=== PATIENT | male | born 1960 | race African-American/Black ===

== ENCOUNTER 2017-05-05 16:34 | Emergency (ER) | payer OTHER ==
[~2017-05-05] VITALS: Ht 177.8 cm; Wt 95.3 kg
--- NOTE | 2017-05-05 17:14 | Diagnostic Imaging Report ---
Indications: Altered mental status Technique: Spiral acquisitions obtained through the brain. Angled axial and coronal 5 x 5 mm slices were reconstructed. Total dose length product 1369 mGycm. CTDI vol(s) 70 mGy. Dose reduction achieved using automated exposure control Comparison: None Findings: There is evidence of prior left frontotemporoparietal craniotomy. There is encephalomalacia of the inferior left frontal lobe and anterior left temporal lobe. No evidence of acute intracranial hemorrhage or edema. No mass effect nor midline shift. Normal for age ventricles and extra-axial CSF spaces. Only minimal ex vacuo dilatation related to the encephalomalacia. There is equivocal slight enhancement of the arteries and veins, may indicate recent contrast injection elsewhere. The included orbits and sinuses are unremarkable. There is evidence of old nasal fracture deformity. Impression: Negative for acute intracranial bleed or mass effect Evidence of left convexity craniotomy Left temporal and frontal encephalomalacia, presumed related above. Correlate with surgical history. Other findings as noted The CT scanner at [facility] is accredited by the [employer] and the scans are performed using protocols designed to limit radiation exposure to as low as reasonably achievable to attain images of sufficient resolution adequate for diagnostic evaluation.
[2017-05-05 17:30] VITALS: BP 138/80
[2017-05-05 17:47] LABS: BASOPHILS % (AUTO) 0.5 % (0.0-2.0); EOSINOPHILS % (AUTO) 0.4 % (0.0-3.0); LYMPHOCYTES % (AUTO) 15.8 % (20.0-45.0); MEAN CORPUSCULAR HEMOGLOBIN 32.7 PG (27.0-31.0); MEAN CORPUSCULAR HGB CONC 33.3 G/DL (32.0-36.0); MEAN CORPUSCULAR VOLUME 98 FL (80-99); MEAN PLATELET VOLUME 5.5 FL (6.5-10.1); MONOCYTES % (AUTO) 8.2 % (1.0-10.0); NEUTROPHILS % (AUTO) 75.1 % (45.0-75.0); PLATELET COUNT 466 K/UL (150-450); RED BLOOD COUNT 5.91 M/UL (4.70-6.10); RED CELL DISTRIBUTION WIDTH 12.6 % (11.6-14.8); WHITE BLOOD COUNT 10.4 K/UL (4.8-10.8)
[2017-05-05 17:51] LABS: ANION GAP 13 mmol/L (5-15); CALCIUM 9.4 MG/DL (8.5-10.1); CARBON DIOXIDE 25 MMOL/L (21-32); CHLORIDE 102 MMOL/L (98-107); CREATININE 1.1 MG/DL (0.55-1.30); GLOMERULAR FILTRATION RATE > 60 mL/min (>60); POTASSIUM 5.6 MMOL/L (3.5-5.1); SODIUM 140 MMOL/L (136-145)
[2017-05-05 18:01] LABS: ALANINE AMINOTRANSFERASE 24 U/L (12-78); ALCOHOL 283 mg/dL; ASPARTATE AMINO TRANSFERASE 40 U/L (15-37)
[2017-05-05 18:03] LABS: BILIRUBIN,DIRECT 0.1 MG/DL (0.0-0.3)
[2017-05-05 18:04] LABS: ACETAMINOPHEN < 2 MCG/ML (10-30)
[2017-05-05] MEDS ORDERED: Norco 5mg/325mg tab ORAL ONE (19:00)
[2017-05-05 19:29] VITALS: BP 138/80
--- NOTE | 2017-05-05 21:50 | Emergency Room Report ---
History of Present Illness General Chief Complaint: Alcohol Intoxication Source: EMS Present Illness HPI 56-year-old male presents ED for evaluation. Per EMS patient was found to on the street altered today. Questionable EtOH abuse. Patient has a wheelchair. Upon arrival patient unable to provide any additional history. No signs of distress. No other aggravating or leading factors. No other associated symptoms Allergies: Coded Allergies: VANCOMYCIN (Verified Allergy, Unknown, 08/01/15) UNABLE TO ASSESS (Unverified , 05/05/17) Patient History Past Medical History: seizures, psych hx, other - parkinson Past Surgical History: none Pertinent Family History: none Social History: Denies: smoking, alcohol use, drug use Immunizations: UTD Reviewed Nursing Documentation: PMH: Agreed, PSxH: Agreed Nursing Documentation-PMH Past Medical History: No History, Except For History Of Psychiatric Problem: Yes Hx Neurological Problems: Yes - PARKINSON Hx Seizures: Yes Review of Systems All Other Systems: limited Physical Exam Vital Signs Date Time Temp Pulse Resp B/P (MAP) Pulse Ox O2 Delivery O2 Flow Rate FiO2 05/05/17 16:23 97.9 104 18 138/80 99 Room Air Sp02 EP Interpretation: reviewed, normal General Appearance: lethargic Head: normocephalic Eyes: bilateral eye normal inspection, bilateral eye PERRL ENT: normal ENT inspection Neck: normal inspection Respiratory: chest non-tender, lungs clear, normal breath sounds, speaking full sentences Cardiovascular #1: regular rate, rhythm, no edema Gastrointestinal: normal bowel sounds, non tender, soft, non-distended, no guarding, no rebound Rectal: deferred Genitourinary: no CVA tenderness Musculoskeletal: normal inspection Neurologic: other - lethargic Psychiatric: other - lethargic Skin: normal inspection Lymphatic: normal inspection Medical Decision Making Diagnostic Impression: Primary Impression: Acute alcoholic intoxication Qualified Codes: F10.929 - Alcohol use, unspecified with intoxication, unspecified Additional Impression: Drug-seeking behavior ER Course Hospital Course 56-year-old M presents to ED with altered mental status. found on street Differential diagnoses include: Psychosis, EtOH, drug abuse Clinical course patient placed on stretcher. On shelter monitor. After initial history and physical ordered labs, IV fluids, CT brain. Labs reviewed-electrolytes okay, no leukocytosis, hemoglobin/hematocrit stable, ETOH elevated CT brain shows no acute pathology, encephalomalacia noted Patient is now awake alert oriented x3. Patient is requesting OxyContin. States that he takes it every 4 hours. I explained to patient that we do not provide chronic pain medication. I offered him norco, but he refused. Patient at this point became belligerent started screaming and yelling. Security is at bedside to escort patient from emergency room as he is stable for discharge i. I feel this is a highly complex case requiring extensive working including EKG/Rhythm strip, Xray/CT/US, Blood/urine lab work, repeat exams while in ED, and administration of strong opiates/narcotics for pain control, admission to hospital or close patient follow up. Diagnosis - alcohol intxoication, drug-seeking behavior Stable and discharged to home. Followup with PMD. Return to ED if symptoms recur or worsen Labs Test 05/05/17 17:10 White Blood Count 10.4 K/UL (4.8-10.8) Red Blood Count 5.91 M/UL (4.70-6.10) Hemoglobin 19.3 G/DL (14.2-18.0) Hematocrit 58.0 % (42.0-52.0) Mean Corpuscular Volume 98 FL (80-99) Mean Corpuscular Hemoglobin 32.7 PG (27.0-31.0) Mean Corpuscular Hemoglobin Concent 33.3 G/DL (32.0-36.0) Red Cell Distribution Width 12.6 % (11.6-14.8) Platelet Count 466 K/UL (150-450) Mean Platelet Volume 5.5 FL (6.5-10.1) Neutrophils (%) (Auto) 75.1 % (45.0-75.0) Lymphocytes (%) (Auto) 15.8 % (20.0-45.0) Monocytes (%) (Auto) 8.2 % (1.0-10.0) Eosinophils (%) (Auto) 0.4 % (0.0-3.0) Basophils (%) (Auto) 0.5 % (0.0-2.0) Sodium Level 140 MMOL/L (136-145) Potassium Level 5.6 MMOL/L (3.5-5.1) Chloride Level 102 MMOL/L (98-107) Carbon Dioxide Level 25 MMOL/L (21-32) Anion Gap 13 mmol/L (5-15) Blood Urea Nitrogen 27 mg/dL (7-18) Creatinine 1.1 MG/DL (0.55-1.30) Estimat Glomerular Filtration Rate > 60 mL/min (>60) Glucose Level 97 MG/DL (74-106) Calcium Level 9.4 MG/DL (8.5-10.1) Total Bilirubin 1.2 MG/DL (0.2-1.0) Direct Bilirubin 0.1 MG/DL (0.0-0.3) Aspartate Amino Transf (AST/SGOT) 40 U/L (15-37) Alanine Aminotransferase (ALT/SGPT) 24 U/L (12-78) Alkaline Phosphatase 122 U/L (46-116) Total Protein 8.0 G/DL (6.4-8.2) Albumin 3.9 G/DL (3.4-5.0) Globulin 4.1 g/dL Albumin/Globulin Ratio 1.0 (1.0-2.7) Salicylates Level 0.5 ug/mL (2.8-20) Acetaminophen Level < 2 MCG/ML (10-30) Serum Alcohol 283 mg/dL CT/MRI/US Diagnostic Results CT/MRI/US Diagnostic Results : Imaging Test Ordered: CT Head Impression encephalomalacia. no acute process Last Vital Signs Date Time Temp Pulse Resp B/P (MAP) Pulse Ox O2 Delivery O2 Flow Rate FiO2 05/05/17 19:29 97.9 81 18 138/80 99 Room Air Status: improved Disposition: HOME, SELF-CARE Condition: Stable Referrals: [facility],REFERRING (PCP) Patient Instructions: Alcohol Intoxication JOHN SCHROEDER M.D. May 05, 2017 21:50
[2017-05-14] MEDS ORDERED: SINEMET 25-1001 EAC1 ORAL (09:39)
[2017-05-14] MEDS ORDERED: TYLENOL325 MG ORAL (09:39)
[2017-05-14] MEDS ORDERED: IBUPROFEN600 MG ORAL (09:39)
== END 2017-05-05 19:29 | disposition home or self-care (01) ==
LOC: EDBD 16:34 → EMR 18:15
DX: F10.129 Alcohol abuse with intoxication, unspecified (principal); Y90.8 Blood alcohol level of 240 mg/100 ml or more; G93.89 Other specified disorders of brain; Z76.5 Malingerer [conscious simulation]; G20 Parkinson's disease; Z88.1 Allergy status to other antibiotic agents
CPT/HCPCS: 36415; 70450; 80053; 80329; 82248; 85025; 96360; 99284

== ENCOUNTER 2017-05-11 18:11 | Emergency (ER) | payer OTHER ==
[~2017-05-11] VITALS: Ht 177.8 cm; Wt 86.2 kg
[2017-05-11] MEDS: Sinemet 25/100 tab ORAL STA ×2 (18:16→18:34)
[2017-05-11] MEDS: Ketorolac 30mg Inj IV ONE ×2 (18:30→18:35)
--- NOTE | 2017-05-11 18:32 | Emergency Room Report ---
History of Present Illness General Chief Complaint: General Complaint Source: Patient (Isidro Kendall M.D.) Present Illness HPI Patient presents with total body pain. He states his pain in his neck and also in his lower back it radiates down into his legs. This is chronic pain. He takes gabapentin and oxycodone. He's been out of his medications because he went back to [place] to go to a of aunt. Pain 10/10, aching and burning - neck and legs (but also total body). Denies recent trauma. No blood thinners, numbness, incontinence. When he returned he was supposed to go to rehabilitation. He did not like it and so he signed out. Went to a secondary rehabilitation and didn't have his medications. He's been off his medications for many days. This led to his drinking alcohol and also taking drugs "top control the pain". He also alleges he has Parkinsons. States he take a "yellow" pill TID. Patient seen here 05/05 for similar presentation. (Also August 2015 for refill of chronic pain meds.) He had to be escorted out by security due to belligerent attitude. Denies SI or HI. Embarrassed about "doing drugs" and states he never had abused drugs in the past. He gets around in a wheelchair. Wheelchair not with patient here. (Isidro Kendall M.D.) Allergies: Coded Allergies: VANCOMYCIN (Verified Allergy, Unknown, 08/01/15) Patient History Past Medical History: see triage record Social History: Reports: smoking, alcohol use, drug use Social History Narrative assisted-living Reviewed Nursing Documentation: PMH: Agreed, PSxH: Agreed (Isidro Kendall M.D.) Nursing Documentation-PMH Hx Seizures: Yes (Isidro Kendall M.D.) Review of Systems All Other Systems: negative except mentioned in HPI (Isidro Kendall M.D.) Physical Exam Vital Signs Date Time Temp Pulse Resp B/P (MAP) Pulse Ox O2 Delivery O2 Flow Rate FiO2 05/11/17 18:13 99.0 100 16 102/72 98 Room Air Sp02 EP Interpretation: reviewed, normal General Appearance: well appearing, no apparent distress, GCS 15, other - alcohol on breath Head: normocephalic Eyes: bilateral eye PERRL, bilateral eye Scleral Injection ENT: moist mucus membranes Neck: full range of motion - but states he has pain in his neck, supple Respiratory: lungs clear, normal breath sounds Cardiovascular #1: regular rate, rhythm Cardiovascular #2: 2+ radial (R) Gastrointestinal: normal inspection, non tender, no mass, non-distended, decreased bowel sounds Musculoskeletal: back normal, normal range of motion, no calf tenderness, tender - thighs Neurologic: alert, oriented x3, motor strength/tone normal - UE, no cogwheeling or rigidity, sensory intact, nystagmus Psychiatric: other - tearfull, beligerant to staff, demanding morphine, deshevelled Reflexes: 1+ knee (R), 1+ knee (L) Skin: normal inspection, warm/dry (Isidro Kendall M.D.) Medical Decision Making Diagnostic Impression: Primary Impression: Acute alcoholic intoxication Qualified Codes: F10.929 - Alcohol use, unspecified with intoxication, unspecified Additional Impressions: Drug-seeking behavior Alleged Parkinson's Disease ER Course The patient presents with noncompliance, alcohol and drug abuse history of Parkinson's. Differential includes drug and alcohol abuse, depression, noncompliance, exacerbation of chronic pain, drug-seeking behavior, left right abnormality and occult infection amongst others. Evaluation will be with EKG, chest x-ray and labs. The patient be treated with Sinemet, Pepcid and Toradol. Patient refusing several of meds. Some labs not done and patient refuses repeat stick. Sleeping without distress or pain. Signed out to Dr. Haider for re-assessment when sober. Laboratory Tests Test 05/11/17 18:25 05/11/17 19:00 Urine Color Pale yellow Urine Appearance Clear Urine pH 6 (4.5-8.0) Urine Specific [address] 1.010 (1.005-1.035) Urine Protein Negative (NEGATIVE) Urine Glucose (UA) Negative (NEGATIVE) Urine Ketones Negative (NEGATIVE) Urine Occult Blood Negative (NEGATIVE) Urine Nitrite Negative (NEGATIVE) Urine Bilirubin Negative (NEGATIVE) Urine Urobilinogen Normal MG/DL (0.0-1.0) Urine Leukocyte Esterase 1+ (NEGATIVE) H Urine RBC 0 /HPF (0 - 0) Urine WBC 5-10 /HPF (0 - 0) H Urine Squamous Epithelial Cells Occasional /LPF Urine Bacteria Few /HPF (NONE) Urine Opiates Screen Negative (NEGATIVE) Urine Barbiturates Screen Negative (NEGATIVE) Phencyclidine (PCP) Screen Negative (NEGATIVE) Urine Amphetamines Screen Negative (NEGATIVE) Urine Benzodiazepines Screen Negative (NEGATIVE) Urine Cocaine Screen Negative (NEGATIVE) Urine Marijuana (THC) Screen Positive (NEGATIVE) H Sodium Level 142 MMOL/L (136-145) Potassium Level 3.9 MMOL/L (3.5-5.1) Chloride Level 106 MMOL/L (98-107) Carbon Dioxide Level 28 MMOL/L (21-32) Anion Gap 8 mmol/L (5-15) Blood Urea Nitrogen 11 mg/dL (7-18) Creatinine 1.0 MG/DL (0.55-1.30) Estimate Glomerular Filtration Rate > 60 mL/min (>60) Glucose Level 100 MG/DL (74-106) Calcium Level 8.9 MG/DL (8.5-10.1) Total Bilirubin 0.3 MG/DL (0.2-1.0) Aspartate Amino Transferase (AST) 18 U/L (15-37) Alanine Aminotransferase (ALT) 21 U/L (12-78) Alkaline Phosphatase 93 U/L (46-116) Total Creatine Kinase 71 U/L (26-308) Troponin I 0.000 ng/mL (0.000-0.056) Total Protein 6.9 G/DL (6.4-8.2) Albumin 3.2 G/DL (3.4-5.0) L Globulin 3.7 g/dL Albumin/Globulin Ratio 0.9 (1.0-2.7) L Salicylates Level 0.9 ug/mL (2.8-20) L Acetaminophen Level < 10 MCG/ML (10-30) L Serum Alcohol 180 mg/dL Patient refused redraw of labs. (Isidro Kendall M.D.) ER Course The patient was noted to have improvement in his mental status. The patient was discharged back to his living facility with prescription for his Parkinson' s medications. Patient reports having his wheelchair at home ([place]dom[place] Acuña) EKG Diagnostic Results Rate: normal Rhythm: NSR ST Segments: no acute changes (Isidro Kendall M.D.) Rhythm Strip Diag. Results EP Interpretation: yes Rhythm: NSR, no PVC's, no ectopy (Isidro Kendall M.D.) Last Vital Signs Date Time Temp Pulse Resp B/P (MAP) Pulse Ox O2 Delivery O2 Flow Rate FiO2 05/11/17 23:45 98.8 86 20 115/65 96 Nasal Cannula 2.0 VS shortly after sign out. Status: improved (Isidro Kendall M.D.) Status: improved (Baldomero Acuña) Disposition: ASSISTED LIVING Condition: Improved Scripts Acetaminophen (Tylenol) 325 Mg Tablet 650 MG ORAL Q6H Y for Prn Pain/Headache/Temp > 101, #20 TAB 0 Refills Prov: Isidro Kendall M.D. 05/12/17 Ibuprofen* (MOTRIN*) 600 Mg Tablet 600 MG ORAL Q6H Y for For Pain, #20 TAB Prov: Isidro Kendall M.D. 05/12/17 Carbidopa/Levodopa 25-100 Mg* (SINEMET 25-100 MG TABLET*) 1 Each Tablet 2 TAB ORAL THREE TIMES A DAY, #60 TAB Prov: Isidro Kendall M.D. 05/12/17 Isidro Kendall M.D. May 11, 2017 18:32 [place] May 12, 2017 09:59
[2017-05-11 18:43] LABS: APPEARANCE,URINE CLEAR; KETONES,URINE NEGATIVE (NEGATIVE); LEUKOCYTE ESTERASE ,URINE 1+ (NEGATIVE); NITRITE,URINE NEGATIVE (NEGATIVE); PH,URINE 6 (4.5-8.0); PROTEIN,URINE NEGATIVE (NEGATIVE); UROBILINOGEN,URINE NORMAL MG/DL (0.0-1.0)
[2017-05-11 18:56] LABS: BACTERIA,URINE FEW /HPF; RBC,URINE 0 /HPF (0 - 0); SQUAMOUS EPITHELIAL CELL,UR OCCASIONAL /LPF (NONE/OCC)
[2017-05-11 19:15] VITALS: BP 108/68
[2017-05-11 19:32] LABS: ANION GAP 8 mmol/L (5-15); CALCIUM 8.9 MG/DL (8.5-10.1); CARBON DIOXIDE 28 MMOL/L (21-32); CHLORIDE 106 MMOL/L (98-107); GLOMERULAR FILTRATION RATE > 60 mL/min (>60); POTASSIUM 3.9 MMOL/L (3.5-5.1); SODIUM 142 MMOL/L (136-145)
[2017-05-11 19:36] LABS: ALANINE AMINOTRANSFERASE 21 U/L (12-78); ALBUMIN/GLOBULIN RATIO 0.9 (1.0-2.7); ALCOHOL 180 mg/dL; ASPARTATE AMINO TRANSFERASE 18 U/L (15-37); TOTAL PROTEIN 6.9 G/DL (6.4-8.2)
[2017-05-11 19:38] LABS: ACETAMINOPHEN < 10 MCG/ML (10-30)
[2017-05-11 20:30] VITALS: BP 112/64
[2017-05-11 21:30] VITALS: BP 116/61
[2017-05-11 22:30] VITALS: BP 113/62
[2017-05-11 23:45] VITALS: BP 115/65
[2017-05-12] MEDS ORDERED: TYLENOL325 MG ORAL (00:09)
[2017-05-12] MEDS ORDERED: SINEMET 25-1001 EAC1 ORAL (00:09)
[2017-05-12] MEDS ORDERED: IBUPROFEN600 MG ORAL (00:09)
[2017-05-12] MEDS ORDERED: Sinemet 25/100 tab ORAL ONE (01:45)
[2017-05-12 03:30] VITALS: BP 108/60
[2017-05-12 05:15] VITALS: BP 120/69
[2017-05-12 08:09] VITALS: BP 124/85
[2017-05-12] MEDS ORDERED: Thiamine 100mg tab ORAL ONE (09:00)
[2017-05-12 09:17] VITALS: BP 121/91
[2017-05-12 13:23] VITALS: BP 121/81
--- NOTE | 2017-05-12 19:22 | Cardiology Report ---
APPROVED REPORT EKG Measurement Heart [id number] Normal sinus rhythm Left anterior fascicular block Abnormal ECG
[2017-05-14] MEDS ORDERED: TYLENOL325 MG ORAL (09:39)
[2017-05-14] MEDS ORDERED: SINEMET 25-1001 EAC1 ORAL (09:39)
[2017-05-14] MEDS ORDERED: IBUPROFEN600 MG ORAL (09:39)
== END 2017-05-12 13:23 | disposition home or self-care (01) ==
LOC: EDBD 18:11 → EMR 19:33
DX: F10.929 Alcohol use, unspecified with intoxication, unspecified (principal); Z76.5 Malingerer [conscious simulation]; F17.200 Nicotine dependence, unspecified, uncomplicated
CPT/HCPCS: 36415; 80053; 80307; 80329; 81003; 82550; 84484; 93005; 96361; 96374; 99284

== ENCOUNTER 2017-05-25 17:48 | Emergency (ER) | payer OTHER ==
[~2017-05-25] VITALS: Ht 165.1 cm; Wt 86.2 kg
[~2017-05-25 17:48] MED LIST: IBUPROFEN600 MG ORAL; SINEMET 25-1001 EAC1 ORAL; TYLENOL325 MG ORAL
--- NOTE | 2017-05-25 19:02 | Emergency Room Report ---
History of Present Illness General Chief Complaint: Seizure Source: Patient Present Illness HPI 57-year-old male, history of Parkinson's disease on medication, also history of seizures, alcohol abuse, presenting with seizure. Patient states that he lives alone, felt like he had a seizure. Called 911. States that he drinks every day his last drink was this afternoon. States that he is not on anything for the seizures. Allergies: Coded Allergies: VANCOMYCIN (Verified Allergy, Unknown, 08/01/15) Patient History Past Medical History: see triage record Past Surgical History: none Pertinent Family History: none Reviewed Nursing Documentation: PMH: Agreed, PSxH: Agreed Nursing Documentation-PMH Hx Neurological Problems: Yes - parkinson Hx Seizures: Yes Review of Systems All Other Systems: negative except mentioned in HPI Physical Exam Vital Signs Date Time Temp Pulse Resp B/P (MAP) Pulse Ox O2 Delivery O2 Flow Rate FiO2 05/25/17 17:39 97.3 85 15 120/73 95 Room Air Sp02 EP Interpretation: reviewed, normal General Appearance: other - angry male, awake and alert, ff commands Head: normocephalic, atraumatic Eyes: bilateral eye normal inspection, bilateral eye PERRL, bilateral eye EOMI ENT: normal ENT inspection, normal pharynx, normal voice, moist mucus membranes , other - no tongue fasciculations Neck: normal inspection, full range of motion, supple Respiratory: normal inspection, lungs clear, normal breath sounds, no respiratory distress, no retraction, no wheezing, speaking full sentences, chest symmetrical Cardiovascular #1: normal inspection, regular rate, rhythm, normal capillary refill Cardiovascular #2: 2+ radial (R), 2+ radial (L) Gastrointestinal: normal inspection, non tender, soft, non-distended, no guarding Genitourinary: no CVA tenderness Musculoskeletal: normal inspection, back normal, normal range of motion, non- tender Neurologic: normal inspection, alert, oriented x3, responsive, motor strength/ tone normal, sensory intact, speech normal, other - +resting hand tremor Psychiatric: normal inspection, judgement/insight normal, memory normal Skin: normal inspection, normal color, no rash, warm/dry, well hydrated, normal turgor Medical Decision Making Diagnostic Impression: Primary Impression: Seizure disorder ER Course 57-year-old male, Parkinson's, alcohol abuse, with p/w seizure DDX: Alcohol withdrawal versus Primary seizure, triggered by infection UTI/PNA vs. dehydration Electrolyte disturbance: hypoglycemia vs. hyponatremia vs. hypocalcemia vs. hypomagnesemia Cardiac: Arrythmia/acs Intracranial pathology: intracranial bleed, stroke Tox Plan: BGM EKG Labs Signed out patient to Dr Kendall 57 yo M with parkinsons possible seizure, aox4 in ED. +etoh pending sobriety EKG Diagnostic Results EP Interpretation: Yes Rate: normal Rhythm: NSR ST Segments: Difficulty to motion artifact however no acute ST-T changes seen ASA given to patient: No Rhythm Strip EP Interpretation: Yes Rate: 89 Rhythm: NSR, no PVCs, no ectopy Chest X-ray CXR: Ordered: Yes 1 view Indication: Seizure EP interpretation: Yes Interpretation: No consolidation, no effusion, no PTX, no acute cardiopulmonary disease Impression: No acute disease Electronically signed by Bryce Recinos MD Laboratory Tests Test 05/25/17 19:07 05/25/17 20:30 Urine Opiates Screen Negative (NEGATIVE) Urine Barbiturates Screen Negative (NEGATIVE) Phencyclidine (PCP) Screen Negative (NEGATIVE) Urine Amphetamines Screen Negative (NEGATIVE) Urine Benzodiazepines Screen Negative (NEGATIVE) Urine Cocaine Screen Negative (NEGATIVE) Urine Marijuana (THC) Screen Positive (NEGATIVE) H White Blood Count 6.4 K/UL (4.8-10.8) Red Blood Count 5.08 M/UL (4.70-6.10) Hemoglobin 16.6 G/DL (14.2-18.0) Hematocrit 52.3 % (42.0-52.0) H Mean Corpuscular Volume 103 FL (80-99) H Mean Corpuscular Hemoglobin 32.6 PG (27.0-31.0) H Mean Corpuscular Hemoglobin Concent 31.7 G/DL (32.0-36.0) L Red Cell Distribution Width 13.2 % (11.6-14.8) Platelet Count 380 K/UL (150-450) Mean Platelet Volume 5.2 FL (6.5-10.1) L Neutrophils (%) (Auto) 55.1 % (45.0-75.0) Lymphocytes (%) (Auto) 34.2 % (20.0-45.0) Monocytes (%) (Auto) 8.2 % (1.0-10.0) Eosinophils (%) (Auto) 1.2 % (0.0-3.0) Basophils (%) (Auto) 1.2 % (0.0-2.0) Sodium Level 145 MMOL/L (136-145) Potassium Level 4.0 MMOL/L (3.5-5.1) Chloride Level 106 MMOL/L (98-107) Carbon Dioxide Level 29 MMOL/L (21-32) Anion Gap 10 mmol/L (5-15) Blood Urea Nitrogen 12 mg/dL (7-18) Creatinine 0.8 MG/DL (0.55-1.30) Estimate Glomerular Filtration Rate > 60 mL/min (>60) Glucose Level 83 MG/DL (74-106) Calcium Level 8.6 MG/DL (8.5-10.1) Total Bilirubin 0.3 MG/DL (0.2-1.0) Aspartate Amino Transferase (AST) 21 U/L (15-37) Alanine Aminotransferase (ALT) 18 U/L (12-78) Alkaline Phosphatase 101 U/L (46-116) Troponin I 0.000 ng/mL (0.000-0.056) Total Protein 8.0 G/DL (6.4-8.2) Albumin 3.9 G/DL (3.4-5.0) Globulin 4.1 g/dL Albumin/Globulin Ratio 1.0 (1.0-2.7) Acetaminophen Level < 2 MCG/ML (10-30) L Serum Alcohol 215 mg/dL Last Vital Signs Date Time Temp Pulse Resp B/P (MAP) Pulse Ox O2 Delivery O2 Flow Rate FiO2 05/25/17 17:39 97.3 85 15 120/73 95 Room Air Bryce Recinos M.D. May 25, 2017 19:02
[2017-05-25 19:15] VITALS: BP 120/73
[2017-05-25] MEDS ORDERED: LORazepam Inj 2mg/ml 1ml IV ONE (19:15)
[2017-05-25 21:04] LABS: BASOPHILS % (AUTO) 1.2 % (0.0-2.0); EOSINOPHILS % (AUTO) 1.2 % (0.0-3.0); LYMPHOCYTES % (AUTO) 34.2 % (20.0-45.0); MEAN CORPUSCULAR HEMOGLOBIN 32.6 PG (27.0-31.0); MEAN CORPUSCULAR HGB CONC 31.7 G/DL (32.0-36.0); MEAN CORPUSCULAR VOLUME 103 FL (80-99); MEAN PLATELET VOLUME 5.2 FL (6.5-10.1); MONOCYTES % (AUTO) 8.2 % (1.0-10.0); NEUTROPHILS % (AUTO) 55.1 % (45.0-75.0); PLATELET COUNT 380 K/UL (150-450); RED BLOOD COUNT 5.08 M/UL (4.70-6.10); RED CELL DISTRIBUTION WIDTH 13.2 % (11.6-14.8); WHITE BLOOD COUNT 6.4 K/UL (4.8-10.8)
[2017-05-25 21:13] LABS: ANION GAP 10 mmol/L (5-15); CALCIUM 8.6 MG/DL (8.5-10.1); CARBON DIOXIDE 29 MMOL/L (21-32); CHLORIDE 106 MMOL/L (98-107); CREATININE 0.8 MG/DL (0.55-1.30); GLOMERULAR FILTRATION RATE > 60 mL/min (>60); SODIUM 145 MMOL/L (136-145)
[2017-05-25 21:15] VITALS: BP 129/78
[2017-05-25 21:18] LABS: ACETAMINOPHEN < 2 MCG/ML (10-30); ALANINE AMINOTRANSFERASE 18 U/L (12-78); ALCOHOL 215 mg/dL; ASPARTATE AMINO TRANSFERASE 21 U/L (15-37)
[2017-05-25 23:15] VITALS: BP 122/78
[2017-05-26 00:30] VITALS: BP 128/70
--- NOTE | 2017-05-26 09:53 | Diagnostic Imaging Report ---
Indication: Chest pain Technique: XRAY Chest 1v Comparison: None. Findings: The cardiomediastinal silhouette is normal. The lungs are clear. There is no evidence of pleural fluid. The bones are unremarkable. Impression: Normal chest.
--- NOTE | 2017-05-26 19:13 | Cardiology Report ---
APPROVED REPORT EKG Measurement Heart [id number] [place] [id number] Normal sinus rhythm Left axis deviation Septal infarct, age undetermined Abnormal ECG
== END 2017-05-26 00:30 | disposition home or self-care (01) ==
LOC: EDBD 17:48 → EMR 19:00
DX: G40.909 Epilepsy, unspecified, not intractable, without status epilepticus (principal); G20 Parkinson's disease; Z88.1 Allergy status to other antibiotic agents; F10.10 Alcohol abuse, uncomplicated
CPT/HCPCS: 36415; 71010; 80053; 80307; 80329; 84484; 85025; 93005; 96374; 99284

== ENCOUNTER 2017-10-09 12:09 | Inpatient (IN) | payer OTHER ==
[~2017-10-09] VITALS: Ht 172.7 cm; Wt 78.0 kg
[2017-10-09] MEDS ORDERED: OXYCODONE20 MG/1 M1 ORAL (12:57)
[2017-10-09] MEDS ORDERED: DILANTIN100 MG ORAL (12:57)
--- NOTE | 2017-10-09 13:01 | Diagnostic Imaging Report ---
Indication: Seizure Technique: Contiguous 5 mm thick transaxial imaging of the head obtained in a Siemens Sensation [address] scanner. Soft tissue and bone windows generated. Automatic Exposure Control was utilized. Total Dose length Product (DLP): 1386.[address] Dose Index Volume (CTDIvol): 70.38 mGy Comparison: 05/05/2017 Findings: There is a left temporal frontal encephalomalacia. Patient sat previous surgery with the large area of craniotomy noted on the left. Findings are unchanged from the last examination. There is no mass effect or edema or evidence of acute hemorrhage. Generalized atrophy of the brain noted. Paranasal sinuses are clear as visualized. IMPRESSION: No acute intracranial hemorrhage, mass effect or edema. No change from 05/05/2017. Left frontal temporal encephalomalacia associated with prior surgery The CT scanner at [facility] is accredited by the [employer] and the scans are performed using dose optimization techniques as appropriate to a performed exam including Automatic Exposure control.
[2017-10-09] MEDS ORDERED: levETIRAcetam 500mg/NS100ml 100 ML IVPB ONE (13:45)
[2017-10-09 13:55] LABS: BASOPHILS % (AUTO) 0.7 % (0.0-2.0); EOSINOPHILS % (AUTO) 0.7 % (0.0-3.0); HEMATOCRIT 47.3 % (42.0-52.0); HEMOGLOBIN 14.8 G/DL (14.2-18.0); LYMPHOCYTES % (AUTO) 19.1 % (20.0-45.0); MEAN CORPUSCULAR VOLUME 100 FL (80-99); MONOCYTES % (AUTO) 6.2 % (1.0-10.0); NEUTROPHILS % (AUTO) 73.3 % (45.0-75.0); PLATELET COUNT 466 K/UL (150-450); RED BLOOD COUNT 4.73 M/UL (4.70-6.10); RED CELL DISTRIBUTION WIDTH 12.4 % (11.6-14.8); WHITE BLOOD COUNT 8.6 K/UL (4.8-10.8)
[2017-10-09 14:15] LABS: ANION GAP 11 mmol/L (5-15); BLOOD UREA NITROGEN 10 mg/dL (7-18); CARBON DIOXIDE 28 MMOL/L (21-32); CHLORIDE 103 MMOL/L (98-107); CREATININE 0.8 MG/DL (0.55-1.30); POTASSIUM 4.7 MMOL/L (3.5-5.1); SODIUM 142 MMOL/L (136-145)
[2017-10-09 14:19] LABS: ALANINE AMINOTRANSFERASE 23 U/L (12-78); ALBUMIN 3.6 G/DL (3.4-5.0); ALBUMIN/GLOBULIN RATIO 0.9 (1.0-2.7); ALKALINE PHOSPHATASE 95 U/L (46-116); ASPARTATE AMINO TRANSFERASE 19 U/L (15-37); BILIRUBIN,TOTAL 0.4 MG/DL (0.2-1.0); CREATINE KINASE 52 U/L (26-308)
[2017-10-09 14:42] VITALS: BP 145/77
--- NOTE | 2017-10-09 15:32 | Emergency Room Report ---
History of Present Illness General Chief Complaint: Seizure Source: Patient Present Illness HPI This patient has a history of seizures status post craniectomy and tumor removal of meningioma. He presents with breakthrough seizures from a [facility]. He states that he normally uses Klonopin and is out of this. He also has a history of Parkinson's and substance abuse to include alcohol and cocaine. He denies recent illness. He has no other complaints. Allergies: Coded Allergies: VANCOMYCIN (Verified Allergy, Unknown, 08/01/15) Patient History Past Medical History: see triage record, seizures, other - Parkinsons. Past Surgical History: other - craniectomy, substance abuse Social History: Reports: drug use Reviewed Nursing Documentation: PMH: Agreed; PSxH: Agreed Nursing Documentation-PM Past Medical History: No History, Except For History Of Psychiatric Problem: Yes - depression Hx Neurological Problems: Yes - parkinson Hx Seizures: Yes Review of Systems All Other Systems: negative except mentioned in HPI Physical Exam Vital Signs Date Time Temp Pulse Resp B/P (MAP) Pulse Ox O2 Delivery O2 Flow Rate FiO2 10/09/17 12:01 84 16 149/84 97 Room Air 10/09/17 14:42 98.0 98.0 Sp02 EP Interpretation: reviewed, normal General Appearance: no apparent distress, alert, GCS 15, non-toxic Head: normocephalic, atraumatic Eyes: bilateral eye other - strabysmus ENT: hearing grossly normal, normal pharynx, no angioedema, normal voice Neck: full range of motion, supple/symm/no masses Respiratory: chest non-tender, lungs clear, normal breath sounds, no respiratory distress, no retraction, no accessory muscle use, speaking full sentences Cardiovascular #1: regular rate, rhythm, no edema Gastrointestinal: normal bowel sounds, non tender, soft, non-distended, no guarding, no rebound Rectal: deferred Musculoskeletal: back normal, normal range of motion, non-tender Neurologic: alert, oriented x3, responsive, motor strength/tone normal, sensory intact, speech normal, other - tremor intermittently Psychiatric: judgement/insight normal, mood/affect normal, no suicidal/ homicidal ideation Skin: normal color, no rash, warm/dry, well hydrated Medical Decision Making Diagnostic Impression: Primary Impression: Seizure disorder ER Course This patient presents with a history of seizure disorder and breakthrough seizures. It appears he is noncompliant with his seizure medications. The patient's Dilantin level is un-detectable. Patient is admitted for further monitoring and seizure control. Possibly this patient needs a transition to a seizure medication that does not require monitoring or therapeutic levels, given , this patient's lifestyle that includes alcohol abuse and poor compliance with medical regimen. Laboratory Tests Test 10/09/17 13:21 10/09/17 14:00 White Blood Count 8.6 K/UL (4.8-10.8) Red Blood Count 4.73 M/UL (4.70-6.10) Hemoglobin 14.8 G/DL (14.2-18.0) Hematocrit 47.3 % (42.0-52.0) Mean Corpuscular Volume 100 FL (80-99) H Mean Corpuscular Hemoglobin 31.3 PG (27.0-31.0) H Mean Corpuscular Hemoglobin Concent 31.3 G/DL (32.0-36.0) L Red Cell Distribution Width 12.4 % (11.6-14.8) Platelet Count 466 K/UL (150-450) H Mean Platelet Volume 4.9 FL (6.5-10.1) L Neutrophils (%) (Auto) 73.3 % (45.0-75.0) Lymphocytes (%) (Auto) 19.1 % (20.0-45.0) L Monocytes (%) (Auto) 6.2 % (1.0-10.0) Eosinophils (%) (Auto) 0.7 % (0.0-3.0) Basophils (%) (Auto) 0.7 % (0.0-2.0) Sodium Level 142 MMOL/L (136-145) Potassium Level 4.7 MMOL/L (3.5-5.1) Chloride Level 103 MMOL/L (98-107) Carbon Dioxide Level 28 MMOL/L (21-32) Anion Gap 11 mmol/L (5-15) Blood Urea Nitrogen 10 mg/dL (7-18) Creatinine 0.8 MG/DL (0.55-1.30) Estimate Glomerular Filtration Rate > 60 mL/min (>60) Glucose Level 79 MG/DL (74-106) Calcium Level 9.0 MG/DL (8.5-10.1) Total Bilirubin 0.4 MG/DL (0.2-1.0) Aspartate Amino Transferase (AST) 19 U/L (15-37) Alanine Aminotransferase (ALT) 23 U/L (12-78) Alkaline Phosphatase 95 U/L (46-116) Total Creatine Kinase 52 U/L (26-308) Total Protein 7.6 G/DL (6.4-8.2) Albumin 3.6 G/DL (3.4-5.0) Globulin 4.0 g/dL Albumin/Globulin Ratio 0.9 (1.0-2.7) L Phenytoin (Dilantin) Level 1.1 ug/mL (10-20) L Urine Opiates Screen Negative (NEGATIVE) Urine Barbiturates Screen Negative (NEGATIVE) Phencyclidine (PCP) Screen Negative (NEGATIVE) Urine Amphetamines Screen Negative (NEGATIVE) Urine Benzodiazepines Screen Negative (NEGATIVE) Urine Cocaine Screen Negative (NEGATIVE) Urine Marijuana (THC) Screen Positive (NEGATIVE) H EKG Diagnostic Results Rate: normal Rhythm: NSR ST Segments: no acute changes Rhythm Strip Diag. Results EP Interpretation: yes Rate: 90's Rhythm: NSR, no PVC's, no ectopy CT/MRI/US Diagnostic Results CT/MRI/US Diagnostic Results : Imaging Test Ordered: CT head Impression No acute findings see official report. Last Vital Signs Date Time Temp Pulse Resp B/P (MAP) Pulse Ox O2 Delivery O2 Flow Rate FiO2 10/09/17 14:42 98 19 Room Air 10/09/17 14:42 98.0 145/77 97 98.0 Disposition: ADMITTED INPATIENT Condition: Serious Referrals: NON PHYSICIAN (PCP) CRYSTAL MITTAL D.O. October 09, 2017 15:32
[2017-10-09 15:39] VITALS: BP 138/94
[2017-10-09] MEDS ORDERED: LORazepam Inj 2mg/ml 1ml IV ONE (16:15)
[2017-10-09 17:57] VITALS: BP 127/90
[2017-10-09] MEDS ORDERED: Mylanta II UD 30ml ORAL PRN (19:28)
[2017-10-09 20:00] VITALS: BP 127/80
[2017-10-09] MEDS: Zolpidem 5mg tab ORAL PRN (20:21)
[2017-10-09] MEDS ORDERED: Phenytoin 100mg cap ORAL SCH (21:00)
[2017-10-09] MEDS ORDERED: Levodopa/Carbidopa 25/100 tab ORAL SCH (21:00)
[2017-10-09] MEDS: Heparin 5000 units/ml inj SUBQ SCH (21:47)
[2017-10-10] VITALS: BP 115/75
[2017-10-10] MEDS: Zolpidem 5mg tab ORAL PRN ×3 (01:29→23:52)
[2017-10-10] MEDS: LORazepam Inj 2mg/ml 1ml IV PRN ×4 (03:17→20:37)
[2017-10-10 04:00] VITALS: BP 119/62
[2017-10-10 08:00] VITALS: BP 129/80
[2017-10-10] MEDS: Levodopa/Carbidopa 25/100 tab ORAL SCH ×2 (09:00→14:06)
[2017-10-10] MEDS ORDERED: Phenytoin 100mg cap ORAL SCH (09:00)
[2017-10-10] MEDS: Heparin 5000 units/ml inj SUBQ SCH ×2 (09:01→20:39)
--- NOTE | 2017-10-10 11:14 | Consultation ---
History of Present Illness General Date patient seen: October 10, 2017 Chief Complaint: Seizure Present Illness HPI 57 year old male with history of seizures status post craniectomy and meningioma, presents to ER by paramedics with breakthrough seizures from a [id number]. He states that he normally uses Klonopin and is out of this. He also has a history of Parkinson's and substance abuse to include alcohol and cocaine. He denies recent illness. He has no other complaints. Pt is admitted for further treatment. Allergies: Coded Allergies: VANCOMYCIN (Verified Allergy, Unknown, 08/01/15) Medication History Scheduled Carbidopa/Levodopa 25-100 Mg* (Sinemet 25-100 Mg Tablet*), 2 TAB ORAL THREE TIMES A DAY Phenytoin Sodium Extended* (Dilantin*), Unknown Dose ORAL TWICE A DAY, (Reported ) Scheduled PRN Acetaminophen (Tylenol), 650 MG ORAL Q6H PRN for Prn Pain/Headache/Temp > 101 Ibuprofen* (Motrin*), 600 MG ORAL Q6H PRN for For Pain Miscellaneous Medications Oxycodone Hcl (Oxycodone Hcl), Unknown Dose ORAL, (Reported) Patient History Healthcare decision maker Resuscitation status Full Code Advanced Directive on File Past Medical/Surgical History Past Medical/Surgical History: (1) History of craniotomy (2) Seizure disorder (3) Alcohol abuse Review of Systems All Other Systems: negative except mentioned in HPI Physical Exam General Appearance: WD/WN, no apparent distress Lines, tubes and drains: peripheral HEENT: normocephalic, atraumatic Neck: non-tender, normal alignment Respiratory/Chest: chest wall non-tender, lungs clear Cardiovascular/Chest: normal peripheral pulses, normal rate Abdomen: normal bowel sounds, non tender Genitourinary/Rectal: normal genital exam Extremities: normal range of motion Skin Exam: normal pigmentation 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 Last 24 Hour Vital Signs Date Time Temp Pulse Resp B/P (MAP) Pulse Ox O2 Delivery O2 Flow Rate FiO2 10/10/17 08:00 96.3 76 20 129/80 96 Room Air 96.3 10/10/17 08:00 72 10/10/17 04:00 96.3 84 20 119/62 96 Room Air 96.3 10/10/17 04:00 80 10/10/17 00:00 87 10/10/17 00:00 97.9 90 22 115/75 98 Room Air 97.9 10/09/17 20:00 98.2 95 16 127/80 97 Room Air 98.2 10/09/17 20:00 95 10/09/17 18:55 98.0 104 23 127/90 98 Room Air 98.0 10/09/17 17:57 104 23 127/90 98 Room Air 10/09/17 15:39 98.0 98 16 138/94 97 Room Air 98.0 10/09/17 14:42 98 19 Room Air 10/09/17 14:42 98.0 98 19 145/77 97 Room Air 98.0 10/09/17 12:01 84 16 149/84 97 Room Air Intake and Output 10/09/17 10/10/17 19:00 07:00 Output Total 400 ml Balance -400 ml Output Urine Total 400 ml # Voids 1 Laboratory Tests Test 10/09/17 13:21 10/09/17 14:00 White Blood Count 8.6 K/UL (4.8-10.8) Red Blood Count 4.73 M/UL (4.70-6.10) Hemoglobin 14.8 G/DL (14.2-18.0) Hematocrit 47.3 % (42.0-52.0) Mean Corpuscular Volume 100 FL (80-99) H Mean Corpuscular Hemoglobin 31.3 PG (27.0-31.0) H Mean Corpuscular Hemoglobin Concent 31.3 G/DL (32.0-36.0) L Red Cell Distribution Width 12.4 % (11.6-14.8) Platelet Count 466 K/UL (150-450) H Mean Platelet Volume 4.9 FL (6.5-10.1) L Neutrophils (%) (Auto) 73.3 % (45.0-75.0) Lymphocytes (%) (Auto) 19.1 % (20.0-45.0) L Monocytes (%) (Auto) 6.2 % (1.0-10.0) Eosinophils (%) (Auto) 0.7 % (0.0-3.0) Basophils (%) (Auto) 0.7 % (0.0-2.0) Sodium Level 142 MMOL/L (136-145) Potassium Level 4.7 MMOL/L (3.5-5.1) Chloride Level 103 MMOL/L (98-107) Carbon Dioxide Level 28 MMOL/L (21-32) Anion Gap 11 mmol/L (5-15) Blood Urea Nitrogen 10 mg/dL (7-18) Creatinine 0.8 MG/DL (0.55-1.30) Estimat Glomerular Filtration Rate > 60 mL/min (>60) Glucose Level 79 MG/DL (74-106) Calcium Level 9.0 MG/DL (8.5-10.1) Total Bilirubin 0.4 MG/DL (0.2-1.0) Aspartate Amino Transf (AST/SGOT) 19 U/L (15-37) Alanine Aminotransferase (ALT/SGPT) 23 U/L (12-78) Alkaline Phosphatase 95 U/L (46-116) Total Creatine Kinase 52 U/L (26-308) Total Protein 7.6 G/DL (6.4-8.2) Albumin 3.6 G/DL (3.4-5.0) Globulin 4.0 g/dL Albumin/Globulin Ratio 0.9 (1.0-2.7) L Phenytoin (Dilantin) Level 1.1 ug/mL (10-20) L Urine Opiates Screen Negative (NEGATIVE) Urine Barbiturates Screen Negative (NEGATIVE) Phencyclidine (PCP) Screen Negative (NEGATIVE) Urine Amphetamines Screen Negative (NEGATIVE) Urine Benzodiazepines Screen Negative (NEGATIVE) Urine Cocaine Screen Negative (NEGATIVE) Urine Marijuana (THC) Screen Positive (NEGATIVE) H Height (Feet): 5 Height (Inches): 8.00 Weight (Pounds): 172 Medications Current Medications Medications (Trade) Dose Ordered Sig/Job Route PRN Reason Start Time Stop Time Status Last Admin Dose Admin Acetaminophen (Tylenol) 650 mg Q4H PRN ORAL fever (TEMP>100.3) 10/09/17 19:29 11/08/17 19:28 10/10/17 01:37 Al Hydroxide/Mg Hydroxide (Mylanta II) 30 ml Q6H PRN ORAL dyspepsia 10/09/17 19:28 11/08/17 19:27 Carbidopa/Levodopa (Sinemet 25/100) 2 tab THREE TIMES A DAY ORAL 10/10/17 09:00 11/09/17 08:59 10/10/17 09:00 Dextrose (Dextrose 50%) 25 ml STAT PRN IV Hypoglycemia BS 60-69mg/dl 10/09/17 19:31 11/08/17 19:30 Dextrose (Dextrose 50%) 50 ml STAT PRN IV Hypoglycemia BS less than 60mg 10/09/17 19:30 11/08/17 19:29 Heparin Sodium (Porcine) (Heparin 5000 units/ml) 5,000 units EVERY 12 HOURS SUBQ 10/09/17 21:00 11/08/17 20:59 10/10/17 09:01 Lorazepam (Ativan 2mg/ml 1ml) 2 mg EVERY HOUR PRN IV seizures 10/09/17 19:29 10/16/17 19:28 10/10/17 03:17 Ondansetron HCl (Zofran) 4 mg Q6H PRN IVP Nausea & Vomiting 10/09/17 19:29 11/08/17 19:28 Phenytoin (Dilantin) 100 mg TWICE A DAY ORAL 10/10/17 09:00 11/09/17 08:59 10/10/17 09:00 Polyethylene Glycol (Miralax) 17 gm HSPRN PRN ORAL Constipation 10/09/17 21:00 11/08/17 20:59 Zolpidem Tartrate (Ambien) 5 mg HSPRN PRN ORAL Insomnia 10/09/17 21:00 10/16/17 20:59 10/10/17 01:29 Assessment/Plan Problem List: (1) Uncontrolled seizures ICD Codes: R56.9 - Unspecified convulsions SNOMED: 96605522 (2) Non-compliance ICD Codes: Z91.19 - Patient's noncompliance with other medical treatment and regimen SNOMED: 8872373 (3) History of craniotomy ICD Codes: Z98.890 - Other specified postprocedural states SNOMED: 43226301, 762160999 (4) Seizure disorder ICD Codes: G40.909 - Epilepsy, unspecified, not intractable, without status epilepticus SNOMED: 164496133 Assessment/Plan resume Klonipin Neuro evaluation seizure precaution dvt prophylaxis. Cash Lorenzo MD October 10, 2017 11:14
[2017-10-10 12:00] VITALS: BP 134/87
--- NOTE | 2017-10-10 15:30 | Consultation ---
Consult Note Consult Note NEUROLOGY CONSULTATION: Full note dictated #[id number] 57 y/o, RH, CM with PH of PD, a meningioma on the left side s/p surgery followed by a seizure disorder during which he passes out, anxiety, a chronic pain syndrome, alcohol abuse, cocaine abuse, and frequent falls due to which he uses a motorized wheelchair. He was hospitalized on 10/09/17 for frequent seizures. He himself was unable to give me any details. ON EXAM: Problems with memory, HCF, mild anomia. Mild right VII central. Mild right FE and IP weakness. Slightly brisker reflexes on right Parkinsonian syndrome with G 2/4 tremor, G 1/4 rigidity, bradykinesia, hypomimia. Refused to try to walk. IMPRESSION: 1. 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 2. PD. REC: 1. Sinemet as per his home regimen - 25/100 - 2 tablets at 6AM, 12Noon, 6 PM. 2. Keppra 750 mg q 12 Hours (6AM & 6PM) Melissa Root M.D., M.S.P.H. MELISSA ROOT October 10, 2017 15:30
[2017-10-10 16:00] VITALS: BP 126/84
[2017-10-10 17:49] LABS: BASOPHILS % (AUTO) 0.6 % (0.0-2.0); EOSINOPHILS % (AUTO) 2.4 % (0.0-3.0); HEMATOCRIT 42.1 % (42.0-52.0); HEMOGLOBIN 13.9 G/DL (14.2-18.0); LYMPHOCYTES % (AUTO) 27.8 % (20.0-45.0); MEAN CORPUSCULAR VOLUME 97 FL (80-99); MONOCYTES % (AUTO) 2.2 % (1.0-10.0); NEUTROPHILS % (AUTO) 66.8 % (45.0-75.0); PLATELET COUNT 442 K/UL (150-450); RED BLOOD COUNT 4.33 M/UL (4.70-6.10); RED CELL DISTRIBUTION WIDTH 12.5 % (11.6-14.8); WHITE BLOOD COUNT 8.1 K/UL (4.8-10.8)
[2017-10-10] MEDS ORDERED: Levodopa/Carbidopa 25/100 tab ORAL SCH (18:00)
[2017-10-10 18:58] LABS: ALANINE AMINOTRANSFERASE 10 U/L (12-78); ALBUMIN 3.2 G/DL (3.4-5.0); ALBUMIN/GLOBULIN RATIO 0.9 (1.0-2.7); ALKALINE PHOSPHATASE 86 U/L (46-116); ANION GAP 7 mmol/L (5-15); ASPARTATE AMINO TRANSFERASE 13 U/L (15-37); BILIRUBIN,TOTAL 0.3 MG/DL (0.2-1.0); BLOOD UREA NITROGEN 17 mg/dL (7-18); CALCIUM 8.9 MG/DL (8.5-10.1); CARBON DIOXIDE 29 MMOL/L (21-32); CHLORIDE 105 MMOL/L (98-107); CREATININE 1.1 MG/DL (0.55-1.30); POTASSIUM 4.3 MMOL/L (3.5-5.1); SODIUM 141 MMOL/L (136-145)
[2017-10-10 20:00] VITALS: BP 102/77
--- NOTE | 2017-10-10 23:16 | History and Physical Report ---
DATE OF ADMISSION: 10/09/2017 CONSULTANTS: 1. Julio Root M.D. 2. Josselyn Mckinley M.D. 3. Cash Lorenzo M.D. CHIEF COMPLAINT: Seizure, tremor, Parkinson. BRIEF HISTORY: A 57-year-old male, who lives at home with history of Parkinson disease, sustained two seizures, was altered. The patient was brought to [facility], diagnosed with recurrent seizure, and admitted to telemetry for further care. Currently, slightly anxious in bed, complaining generalized joint pain. No complaint. REVIEW OF SYSTEMS: No chest pain. No shortness of breath. No nausea, vomiting, or diarrhea. PAST MEDICAL HISTORY: Seizure, Parkinson, and joint pain. PAST SURGICAL HISTORY: Craniotomy. MEDICATIONS: Percocet, Sinemet, Dilantin, Ambien, MiraLax, heparin, and carbidopa. ALLERGIES: Vancomycin. SOCIAL HISTORY: Positive smoke. Positive alcohol. No intravenous drug abuse. FAMILY HISTORY: Noncontributory. PHYSICAL EXAMINATION: GENERAL: Slightly anxious in bed, oriented x3, in no acute distress. VITAL SIGNS: Temperature is 96 degrees, pulse 72, respirations 20, and blood pressure 129/80. CARDIOVASCULAR: No murmurs. LUNGS: Distant and clear. ABDOMEN: Bowel sounds positive. Nontender and nondistended. EXTREMITIES: Show no cyanosis, clubbing, or edema. NEUROLOGIC: Moves all extremities, but there is noted left hand and right foot tremor. LABORATORY AND DIAGNOSTIC DATA: Labs at this time show platelets 466,000, otherwise, CBC is normal. BMP is normal. Urine toxicology positive for marijuana. ASSESSMENT: 1. Seizure. 2. Tremor. 3. Parkinson. 4. Joint pain. PLAN: 1. Seizure. 2. Pain control. 3. Resume home medications. 4. Dietary followup. 5. OT, PT, and dietary evaluation. 6. CBC and BMP in the morning. 7. Dr. Root, Dr. Mckinley, and Dr. Lorenzo to consult. Krishan Fraire D.O. DR: Mariaelena JOB#: [id number] CC:
--- NOTE | 2017-10-10 23:46 | Consultation ---
DATE OF CONSULTATION: 10/10/2017 NEUROLOGY CONSULTATION CONSULTING PHYSICIAN: Julio oRot M.D. REQUESTING PHYSICIAN: Krishan Fraire D.O. HISTORY: Mr. Andrew Mccallum is a 57-year-old, right-handed, gentleman, who does have a past history of Parkinson's disease for numerous years, a meningioma on the left side for which he had surgery numerous years ago followed by a seizure disorder, chronic pain syndrome, alcohol abuse, cocaine abuse, and frequent falls due to which he uses a motorized wheelchair. He tells me that he started to have seizures a few months following his meningioma surgery. When he has a seizure, he apparently passes out. There are no warnings prior to his seizures and he is uncertain as to what exactly happens when he has one of his seizures. He cannot describe what other people have seen. He then becomes a little confused and disoriented for some time following the event and then is back to his normal self. He is unable to tell me how frequently he has seizures. He is also unable to tell me if there are any definite aggravating factors, but he states that when he is under lot of stress, the seizures become more frequent. In the past, he has taken Dilantin and Keppra in unknown doses for his seizures. However, he feels that the only medicine that seems to help the most with the seizures is Klonopin. He was hospitalized on 10/09/2017 for frequent seizures. The exact description is again unavailable to us. PAST MEDICAL HISTORY: Significant for Parkinson disease, meningioma on the left side treated surgically followed by a seizure disorder, alcohol abuse, cocaine abuse, and frequent falls. FAMILY HISTORY: Nothing significant as per the patient. PERSONAL HISTORY: Home: He lives in his own apartment. 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 He has been disabled since he had his meningioma surgery. Habits: He denies use of illicit drugs, but as per the admission note, cocaine abuse has been mentioned. He states he smokes 4 to 5 cigarettes per day and used to smoke larger quantities in the past. He drinks a fifth of alcohol every week. PRESENT MEDICATIONS: Percocet, Sinemet 25/100 - 2 tablets taken tid, not the usual times that he takes at home, Dilantin 100 mg twice a day, Ambien, MiraLAX, heparin for DVT prophylaxis, lorazepam intravenously p.r.n., Zofran p.r.n., Tylenol p.r.n., and Mylanta p.r.n. PHYSICAL EXAMINATION: GENERAL: He is a well-developed, well-nourished, pleasant, but anxious gentleman, lying in bed, in no acute distress. VITAL SIGNS: Pulse 77 per minute, blood pressure 134/87 mmHg, respirations 20 per minute, and temperature 96.3 degrees Fahrenheit. HEAD: Normocephalic with left frontotemporal craniotomy defect. EENT: Examination benign. NECK: No neck rigidity was observed. NEUROLOGIC EXAMINATION: MENTAL STATUS EXAMINATION: He was awake and alert. He was oriented to person, place, and time except for the exact date. He was able to recall 3/3 words immediately, but could only remember 2/3 words in 1 minute and 3 minutes even on the second trial. He was able to remember presidents Trump through Huff Chinedu, spontaneously, but needed hints to remember through Huff senior. His mathematical skills were minimally impaired. His visuospatial function was relatively good. SPEECH: He had no dysarthria. LANGUAGE: He had a mild anomia for low-frequency words. CRANIAL NERVE EXAMINATION: II: The visual kaplan were intact on confrontation testing. III, IV & : The external ocular movements were full and the pupils 3 mm in diameter, equal, round, regular, and reactive to light. V: He had normal facial sensations, and the temporales, masseters, and pterygoids functioned normally. VII: He had a mild right VII central facial paresis. VIII: He was able to hear well bilaterally and had no nystagmus. IX: The palate moved symmetrically on phonation. X: He had no hoarseness of voice. XI: The sternocleidomastoids and trapezii functioned normally. XII: The tongue was in the midline without any fasciculations or atrophy. MOTOR SYSTEM: The tone was normal in all four extremities. Examination of muscle mass revealed no focal wasting. Examination of power revealed G 5/5 power except for G 4+/5 power in the right iliopsoas and G 5-/5 power in the right finger extensors. SENSORY EXAMINATION: He had intact sensations to pinprick, light touch, and graphesthesia. COORDINATION: He performed well on [id number]-vi-swzb and jfal-bs-wcia testing. REFLEXES: 2+ on the right and 1++ on the left in the biceps, triceps, brachioradialis, and knees, 0 at both ankles. The plantar responses were flexor bilaterally. STANCE & GAIT: Could not be tested because he refused to stand and walk. ABNORMAL MOVEMENTS: Tremor (4-5 Hz): G 2/4 in the upper and lower extremities. Rigidity: G 1/4 Bradykinesia: G 1/4 Hypomimia: G 1/4 Hypophonia: G 0/4. DIAGNOSTIC IMPRESSION: 1. Mr. Andrew Mccallum is a 57-year-old, right-handed, gentleman, who does have a past history of Parkinson's disease and a left-sided meningioma status post surgery following which he has had a seizure disorder and anxiety syndrome. When he has his seizures, he states that he passes out without any warning and following that, there is a period of confusion. He is uncertain as to what exactly happens after he has passed out and he is also unable to tell us what other people have observed. 2. On neurological examination, at this time, he does demonstrate significant problems with orientation, recent and remote memory, higher cognitive function, and a mild anomia. He does have a mild right VII central facial paresis, finger extensor weakness, and iliopsoas weakness. The deep tendon reflexes are brisker on the right side compared to the left. He also has a parkinsonian syndrome characterized by tremor, rigidity, bradykinesia, and hypomimia. 3. The CT scan of the brain without contrast performed on 10/09/2017 reveals a large area of encephalomalacia in the left frontotemporal region and a craniotomy defect in the left frontotemporal region. 4. Laboratory data obtained thus far have revealed that his CBC reveals macrocytic indices. His chemistry panel is relatively benign and his toxicology screen is positive for marijuana. 5. 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 He also has findings compatible with a parkinsonian syndrome. RECOMMENDATIONS: 1. Agree with management thus far. 2. The patient will be restarted on Sinemet as per his home regimen. He will be given Sinemet 25/100 -2 tablets to be taken at 6 a.m., 12 noon, and 6 p.m. 3. He will be started on Keppra 750 mg at 6 a.m. and 6 p.m. for seizure prophylaxis. 4. The patient was instructed on the basics of seizure hygiene: He was told to sleep well, that is sleep for at least 7 hours in the 24-hour period. Eat well, that is have a breakfast, lunch, and dinner. Stay away from tobacco, alcohol, and all illicit drugs. Take his antiseizure medicine on a regular basis. 5. The patient will be observed closely and depending on how he fares over the next day or so, further recommendations will be given. Thank you for entrusting me with the care of Mr. Mccallum. I shall follow him with you. Julio Root M.D., M.S.P.H. DR: KAMRAN JOB#: [id number] [place]
[2017-10-11] VITALS: BP 135/81
[2017-10-11 04:00] VITALS: BP 125/84
[2017-10-11] MEDS ORDERED: Levodopa/Carbidopa 25/100 tab ORAL SCH (06:00)
[2017-10-11 08:00] VITALS: BP 129/87
--- NOTE | 2017-10-11 08:34 | General Progress Note ---
Assessment/Plan Problem List: (1) Parkinson disease ICD Codes: G20 - Parkinson's disease SNOMED: 95888247 (2) Tremor ICD Codes: R25.1 - Tremor, unspecified SNOMED: 29614380 (3) Chronic pain ICD Codes: G89.29 - Other chronic pain SNOMED: 82610737 (4) Seizure disorder ICD Codes: G40.909 - Epilepsy, unspecified, not intractable, without status epilepticus SNOMED: 979655226 Status: unchanged Assessment/Plan otpt diet seizufre control neuro f/u pain control cbc bmp am Subjective Allergies: Coded Allergies: VANCOMYCIN (Verified Allergy, Unknown, 08/01/15) All Systems: reviewed and negative except above Subjective sleepy in bed Objective Last 24 Hour Vital Signs Date Time Temp Pulse Resp B/P (MAP) Pulse Ox O2 Delivery O2 Flow Rate FiO2 10/11/17 04:00 97.3 78 20 125/84 96 97.3 10/11/17 04:00 83 10/11/17 03:54 97.3 10/11/17 02:55 97.6 10/11/17 00:00 85 10/11/17 00:00 97.6 87 20 135/81 99 97.6 10/10/17 20:00 97.9 83 20 102/77 98 97.9 10/10/17 18:10 97.2 10/10/17 16:00 88 10/10/17 16:00 97.2 74 20 126/84 96 Room Air 97.2 10/10/17 14:06 96.3 10/10/17 12:00 96.3 87 20 134/87 96 Room Air 96.3 10/10/17 12:00 77 Intake and Output 10/10/17 10/11/17 19:00 07:00 Intake Total 200 ml Output Total 400 ml Balance -200 ml Intake Oral 200 ml Output Urine Total 400 ml # Voids 3 Laboratory Tests 10/10/17 17:10: White Blood Count 8.1, Red Blood Count 4.33L, Hemoglobin 13.9L, Hematocrit 42.1 , Mean Corpuscular Volume 97, Mean Corpuscular Hemoglobin 32.1H, Mean Corpuscular Hemoglobin Concent 33.1, Red Cell Distribution Width 12.5, Platelet Count 442, Mean Platelet Volume 5.1L, Neutrophils (%) (Auto) 66.8, Lymphocytes ( %) (Auto) 27.8, Monocytes (%) (Auto) 2.2, Eosinophils (%) (Auto) 2.4, Basophils (%) (Auto) 0.6, Erythrocyte Sedimentation Rate 11, Sodium Level 141, Potassium Level 4.3, Chloride Level 105, Carbon Dioxide Level 29, Anion Gap 7, Blood Urea Nitrogen 17, Creatinine 1.1, Estimat Glomerular Filtration Rate > 60, Glucose Level 113H, Calcium Level 8.9, Total Bilirubin 0.3, Aspartate Amino Transf (AST/ SGOT) 13L, Alanine Aminotransferase (ALT/SGPT) 10L, Alkaline Phosphatase 86, Total Protein 6.6, Albumin 3.2L, Globulin 3.4, Albumin/Globulin Ratio 0.9L, Vitamin B12 Level 287, Vitamin D 25-Hydroxy [Pending], 25-Hydroxy Vitamin D2 [ Pending], 25-Hydroxy Vitamin D3 [Pending], Folate 7.3L, Thyroid Stimulating Hormone (TSH) 1.477, Rapid Plasma Reagin [Pending] Height (Feet): 5 Height (Inches): 8.00 Weight (Pounds): 172 General Appearance: lethargic EENT: normal ENT inspection Neck: normal alignment Cardiovascular: normal peripheral pulses, normal rate, regular rhythm Respiratory/Chest: chest wall non-tender, lungs clear, normal breath sounds Abdomen: normal bowel sounds, non tender, soft Extremities: normal inspection Edema: no edema noted Arm (L), no edema noted Arm (R), no edema noted Leg (L), no edema noted Leg (R), no edema noted Pedal (L), no edema noted Pedal (R), no edema noted Generalized Neurologic: motor weakness Skin: normal pigmentation, warm/dry Krishan FraireGiovana DO October 11, 2017 08:34
[2017-10-11] MEDS: Heparin 5000 units/ml inj SUBQ SCH ×2 (08:37→20:40)
[2017-10-11 09:13] LABS: BASOPHILS % (AUTO) 0.2 % (0.0-2.0); EOSINOPHILS % (AUTO) 2.6 % (0.0-3.0); HEMATOCRIT 39.7 % (42.0-52.0); HEMOGLOBIN 12.9 G/DL (14.2-18.0); LYMPHOCYTES % (AUTO) 28.4 % (20.0-45.0); MEAN CORPUSCULAR VOLUME 98 FL (80-99); MONOCYTES % (AUTO) 9.8 % (1.0-10.0); PLATELET COUNT 394 K/UL (150-450); RED BLOOD COUNT 4.05 M/UL (4.70-6.10); RED CELL DISTRIBUTION WIDTH 12.4 % (11.6-14.8); WHITE BLOOD COUNT 6.1 K/UL (4.8-10.8)
[2017-10-11 09:46] LABS: ANION GAP 7 mmol/L (5-15); BLOOD UREA NITROGEN 15 mg/dL (7-18); CALCIUM 8.7 MG/DL (8.5-10.1); CARBON DIOXIDE 29 MMOL/L (21-32); CHLORIDE 104 MMOL/L (98-107); CREATININE 0.9 MG/DL (0.55-1.30); POTASSIUM 4.1 MMOL/L (3.5-5.1); SODIUM 140 MMOL/L (136-145)
[2017-10-11 12:00] VITALS: BP 128/85
[2017-10-11] MEDS: Levodopa/Carbidopa 25/100 tab ORAL SCH ×2 (14:04→17:16)
--- NOTE | 2017-10-11 14:27 | Neurology Progress Note ---
Interim History Interim History Interim History Mr. Mccallum feels unwell. He has not been given his 12 Noon dose of Sinemet yet. He is tolerating the Keppra well. He says he is very anxious. He denies any new neurologic symptoms. Review of Systems Neuro Review of Systems Benign. Objective Physical Exam Last Vital Signs Date Time Temp Pulse Resp B/P (MAP) Pulse Ox O2 Delivery O2 Flow Rate FiO2 10/11/17 13:21 97.3 10/11/17 12:00 80 10/11/17 08:00 20 129/87 96 Room Air Laboratory Tests Test 10/10/17 17:10 10/11/17 08:15 White Blood Count 8.1 K/UL (4.8-10.8) 6.1 K/UL (4.8-10.8) Red Blood Count 4.33 M/UL (4.70-6.10) L 4.05 M/UL (4.70-6.10) L Hemoglobin 13.9 G/DL (14.2-18.0) L 12.9 G/DL (14.2-18.0) L Hematocrit 42.1 % (42.0-52.0) 39.7 % (42.0-52.0) L Mean Corpuscular Volume 97 FL (80-99) 98 FL (80-99) Mean Corpuscular Hemoglobin 32.1 PG (27.0-31.0) H 32.0 PG (27.0-31.0) H Mean Corpuscular Hemoglobin Concent 33.1 G/DL (32.0-36.0) 32.6 G/DL (32.0-36.0) Red Cell Distribution Width 12.5 % (11.6-14.8) 12.4 % (11.6-14.8) Platelet Count 442 K/UL (150-450) 394 K/UL (150-450) Mean Platelet Volume 5.1 FL (6.5-10.1) L 5.4 FL (6.5-10.1) L Neutrophils (%) (Auto) 66.8 % (45.0-75.0) 59.0 % (45.0-75.0) Lymphocytes (%) (Auto) 27.8 % (20.0-45.0) 28.4 % (20.0-45.0) Monocytes (%) (Auto) 2.2 % (1.0-10.0) 9.8 % (1.0-10.0) Eosinophils (%) (Auto) 2.4 % (0.0-3.0) 2.6 % (0.0-3.0) Basophils (%) (Auto) 0.6 % (0.0-2.0) 0.2 % (0.0-2.0) Erythrocyte Sedimentation Rate 11 MM/HR (0-20) Sodium Level 141 MMOL/L (136-145) 140 MMOL/L (136-145) Potassium Level 4.3 MMOL/L (3.5-5.1) 4.1 MMOL/L (3.5-5.1) Chloride Level 105 MMOL/L (98-107) 104 MMOL/L (98-107) Carbon Dioxide Level 29 MMOL/L (21-32) 29 MMOL/L (21-32) Anion Gap 7 mmol/L (5-15) 7 mmol/L (5-15) Blood Urea Nitrogen 17 mg/dL (7-18) 15 mg/dL (7-18) Creatinine 1.1 MG/DL (0.55-1.30) 0.9 MG/DL (0.55-1.30) Estimat Glomerular Filtration Rate > 60 mL/min (>60) > 60 mL/min (>60) Glucose Level 113 MG/DL (74-106) H 99 MG/DL (74-106) Calcium Level 8.9 MG/DL (8.5-10.1) 8.7 MG/DL (8.5-10.1) Total Bilirubin 0.3 MG/DL (0.2-1.0) Aspartate Amino Transf (AST/SGOT) 13 U/L (15-37) L Alanine Aminotransferase (ALT/SGPT) 10 U/L (12-78) L Alkaline Phosphatase 86 U/L (46-116) Total Protein 6.6 G/DL (6.4-8.2) Albumin 3.2 G/DL (3.4-5.0) L Globulin 3.4 g/dL Albumin/Globulin Ratio 0.9 (1.0-2.7) L Vitamin B12 Level 287 PG/ML (193-986) Vitamin D 25-Hydroxy Pending 25-Hydroxy Vitamin D2 Pending 25-Hydroxy Vitamin D3 Pending Folate 7.3 NG/ML (8.6-58.9) L Thyroid Stimulating Hormone (TSH) 1.477 uiU/mL (0.358-3.740) Rapid Plasma Reagin Non reactive (Non Reactive) Neurologic Exam Objective PHYSICAL EXAMINATION: GENERAL: He is a well-developed, well-nourished, anxious gentleman, lying in bed, in no acute distress. HEAD: Normocephalic with left frontotemporal craniotomy defect. EENT: Examination benign. NECK: No neck rigidity was observed. NEUROLOGIC EXAMINATION: MENTAL STATUS EXAMINATION: He was awake and alert. He was oriented to person, place, and time except for the exact date. He was able to recall 3/3 words immediately, but could only remember 2/3 words in 1 minute and 3 minutes even on the second trial. He was able to remember presidents Trump through Huff Chinedu, spontaneously, but needed hints to remember through Huff senior. His mathematical skills were minimally impaired. His visuospatial function was relatively good. SPEECH: He had no dysarthria. LANGUAGE: He had a mild anomia for low-frequency words. CRANIAL NERVE EXAMINATION: II: The visual kaplan were intact on confrontation testing. III, IV & : The external ocular movements were full and the pupils 3 mm in diameter, equal, round, regular, and reactive to light. V: He had normal facial sensations, and the temporales, masseters, and pterygoids functioned normally. VII: He had a mild right VII central facial paresis. VIII: He was able to hear well bilaterally and had no nystagmus. IX: The palate moved symmetrically on phonation. X: He had no hoarseness of voice. XI: The sternocleidomastoids and trapezii functioned normally. XII: The tongue was in the midline without any fasciculations or atrophy. MOTOR SYSTEM: The tone was normal in all four extremities. Examination of muscle mass revealed no focal wasting. Examination of power revealed G 5/5 power except for G 4+/5 power in the right iliopsoas and G 5-/5 power in the right finger extensors. SENSORY EXAMINATION: He had intact sensations to pinprick, light touch, and graphesthesia. COORDINATION: He performed well on [id number] and [id number]-ixbs testing. REFLEXES: 2+ on the right and 1++ on the left in the biceps, triceps, brachioradialis, and knees, 0 at both ankles. The plantar responses were flexor bilaterally. STANCE & GAIT: Could not be tested because he refused to stand and walk. ABNORMAL MOVEMENTS: Tremor (4-5 Hz): G 2/4 in the upper and lower extremities. Rigidity: G 1/4 Bradykinesia: G 1/4 Hypomimia: G 1/4 Hypophonia: G 0/4. Impression/Recommendations Diagnostic Impression 1. Mr. Andrew Mccallum is a 57-year-old, right-handed, gentleman, who does have a past history of Parkinson's disease and a left-sided meningioma status post surgery following which he has had a seizure disorder and anxiety syndrome. When he has his seizures, he states that he passes out without any warning and following that, there is a period of confusion. He is uncertain as to what exactly happens after he has passed out and he is also unable to tell us what other people have observed. 2. He has been seizure free. His parkinsonian symptoms are worse but he has unfortunately not got his Noon Sinemet past 14:00 hrs. 3. On neurological examination, at this time, he does demonstrate significant problems with orientation, recent and remote memory, higher cognitive function, and a mild anomia. He does have a mild right VII central facial paresis, finger extensor weakness, and iliopsoas weakness. The deep tendon reflexes are brisker on the right side compared to the left. He also has a parkinsonian syndrome characterized by tremor, rigidity, bradykinesia, and hypomimia. 4. The CT scan of the brain without contrast performed on 10/09/2017 reveals a large area of encephalomalacia in the left frontotemporal region and a craniotomy defect in the left frontotemporal region. 5. Laboratory data on my initial evaluation revealed that his CBC revealed macrocytic indices. His chemistry panel was relatively benign and his toxicology screen was positive for marijuana. 6. Further laboratory tests have revealed that he is Vitamin B12 and Folate deficient. 7. 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 8. He also has findings compatible with a parkinsonian syndrome which at this time is not well controlled. Recommendations 1. Continue present management. 2. Continue Sinemet 25/100 -2 tablets to be taken at 6 a.m., 12 noon, and 6 p.m. - sharp! 3. Continue Keppra 750 mg at 6 a.m. and 6 p.m. for seizure prophylaxis. 4. Vitamin B 12 - 1000 mcg SC daily x 3 doses and then q month. 5. Folic acid 1 mg PO daily. 6. The patient was instructed on the basics of seizure hygiene: He was told to sleep well, that is sleep for at least 7 hours in the 24-hour period. Eat well, that is have a breakfast, lunch, and dinner. Stay away from tobacco, alcohol, and all illicit drugs. Take his antiseizure medicine on a regular basis. 7. Observe. Melissa Rodriguez M.D., M.S.P.H. MELISSA RODRIGUEZ October 11, 2017 14:27
[2017-10-11] MEDS: Vitamin B12 1000mcg/ml Inj SUBQ SCH (15:24)
[2017-10-11 16:00] VITALS: BP 125/83
[2017-10-11] MEDS: LORazepam Inj 2mg/ml 1ml IV PRN (17:27)
[2017-10-11 20:00] VITALS: BP 130/82
[2017-10-11] MEDS: Zolpidem 5mg tab ORAL PRN (20:38)
[2017-10-11] MEDS: Miralax 17gm pkt ORAL PRN (20:38)
--- NOTE | 2017-10-11 22:03 | Pulmonology Progress Note ---
Assessment/Plan Problems: (1) Uncontrolled seizures (2) Non-compliance (3) History of craniotomy (4) Seizure disorder Assessment/Plan improving no new complains some generalized pain titrate fio2 to sat of 92% respiratory treatment f/u by neurology Subjective ROS Limited/Unobtainable: No Allergies: Coded Allergies: VANCOMYCIN (Verified Allergy, Unknown, 08/01/15) Objective Last 24 Hour Vital Signs Date Time Temp Pulse Resp B/P (MAP) Pulse Ox O2 Delivery O2 Flow Rate FiO2 10/11/17 20:00 97.7 94 20 130/82 92 Room Air 97.7 10/11/17 20:00 88 10/11/17 16:00 97.5 77 20 125/83 96 Room Air 97.5 10/11/17 16:00 73 10/11/17 14:20 97.3 10/11/17 13:21 97.3 10/11/17 12:00 80 10/11/17 12:00 97.3 76 20 128/85 96 Room Air 97.3 10/11/17 08:36 97.3 10/11/17 08:00 97.9 76 20 129/87 96 Room Air 97.9 10/11/17 08:00 88 10/11/17 04:00 97.3 78 20 125/84 96 97.3 10/11/17 04:00 83 10/11/17 02:55 97.6 10/11/17 00:00 85 10/11/17 00:00 97.6 87 20 135/81 99 97.6 Intake and Output 10/10/17 10/11/17 19:00 07:00 Intake Total 200 ml Output Total 400 ml Balance -200 ml Intake Oral 200 ml Output Urine Total 400 ml # Voids 3 General Appearance: WD/WN HEENT: normocephalic, atraumatic, anicteric Respiratory/Chest: chest wall non-tender, lungs clear, normal breath sounds Cardiovascular: normal peripheral pulses, regular rhythm Abdomen: normal bowel sounds, soft, non tender, no organomegaly Genitourinary: normal external genitalia Extremities: no cyanosis Skin: no rash 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 Complete 10/09/17 18:23 Rectum VRE Culture - Final NO VANCOMYCIN RESISTANT ENTEROCOCCUS ... Complete Laboratory Tests 10/11/17 08:15: White Blood Count 6.1, Red Blood Count 4.05L, Hemoglobin 12.9L, Hematocrit 39.7L , Mean Corpuscular Volume 98, Mean Corpuscular Hemoglobin 32.0H, Mean Corpuscular Hemoglobin Concent 32.6, Red Cell Distribution Width 12.4, Platelet Count 394, Mean Platelet Volume 5.4L, Neutrophils (%) (Auto) 59.0, Lymphocytes ( %) (Auto) 28.4, Monocytes (%) (Auto) 9.8, Eosinophils (%) (Auto) 2.6, Basophils (%) (Auto) 0.2, Sodium Level 140, Potassium Level 4.1, Chloride Level 104, Carbon Dioxide Level 29, Anion Gap 7, Blood Urea Nitrogen 15, Creatinine 0.9, Estimat Glomerular Filtration Rate > 60, Glucose Level 99, Calcium Level 8.7 Current Medications Medications (Trade) Dose Ordered Sig/Job Route PRN Reason Start Time Stop Time Status Last Admin Dose Admin Acetaminophen (Tylenol) 650 mg Q4H PRN ORAL fever (TEMP>100.3) 10/09/17 19:29 11/08/17 19:28 10/10/17 01:37 Al Hydroxide/Mg Hydroxide (Mylanta II) 30 ml Q6H PRN ORAL dyspepsia 10/09/17 19:28 11/08/17 19:27 Carbidopa/Levodopa (Sinemet 25/100) 2 tab TID@0600,1200,1800 ORAL 10/11/17 14:00 11/10/17 13:59 10/11/17 17:16 Cyanocobalamin (Vitamin B12) 1,000 mcg DAILY SUBQ 10/11/17 15:15 10/13/17 09:01 10/11/17 15:24 Dextrose (Dextrose 50%) 25 ml STAT PRN IV Hypoglycemia BS 60-69mg/dl 10/09/17 19:31 11/08/17 19:30 Dextrose (Dextrose 50%) 50 ml STAT PRN IV Hypoglycemia BS less than 60mg 10/09/17 19:30 11/08/17 19:29 Folic Acid (Folate) 1 mg DAILY ORAL 10/11/17 15:30 11/10/17 15:29 10/11/17 15:24 Heparin Sodium (Porcine) (Heparin 5000 units/ml) 5,000 units EVERY 12 HOURS SUBQ 10/11/17 21:00 11/08/17 20:59 10/11/17 20:40 Levetiracetam (Keppra) 750 mg BID@0600,1800 ORAL 10/11/17 18:00 11/10/17 17:59 10/11/17 17:16 Lorazepam (Ativan 2mg/ml 1ml) 2 mg EVERY HOUR PRN IV seizures 10/09/17 19:29 10/16/17 19:28 10/11/17 17:27 Ondansetron HCl (Zofran) 4 mg Q6H PRN IVP Nausea & Vomiting 10/09/17 19:29 11/08/17 19:28 Oxycodone/ Acetaminophen (Percocet 10/325) 1 tab Q4H PRN ORAL Severe Pain (Pain Scale 7-10) 10/10/17 13:45 10/17/17 13:44 10/11/17 20:39 Polyethylene Glycol (Miralax) 17 gm HSPRN PRN ORAL Constipation 10/09/17 21:00 11/08/17 20:59 10/11/17 20:38 Zolpidem Tartrate (Ambien) 5 mg HSPRN PRN ORAL Insomnia 10/09/17 21:00 10/16/17 20:59 10/11/17 20:38 Cash Lorenzo MD October 11, 2017 22:03
[2017-10-12] VITALS: BP 136/94
[2017-10-12 03:48] VITALS: BP 125/84
[2017-10-12] MEDS: Levodopa/Carbidopa 25/100 tab ORAL SCH ×4 (05:37→18:14)
[2017-10-12] MEDS: LORazepam Inj 2mg/ml 1ml IV PRN ×6 (05:50→18:18)
[2017-10-12 08:00] VITALS: BP 136/92
--- NOTE | 2017-10-12 08:48 | General Progress Note ---
Assessment/Plan Problem List: (1) Parkinson disease ICD Codes: G20 - Parkinson's disease SNOMED: 10703555 (2) Tremor ICD Codes: R25.1 - Tremor, unspecified SNOMED: 20114262 (3) Chronic pain ICD Codes: G89.29 - Other chronic pain SNOMED: 32964308 (4) Seizure disorder ICD Codes: G40.909 - Epilepsy, unspecified, not intractable, without status epilepticus SNOMED: 642584628 Status: unchanged Assessment/Plan otpt diet seizure control neuro f/u pain control psyc eval cbc bmp am Subjective Constitutional: Reports: weakness Allergies: Coded Allergies: VANCOMYCIN (Verified Allergy, Unknown, 08/01/15) All Systems: reviewed and negative except above Subjective sl head ache Objective Last 24 Hour Vital Signs Date Time Temp Pulse Resp B/P (MAP) Pulse Ox O2 Delivery O2 Flow Rate FiO2 10/12/17 04:00 72 10/12/17 03:48 97.0 67 20 125/84 94 Room Air 97.0 10/12/17 00:00 97.1 89 20 136/94 97 Room Air 97.1 10/12/17 00:00 80 10/11/17 20:00 97.7 94 20 130/82 92 Room Air 97.7 10/11/17 20:00 88 10/11/17 16:00 97.5 77 20 125/83 96 Room Air 97.5 10/11/17 16:00 73 10/11/17 14:20 97.3 10/11/17 13:21 97.3 10/11/17 12:00 80 10/11/17 12:00 97.3 76 20 128/85 96 Room Air 97.3 Intake and Output 10/11/17 10/12/17 19:00 07:00 Intake Total 700 ml Output Total 1400 ml Balance 700 ml -1400 ml Intake Oral 700 ml Output Urine Total 1400 ml # Voids 1 # Bowel Movements 1 Height (Feet): 5 Height (Inches): 8.00 Weight (Pounds): 172 General Appearance: lethargic EENT: normal ENT inspection Neck: normal alignment Cardiovascular: normal peripheral pulses, normal rate, regular rhythm Respiratory/Chest: chest wall non-tender, lungs clear, normal breath sounds Abdomen: normal bowel sounds, non tender, soft Extremities: normal inspection Edema: no edema noted Arm (L), no edema noted Arm (R), no edema noted Leg (L), no edema noted Leg (R), no edema noted Pedal (L), no edema noted Pedal (R), no edema noted Generalized Neurologic: motor weakness Skin: normal pigmentation, warm/dry Krishan Fraire October 12, 2017 08:48
[2017-10-12] MEDS: Heparin 5000 units/ml inj SUBQ SCH ×2 (09:00→20:50)
[2017-10-12] MEDS: Vitamin B12 1000mcg/ml Inj SUBQ SCH (09:00)
[2017-10-12 09:10] LABS: BASOPHILS % (AUTO) 0.3 % (0.0-2.0); HEMATOCRIT 40.9 % (42.0-52.0); HEMOGLOBIN 13.6 G/DL (14.2-18.0); LYMPHOCYTES % (AUTO) 22.2 % (20.0-45.0); MEAN CORPUSCULAR VOLUME 98 FL (80-99); MONOCYTES % (AUTO) 7.5 % (1.0-10.0); NEUTROPHILS % (AUTO) 67.9 % (45.0-75.0); PLATELET COUNT 390 K/UL (150-450); RED BLOOD COUNT 4.17 M/UL (4.70-6.10); RED CELL DISTRIBUTION WIDTH 12.7 % (11.6-14.8); WHITE BLOOD COUNT 6.1 K/UL (4.8-10.8)
[2017-10-12] MEDS ORDERED: LORazepam 1mg tab ORAL PRN (09:30)
[2017-10-12 09:51] LABS: ANION GAP 6 mmol/L (5-15); BLOOD UREA NITROGEN 15 mg/dL (7-18); CALCIUM 9.2 MG/DL (8.5-10.1); CARBON DIOXIDE 30 MMOL/L (21-32); CHLORIDE 104 MMOL/L (98-107); CREATININE 0.9 MG/DL (0.55-1.30); POTASSIUM 4.1 MMOL/L (3.5-5.1); SODIUM 139 MMOL/L (136-145)
[2017-10-12] MEDS ORDERED: Morphine Sulfate 4mg/ml Inj IM PRN (11:00)
--- NOTE | 2017-10-12 11:01 | Consultation ---
History of Present Illness General Date patient seen: October 12, 2017 Chief Complaint: Present Illness Allergies: Coded Allergies: VANCOMYCIN (Verified Allergy, Unknown, 08/01/15) Medication History Scheduled Carbidopa/Levodopa 25-100 Mg* (Sinemet 25-100 Mg Tablet*), 2 TAB ORAL THREE TIMES A DAY Phenytoin Sodium Extended* (Dilantin*), Unknown Dose ORAL TWICE A DAY, (Reported ) Scheduled PRN Acetaminophen (Tylenol), 650 MG ORAL Q6H PRN for Prn Pain/Headache/Temp > 101 Ibuprofen* (Motrin*), 600 MG ORAL Q6H PRN for For Pain Miscellaneous Medications Oxycodone Hcl (Oxycodone Hcl), Unknown Dose ORAL, (Reported) Patient History Healthcare decision maker Resuscitation status Full Code Advanced Directive on File Physical Exam Last 24 Hour Vital Signs Date Time Temp Pulse Resp B/P (MAP) Pulse Ox O2 Delivery O2 Flow Rate FiO2 10/12/17 04:00 72 10/12/17 03:48 97.0 67 20 125/84 94 Room Air 97.0 10/12/17 00:00 97.1 89 20 136/94 97 Room Air 97.1 10/12/17 00:00 80 10/11/17 20:00 97.7 94 20 130/82 92 Room Air 97.7 10/11/17 20:00 88 10/11/17 16:00 97.5 77 20 125/83 96 Room Air 97.5 10/11/17 16:00 73 10/11/17 14:20 97.3 10/11/17 13:21 97.3 10/11/17 12:00 80 10/11/17 12:00 97.3 76 20 128/85 96 Room Air 97.3 Intake and Output 10/11/17 10/12/17 19:00 07:00 Intake Total 700 ml Output Total 1400 ml Balance 700 ml -1400 ml Intake Oral 700 ml Output Urine Total 1400 ml # Voids 1 # Bowel Movements 1 Laboratory Tests Test 10/12/17 08:05 White Blood Count 6.1 K/UL (4.8-10.8) Red Blood Count 4.17 M/UL (4.70-6.10) L Hemoglobin 13.6 G/DL (14.2-18.0) L Hematocrit 40.9 % (42.0-52.0) L Mean Corpuscular Volume 98 FL (80-99) Mean Corpuscular Hemoglobin 32.7 PG (27.0-31.0) H Mean Corpuscular Hemoglobin Concent 33.3 G/DL (32.0-36.0) Red Cell Distribution Width 12.7 % (11.6-14.8) Platelet Count 390 K/UL (150-450) Mean Platelet Volume 5.7 FL (6.5-10.1) L Neutrophils (%) (Auto) 67.9 % (45.0-75.0) Lymphocytes (%) (Auto) 22.2 % (20.0-45.0) Monocytes (%) (Auto) 7.5 % (1.0-10.0) Eosinophils (%) (Auto) 2.0 % (0.0-3.0) Basophils (%) (Auto) 0.3 % (0.0-2.0) Sodium Level 139 MMOL/L (136-145) Potassium Level 4.1 MMOL/L (3.5-5.1) Chloride Level 104 MMOL/L (98-107) Carbon Dioxide Level 30 MMOL/L (21-32) Anion Gap 6 mmol/L (5-15) Blood Urea Nitrogen 15 mg/dL (7-18) Creatinine 0.9 MG/DL (0.55-1.30) Estimat Glomerular Filtration Rate > 60 mL/min (>60) Glucose Level 101 MG/DL (74-106) Calcium Level 9.2 MG/DL (8.5-10.1) Height (Feet): 5 Height (Inches): 8.00 Weight (Pounds): 172 Medications Current Medications Medications (Trade) Dose Ordered Sig/Job Route PRN Reason Start Time Stop Time Status Last Admin Dose Admin Acetaminophen (Tylenol) 650 mg Q4H PRN ORAL fever (TEMP>100.3) 10/09/17 19:29 11/08/17 19:28 10/10/17 01:37 Al Hydroxide/Mg Hydroxide (Mylanta II) 30 ml Q6H PRN ORAL dyspepsia 10/09/17 19:28 11/08/17 19:27 Carbidopa/Levodopa (Sinemet 25/100) 2 tab TID@0600,1200,1800 ORAL 10/11/17 14:00 11/10/17 13:59 10/12/17 05:37 Cyanocobalamin (Vitamin B12) 1,000 mcg DAILY SUBQ 10/11/17 15:15 10/13/17 09:01 10/11/17 15:24 Dextrose (Dextrose 50%) 25 ml STAT PRN IV Hypoglycemia BS 60-69mg/dl 10/09/17 19:31 11/08/17 19:30 Dextrose (Dextrose 50%) 50 ml STAT PRN IV Hypoglycemia BS less than 60mg 10/09/17 19:30 11/08/17 19:29 Folic Acid (Folate) 1 mg DAILY ORAL 10/11/17 15:30 11/10/17 15:29 10/11/17 15:24 Heparin Sodium (Porcine) (Heparin 5000 units/ml) 5,000 units EVERY 12 HOURS SUBQ 10/11/17 21:00 11/08/17 20:59 10/11/17 20:40 Levetiracetam (Keppra) 750 mg BID@0600,1800 ORAL 10/11/17 18:00 11/10/17 17:59 10/12/17 05:37 Lorazepam (Ativan 2mg/ml 1ml) 1 mg Q4H PRN IV For Anxiety 10/12/17 10:45 10/19/17 10:44 Lorazepam (Ativan 2mg/ml 1ml) 2 mg EVERY HOUR PRN IV seizures 10/09/17 19:29 10/16/17 19:28 10/12/17 05:50 Lorazepam (Ativan) 1 mg Q4HR PRN ORAL For Anxiety 10/12/17 09:30 10/19/17 09:29 Ondansetron HCl (Zofran) 4 mg Q6H PRN IVP Nausea & Vomiting 10/09/17 19:29 11/08/17 19:28 Oxycodone/ Acetaminophen (Percocet 10/325) 1 tab Q4H PRN ORAL Severe Pain (Pain Scale 7-10) 10/10/17 13:45 10/17/17 13:44 10/12/17 05:38 Polyethylene Glycol (Miralax) 17 gm HSPRN PRN ORAL Constipation 10/09/17 21:00 11/08/17 20:59 10/11/17 20:38 Zolpidem Tartrate (Ambien) 5 mg HSPRN PRN ORAL Insomnia 10/09/17 21:00 10/16/17 20:59 10/11/17 20:38 Assessment/Plan Assessment/Plan (1) Cervicalgia (2) Lumbago (3) Parkinson's disease (4) Seizure disorder seen dictated YIMI THOMAS October 12, 2017 11:01
[2017-10-12] MEDS: Morphine Sulfate 4mg/ml Inj IVP PRN ×3 (11:36→20:01)
--- NOTE | 2017-10-12 11:42 | Neurology Progress Note ---
Interim History Interim History Interim History Mr. Mccallum feels better today. He feels that his PD is not well controlled due to the fact that he is getting less Sinemet than what he usually takes. He has been seizure-free. He is tolerating the Keppra well. He says he is still very anxious. He denies any new neurologic symptoms. Review of Systems Neuro Review of Systems Benign. Objective Physical Exam Last Vital Signs Date Time Temp Pulse Resp B/P (MAP) Pulse Ox O2 Delivery O2 Flow Rate FiO2 10/12/17 04:00 72 10/12/17 03:48 97.0 20 125/84 94 Room Air 97.0 Laboratory Tests Test 10/12/17 08:05 White Blood Count 6.1 K/UL (4.8-10.8) Red Blood Count 4.17 M/UL (4.70-6.10) L Hemoglobin 13.6 G/DL (14.2-18.0) L Hematocrit 40.9 % (42.0-52.0) L Mean Corpuscular Volume 98 FL (80-99) Mean Corpuscular Hemoglobin 32.7 PG (27.0-31.0) H Mean Corpuscular Hemoglobin Concent 33.3 G/DL (32.0-36.0) Red Cell Distribution Width 12.7 % (11.6-14.8) Platelet Count 390 K/UL (150-450) Mean Platelet Volume 5.7 FL (6.5-10.1) L Neutrophils (%) (Auto) 67.9 % (45.0-75.0) Lymphocytes (%) (Auto) 22.2 % (20.0-45.0) Monocytes (%) (Auto) 7.5 % (1.0-10.0) Eosinophils (%) (Auto) 2.0 % (0.0-3.0) Basophils (%) (Auto) 0.3 % (0.0-2.0) Sodium Level 139 MMOL/L (136-145) Potassium Level 4.1 MMOL/L (3.5-5.1) Chloride Level 104 MMOL/L (98-107) Carbon Dioxide Level 30 MMOL/L (21-32) Anion Gap 6 mmol/L (5-15) Blood Urea Nitrogen 15 mg/dL (7-18) Creatinine 0.9 MG/DL (0.55-1.30) Estimat Glomerular Filtration Rate > 60 mL/min (>60) Glucose Level 101 MG/DL (74-106) Calcium Level 9.2 MG/DL (8.5-10.1) Neurologic Exam Objective PHYSICAL EXAMINATION: GENERAL: He is a well-developed, well-nourished, anxious gentleman, lying in bed, in no acute distress. HEAD: Normocephalic with left frontotemporal craniotomy defect. EENT: Examination benign. NECK: No neck rigidity was observed. NEUROLOGIC EXAMINATION: MENTAL STATUS EXAMINATION: He was awake and alert. He was oriented to person, place, and time except for the exact date. He was able to recall 3/3 words immediately, but could only remember 2/3 words in 1 minute and 3 minutes even on the second trial. He was able to remember presidents Trump through [employer], spontaneously, but needed hints to remember through [employer] senior. His mathematical skills were minimally impaired. His visuospatial function was relatively good. SPEECH: He had no dysarthria. LANGUAGE: He had a mild anomia for low-frequency words. CRANIAL NERVE EXAMINATION: II: The visual kaplan were intact on confrontation testing. III, IV & : The external ocular movements were full and the pupils 3 mm in diameter, equal, round, regular, and reactive to light. V: He had normal facial sensations, and the temporales, masseters, and pterygoids functioned normally. VII: He had a mild right VII central facial paresis. VIII: He was able to hear well bilaterally and had no nystagmus. IX: The palate moved symmetrically on phonation. X: He had no hoarseness of voice. XI: The sternocleidomastoids and trapezii functioned normally. XII: The tongue was in the midline without any fasciculations or atrophy. MOTOR SYSTEM: The tone was normal in all four extremities. Examination of muscle mass revealed no focal wasting. Examination of power revealed G 5/5 power except for G 4+/5 power in the right iliopsoas and G 5-/5 power in the right finger extensors. SENSORY EXAMINATION: He had intact sensations to pinprick, light touch, and graphesthesia. COORDINATION: He performed well on clsjhe-az-[id number] and betc-ye-onvl testing. REFLEXES: 2+ on the right and 1++ on the left in the biceps, triceps, brachioradialis, and knees, 0 at both ankles. The plantar responses were flexor bilaterally. STANCE & GAIT: Could not be tested because he refused to stand and walk. ABNORMAL MOVEMENTS: Tremor (4-5 Hz): G 1/4 in the upper and lower extremities. Rigidity: G Tr/4 Bradykinesia: G Tr/4 Hypomimia: G Tr/4 Hypophonia: G 0/4. Impression/Recommendations Diagnostic Impression 1. Mr. Andrew Mccallum is a 57-year-old, right-handed, gentleman, who does have a past history of Parkinson's disease and a left-sided meningioma status post surgery following which he has had a seizure disorder and anxiety syndrome. When he has his seizures, he states that he passes out without any warning and following that, there is a period of confusion. He is uncertain as to what exactly happens after he has passed out and he is also unable to tell us what other people have observed. 2. He feels better today. He feels that his PD is not well controlled due to the fact that he is getting less Sinemet than what he usually takes. He has been seizure-free. He is tolerating the Keppra well. He says he is still very anxious. He denies any new neurologic symptoms. 3. On neurological examination, at this time, he does demonstrate significant problems with orientation, recent and remote memory, higher cognitive function, and a mild anomia. He does have a mild right VII central facial paresis, finger extensor weakness, and iliopsoas weakness. The deep tendon reflexes are brisker on the right side compared to the left. He also has a parkinsonian syndrome characterized by tremor, rigidity, bradykinesia, and hypomimia - his parkinsonian symptoms are much better but he still wants more relief. 4. The CT scan of the brain without contrast performed on 10/09/2017 reveals a large area of encephalomalacia in the left frontotemporal region and a craniotomy defect in the left frontotemporal region. 5. Laboratory data on my initial evaluation revealed that his CBC revealed macrocytic indices. His chemistry panel was relatively benign and his toxicology screen was positive for marijuana. 6. Further laboratory tests have revealed that he is Vitamin B12 and Folate deficient. 7. 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 8. He also has findings compatible with a parkinsonian syndrome which at this time is better but not perfectly controlled. Recommendations 1. Continue present management. 2. Increase Sinemet 25/100 - to 3 tablets to be taken at 6 a.m., 12 noon, and 6 p.m. - sharp! 3. Continue Keppra 750 mg at 6 a.m. and 6 p.m. for seizure prophylaxis. 4. Vitamin B 12 - 1000 mcg SC daily x 3 doses and then q month. 5. Folic acid 1 mg PO daily. 6. The patient was instructed on the basics of seizure hygiene: He was told to sleep well, that is sleep for at least 7 hours in the 24-hour period. Eat well, that is have a breakfast, lunch, and dinner. Stay away from tobacco, alcohol, and all illicit drugs. Take his antiseizure medicine on a regular basis. 7. Observe. Melissa Rodriguez M.D., M.S.P.H. MELISSA RODRIGUEZ October 12, 2017 11:41
[2017-10-12 12:00] VITALS: BP 139/84
[2017-10-12 16:00] VITALS: BP 118/78
--- NOTE | 2017-10-12 19:45 | Consultation ---
DATE OF CONSULTATION: 10/12/2017 PAIN MANAGEMENT CONSULTATION CONSULTING PHYSICIAN: Josselyn Mckinley M.D. REFERRING PHYSICIAN: Krishan Fraire D.O. PHYSICIAN LURE MAKER: Radu Knox CHIEF COMPLAINT: Neck and low back pain. HISTORY OF PRESENT ILLNESS: This is a 57-year-old male, who is being seen on the telemetry floor of [facility] for initial comprehensive pain management consultation. The patient was admitted under the care of Dr. Krishan Fraire due to seizures, history of meningioma and hemangioma in the past, and has Parkinson disease for many years, found to have seizure disorders with chronic pain and he is getting Percocet 10 mg tablets every 6 hours as needed as an outpatient, now admitted under the care of Dr. Fraire, started on Percocet 10 mg tablets every 4 hours as needed for pain with minimal pain relief. Due to this, we were consulted so that the patient would have adequate pain control while here in the hospital for a faster recovery. PAST MEDICAL HISTORY: Parkinson disease and seizure disorder. PAST SURGICAL HISTORY: Meningioma removal on the left side. MEDICATIONS: Percocet, Sinemet, Dilantin, Ambien, MiraLAX, heparin, lorazepam, Zofran, Tylenol, and Mylanta. SOCIAL HISTORY: As per the patient, the patient denies drug abuse, however, he does smoke cigarettes. He drinks alcohol occasionally and smokes marijuana. However as per chart, the chart shows that the patient has had a history of cocaine abuse. REVIEW OF SYSTEMS: Denies rash, fever, chills, sweating, dizziness, drowsiness, blurred vision, sore throat, or change in weight. No shortness of breath or chest pain. No nausea, vomiting, diarrhea, or blood in the stool or urine. No bowel or bladder incontinence. No dysuria. He is complaining of neck and back pain. PHYSICAL EXAMINATION: GENERAL: Alert, awake, and oriented. VITAL SIGNS: Blood pressure 125/84, heart rate is 67, oxygen saturation is 94%, respiratory rate is 20, and temperature is 97 degrees Fahrenheit. HEENT: PERRLA. NECK: Range of motion is decreased due to the patient's condition. No tenderness to paracervical muscles. No adenopathy. LUNGS: Decreased breath sounds bilaterally. HEART: Regular. ABDOMEN: Benign. BACK: Range of motion is decreased in flexion and extension with tenderness to paraspinal muscles. No tenderness to trapezius or rhomboid muscles. EXTREMITIES: Upper extremity range of motion is decreased due to the patient's pain and condition with severe spasms and shaking noted due to Parkinson's disease. Lower extremity range of motion is decreased due to the patient's pain and condition. No cyanosis. No clubbing. No edema. Sensory is intact. Reflexes are not obtainable. No adenopathy. ASSESSMENT AND PLAN: This is a 57-year-old male with cervicalgia, lumbago, seizure disorder and Parkinson's disease. The patient will be continued on Percocet and is on morphine 4 mg IV every 4 hours as needed for severe breakthrough pain. The patient was discussed with Dr. Mckinley and Dr. Mckinley concurred. We will follow the patient. Thank you very much for the courtesy of this consultation. Josselyn Mckinley M.D. JAELYN Knox DR: DESMONDK JOB#: [id number] CC: SAADIA
[2017-10-12 20:00] VITALS: BP 113/80
[2017-10-12] MEDS: Zolpidem 5mg tab ORAL PRN (20:48)
[2017-10-13] VITALS: BP 121/76
[2017-10-13] MEDS: Morphine Sulfate 4mg/ml Inj IVP PRN ×5 (00:17→17:55)
[2017-10-13 04:00] VITALS: BP 119/79
[2017-10-13] MEDS: Levodopa/Carbidopa 25/100 tab ORAL SCH ×3 (05:31→17:44)
[2017-10-13 08:00] VITALS: BP 107/73
--- NOTE | 2017-10-13 08:15 | Consultation ---
DATE OF CONSULTATION: 10/13/2017 HISTORY OF PRESENT ILLNESS: disorganized thought process, alcohol abuse, may have had alcohol withdrawal seizure, but he has some anxiety, agitation on interview today and that was the main reason why his attending has requested daily psychiatric consultation. MEDICAL HISTORY: The patient has a history of Parkinson's disease, seizure disorder, and joint pain. ALLERGIES: Vancomycin. SOCIAL HISTORY: Lives at home. Financially supported by [employer] and Medicare. SUBSTANCE ABUSE HISTORY: History of alcohol use. FAMILY PSYCHIATRIC HISTORY: Denies. PSYCHIATRIC HISTORY: Generalized anxiety and possible depression. MENTAL STATUS EXAMINATION: This is a 57-year-old male. Appearance is disheveled. Attitude, irritable and agitated. Affect, guarded and restricted. Intellect poor. Mood depressed, anxious. Motor activity, psychomotor agitation. Attention span is poor. Orientation x2. Speech is pressured. Thought process, disorganized and illogical. Thought content, auditory hallucinations and paranoid delusions. Insight and judgment is poor. DIAGNOSES: 1. Major depressive disorder, mild, recurrent, rule out alcohol-induced mood disorder. 2. Medical, seizure disorder, psychosocial stressors, financial. PLAN: mg three times a day and continue Ativan 2 mg IV q. 4 hours. p.r.n. anxiety and seizure prophylaxis. Twenty minutes of supportive psychotherapy provided. . Chart reviewed and discussed with staff. I would like to thank, Dr. Krishan Fraire, for this interesting consultation. Rowan Mendoza M.D. DR: MIKE JOB#: [id number] CC:
[2017-10-13] MEDS: Valproic Acid 250mg/5ml Liquid NG SCH ×3 (08:23→20:52)
[2017-10-13] MEDS: Vitamin B12 1000mcg/ml Inj SUBQ SCH (08:23)
[2017-10-13] MEDS: Heparin 5000 units/ml inj SUBQ SCH ×2 (08:26→20:42)
--- NOTE | 2017-10-13 08:45 | General Progress Note ---
Assessment/Plan Assessment/Plan (1) Cervicalgia (2) Lumbago (3) Parkinson's disease (4) Seizure disorder Patient to be continued on Percocet and Morphine. D/w Dr. Mckinley and he concurred. Subjective Date patient seen: October 13, 2017 Time patient seen: 07:00 - am Allergies: Coded Allergies: VANCOMYCIN (Verified Allergy, Unknown, 08/01/15) Subjective REVIEW OF SYSTEMS: Denies rash, fever, chills, sweating, dizziness, drowsiness, blurred vision, sore throat, or change in weight. No shortness of breath or chest pain. No nausea, vomiting, diarrhea, or blood in the stool or urine. No bowel or bladder incontinence. No dysuria. He is complaining of neck and back pain. SUBJECTIVE: Patient is in bed and reports that pain has reduced on the morphine IV to a mild level. Xray pending. Objective Last 24 Hour Vital Signs Date Time Temp Pulse Resp B/P (MAP) Pulse Ox O2 Delivery O2 Flow Rate FiO2 10/13/17 04:00 96.5 71 19 119/79 96 Room Air 96.5 10/13/17 04:00 71 10/13/17 00:00 75 10/13/17 00:00 97.9 69 18 121/76 97 Room Air 97.9 10/12/17 20:00 84 10/12/17 20:00 96.4 78 19 113/80 96 Room Air 96.4 10/12/17 16:00 98.1 97 20 118/78 100 Room Air 98.1 10/12/17 16:00 86 10/12/17 15:49 97.1 10/12/17 12:00 97.3 100 18 139/84 100 Room Air 97.3 10/12/17 12:00 74 Intake and Output 10/12/17 10/13/17 19:00 07:00 Intake Total 710 ml Output Total 600 ml Balance 110 ml Intake Oral 710 ml Output Urine Total 600 ml # Voids 4 Height (Feet): 5 Height (Inches): 8.00 Weight (Pounds): 172 Objective GENERAL: Alert, awake, and oriented. HEENT: PERRLA. NECK: Range of motion is decreased due to the patient's condition. No tenderness to paracervical muscles. No adenopathy. LUNGS: Decreased breath sounds bilaterally. HEART: Regular. ABDOMEN: Benign. BACK: Range of motion is decreased in flexion and extension with tenderness to paraspinal muscles. No tenderness to trapezius or rhomboid muscles. EXTREMITIES: Upper extremity range of motion is decreased due to the patient's pain and condition with severe spasms and shaking noted due to Parkinson's disease. Lower extremity range of motion is decreased due to the patient's pain and condition. No cyanosis. No clubbing. No edema. Sensory is intact. Reflexes are not obtainable. No adenopathy. YIMI THOMAS October 13, 2017 08:45
[2017-10-13] MEDS: LORazepam Inj 2mg/ml 1ml IV PRN ×2 (11:09→20:40)
--- NOTE | 2017-10-13 11:22 | Neurology Progress Note ---
Interim History Interim History Interim History Mr. Mccallum feels better. He feels that his PD is better controlled. He has been seizure-free. He is tolerating the Keppra well. He says he is less anxious. He denies any new neurologic symptoms. Review of Systems Neuro Review of Systems Benign. Objective Physical Exam Last Vital Signs Date Time Temp Pulse Resp B/P (MAP) Pulse Ox O2 Delivery O2 Flow Rate FiO2 10/13/17 08:54 96.5 10/13/17 08:00 89 18 107/73 99 Room Air Neurologic Exam Objective PHYSICAL EXAMINATION: GENERAL: He is a well-developed, well-nourished, anxious gentleman, lying in bed, in no acute distress. HEAD: Normocephalic with left frontotemporal craniotomy defect. EENT: Examination benign. NECK: No neck rigidity was observed. NEUROLOGIC EXAMINATION: MENTAL STATUS EXAMINATION: He was awake and alert. He was oriented to person, place, and time except for the exact date. He was able to recall 3/3 words immediately, but could only remember 2/3 words in 1 minute and 3 minutes even on the second trial. He was able to remember presidents Trump through [employer], spontaneously, but needed hints to remember through [employer] senior. His mathematical skills were minimally impaired. His visuospatial function was relatively good. SPEECH: He had no dysarthria. LANGUAGE: He had a mild anomia for low-frequency words. CRANIAL NERVE EXAMINATION: II: The visual kaplan were intact on confrontation testing. III, IV & : The external ocular movements were full and the pupils 3 mm in diameter, equal, round, regular, and reactive to light. V: He had normal facial sensations, and the temporales, masseters, and pterygoids functioned normally. VII: He had a mild right VII central facial paresis. VIII: He was able to hear well bilaterally and had no nystagmus. IX: The palate moved symmetrically on phonation. X: He had no hoarseness of voice. XI: The sternocleidomastoids and trapezii functioned normally. XII: The tongue was in the midline without any fasciculations or atrophy. MOTOR SYSTEM: The tone was normal in all four extremities. Examination of muscle mass revealed no focal wasting. Examination of power revealed G 5/5 power except for G 4+/5 power in the right iliopsoas and G 5-/5 power in the right finger extensors. SENSORY EXAMINATION: He had intact sensations to pinprick, light touch, and graphesthesia. COORDINATION: He performed well on [id number]-[id number]-[id number] and hiad-rh-tujm testing. REFLEXES: 2+ on the right and 1++ on the left in the biceps, triceps, brachioradialis, and knees, 0 at both ankles. The plantar responses were flexor bilaterally. STANCE & GAIT: Could not be tested because he refused to stand and walk. ABNORMAL MOVEMENTS: Tremor (4-5 Hz): G 1/4 in the upper and lower extremities. Rigidity: G Tr/4 Bradykinesia: G Tr/4 Hypomimia: G Tr/4 Hypophonia: G 0/4. Impression/Recommendations Diagnostic Impression 1. Mr. Andrew Mccallum is a 57-year-old, right-handed, gentleman, who does have a past history of Parkinson's disease and a left-sided meningioma status post surgery following which he has had a seizure disorder and anxiety syndrome. When he has his seizures, he states that he passes out without any warning and following that, there is a period of confusion. He is uncertain as to what exactly happens after he has passed out and he is also unable to tell us what other people have observed. 2. He feels better today. He feels that his PD is not well controlled due to the fact that he is getting less Sinemet than what he usually takes. He has been seizure-free. He is tolerating the Keppra well. He says he is still very anxious. He denies any new neurologic symptoms. 3. On neurological examination, at this time, he does demonstrate significant problems with orientation, recent and remote memory, higher cognitive function, and a mild anomia. He does have a mild right VII central facial paresis, finger extensor weakness, and iliopsoas weakness. The deep tendon reflexes are brisker on the right side compared to the left. He also has a parkinsonian syndrome characterized by tremor, rigidity, bradykinesia, and hypomimia - his parkinsonian symptoms are much better but he still wants more relief. 4. The CT scan of the brain without contrast performed on 10/09/2017 reveals a large area of encephalomalacia in the left frontotemporal region and a craniotomy defect in the left frontotemporal region. 5. Laboratory data on my initial evaluation revealed that his CBC revealed macrocytic indices. His chemistry panel was relatively benign and his toxicology screen was positive for marijuana. 6. Further laboratory tests have revealed that he is Vitamin B12 and Folate deficient. 7. 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 8. He also has findings compatible with a parkinsonian syndrome which at this time is better but not perfectly controlled. Recommendations 1. Continue present management. 2. Increase Sinemet 25/100 - to 3 tablets to be taken at 6 a.m., 12 noon, and 6 p.m. - sharp! 3. Continue Keppra 750 mg at 6 a.m. and 6 p.m. for seizure prophylaxis. 4. Vitamin B 12 - 1000 mcg SC daily x 3 doses and then q month. 5. Folic acid 1 mg PO daily. 6. The patient was instructed on the basics of seizure hygiene: He was told to sleep well, that is sleep for at least 7 hours in the 24-hour period. Eat well, that is have a breakfast, lunch, and dinner. Stay away from tobacco, alcohol, and all illicit drugs. Take his antiseizure medicine on a regular basis. 7. Observe. Melissa Root M.D., M.S.P.MELISSA INMAN October 13, 2017 11:22
[2017-10-13 11:58] LABS: BASOPHILS % (AUTO) 0.5 % (0.0-2.0); EOSINOPHILS % (AUTO) 2.9 % (0.0-3.0); HEMATOCRIT 43.5 % (42.0-52.0); HEMOGLOBIN 14.1 G/DL (14.2-18.0); MEAN CORPUSCULAR VOLUME 99 FL (80-99); MONOCYTES % (AUTO) 7.9 % (1.0-10.0); NEUTROPHILS % (AUTO) 62.7 % (45.0-75.0); PLATELET COUNT 347 K/UL (150-450); RED BLOOD COUNT 4.39 M/UL (4.70-6.10); RED CELL DISTRIBUTION WIDTH 12.6 % (11.6-14.8); WHITE BLOOD COUNT 6.4 K/UL (4.8-10.8)
[2017-10-13 12:00] VITALS: BP 111/74
--- NOTE | 2017-10-13 12:24 | Pulmonology Progress Note ---
Assessment/Plan Problems: (1) Uncontrolled seizures (2) Non-compliance (3) History of craniotomy (4) Seizure disorder Assessment/Plan improving no new complains some generalized pain titrate fio2 to sat of 92% respiratory treatment f/u by neurology med/surg dc planning Subjective ROS Limited/Unobtainable: No Constitutional: Reports: no symptoms HEENT: Repors: no symptoms Respiratory: Reports: no symptoms Allergies: Coded Allergies: VANCOMYCIN (Verified Allergy, Unknown, 08/01/15) Objective Last 24 Hour Vital Signs Date Time Temp Pulse Resp B/P (MAP) Pulse Ox O2 Delivery O2 Flow Rate FiO2 10/13/17 08:54 96.5 10/13/17 08:00 97.7 89 18 107/73 99 Room Air 97.7 10/13/17 08:00 97 10/13/17 04:00 96.5 71 19 119/79 96 Room Air 96.5 10/13/17 04:00 71 10/13/17 00:00 75 10/13/17 00:00 97.9 69 18 121/76 97 Room Air 97.9 10/12/17 20:00 84 10/12/17 20:00 96.4 78 19 113/80 96 Room Air 96.4 10/12/17 16:00 98.1 97 20 118/78 100 Room Air 98.1 10/12/17 16:00 86 10/12/17 15:49 97.1 Intake and Output 10/12/17 10/13/17 19:00 07:00 Intake Total 710 ml Output Total 600 ml Balance 110 ml Intake Oral 710 ml Output Urine Total 600 ml # Voids 4 General Appearance: WD/WN HEENT: normocephalic, atraumatic Respiratory/Chest: chest wall non-tender, lungs clear Cardiovascular: normal rate, regular rhythm Abdomen: normal bowel sounds, soft, non tender, no organomegaly Laboratory Tests 10/13/17 11:35: White Blood Count 6.4, Red Blood Count 4.39L, Hemoglobin 14.1L, Hematocrit 43.5 , Mean Corpuscular Volume 99, Mean Corpuscular Hemoglobin 32.0H, Mean Corpuscular Hemoglobin Concent 32.3, Red Cell Distribution Width 12.6, Platelet Count 347, Mean Platelet Volume 5.7L, Neutrophils (%) (Auto) 62.7, Lymphocytes ( %) (Auto) 26.0, Monocytes (%) (Auto) 7.9, Eosinophils (%) (Auto) 2.9, Basophils (%) (Auto) 0.5, Sodium Level [Pending], Potassium Level [Pending], Chloride Level [Pending], Carbon Dioxide Level [Pending], Blood Urea Nitrogen [Pending], Creatinine [Pending], Estimat Glomerular Filtration Rate [Pending], Glucose Level [Pending], Calcium Level [Pending] Current Medications Medications (Trade) Dose Ordered Sig/Job Route PRN Reason Start Time Stop Time Status Last Admin Dose Admin Acetaminophen (Tylenol) 650 mg Q4H PRN ORAL fever (TEMP>100.3) 10/09/17 19:29 11/08/17 19:28 10/10/17 01:37 Al Hydroxide/Mg Hydroxide (Mylanta II) 30 ml Q6H PRN ORAL dyspepsia 10/09/17 19:28 11/08/17 19:27 Carbidopa/Levodopa (Sinemet 25/) 3 tab TID@0600,1200,1800 ORAL 10/12/17 12:00 11/10/17 13:59 10/13/17 12:07 Dextrose (Dextrose 50%) 25 ml STAT PRN IV Hypoglycemia BS 60-69mg/dl 10/09/17 19:31 11/08/17 19:30 Dextrose (Dextrose 50%) 50 ml STAT PRN IV Hypoglycemia BS less than 60mg 10/09/17 19:30 11/08/17 19:29 Folic Acid (Folate) 1 mg DAILY ORAL 10/11/17 15:30 11/10/17 15:29 10/13/17 08:22 Gabapentin (Neurontin) 300 mg THREE TIMES A DAY ORAL 10/13/17 09:00 11/12/17 08:59 10/13/17 12:08 Heparin Sodium (Porcine) (Heparin 5000 units/ml) 5,000 units EVERY 12 HOURS SUBQ 10/11/17 21:00 11/08/17 20:59 10/13/17 08:26 Levetiracetam (Keppra) 750 mg BID@0600,1800 ORAL 10/11/17 18:00 11/10/17 17:59 10/13/17 05:31 Lorazepam (Ativan 2mg/ml 1ml) 1 mg Q4H PRN IV For Anxiety 10/12/17 10:45 10/19/17 10:44 10/13/17 11:09 Lorazepam (Ativan 2mg/ml 1ml) 2 mg EVERY HOUR PRN IV seizures 10/09/17 19:29 10/16/17 19:28 10/12/17 05:50 Lorazepam (Ativan) 1 mg Q4HR PRN ORAL For Anxiety 10/12/17 09:30 10/19/17 09:29 Morphine Sulfate (Morphine Sulfate) 4 mg Q4H PRN IVP Severe Pain (Pain Scale 7-10) 10/12/17 11:30 10/19/17 11:29 10/13/17 08:24 Ondansetron HCl (Zofran) 4 mg Q6H PRN IVP Nausea & Vomiting 10/09/17 19:29 11/08/17 19:28 10/13/17 08:23 Oxycodone/ Acetaminophen (Percocet 10/325) 1 tab Q4H PRN ORAL Severe Pain (Pain Scale 7-10) 10/10/17 13:45 10/17/17 13:44 10/12/17 05:38 Polyethylene Glycol (Miralax) 17 gm HSPRN PRN ORAL Constipation 10/09/17 21:00 11/08/17 20:59 10/11/17 20:38 Valproic Acid (Depakene) 250 mg EVERY 12 HOURS NG 10/13/17 09:00 11/12/17 08:59 10/13/17 08:23 Zolpidem Tartrate (Ambien) 5 mg HSPRN PRN ORAL Insomnia 10/09/17 21:00 10/16/17 20:59 10/12/17 20:48 Cash Lorenzo MD October 13, 2017 12:24
[2017-10-13 12:38] LABS: ANION GAP 8 mmol/L (5-15); BLOOD UREA NITROGEN 16 mg/dL (7-18); CALCIUM 8.9 MG/DL (8.5-10.1); CARBON DIOXIDE 27 MMOL/L (21-32); CHLORIDE 104 MMOL/L (98-107); CREATININE 1.1 MG/DL (0.55-1.30); POTASSIUM 4.5 MMOL/L (3.5-5.1); SODIUM 139 MMOL/L (136-145)
--- NOTE | 2017-10-13 14:48 | Diagnostic Imaging Report ---
Indication: Pain Technique: XRAY L Spine Ltd Comparison: None Findings: There are 5 nonrib-bearing lumbar-type vertebral bodies, assuming 12 paired ribs.. No abnormal curvature noted on frontal view. No evidence of acute fracture. Lumbar lordosis is maintained. Vertebral heights are maintained. Mild degenerative change with disc space narrowing and endplate osteophyte formation. Bowel gas pattern is unremarkable. IMPRESSION: No evidence of acute fracture or traumatic malalignment. Very mild degenerative change of the lumbar spine.
--- NOTE | 2017-10-13 14:50 | Diagnostic Imaging Report ---
Indication: Pain Technique: XRAY C Spine 2-3v Comparison: None Findings: There is no abnormal cervical curvature on frontal view. There is straightening and slight reversal of the cervical lordosis. No acute fractures identified. Anterior and lateral atlantodental intervals within normal limits. There are multilevel degenerative changes of the cervical spine manifested by disc space narrowing and productive change. These findings are most pronounced from C4 to C7. Imaged lung apices and paranasal sinuses are grossly clear. IMPRESSION: Multilevel degenerative change of the cervical spine. No evidence of acute fracture.
[2017-10-13 16:00] VITALS: BP 107/73
--- NOTE | 2017-10-13 16:13 | General Progress Note ---
Assessment/Plan Problem List: (1) Parkinson disease ICD Codes: G20 - Parkinson's disease SNOMED: 42146821 (2) Tremor ICD Codes: R25.1 - Tremor, unspecified SNOMED: 53915581 (3) Chronic pain ICD Codes: G89.29 - Other chronic pain SNOMED: 66491745 (4) Seizure disorder ICD Codes: G40.909 - Epilepsy, unspecified, not intractable, without status epilepticus SNOMED: 329357863 Status: stable, progressing, tolerating diet Assessment/Plan ot pt diet seizure control neuro f/u pain control dc if clear Subjective Constitutional: Reports: weakness Allergies: Coded Allergies: VANCOMYCIN (Verified Allergy, Unknown, 08/01/15) All Systems: reviewed and negative except above Subjective sl head ache Objective Last 24 Hour Vital Signs Date Time Temp Pulse Resp B/P (MAP) Pulse Ox O2 Delivery O2 Flow Rate FiO2 10/13/17 16:00 97.7 89 18 107/73 94 Room Air 97.7 10/13/17 12:00 97.5 69 18 111/74 95 Room Air 97.5 10/13/17 08:54 96.5 10/13/17 08:00 97.7 89 18 107/73 99 Room Air 97.7 10/13/17 08:00 97 10/13/17 04:00 96.5 71 19 119/79 96 Room Air 96.5 10/13/17 04:00 71 10/13/17 00:00 75 10/13/17 00:00 97.9 69 18 121/76 97 Room Air 97.9 10/12/17 20:00 84 10/12/17 20:00 96.4 78 19 113/80 96 Room Air 96.4 Intake and Output 10/12/17 10/13/17 19:00 07:00 Intake Total 710 ml Output Total 600 ml Balance 110 ml Intake Oral 710 ml Output Urine Total 600 ml # Voids 4 Laboratory Tests 10/13/17 11:35: White Blood Count 6.4, Red Blood Count 4.39L, Hemoglobin 14.1L, Hematocrit 43.5 , Mean Corpuscular Volume 99, Mean Corpuscular Hemoglobin 32.0H, Mean Corpuscular Hemoglobin Concent 32.3, Red Cell Distribution Width 12.6, Platelet Count 347, Mean Platelet Volume 5.7L, Neutrophils (%) (Auto) 62.7, Lymphocytes ( %) (Auto) 26.0, Monocytes (%) (Auto) 7.9, Eosinophils (%) (Auto) 2.9, Basophils (%) (Auto) 0.5, Sodium Level 139, Potassium Level 4.5, Chloride Level 104, Carbon Dioxide Level 27, Anion Gap 8, Blood Urea Nitrogen 16, Creatinine 1.1, Estimat Glomerular Filtration Rate > 60, Glucose Level 108H, Calcium Level 8.9 Height (Feet): 5 Height (Inches): 8.00 Weight (Pounds): 172 General Appearance: lethargic EENT: normal ENT inspection Neck: normal alignment Cardiovascular: normal peripheral pulses, normal rate, regular rhythm Respiratory/Chest: chest wall non-tender, lungs clear, normal breath sounds Abdomen: normal bowel sounds, non tender, soft Extremities: normal inspection Edema: no edema noted Arm (L), no edema noted Arm (R), no edema noted Leg (L), no edema noted Leg (R), no edema noted Pedal (L), no edema noted Pedal (R), no edema noted Generalized Neurologic: responsive, motor weakness Skin: normal pigmentation, warm/dry Krishan Fraire DO October 13, 2017 16:13
[2017-10-13] MEDS: Miralax 17gm pkt ORAL PRN (17:42)
[2017-10-13 20:00] VITALS: BP 120/76
[2017-10-14] VITALS: BP 128/69
[2017-10-14] MEDS: Morphine Sulfate 4mg/ml Inj IVP PRN ×2 (02:25→08:05)
[2017-10-14 04:00] VITALS: BP 133/72
[2017-10-14] MEDS: Levodopa/Carbidopa 25/100 tab ORAL SCH (05:45)
[2017-10-14 08:00] VITALS: BP 114/80
[2017-10-14] MEDS: Heparin 5000 units/ml inj SUBQ SCH (08:03)
[2017-10-14] MEDS: Valproic Acid 250mg/5ml Liquid NG SCH (08:04)
--- NOTE | 2017-10-14 10:35 | Pulmonology Progress Note ---
Assessment/Plan Problems: (1) Uncontrolled seizures (2) Non-compliance (3) History of craniotomy (4) Seizure disorder Assessment/Plan improving no new complains titrate fio2 to sat of 92% respiratory treatment f/u by neurology med/surg dc planning Subjective ROS Limited/Unobtainable: No Constitutional: Reports: no symptoms HEENT: Repors: no symptoms Respiratory: Reports: no symptoms Allergies: Coded Allergies: VANCOMYCIN (Verified Allergy, Unknown, 08/01/15) Objective Last 24 Hour Vital Signs Date Time Temp Pulse Resp B/P (MAP) Pulse Ox O2 Delivery O2 Flow Rate FiO2 10/14/17 08:35 97.7 10/14/17 08:00 97.9 98 20 114/80 97 Room Air 97.9 10/14/17 04:00 97.7 68 20 133/72 96 Room Air 97.7 10/14/17 04:00 79 10/14/17 00:00 98.0 72 19 128/69 97 Room Air 98.0 10/13/17 23:58 82 10/13/17 20:00 78 10/13/17 20:00 96.6 76 19 120/76 96 Room Air 96.6 10/13/17 16:00 97.7 89 18 107/73 94 Room Air 97.7 10/13/17 12:00 97.5 69 18 111/74 95 Room Air 97.5 10/13/17 12:00 66 Intake and Output 10/13/17 10/14/17 19:00 07:00 Intake Total 120 ml Balance 120 ml Intake Oral 120 ml # Voids 1 3 General Appearance: WD/WN HEENT: normocephalic, atraumatic Respiratory/Chest: chest wall non-tender, lungs clear Cardiovascular: normal peripheral pulses, normal rate Abdomen: normal bowel sounds, soft, non tender, no scars Extremities: no cyanosis Skin: no lesions Laboratory Tests 10/13/17 11:35: White Blood Count 6.4, Red Blood Count 4.39L, Hemoglobin 14.1L, Hematocrit 43.5 , Mean Corpuscular Volume 99, Mean Corpuscular Hemoglobin 32.0H, Mean Corpuscular Hemoglobin Concent 32.3, Red Cell Distribution Width 12.6, Platelet Count 347, Mean Platelet Volume 5.7L, Neutrophils (%) (Auto) 62.7, Lymphocytes ( %) (Auto) 26.0, Monocytes (%) (Auto) 7.9, Eosinophils (%) (Auto) 2.9, Basophils (%) (Auto) 0.5, Sodium Level 139, Potassium Level 4.5, Chloride Level 104, Carbon Dioxide Level 27, Anion Gap 8, Blood Urea Nitrogen 16, Creatinine 1.1, Estimat Glomerular Filtration Rate > 60, Glucose Level 108H, Calcium Level 8.9 Current Medications Medications (Trade) Dose Ordered Sig/Job Route PRN Reason Start Time Stop Time Status Last Admin Dose Admin Acetaminophen (Tylenol) 650 mg Q4H PRN ORAL fever (TEMP>100.3) 10/09/17 19:29 11/08/17 19:28 10/10/17 01:37 Al Hydroxide/Mg Hydroxide (Mylanta II) 30 ml Q6H PRN ORAL dyspepsia 10/09/17 19:28 11/08/17 19:27 Carbidopa/Levodopa (Sinemet 25/100) 3 tab TID@0600,1200,1800 ORAL 10/12/17 12:00 11/10/17 13:59 10/14/17 05:45 Dextrose (Dextrose 50%) 25 ml STAT PRN IV Hypoglycemia BS 60-69mg/dl 10/09/17 19:31 11/08/17 19:30 Dextrose (Dextrose 50%) 50 ml STAT PRN IV Hypoglycemia BS less than 60mg 10/09/17 19:30 11/08/17 19:29 Folic Acid (Folate) 1 mg DAILY ORAL 10/11/17 15:30 11/10/17 15:29 10/14/17 08:04 Gabapentin (Neurontin) 300 mg THREE TIMES A DAY ORAL 10/13/17 09:00 11/12/17 08:59 10/14/17 08:04 Heparin Sodium (Porcine) (Heparin 5000 units/ml) 5,000 units EVERY 12 HOURS SUBQ 10/11/17 21:00 11/08/17 20:59 10/14/17 08:03 Levetiracetam (Keppra) 750 mg BID@0600,1800 ORAL 10/11/17 18:00 11/10/17 17:59 10/14/17 05:45 Lorazepam (Ativan 2mg/ml 1ml) 1 mg Q4H PRN IV For Anxiety 10/12/17 10:45 10/19/17 10:44 10/13/17 20:40 Lorazepam (Ativan 2mg/ml 1ml) 2 mg EVERY HOUR PRN IV seizures 10/09/17 19:29 10/16/17 19:28 10/12/17 05:50 Lorazepam (Ativan) 1 mg Q4HR PRN ORAL For Anxiety 10/12/17 09:30 10/19/17 09:29 Morphine Sulfate (Morphine Sulfate) 4 mg Q4H PRN IVP Severe Pain (Pain Scale 7-10) 10/12/17 11:30 10/19/17 11:29 10/14/17 08:05 Ondansetron HCl (Zofran) 4 mg Q6H PRN IVP Nausea & Vomiting 10/09/17 19:29 11/08/17 19:28 10/13/17 08:23 Oxycodone/ Acetaminophen (Percocet 10/325) 1 tab Q4H PRN ORAL Severe Pain (Pain Scale 7-10) 10/10/17 13:45 10/17/17 13:44 10/12/17 05:38 Polyethylene Glycol (Miralax) 17 gm HSPRN PRN ORAL Constipation 10/09/17 21:00 11/08/17 20:59 10/13/17 17:42 Valproic Acid (Depakene) 250 mg EVERY 12 HOURS NG 10/13/17 09:00 11/12/17 08:59 10/14/17 08:04 Zolpidem Tartrate (Ambien) 5 mg HSPRN PRN ORAL Insomnia 10/09/17 21:00 10/16/17 20:59 10/12/17 20:48 Cash Lorenzo MD October 14, 2017 10:35
--- NOTE | 2017-10-14 15:03 | Cardiology Report ---
APPROVED REPORT EKG Measurement Heart [id number] [place] [id number] Normal sinus rhythm Biatrial enlargement Abnormal ECG
--- NOTE | 2017-10-14 16:00 | Progress Note ---
DATE: 10/14/2017 SUBJECTIVE: This is a 57-year-old patient with seizure disorder, who has some confusion and disorganized thought process. MENTAL STATUS EVALUATION: This is a 57-year-old male. Appearance is disheveled. Attitude, irritable and agitated. Affect, guarded and restricted. Intellect poor. Mood, depressed and anxious. Motor activity, psychomotor agitation. Attention span is poor. Orientation x2. Speech is pressured. Thought process, disorganized and illogical. Thought content, auditory hallucinations and paranoid delusions. Insight and judgment is poor. DIAGNOSIS: Schizophrenia with acute exacerbation. PLAN: Plan for this patient is to treat him with a medication regimen consisting of . Provided 18 to 20 minutes of supportive psychotherapy and encouraged her to interact appropriately with staff and other patients. . Chart reviewed and discussed with staff. Seen and assessed in his room. Rowan Mendoza M.D. DR: KEVIN JOB#: [id number] CC:
--- NOTE | 2017-10-16 10:53 | Discharge Summary ---
Discharge Summary Hospital Course Date of Admission October 09, 2017 at 15:00 Date of Discharge October 14, 2017 at 11:48 Admitting Diagnosis SEIZURE HPI Andrew Mccallum is a 57 year old male who was admitted on October 09, 2017 at 15:00 for Seizure Hospital Course A 57-year-old male, who lives at home with history of Parkinson disease, sustained two seizures, was altered. This patient has a history of seizures status post craniectomy and tumor removal of meningioma. He presented with breakthrough seizures from a [id number]. He stated that he normally uses Klonopin and is out of this. He also has a history of Parkinson's and substance abuse to include alcohol and cocaine. He denies recent illness. He has no other complaints. On evaluation at ED, CT scan of the brain without contrast revealed a large area of encephalomalacia in the left frontotemporal region and a craniotomy defect in the left frontotemporal region. Urine toxicology positive for THC. He was admitted for evaluation of seizures. He underwent neurological evaluation. On neurological examination, he does demonstrate significant problems with orientation, recent and remote memory, higher cognitive function, and a mild anomia. He does have a mild right VII central facial paresis, finger extensor weakness, and iliopsoas weakness. The deep tendon reflexes are brisker on the right side compared to the left. He also has a parkinsonian syndrome characterized by tremor, rigidity, bradykinesia, and hypomimia. 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 He also has findings compatible with a parkinsonian syndrome. The patient will be restarted on Sinemet as per his home regimen. He will be given Sinemet 25/100 -2 tablets to be taken at 6 a.m., 12 noon, and 6 p.m. He was started on Keppra 750 mg at 6 a.m. and 6 p.m. for seizure prophylaxis. He was instructed on the basics of seizure hygiene: He was told to sleep well, that is sleep for at least 7 hours in the 24-hour period. Eat well, that is have a breakfast, lunch, and dinner. Stay away from tobacco, alcohol, and all illicit drugs. and to take his antiseizure medicine on a regular basis. He had neck and back pain. He was continued on Percocet and is on morphine 4 mg IV every 4 hours as needed for severe breakthrough pain. He had disorganized thought process, alcohol abuse, possible alcohol withdrawal seizure, anxiety, and agitation. He was diagnosed with Major depressive disorder, mild, recurrent. He was given Ativan. There were no seizure exacerbations. He was tolerating keppra well. He was given folic acid and Vitamin b12 injections. He was given Valproic acid 250 mg BID. He was seen by home health care social worker. He was eventually discharged home. FINAL DIAGNOSES: Seizure DO with exacerbation Parkinson disease Tremor MDD Noncompliance Uncontrolled seizures history of craniotomy Chronic back and neck pain --I have been assigned to complete a DC summary on this account, I was not involved with the patient's management. --MONTANA Lu Discharge Discharge Disposition Patient was discharged to Home () Hue Camargo NP October 16, 2017 10:53
== END 2017-10-14 11:48 | disposition home or self-care (01) | DRG 53 ==
LOC: EDBD 12:09 → EMR 13:14 → 2E 15:00 → EDBEDREQ 15:19 → 2E 10-10 20:42
DX: G40.909 Epilepsy, unspecified, not intractable, without status epilepticus (principal); G20 Parkinson's disease; Z88.1 Allergy status to other antibiotic agents; F10.10 Alcohol abuse, uncomplicated; F14.10 Cocaine abuse, uncomplicated; G89.4 Chronic pain syndrome; M54.9 Dorsalgia, unspecified; M54.2 Cervicalgia; Z91.81 History of falling; G51.0 Bell's palsy; F17.200 Nicotine dependence, unspecified, uncomplicated; Z91.14 Patient's other noncompliance with medication regimen; F20.9 Schizophrenia, unspecified; F32.9 Major depressive disorder, single episode, unspecified
CPT/HCPCS: 36415; 70450; 72020; 72040; 80048; 80053; 80185; 80299; 80307; 82306; 82550; 82607; 82746; 84443; 85025; 85651; 86592; 87081; 93005; 99285; J2405

== ENCOUNTER 2017-11-18 14:56 | Inpatient (IN) | payer OTHER ==
[~2017-11-18] VITALS: Ht 177.8 cm; Wt 78.6 kg
[~2017-11-18 14:56] MED LIST changes: +DILANTIN100 MG ORAL; +OXYCODONE20 MG/1 M1 ORAL
[2017-11-18] MEDS ORDERED: ROXICODONE15 MG ORAL (14:57)
[2017-11-18] MEDS ORDERED: DILANTIN100 MG ORAL (14:57)
[2017-11-18 15:00] VITALS: BP 144/89
[2017-11-18] MEDS ORDERED: levETIRAcetam 500mg/NS100ml 100 ML IVPB ONE (15:15)
[2017-11-18] MEDS ORDERED: LORazepam Inj 2mg/ml 1ml IV ONE (15:15)
[2017-11-18] MEDS: Phenytoin 500 MG in NS 110 ML IVPB ONE ×2 (15:25→16:19)
[2017-11-18 15:48] LABS: BASOPHILS % (AUTO) 0.9 % (0.0-2.0); EOSINOPHILS % (AUTO) 0.7 % (0.0-3.0); HEMATOCRIT 43.9 % (42.0-52.0); HEMOGLOBIN 15.2 G/DL (14.2-18.0); MEAN CORPUSCULAR VOLUME 97 FL (80-99); NEUTROPHILS % (AUTO) 71.4 % (45.0-75.0); PLATELET COUNT 413 K/UL (150-450); RED BLOOD COUNT 4.51 M/UL (4.70-6.10); RED CELL DISTRIBUTION WIDTH 13.5 % (11.6-14.8); WHITE BLOOD COUNT 7.1 K/UL (4.8-10.8)
[2017-11-18 16:00] VITALS: BP 129/88
[2017-11-18 16:16] LABS: ANION GAP 8 mmol/L (5-15); BLOOD UREA NITROGEN 7 mg/dL (7-18); CALCIUM 9.2 MG/DL (8.5-10.1); CARBON DIOXIDE 29 MMOL/L (21-32); CHLORIDE 104 MMOL/L (98-107); CREATININE 0.8 MG/DL (0.55-1.30); POTASSIUM 4.9 MMOL/L (3.5-5.1); SODIUM 141 MMOL/L (136-145)
[2017-11-18 16:20] LABS: ALANINE AMINOTRANSFERASE 23 U/L (12-78); ALBUMIN/GLOBULIN RATIO 0.9 (1.0-2.7); ALKALINE PHOSPHATASE 119 U/L (46-116); ASPARTATE AMINO TRANSFERASE 31 U/L (15-37); BILIRUBIN,TOTAL 0.7 MG/DL (0.2-1.0)
--- NOTE | 2017-11-18 16:31 | Diagnostic Imaging Report ---
Indications: Pain, status post fall Technique: Two views of the thoracic spine Comparison: None Findings: There is minimal mid thoracic scoliotic deformity, possibly artifact of positioning. Bony alignment is otherwise normal. Vertebral body heights are preserved. Disc spaces are preserved. Pedicles are intact. No acute fractures. No dislocations. There are degenerative changes of the lower cervical spine incidentally noted. No gross paraspinous mass. There is slight leftward tracheal deviation. This is also evident on a recent cervical spine CT, appears to be physiologic rather than due to any mass Impression: No acute process
[2017-11-18 17:00] VITALS: BP 121/77
--- NOTE | 2017-11-18 17:29 | Emergency Room Report ---
History of Present Illness General Chief Complaint: Seizure Source: Patient, Medical Record, EMS Present Illness HPI Patient presents after a seizure activity Patient himself has multiple medical history including Parkinson's seizure disorder, alcohol disease Upon arrival the patient reports that he has a headache and needs pain medicine denies any chest pain or shortness of breath denies any focal weakness Denies any fevers or chills patient is not sure if he is taking his medications , Allergies: Coded Allergies: VANCOMYCIN (Verified Allergy, Unknown, 08/01/15) Patient History Past Medical History: see triage record Pertinent Family History: none Reviewed Nursing Documentation: PMH: Agreed; PSxH: Agreed Nursing Documentation-PMH Hx Cardiac Problems: No Hx Hypertension: Yes Hx Diabetes: Yes Hx Cancer: No - crainiotomy for meningioma Hx Gastrointestinal Problems: No History Of Psychiatric Problem: Yes - Depression, Substance Abuse (ETOH, Cocaine) Hx Cerebrovascular Accident: Yes Hx Parkinson's Disease: Yes Hx Seizures: Yes Hx Tremors: Yes Hx Weakness: Yes Hx Neurologic Surgery: Yes - s/p craniotomy Review of Systems All Other Systems: negative except mentioned in HPI Physical Exam Vital Signs Date Time Temp Pulse Resp B/P (MAP) Pulse Ox O2 Delivery O2 Flow Rate FiO2 11/18/17 14:53 92 14 124/86 98 Room Air Sp02 EP Interpretation: reviewed, normal General Appearance: no apparent distress Head: other - Craniectomy Eyes: bilateral eye PERRL ENT: normal pharynx, no angioedema Neck: supple, thyroid normal Respiratory: chest non-tender, lungs clear Cardiovascular #1: no edema, tachycardia Gastrointestinal: non tender, soft Musculoskeletal: other - No obvious focal defici Neurologic: alert, 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, 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 nml as tested Skin: no rash, warm/dry Lymphatic: no adenopathy Medical Decision Making Diagnostic Impression: Primary Impression: Epileptic seizure, generalized Additional Impressions: Alcohol abuse Generalized pain ER Course Patient is complex with multiple differentials considered At this time the patient has become much more awake and oriented At baseline mental status Patient does have multiple comorbidities has recent CT imaging and therefore this was not repeated Patient is noncompliant with medications requiring further inpatient care Labs Test 11/18/17 15:19 11/18/17 17:40 White Blood Count 7.1 K/UL (4.8-10.8) Red Blood Count 4.51 M/UL (4.70-6.10) Hemoglobin 15.2 G/DL (14.2-18.0) Hematocrit 43.9 % (42.0-52.0) Mean Corpuscular Volume 97 FL (80-99) Mean Corpuscular Hemoglobin 33.7 PG (27.0-31.0) Mean Corpuscular Hemoglobin Concent 34.6 G/DL (32.0-36.0) Red Cell Distribution Width 13.5 % (11.6-14.8) Platelet Count 413 K/UL (150-450) Mean Platelet Volume 5.1 FL (6.5-10.1) Neutrophils (%) (Auto) 71.4 % (45.0-75.0) Lymphocytes (%) (Auto) 21.0 % (20.0-45.0) Monocytes (%) (Auto) 6.0 % (1.0-10.0) Eosinophils (%) (Auto) 0.7 % (0.0-3.0) Basophils (%) (Auto) 0.9 % (0.0-2.0) Sodium Level 141 MMOL/L (136-145) Potassium Level 4.9 MMOL/L (3.5-5.1) Chloride Level 104 MMOL/L (98-107) Carbon Dioxide Level 29 MMOL/L (21-32) Anion Gap 8 mmol/L (5-15) Blood Urea Nitrogen 7 mg/dL (7-18) Creatinine 0.8 MG/DL (0.55-1.30) Estimat Glomerular Filtration Rate > 60 mL/min (>60) Glucose Level 92 MG/DL (74-106) Calcium Level 9.2 MG/DL (8.5-10.1) Total Bilirubin 0.7 MG/DL (0.2-1.0) Aspartate Amino Transf (AST/SGOT) 31 U/L (15-37) Alanine Aminotransferase (ALT/SGPT) 23 U/L (12-78) Alkaline Phosphatase 119 U/L (46-116) Total Protein 8.3 G/DL (6.4-8.2) Albumin 4.0 G/DL (3.4-5.0) Globulin 4.3 g/dL Albumin/Globulin Ratio 0.9 (1.0-2.7) Phenytoin (Dilantin) Level < 0.5 ug/mL (10-20) Serum Alcohol 123 mg/dL Urine Opiates Screen Positive (NEGATIVE) Urine Barbiturates Screen Negative (NEGATIVE) Phencyclidine (PCP) Screen Negative (NEGATIVE) Urine Amphetamines Screen Negative (NEGATIVE) Urine Benzodiazepines Screen Negative (NEGATIVE) Urine Cocaine Screen Negative (NEGATIVE) Urine Marijuana (THC) Screen Positive (NEGATIVE) Rhythm Strip Diag. Results EP Interpretation: yes Rate: 77 Rhythm: NSR, no PVC's, no ectopy Other X-Ray Diagnostic Results Other X-Ray Diagnostic Results : X-Ray ordered: T-spine # of Views/Limited Vs Complete: 2 View Indication: Pain EP Interpretation: Yes Interpretation: no dislocation, no soft tissue swelling, no fractures Impression: No acute disease Electronically Signed by: Khurram Padilla DO Last Vital Signs Date Time Temp Pulse Resp B/P (MAP) Pulse Ox O2 Delivery O2 Flow Rate FiO2 11/18/17 14:53 92 14 124/86 98 Room Air Status: improved Disposition: ADMITTED INPATIENT Condition: Serious Referrals: NON PHYSICIAN (PCP) Khurram Padilla DO Nov 18, 2017 17:29
[2017-11-18] MEDS ORDERED: SINEMET 25-1001 EAC1 ORAL (17:35)
[2017-11-18] MEDS ORDERED: GABAPENTIN300 MG ORAL (17:35)
[2017-11-18] MEDS ORDERED: KLONOPIN1 MG ORAL (17:35)
[2017-11-18] MEDS ORDERED: PERCOCET 10-321 EACH ORAL (17:35)
[2017-11-18 18:00] VITALS: BP 123/78
[2017-11-18 20:00] VITALS: BP 116/79
[2017-11-18] MEDS ORDERED: Zolpidem 5mg tab ORAL PRN (20:30)
[2017-11-18] MEDS ORDERED: Mylanta II UD 30ml ORAL PRN (20:30)
[2017-11-18] MEDS ORDERED: Miralax 17gm pkt ORAL PRN (20:30)
[2017-11-18] MEDS ORDERED: LORazepam Inj 2mg/ml 1ml IV PRN (20:30)
[2017-11-18] MEDS: Morphine Sulfate 2mg/ml Inj IVP PRN (21:03)
[2017-11-18] MEDS: Heparin 5000 units/ml inj SUBQ SCH (21:04)
[2017-11-19] VITALS: BP 110/66
[2017-11-19 04:00] VITALS: BP 117/84
[2017-11-19] MEDS: Morphine Sulfate 2mg/ml Inj IVP PRN ×4 (06:01→20:53)
[2017-11-19 08:00] VITALS: BP 119/81
[2017-11-19 08:04] LABS: BASOPHILS % (AUTO) 0.7 % (0.0-2.0); EOSINOPHILS % (AUTO) 3.4 % (0.0-3.0); HEMATOCRIT 42.1 % (42.0-52.0); HEMOGLOBIN 13.8 G/DL (14.2-18.0); LYMPHOCYTES % (AUTO) 22.4 % (20.0-45.0); MEAN CORPUSCULAR VOLUME 98 FL (80-99); MONOCYTES % (AUTO) 8.6 % (1.0-10.0); PLATELET COUNT 374 K/UL (150-450); RED BLOOD COUNT 4.29 M/UL (4.70-6.10); RED CELL DISTRIBUTION WIDTH 13.3 % (11.6-14.8); WHITE BLOOD COUNT 7.6 K/UL (4.8-10.8)
[2017-11-19] MEDS: Levodopa/Carbidopa 25/100 tab ORAL SCH ×3 (08:07→17:19)
[2017-11-19] MEDS: Heparin 5000 units/ml inj SUBQ SCH ×2 (08:08→20:53)
[2017-11-19 08:20] LABS: ALANINE AMINOTRANSFERASE 17 U/L (12-78); ALBUMIN 3.2 G/DL (3.4-5.0); ALKALINE PHOSPHATASE 101 U/L (46-116); ANION GAP 7 mmol/L (5-15); ASPARTATE AMINO TRANSFERASE 12 U/L (15-37); BILIRUBIN,TOTAL 0.6 MG/DL (0.2-1.0); BLOOD UREA NITROGEN 15 mg/dL (7-18); CALCIUM 8.8 MG/DL (8.5-10.1); CARBON DIOXIDE 29 MMOL/L (21-32); CHLORIDE 102 MMOL/L (98-107); CREATININE 1.1 MG/DL (0.55-1.30); POTASSIUM 4.1 MMOL/L (3.5-5.1); SODIUM 138 MMOL/L (136-145)
--- NOTE | 2017-11-19 11:48 | Consultation ---
History of Present Illness General Date patient seen: Nov 19, 2017 Chief Complaint: Seizure Present Illness HPI 57 year old male with hx of Parkinson's seizure disorder, alcohol disease presented to ER after a seizure activity. Upon arrival the patient reports that he has a headache and needs pain medicine. He claims that she had black/out or seizures and hurt his neck and needs pain meds. His ETOH leve was around 130. His urine was positive for Cannabis and opioids. Allergies: Coded Allergies: VANCOMYCIN (Verified Allergy, Unknown, 08/01/15) Medication History Scheduled Carbidopa/Levodopa 25-100 Mg* (Sinemet 25-100 Mg Tablet*), 3 TAB ORAL THREE TIMES A DAY, (Reported) Gabapentin* (Gabapentin*), 600 MG ORAL THREE TIMES A DAY, (Reported) Scheduled PRN Clonazepam* (Klonopin*), 1 MG ORAL DAILY PRN for For Anxiety, (Reported) Oxycodone Hcl/Acetaminophen 10-325 Mg Tablet (Percocet 10-325 Mg Tablet*), 1 TAB ORAL Q6H PRN for For Pain, (Reported) Discontinued Medications Acetaminophen (Tylenol), 650 MG ORAL Q6H PRN for Prn Pain/Headache/Temp > 101 Discontinued Reason: Pt stopped taking med Carbidopa/Levodopa 25-100 Mg* (Sinemet 25-100 Mg Tablet*), 2 TAB ORAL THREE TIMES A DAY Discontinued Reason: Medication dose changed Ibuprofen* (Motrin*), 600 MG ORAL Q6H PRN for For Pain Discontinued Reason: Pt stopped taking med OXYCODONE HCl* (Roxicodone*), 15 MG ORAL Q6H PRN for For Pain, (Reported) Discontinued Reason: Pt stopped taking med Oxycodone Hcl (Oxycodone Hcl), Unknown Dose ORAL, (Reported) Discontinued Reason: Pt stopped taking med Phenytoin Sodium Extended* (Dilantin*), Unknown Dose ORAL TWICE A DAY, (Reported ) Discontinued Reason: Pt stopped taking med Phenytoin Sodium Extended* (Dilantin*), 100 MG ORAL THREE TIMES A DAY, (Reported ) Discontinued Reason: Pt stopped taking med Patient History Healthcare decision maker N Resuscitation status Full Code Advanced Directive on File Past Medical/Surgical History Past Medical/Surgical History: (1) Chronic pain (2) Parkinson disease (3) Drug-seeking behavior (4) Non-compliance Review of Systems All Other Systems: negative except mentioned in HPI Physical Exam General Appearance: WD/WN, no apparent distress Lines, tubes and drains: peripheral HEENT: normocephalic, atraumatic Neck: non-tender, normal alignment Respiratory/Chest: chest wall non-tender, lungs clear Breasts: no masses Abdomen: normal bowel sounds Genitourinary/Rectal: normal prostate exam Extremities: normal range of motion Skin Exam: normal pigmentation Last 24 Hour Vital Signs Date Time Temp Pulse Resp B/P (MAP) Pulse Ox O2 Delivery O2 Flow Rate FiO2 11/19/17 08:00 81 11/19/17 08:00 98.1 79 17 119/81 98 Room Air 98.1 11/19/17 04:00 77 11/19/17 04:00 97.3 72 20 117/84 97 Room Air 97.3 11/19/17 00:00 98.0 108 20 110/66 96 Room Air 98.0 11/19/17 00:00 93 11/18/17 20:00 111 11/18/17 20:00 98.0 102 20 116/79 95 Room Air 98.0 11/18/17 18:57 98.6 97 16 123/78 99 Room Air 11/18/17 18:00 98.5 109 16 123/78 99 Room Air 98.5 11/18/17 17:00 93 15 121/77 98 Room Air 11/18/17 16:00 75 14 129/88 97 Room Air 11/18/17 15:05 95 14 Room Air 11/18/17 15:00 98.9 95 14 144/89 96 Room Air 98.9 11/18/17 14:53 92 14 124/86 98 Room Air Intake and Output 11/18/17 11/19/17 19:00 07:00 Output Total 0 ml Balance 0 ml Output Urine Total 0 ml # Voids 3 # Bowel Movements 1 Laboratory Tests Test 11/18/17 15:19 11/18/17 17:40 11/19/17 07:50 White Blood Count 7.1 K/UL (4.8-10.8) 7.6 K/UL (4.8-10.8) Red Blood Count 4.51 M/UL (4.70-6.10) L 4.29 M/UL (4.70-6.10) L Hemoglobin 15.2 G/DL (14.2-18.0) 13.8 G/DL (14.2-18.0) L Hematocrit 43.9 % (42.0-52.0) 42.1 % (42.0-52.0) Mean Corpuscular Volume 97 FL (80-99) 98 FL (80-99) Mean Corpuscular Hemoglobin 33.7 PG (27.0-31.0) H 32.3 PG (27.0-31.0) H Mean Corpuscular Hemoglobin Concent 34.6 G/DL (32.0-36.0) 32.9 G/DL (32.0-36.0) Red Cell Distribution Width 13.5 % (11.6-14.8) 13.3 % (11.6-14.8) Platelet Count 413 K/UL (150-450) 374 K/UL (150-450) Mean Platelet Volume 5.1 FL (6.5-10.1) L 5.2 FL (6.5-10.1) L Neutrophils (%) (Auto) 71.4 % (45.0-75.0) 65.0 % (45.0-75.0) Lymphocytes (%) (Auto) 21.0 % (20.0-45.0) 22.4 % (20.0-45.0) Monocytes (%) (Auto) 6.0 % (1.0-10.0) 8.6 % (1.0-10.0) Eosinophils (%) (Auto) 0.7 % (0.0-3.0) 3.4 % (0.0-3.0) H Basophils (%) (Auto) 0.9 % (0.0-2.0) 0.7 % (0.0-2.0) Sodium Level 141 MMOL/L (136-145) 138 MMOL/L (136-145) Potassium Level 4.9 MMOL/L (3.5-5.1) 4.1 MMOL/L (3.5-5.1) Chloride Level 104 MMOL/L (98-107) 102 MMOL/L (98-107) Carbon Dioxide Level 29 MMOL/L (21-32) 29 MMOL/L (21-32) Anion Gap 8 mmol/L (5-15) 7 mmol/L (5-15) Blood Urea Nitrogen 7 mg/dL (7-18) 15 mg/dL (7-18) Creatinine 0.8 MG/DL (0.55-1.30) 1.1 MG/DL (0.55-1.30) Estimat Glomerular Filtration Rate > 60 mL/min (>60) > 60 mL/min (>60) Glucose Level 92 MG/DL (74-106) 148 MG/DL (74-106) H Calcium Level 9.2 MG/DL (8.5-10.1) 8.8 MG/DL (8.5-10.1) Total Bilirubin 0.7 MG/DL (0.2-1.0) 0.6 MG/DL (0.2-1.0) Aspartate Amino Transf (AST/SGOT) 31 U/L (15-37) 12 U/L (15-37) L Alanine Aminotransferase (ALT/SGPT) 23 U/L (12-78) 17 U/L (12-78) Alkaline Phosphatase 119 U/L (46-116) H 101 U/L (46-116) Total Protein 8.3 G/DL (6.4-8.2) H 6.3 G/DL (6.4-8.2) L Albumin 4.0 G/DL (3.4-5.0) 3.2 G/DL (3.4-5.0) L Globulin 4.3 g/dL 3.1 g/dL Albumin/Globulin Ratio 0.9 (1.0-2.7) L 1.0 (1.0-2.7) Phenytoin (Dilantin) Level < 0.5 ug/mL (10-20) L Serum Alcohol 123 mg/dL Urine Opiates Screen Positive (NEGATIVE) H Urine Barbiturates Screen Negative (NEGATIVE) Phencyclidine (PCP) Screen Negative (NEGATIVE) Urine Amphetamines Screen Negative (NEGATIVE) Urine Benzodiazepines Screen Negative (NEGATIVE) Urine Cocaine Screen Negative (NEGATIVE) Urine Marijuana (THC) Screen Positive (NEGATIVE) H Height (Feet): 5 Height (Inches): 10.00 Weight (Pounds): 173 Medications Current Medications Medications (Trade) Dose Ordered Sig/Job Route PRN Reason Start Time Stop Time Status Last Admin Dose Admin Acetaminophen (Tylenol) 650 mg Q4H PRN ORAL fever (temp>100.5F) 11/18/17 20:30 12/18/17 20:29 Al Hydroxide/Mg Hydroxide (Mylanta II) 30 ml Q6H PRN ORAL dyspepsia 11/18/17 20:30 12/18/17 20:29 Carbidopa/Levodopa (Sinemet 25/100) 3 tab THREE TIMES A DAY ORAL 11/19/17 09:00 12/19/17 08:59 11/19/17 08:07 Clonazepam (KlonoPIN) 1 mg DAILYPRN PRN ORAL For Anxiety 11/18/17 20:30 11/25/17 20:29 Dextrose (Dextrose 50%) 25 ml STAT PRN IV Hypoglycemia 11/18/17 20:30 12/18/17 20:29 Dextrose (Dextrose 50%) 50 ml STAT PRN IV Hypoglycemia 11/18/17 20:45 12/18/17 20:44 Gabapentin (Neurontin) 600 mg THREE TIMES A DAY ORAL 11/19/17 09:00 12/19/17 08:59 11/19/17 08:07 Heparin Sodium (Porcine) (Heparin 5000 units/ml) 5,000 units EVERY 12 HOURS SUBQ 11/18/17 21:00 12/18/17 20:59 11/18/17 21:04 Lorazepam (Ativan 2mg/ml 1ml) 2 mg Q1H PRN IV seizures 11/18/17 20:30 11/25/17 20:29 Morphine Sulfate (Morphine Sulfate) 1 mg Q4H PRN IVP Moderate Pain (Pain Scale 4-6) 11/18/17 20:30 11/25/17 20:29 11/19/17 06:01 Ondansetron HCl (Zofran) 4 mg Q6H PRN IVP Nausea & Vomiting 11/18/17 20:30 12/18/17 20:29 Oxycodone/ Acetaminophen (Percocet 10/325) 1 tab Q6H PRN ORAL Severe Pain (Pain Scale 7-10) 11/18/17 20:30 11/25/17 20:29 11/19/17 08:08 Polyethylene Glycol (Miralax) 17 gm HSPRN PRN ORAL Constipation 11/18/17 20:30 12/18/17 20:29 Zolpidem Tartrate (Ambien) 5 mg HSPRN PRN ORAL Insomnia 11/18/17 20:30 11/25/17 20:29 Assessment/Plan Problem List: (1) Uncontrolled seizures ICD Codes: R56.9 - Unspecified convulsions SNOMED: 35454772 (2) Acute alcoholic intoxication ICD Codes: F10.929 - Alcohol use, unspecified with intoxication, unspecified SNOMED: 25135711 (3) Parkinson disease ICD Codes: G20 - Parkinson's disease SNOMED: 91446857 (4) History of craniotomy ICD Codes: Z98.890 - Other specified postprocedural states SNOMED: 43728408, 059027159 (5) Non-compliance ICD Codes: Z91.19 - Patient's noncompliance with other medical treatment and regimen SNOMED: 0385648 (6) Chronic pain ICD Codes: G89.29 - Other chronic pain SNOMED: 43877125 Assessment/Plan iv fluids seizure precaution pain control no neurology available to see the patient Cash Lorenzo MD Nov 19, 2017 11:48
[2017-11-19 12:37] VITALS: BP 120/79
--- NOTE | 2017-11-19 13:10 | Consultation ---
History of Present Illness General Date patient seen: Nov 19, 2017 Chief Complaint: Seizure Present Illness HPI 57-year-old male from home presents with increased multiple seizures, the pt is having depression, anxiety and med seeking behavior. the pt is hard of hearing and is illogical Allergies: Coded Allergies: VANCOMYCIN (Verified Allergy, Unknown, 08/01/15) Medication History Scheduled Carbidopa/Levodopa 25-100 Mg* (Sinemet 25-100 Mg Tablet*), 3 TAB ORAL THREE TIMES A DAY, (Reported) Gabapentin* (Gabapentin*), 600 MG ORAL THREE TIMES A DAY, (Reported) Scheduled PRN Clonazepam* (Klonopin*), 1 MG ORAL DAILY PRN for For Anxiety, (Reported) Oxycodone Hcl/Acetaminophen 10-325 Mg Tablet (Percocet 10-325 Mg Tablet*), 1 TAB ORAL Q6H PRN for For Pain, (Reported) Discontinued Medications Acetaminophen (Tylenol), 650 MG ORAL Q6H PRN for Prn Pain/Headache/Temp > 101 Discontinued Reason: Pt stopped taking med Carbidopa/Levodopa 25-100 Mg* (Sinemet 25-100 Mg Tablet*), 2 TAB ORAL THREE TIMES A DAY Discontinued Reason: Medication dose changed Ibuprofen* (Motrin*), 600 MG ORAL Q6H PRN for For Pain Discontinued Reason: Pt stopped taking med OXYCODONE HCl* (Roxicodone*), 15 MG ORAL Q6H PRN for For Pain, (Reported) Discontinued Reason: Pt stopped taking med Oxycodone Hcl (Oxycodone Hcl), Unknown Dose ORAL, (Reported) Discontinued Reason: Pt stopped taking med Phenytoin Sodium Extended* (Dilantin*), Unknown Dose ORAL TWICE A DAY, (Reported ) Discontinued Reason: Pt stopped taking med Phenytoin Sodium Extended* (Dilantin*), 100 MG ORAL THREE TIMES A DAY, (Reported ) Discontinued Reason: Pt stopped taking med Patient History History Provided By: Patient, Medical Record, PMD Healthcare decision maker N Resuscitation status Full Code Advanced Directive on File Past Medical/Surgical History Past Medical/Surgical History: (1) Epileptic seizure, generalized (2) Alcohol abuse (3) Parkinson disease (4) Chronic pain (5) Drug-seeking behavior (6) Non-compliance (7) Acute alcoholic intoxication (8) Uncontrolled seizures (9) Tremor (10) Generalized pain (11) Intractable seizures Review of Systems Psychiatric: Reports: prior hx, anxiety, depressed feelings, emotional problems Physical Exam General Appearance: no apparent distress, alert Neurologic: oriented x 3, responsive Last 24 Hour Vital Signs Date Time Temp Pulse Resp B/P (MAP) Pulse Ox O2 Delivery O2 Flow Rate FiO2 11/19/17 12:37 97.8 79 18 120/79 99 Room Air 97.8 11/19/17 12:00 72 11/19/17 08:00 81 11/19/17 08:00 98.1 79 17 119/81 98 Room Air 98.1 11/19/17 04:00 77 11/19/17 04:00 97.3 72 20 117/84 97 Room Air 97.3 11/19/17 00:00 98.0 108 20 110/66 96 Room Air 98.0 11/19/17 00:00 93 11/18/17 20:00 111 11/18/17 20:00 98.0 102 20 116/79 95 Room Air 98.0 11/18/17 18:57 98.6 97 16 123/78 99 Room Air 11/18/17 18:00 98.5 109 16 123/78 99 Room Air 98.5 11/18/17 17:00 93 15 121/77 98 Room Air 11/18/17 16:00 75 14 129/88 97 Room Air 11/18/17 15:05 95 14 Room Air 11/18/17 15:00 98.9 95 14 144/89 96 Room Air 98.9 11/18/17 14:53 92 14 124/86 98 Room Air Intake and Output 11/18/17 11/19/17 19:00 07:00 Output Total 0 ml Balance 0 ml Output Urine Total 0 ml # Voids 3 # Bowel Movements 1 Laboratory Tests Test 11/18/17 15:19 11/18/17 17:40 11/19/17 07:50 White Blood Count 7.1 K/UL (4.8-10.8) 7.6 K/UL (4.8-10.8) Red Blood Count 4.51 M/UL (4.70-6.10) L 4.29 M/UL (4.70-6.10) L Hemoglobin 15.2 G/DL (14.2-18.0) 13.8 G/DL (14.2-18.0) L Hematocrit 43.9 % (42.0-52.0) 42.1 % (42.0-52.0) Mean Corpuscular Volume 97 FL (80-99) 98 FL (80-99) Mean Corpuscular Hemoglobin 33.7 PG (27.0-31.0) H 32.3 PG (27.0-31.0) H Mean Corpuscular Hemoglobin Concent 34.6 G/DL (32.0-36.0) 32.9 G/DL (32.0-36.0) Red Cell Distribution Width 13.5 % (11.6-14.8) 13.3 % (11.6-14.8) Platelet Count 413 K/UL (150-450) 374 K/UL (150-450) Mean Platelet Volume 5.1 FL (6.5-10.1) L 5.2 FL (6.5-10.1) L Neutrophils (%) (Auto) 71.4 % (45.0-75.0) 65.0 % (45.0-75.0) Lymphocytes (%) (Auto) 21.0 % (20.0-45.0) 22.4 % (20.0-45.0) Monocytes (%) (Auto) 6.0 % (1.0-10.0) 8.6 % (1.0-10.0) Eosinophils (%) (Auto) 0.7 % (0.0-3.0) 3.4 % (0.0-3.0) H Basophils (%) (Auto) 0.9 % (0.0-2.0) 0.7 % (0.0-2.0) Sodium Level 141 MMOL/L (136-145) 138 MMOL/L (136-145) Potassium Level 4.9 MMOL/L (3.5-5.1) 4.1 MMOL/L (3.5-5.1) Chloride Level 104 MMOL/L (98-107) 102 MMOL/L (98-107) Carbon Dioxide Level 29 MMOL/L (21-32) 29 MMOL/L (21-32) Anion Gap 8 mmol/L (5-15) 7 mmol/L (5-15) Blood Urea Nitrogen 7 mg/dL (7-18) 15 mg/dL (7-18) Creatinine 0.8 MG/DL (0.55-1.30) 1.1 MG/DL (0.55-1.30) Estimat Glomerular Filtration Rate > 60 mL/min (>60) > 60 mL/min (>60) Glucose Level 92 MG/DL (74-106) 148 MG/DL (74-106) H Calcium Level 9.2 MG/DL (8.5-10.1) 8.8 MG/DL (8.5-10.1) Total Bilirubin 0.7 MG/DL (0.2-1.0) 0.6 MG/DL (0.2-1.0) Aspartate Amino Transf (AST/SGOT) 31 U/L (15-37) 12 U/L (15-37) L Alanine Aminotransferase (ALT/SGPT) 23 U/L (12-78) 17 U/L (12-78) Alkaline Phosphatase 119 U/L (46-116) H 101 U/L (46-116) Total Protein 8.3 G/DL (6.4-8.2) H 6.3 G/DL (6.4-8.2) L Albumin 4.0 G/DL (3.4-5.0) 3.2 G/DL (3.4-5.0) L Globulin 4.3 g/dL 3.1 g/dL Albumin/Globulin Ratio 0.9 (1.0-2.7) L 1.0 (1.0-2.7) Phenytoin (Dilantin) Level < 0.5 ug/mL (10-20) L Serum Alcohol 123 mg/dL Urine Opiates Screen Positive (NEGATIVE) H Urine Barbiturates Screen Negative (NEGATIVE) Phencyclidine (PCP) Screen Negative (NEGATIVE) Urine Amphetamines Screen Negative (NEGATIVE) Urine Benzodiazepines Screen Negative (NEGATIVE) Urine Cocaine Screen Negative (NEGATIVE) Urine Marijuana (THC) Screen Positive (NEGATIVE) H Height (Feet): 5 Height (Inches): 10.00 Weight (Pounds): 173 Medications Current Medications Medications (Trade) Dose Ordered Sig/Job Route PRN Reason Start Time Stop Time Status Last Admin Dose Admin Acetaminophen (Tylenol) 650 mg Q4H PRN ORAL fever (temp>100.5F) 11/18/17 20:30 12/18/17 20:29 Al Hydroxide/Mg Hydroxide (Mylanta II) 30 ml Q6H PRN ORAL dyspepsia 11/18/17 20:30 12/18/17 20:29 Carbidopa/Levodopa (Sinemet 25/100) 3 tab THREE TIMES A DAY ORAL 11/19/17 09:00 12/19/17 08:59 11/19/17 12:24 Clonazepam (KlonoPIN) 1 mg DAILYPRN PRN ORAL For Anxiety 11/18/17 20:30 11/25/17 20:29 Dextrose (Dextrose 50%) 25 ml STAT PRN IV Hypoglycemia 11/18/17 20:30 12/18/17 20:29 Dextrose (Dextrose 50%) 50 ml STAT PRN IV Hypoglycemia 11/18/17 20:45 12/18/17 20:44 Folic Acid 1 mg/ Magnesium Sulfate 2000 mg/ Multivitamins 10 ml/Sodium Chloride 1,014.2 ml @ 125 mls/ hr Q24H IV 11/19/17 16:00 12/19/17 15:59 Gabapentin (Neurontin) 600 mg THREE TIMES A DAY ORAL 11/19/17 09:00 12/19/17 08:59 11/19/17 12:24 Heparin Sodium (Porcine) (Heparin 5000 units/ml) 5,000 units EVERY 12 HOURS SUBQ 11/18/17 21:00 12/18/17 20:59 11/18/17 21:04 Lorazepam (Ativan 2mg/ml 1ml) 2 mg Q1H PRN IV seizures 11/18/17 20:30 11/25/17 20:29 Morphine Sulfate (Morphine Sulfate) 4 mg Q4H PRN IVP Moderate Pain (Pain Scale 4-6) 11/19/17 12:30 11/25/17 20:29 11/19/17 12:25 Ondansetron HCl (Zofran) 4 mg Q6H PRN IVP Nausea & Vomiting 11/18/17 20:30 12/18/17 20:29 Oxycodone/ Acetaminophen (Percocet 10/325) 1 tab Q6H PRN ORAL Severe Pain (Pain Scale 7-10) 11/18/17 20:30 11/25/17 20:29 11/19/17 08:08 Polyethylene Glycol (Miralax) 17 gm HSPRN PRN ORAL Constipation 11/18/17 20:30 12/18/17 20:29 Zolpidem Tartrate (Ambien) 5 mg HSPRN PRN ORAL Insomnia 11/18/17 20:30 11/25/17 20:29 Assessment/Plan Assessment/Plan MDD Anxiety opioid dependence -the pt was reluctant to antidepressants -i rec use long acting opioids Angelic Garcia M.D. Nov 19, 2017 13:10
[2017-11-19 15:45] VITALS: BP 125/78
[2017-11-19] MEDS ORDERED: Folic Acid 1 MG, Magnesium Sulfate 2,000 MG, Multivitamin - 12 Injection 10 ML in NS w/... IV SCH (16:00)
--- NOTE | 2017-11-19 18:45 | History and Physical Report ---
DATE OF ADMISSION: 11/18/2017 CONSULTANTS: 1. Cash Lorenzo M.D. 2. Julio Root M.D. CHIEF COMPLAINT: Multiple seizure. BRIEF HISTORY: The patient is a 57-year-old male from home presents to [place] ER last night with increased multiple seizures, diagnosed with the above, admitted to telemetry for further care. Currently calm, in bed. No complaint. No chest pain or shortness of breath. No nausea, vomiting, or diarrhea. PAST MEDICAL HISTORY: Meningioma and CVA. PAST SURGICAL HISTORY: Meningioma surgery. MEDICATIONS: Folic acid, morphine, carbidopa, gabapentin, heparin, clonazepam, oxycodone hydroxide, lorazepam, zolpidem, Zofran, polyethylene glycol, and morphine. ALLERGIES: Vancomycin. SOCIAL HISTORY: Positive smoke. Occasional alcohol. No intravenous drug abuse. FAMILY HISTORY: Noncontributory. PHYSICAL EXAMINATION: GENERAL: Calm in bed, oriented x2, in no acute distress. VITAL SIGNS: Temperature is 97 degrees, pulse 89, respiratory rate 18, and blood pressure 120/79. CARDIOVASCULAR: No murmur. LUNGS: Distant. ABDOMEN: Soft, nontender and nondistended. EXTREMITIES: No cyanosis or edema. NEUROLOGIC: The patient moves all extremities, slightly weak. LABORATORY AND DIAGNOSTIC DATA: CBC is normal. BMP shows glucose 148. AST 12, albumin 3.2, otherwise, BMP is normal. Urine toxicology is positive for marijuana and opiates. ASSESSMENT: 1. Multiple seizures. 2. Diabetes. 3. History of meningioma. 4. Cerebrovascular accident. PLAN: 1. Continue premedications. 2. Seizure control. 3. Blood sugar control. 4. Dietary followup. 5. OT/PT. 6. Dietary evaluation. 7. CBC and BMP in the morning. Krishan Fraire D.O. DR: DAVID JOB#: [id number] CC:
[2017-11-19 20:00] VITALS: BP 119/81
[2017-11-20] VITALS: BP 128/91
[2017-11-20] MEDS ORDERED: LORazepam Inj 2mg/ml 1ml IV PRN (00:30)
[2017-11-20] MEDS: Morphine Sulfate 2mg/ml Inj IVP PRN ×7 (00:48→22:05)
[2017-11-20] MEDS ORDERED: Zolpidem 5mg tab ORAL PRN (01:10)
[2017-11-20] MEDS ORDERED: Mylanta II UD 30ml ORAL PRN (02:30)
[2017-11-20 04:00] VITALS: BP 129/84
[2017-11-20 06:34] LABS: BASOPHILS % (AUTO) 0.6 % (0.0-2.0); EOSINOPHILS % (AUTO) 4.7 % (0.0-3.0); HEMOGLOBIN 13.2 G/DL (14.2-18.0); MEAN CORPUSCULAR VOLUME 99 FL (80-99); MONOCYTES % (AUTO) 8.8 % (1.0-10.0); NEUTROPHILS % (AUTO) 61.9 % (45.0-75.0); PLATELET COUNT 360 K/UL (150-450); RED BLOOD COUNT 3.95 M/UL (4.70-6.10); RED CELL DISTRIBUTION WIDTH 13.3 % (11.6-14.8); WHITE BLOOD COUNT 6.3 K/UL (4.8-10.8)
[2017-11-20 07:01] LABS: ALANINE AMINOTRANSFERASE 11 U/L (12-78); ALBUMIN/GLOBULIN RATIO 0.9 (1.0-2.7); ALKALINE PHOSPHATASE 92 U/L (46-116); ANION GAP 5 mmol/L (5-15); ASPARTATE AMINO TRANSFERASE 15 U/L (15-37); BILIRUBIN,TOTAL 0.4 MG/DL (0.2-1.0); BLOOD UREA NITROGEN 14 mg/dL (7-18); CALCIUM 8.4 MG/DL (8.5-10.1); CARBON DIOXIDE 28 MMOL/L (21-32); CHLORIDE 106 MMOL/L (98-107); PHOSPHORUS 3.6 MG/DL (2.5-4.9); POTASSIUM 4.1 MMOL/L (3.5-5.1); SODIUM 139 MMOL/L (136-145)
[2017-11-20 08:00] VITALS: BP 141/88
[2017-11-20] MEDS: Heparin 5000 units/ml inj SUBQ SCH ×2 (09:00→21:00)
[2017-11-20] MEDS: Levodopa/Carbidopa 25/100 tab ORAL SCH ×3 (09:10→17:23)
--- NOTE | 2017-11-20 09:27 | General Progress Note ---
Assessment/Plan Problem List: (1) Tremor ICD Codes: R25.1 - Tremor, unspecified SNOMED: 67739289 (2) Intractable seizures ICD Codes: G40.919 - Epilepsy, unspecified, intractable, without status epilepticus SNOMED: 78008938 (3) Epileptic seizure, generalized ICD Codes: G40.309 - Generalized idiopathic epilepsy and epileptic syndromes, not intractable, without status epilepticus SNOMED: 38727478 (4) Alcohol abuse ICD Codes: F10.10 - Alcohol abuse, uncomplicated SNOMED: 02503148 (5) Generalized pain ICD Codes: R52 - Pain, unspecified SNOMED: 43578700 Status: unchanged Assessment/Plan ot pt diet detox seizure pain control cbc bmp am dc plan snf Subjective Constitutional: Reports: weakness Allergies: Coded Allergies: VANCOMYCIN (Verified Allergy, Unknown, 08/01/15) All Systems: reviewed and negative except above Subjective calm in bed Objective Last 24 Hour Vital Signs Date Time Temp Pulse Resp B/P (MAP) Pulse Ox O2 Delivery O2 Flow Rate FiO2 11/20/17 08:00 97.8 82 19 141/88 99 97.8 82 11/20/17 04:00 98.2 66 24 129/84 96 98.2 11/20/17 00:00 98.3 65 22 128/91 97 98.3 11/19/17 20:00 79 11/19/17 20:00 98.1 81 17 119/81 98 Room Air 98.1 11/19/17 16:00 58 11/19/17 15:45 97.9 61 18 125/78 97 Room Air 97.9 11/19/17 12:37 97.8 79 18 120/79 99 Room Air 97.8 11/19/17 12:00 72 Intake and Output 11/19/17 11/20/17 19:00 07:00 Intake Total 1600 ml Output Total 600 ml Balance 1600 ml -600 ml Other 1600 ml Output Urine Total 600 ml # Voids 5 Laboratory Tests 11/20/17 05:10: White Blood Count 6.3, Red Blood Count 3.95L, Hemoglobin 13.2L, Hematocrit 39.0L , Mean Corpuscular Volume 99, Mean Corpuscular Hemoglobin 33.5H, Mean Corpuscular Hemoglobin Concent 34.0, Red Cell Distribution Width 13.3, Platelet Count 360, Mean Platelet Volume 5.4L, Neutrophils (%) (Auto) 61.9, Lymphocytes ( %) (Auto) 24.0, Monocytes (%) (Auto) 8.8, Eosinophils (%) (Auto) 4.7H, Basophils (%) (Auto) 0.6, Sodium Level 139, Potassium Level 4.1, Chloride Level 106, Carbon Dioxide Level 28, Anion Gap 5, Blood Urea Nitrogen 14, Creatinine 1.0, Estimat Glomerular Filtration Rate > 60, Glucose Level 114H, Calcium Level 8.4L, Phosphorus Level 3.6, Magnesium Level 1.9, Total Bilirubin 0.4, Aspartate Amino Transf (AST/SGOT) 15, Alanine Aminotransferase (ALT/SGPT) 11L, Alkaline Phosphatase 92, Total Protein 6.2L, Albumin 3.0L, Globulin 3.2, Albumin/ Globulin Ratio 0.9L Height (Feet): 5 Height (Inches): 10.00 Weight (Pounds): 173 General Appearance: lethargic EENT: normal ENT inspection Neck: normal alignment Cardiovascular: normal peripheral pulses, normal rate, regular rhythm Respiratory/Chest: chest wall non-tender, lungs clear, normal breath sounds Abdomen: normal bowel sounds, non tender, soft Extremities: normal inspection Edema: no edema noted Arm (L), no edema noted Arm (R), no edema noted Leg (L), no edema noted Leg (R), no edema noted Pedal (L), no edema noted Pedal (R), no edema noted Generalized Neurologic: responsive, motor weakness Skin: normal pigmentation, warm/dry Krishan Fraire DO Nov 20, 2017 09:26
[2017-11-20 12:00] VITALS: BP 138/89
--- NOTE | 2017-11-20 12:11 | Pulmonology Progress Note ---
Assessment/Plan Problems: (1) Uncontrolled seizures (2) Acute alcoholic intoxication (3) Parkinson disease (4) History of craniotomy (5) Non-compliance (6) Chronic pain Assessment/Plan improving no more seizures s/p Banan bag pain control dc planning in 1-2 days check electrolytes Subjective ROS Limited/Unobtainable: No Constitutional: Reports: no symptoms HEENT: Repors: no symptoms Respiratory: Reports: dyspnea on exertion Cardiovascular: Reports: no symptoms Allergies: Coded Allergies: VANCOMYCIN (Verified Allergy, Unknown, 08/01/15) Objective Last 24 Hour Vital Signs Date Time Temp Pulse Resp B/P (MAP) Pulse Ox O2 Delivery O2 Flow Rate FiO2 11/20/17 10:16 97.8 11/20/17 08:00 97.8 82 19 141/88 99 97.8 82 11/20/17 04:00 98.2 66 24 129/84 96 98.2 11/20/17 00:00 98.3 65 22 128/91 97 98.3 11/19/17 20:00 79 11/19/17 20:00 98.1 81 17 119/81 98 Room Air 98.1 11/19/17 16:00 58 11/19/17 15:45 97.9 61 18 125/78 97 Room Air 97.9 11/19/17 12:37 97.8 79 18 120/79 99 Room Air 97.8 Intake and Output 11/19/17 11/20/17 19:00 07:00 Intake Total 1600 ml Output Total 600 ml Balance 1600 ml -600 ml Other 1600 ml Output Urine Total 600 ml # Voids 5 General Appearance: WD/WN HEENT: normocephalic Respiratory/Chest: chest wall non-tender, lungs clear Cardiovascular: normal peripheral pulses, normal rate Abdomen: normal bowel sounds, soft, non tender Genitourinary: normal external genitalia Skin: no rash Neurologic/Psychiatric: manager lsw II-XII grossly normal Laboratory Tests 11/20/17 05:10: White Blood Count 6.3, Red Blood Count 3.95L, Hemoglobin 13.2L, Hematocrit 39.0L , Mean Corpuscular Volume 99, Mean Corpuscular Hemoglobin 33.5H, Mean Corpuscular Hemoglobin Concent 34.0, Red Cell Distribution Width 13.3, Platelet Count 360, Mean Platelet Volume 5.4L, Neutrophils (%) (Auto) 61.9, Lymphocytes ( %) (Auto) 24.0, Monocytes (%) (Auto) 8.8, Eosinophils (%) (Auto) 4.7H, Basophils (%) (Auto) 0.6, Sodium Level 139, Potassium Level 4.1, Chloride Level 106, Carbon Dioxide Level 28, Anion Gap 5, Blood Urea Nitrogen 14, Creatinine 1.0, Estimat Glomerular Filtration Rate > 60, Glucose Level 114H, Calcium Level 8.4L, Phosphorus Level 3.6, Magnesium Level 1.9, Total Bilirubin 0.4, Aspartate Amino Transf (AST/SGOT) 15, Alanine Aminotransferase (ALT/SGPT) 11L, Alkaline Phosphatase 92, Total Protein 6.2L, Albumin 3.0L, Globulin 3.2, Albumin/ Globulin Ratio 0.9L Current Medications Medications (Trade) Dose Ordered Sig/Job Route PRN Reason Start Time Stop Time Status Last Admin Dose Admin Acetaminophen (Tylenol) 650 mg Q4H PRN ORAL fever (temp>100.5F) 11/20/17 00:30 12/18/17 20:29 Al Hydroxide/Mg Hydroxide (Mylanta II) 30 ml Q6H PRN ORAL dyspepsia 11/20/17 02:30 12/18/17 20:29 Carbidopa/Levodopa (Sinemet 25/100) 3 tab THREE TIMES A DAY ORAL 11/20/17 09:00 12/19/17 08:59 11/20/17 09:10 Clonazepam (KlonoPIN) 1 mg DAILYPRN PRN ORAL For Anxiety 11/20/17 20:30 11/25/17 20:29 Dextrose (Dextrose 50%) 25 ml STAT PRN IV Hypoglycemia 11/20/17 20:30 12/18/17 20:29 Dextrose (Dextrose 50%) 50 ml STAT PRN IV Hypoglycemia 11/20/17 20:45 12/18/17 20:44 Folic Acid 1 mg/ Magnesium Sulfate 2000 mg/ Multivitamins 10 ml/Sodium Chloride 1,014.2 ml @ 125 mls/ hr Q24H IV 11/20/17 16:00 12/20/17 15:59 Gabapentin (Neurontin) 600 mg THREE TIMES A DAY ORAL 11/20/17 09:00 12/19/17 08:59 11/20/17 09:09 Heparin Sodium (Porcine) (Heparin 5000 units/ml) 5,000 units EVERY 12 HOURS SUBQ 11/20/17 09:00 12/18/17 20:59 Lorazepam (Ativan 2mg/ml 1ml) 2 mg Q1H PRN IV seizures 11/20/17 00:30 11/25/17 20:29 Morphine Sulfate (Morphine Sulfate) 4 mg Q4H PRN IVP Moderate Pain (Pain Scale 4-6) 11/20/17 00:30 11/25/17 20:29 11/20/17 09:46 Ondansetron HCl (Zofran) 4 mg Q6H PRN IVP Nausea & Vomiting 11/20/17 02:30 12/18/17 20:29 Oxycodone/ Acetaminophen (Percocet 10/325) 1 tab Q6H PRN ORAL Severe Pain (Pain Scale 7-10) 11/20/17 02:30 11/25/17 20:29 Polyethylene Glycol (Miralax) 17 gm HSPRN PRN ORAL Constipation 11/20/17 20:30 12/18/17 20:29 Zolpidem Tartrate (Ambien) 5 mg HSPRN PRN ORAL Insomnia 11/20/17 01:10 11/25/17 01:09 11/20/17 01:22 Cash Lorenzo MD Nov 20, 2017 12:11
[2017-11-20 16:00] VITALS: BP 118/74
[2017-11-20] MEDS ORDERED: Folic Acid 1 MG, Magnesium Sulfate 2,000 MG, Multivitamin - 12 Injection 10 ML in NS w/... IV SCH (16:00)
[2017-11-20 20:00] VITALS: BP 117/82
[2017-11-20] MEDS ORDERED: Miralax 17gm pkt ORAL PRN (20:30)
[2017-11-21] VITALS: BP 120/70
[2017-11-21] MEDS: Morphine Sulfate 2mg/ml Inj IVP PRN ×3 (02:34→10:59)
[2017-11-21 04:00] VITALS: BP 130/70
[2017-11-21 08:00] VITALS: BP 133/84
[2017-11-21] MEDS: Heparin 5000 units/ml inj SUBQ SCH (09:00)
[2017-11-21] MEDS: Levodopa/Carbidopa 25/100 tab ORAL SCH ×2 (09:18→13:23)
[2017-11-21 09:25] LABS: BASOPHILS % (AUTO) 0.6 % (0.0-2.0); EOSINOPHILS % (AUTO) 4.7 % (0.0-3.0); HEMATOCRIT 42.1 % (42.0-52.0); LYMPHOCYTES % (AUTO) 20.5 % (20.0-45.0); MEAN CORPUSCULAR VOLUME 98 FL (80-99); MONOCYTES % (AUTO) 8.1 % (1.0-10.0); PLATELET COUNT 364 K/UL (150-450); RED BLOOD COUNT 4.28 M/UL (4.70-6.10); RED CELL DISTRIBUTION WIDTH 13.6 % (11.6-14.8); WHITE BLOOD COUNT 6.2 K/UL (4.8-10.8)
[2017-11-21 09:49] LABS: ANION GAP 4 mmol/L (5-15); BLOOD UREA NITROGEN 16 mg/dL (7-18); CALCIUM 8.5 MG/DL (8.5-10.1); CARBON DIOXIDE 29 MMOL/L (21-32); CHLORIDE 104 MMOL/L (98-107); CREATININE 0.9 MG/DL (0.55-1.30); POTASSIUM 4.2 MMOL/L (3.5-5.1); SODIUM 137 MMOL/L (136-145)
[2017-11-21 12:00] VITALS: BP 116/78
--- NOTE | 2017-11-21 12:28 | General Progress Note ---
Assessment/Plan Assessment/Plan Covering for Stephy Fraire Problem List: (1) Tremor ICD Codes: R25.1 - Tremor, unspecified SNOMED: 54707306 (2) Intractable seizures ICD Codes: G40.919 - Epilepsy, unspecified, intractable, without status epilepticus SNOMED: 87181716 (3) Epileptic seizure, generalized ICD Codes: G40.309 - Generalized idiopathic epilepsy and epileptic syndromes, not intractable, without status epilepticus SNOMED: 29061838 (4) Alcohol abuse ICD Codes: F10.10 - Alcohol abuse, uncomplicated SNOMED: 22469339 (5) Generalized pain ICD Codes: R52 - Pain, unspecified SNOMED: 81404447 Status: unchanged Assessment/Plan ot pt diet detox seizure pain control cbc bmp am dc plan snf no changes from yesterday's plain, progressing Subjective Allergies: Coded Allergies: VANCOMYCIN (Verified Allergy, Unknown, 08/01/15) All Systems: reviewed and negative except above Subjective refusing pt today Objective Last 24 Hour Vital Signs Date Time Temp Pulse Resp B/P (MAP) Pulse Ox O2 Delivery O2 Flow Rate FiO2 11/21/17 08:00 96.8 74 18 133/84 98 96.8 11/21/17 08:00 Room Air 11/21/17 04:00 97.9 77 19 130/70 98 Room Air 97.9 77 11/21/17 00:00 98.1 75 18 120/70 97 Room Air 98.1 75 11/20/17 20:00 99.0 73 19 117/82 94 Room Air 99.0 73 11/20/17 18:29 97.8 11/20/17 16:00 97.8 72 19 118/74 97 97.8 72 11/20/17 16:00 Room Air Intake and Output 11/20/17 11/21/17 19:00 07:00 Intake Total 675 ml 1150 ml Output Total 2500 ml Balance 675 ml -1350 ml Intake Oral 300 ml 400 ml IV Total 375 ml 750 ml Output Urine Total 2500 ml # Voids 2 Laboratory Tests 11/21/17 09:05: White Blood Count 6.2, Red Blood Count 4.28L, Hemoglobin 14.0L, Hematocrit 42.1 , Mean Corpuscular Volume 98, Mean Corpuscular Hemoglobin 32.7H, Mean Corpuscular Hemoglobin Concent 33.2, Red Cell Distribution Width 13.6, Platelet Count 364, Mean Platelet Volume 5.4L, Neutrophils (%) (Auto) 66.0, Lymphocytes ( %) (Auto) 20.5, Monocytes (%) (Auto) 8.1, Eosinophils (%) (Auto) 4.7H, Basophils (%) (Auto) 0.6, Sodium Level 137, Potassium Level 4.2, Chloride Level 104, Carbon Dioxide Level 29, Anion Gap 4L, Blood Urea Nitrogen 16, Creatinine 0.9, Estimat Glomerular Filtration Rate > 60, Glucose Level 121H, Calcium Level 8.5 Height (Feet): 5 Height (Inches): 10.00 Weight (Pounds): 173 General Appearance: no apparent distress EENT: TMs normal Neck: supple Cardiovascular: regular rhythm Respiratory/Chest: normal breath sounds Abdomen: non tender Extremities: non-tender Neurologic: alert Skin: normal pigmentation Nestor Gill MD Nov 21, 2017 12:28
--- NOTE | 2017-11-21 12:36 | Pulmonology Progress Note ---
Assessment/Plan Problems: (1) Uncontrolled seizures (2) Acute alcoholic intoxication (3) Parkinson disease (4) History of craniotomy (5) Non-compliance (6) Chronic pain Assessment/Plan wants to stay one more day pain better controlled improving no more seizures s/p Banan bag pain control dc planning in 1-2 days check electrolytes Subjective ROS Limited/Unobtainable: No Constitutional: Reports: no symptoms HEENT: Repors: no symptoms Respiratory: Reports: no symptoms Cardiovascular: Reports: no symptoms Allergies: Coded Allergies: VANCOMYCIN (Verified Allergy, Unknown, 08/01/15) Objective Last 24 Hour Vital Signs Date Time Temp Pulse Resp B/P (MAP) Pulse Ox O2 Delivery O2 Flow Rate FiO2 11/21/17 08:00 96.8 74 18 133/84 98 96.8 11/21/17 08:00 Room Air 11/21/17 04:00 97.9 77 19 130/70 98 Room Air 97.9 77 11/21/17 00:00 98.1 75 18 120/70 97 Room Air 98.1 75 11/20/17 20:00 99.0 73 19 117/82 94 Room Air 99.0 73 11/20/17 18:29 97.8 11/20/17 16:00 97.8 72 19 118/74 97 97.8 72 11/20/17 16:00 Room Air Intake and Output 11/20/17 11/21/17 19:00 07:00 Intake Total 675 ml 1150 ml Output Total 2500 ml Balance 675 ml -1350 ml Intake Oral 300 ml 400 ml IV Total 375 ml 750 ml Output Urine Total 2500 ml # Voids 2 General Appearance: WD/WN HEENT: normocephalic, atraumatic Respiratory/Chest: chest wall non-tender, lungs clear Cardiovascular: normal peripheral pulses, normal rate Abdomen: normal bowel sounds, soft, non tender, no organomegaly Genitourinary: normal external genitalia Neurologic/Psychiatric: rf engineer II-XII grossly normal, no motor/sensory deficits Lymphatic: no neck adenopathy Laboratory Tests 11/21/17 09:05: White Blood Count 6.2, Red Blood Count 4.28L, Hemoglobin 14.0L, Hematocrit 42.1 , Mean Corpuscular Volume 98, Mean Corpuscular Hemoglobin 32.7H, Mean Corpuscular Hemoglobin Concent 33.2, Red Cell Distribution Width 13.6, Platelet Count 364, Mean Platelet Volume 5.4L, Neutrophils (%) (Auto) 66.0, Lymphocytes ( %) (Auto) 20.5, Monocytes (%) (Auto) 8.1, Eosinophils (%) (Auto) 4.7H, Basophils (%) (Auto) 0.6, Sodium Level 137, Potassium Level 4.2, Chloride Level 104, Carbon Dioxide Level 29, Anion Gap 4L, Blood Urea Nitrogen 16, Creatinine 0.9, Estimat Glomerular Filtration Rate > 60, Glucose Level 121H, Calcium Level 8.5 Current Medications Medications (Trade) Dose Ordered Sig/Job Route PRN Reason Start Time Stop Time Status Last Admin Dose Admin Acetaminophen (Tylenol) 650 mg Q4H PRN ORAL fever (temp>100.5F) 11/20/17 00:30 12/18/17 20:29 Al Hydroxide/Mg Hydroxide (Mylanta II) 30 ml Q6H PRN ORAL dyspepsia 11/20/17 02:30 12/18/17 20:29 Carbidopa/Levodopa (Sinemet 25/100) 3 tab THREE TIMES A DAY ORAL 11/20/17 09:00 12/19/17 08:59 11/21/17 09:18 Clonazepam (KlonoPIN) 1 mg DAILYPRN PRN ORAL For Anxiety 11/20/17 20:30 11/25/17 20:29 11/21/17 12:06 Dextrose (Dextrose 50%) 25 ml STAT PRN IV Hypoglycemia 11/20/17 20:30 12/18/17 20:29 Dextrose (Dextrose 50%) 50 ml STAT PRN IV Hypoglycemia 11/20/17 20:45 12/18/17 20:44 Folic Acid 1 mg/ Magnesium Sulfate 2000 mg/ Multivitamins 10 ml/Sodium Chloride 1,014.2 ml @ 125 mls/ hr Q24H IV 11/20/17 16:00 12/20/17 15:59 11/20/17 15:47 Gabapentin (Neurontin) 600 mg THREE TIMES A DAY ORAL 11/20/17 09:00 12/19/17 08:59 11/21/17 09:18 Heparin Sodium (Porcine) (Heparin 5000 units/ml) 5,000 units EVERY 12 HOURS SUBQ 11/20/17 09:00 12/18/17 20:59 Lorazepam (Ativan 2mg/ml 1ml) 2 mg Q1H PRN IV seizures 11/20/17 00:30 11/25/17 20:29 Morphine Sulfate (Morphine Sulfate) 4 mg Q4H PRN IVP Moderate Pain (Pain Scale 4-6) 11/20/17 00:30 11/25/17 20:29 11/21/17 10:59 Ondansetron HCl (Zofran) 4 mg Q6H PRN IVP Nausea & Vomiting 11/20/17 02:30 12/18/17 20:29 Oxycodone/ Acetaminophen (Percocet 10/325) 1 tab Q6H PRN ORAL Severe Pain (Pain Scale 7-10) 11/20/17 02:30 11/25/17 20:29 Polyethylene Glycol (Miralax) 17 gm HSPRN PRN ORAL Constipation 11/20/17 20:30 12/18/17 20:29 Zolpidem Tartrate (Ambien) 5 mg HSPRN PRN ORAL Insomnia 11/20/17 01:10 11/25/17 01:09 11/20/17 01:22 Cash Lorenzo MD Nov 21, 2017 12:36
[2017-11-21] MEDS ORDERED: oxyCODONE HCL/Acetaminophen 5/325mg ORAL PRN (13:30)
--- NOTE | 2017-11-21 23:20 | General Progress Note ---
Subjective Date patient seen: Nov 21, 2017 Neurologic/Psychiatric: Reports: anxiety, depressed, emotional problems Allergies: Coded Allergies: VANCOMYCIN (Verified Allergy, Unknown, 08/01/15) Objective Last 24 Hour Vital Signs Date Time Temp Pulse Resp B/P (MAP) Pulse Ox O2 Delivery O2 Flow Rate FiO2 11/21/17 12:00 Room Air 11/21/17 12:00 98.1 70 18 116/78 95 98.1 11/21/17 08:00 96.8 74 18 133/84 98 96.8 11/21/17 08:00 Room Air 11/21/17 04:00 97.9 77 19 130/70 98 Room Air 97.9 77 11/21/17 00:00 98.1 75 18 120/70 97 Room Air 98.1 75 Intake and Output 11/20/17 11/21/17 19:00 07:00 Intake Total 675 ml 1150 ml Output Total 2500 ml Balance 675 ml -1350 ml Intake Oral 300 ml 400 ml IV Total 375 ml 750 ml Output Urine Total 2500 ml # Voids 2 Laboratory Tests 11/21/17 09:05: White Blood Count 6.2, Red Blood Count 4.28L, Hemoglobin 14.0L, Hematocrit 42.1 , Mean Corpuscular Volume 98, Mean Corpuscular Hemoglobin 32.7H, Mean Corpuscular Hemoglobin Concent 33.2, Red Cell Distribution Width 13.6, Platelet Count 364, Mean Platelet Volume 5.4L, Neutrophils (%) (Auto) 66.0, Lymphocytes ( %) (Auto) 20.5, Monocytes (%) (Auto) 8.1, Eosinophils (%) (Auto) 4.7H, Basophils (%) (Auto) 0.6, Sodium Level 137, Potassium Level 4.2, Chloride Level 104, Carbon Dioxide Level 29, Anion Gap 4L, Blood Urea Nitrogen 16, Creatinine 0.9, Estimat Glomerular Filtration Rate > 60, Glucose Level 121H, Calcium Level 8.5 Height (Feet): 5 Height (Inches): 10.00 Weight (Pounds): 173 General Appearance: no apparent distress, alert Neurologic: oriented x 3, responsive Angelic Garcia M.D. Nov 21, 2017 23:20
--- NOTE | 2017-11-23 09:26 | Discharge Summary ---
Discharge Summary Discharge Summary _ DATE OF ADMISSION: 11/18/2017 DATE OF DISCHARGE: 11/21/2017 REASON FOR ADMISSION: 57 years old male with past medical history of brain meningioma, status post craniotomy, Parkinson disease, chronic pain, diabetes mellitus, presented to emergency department after having seizure. Patient was found to be intoxicated, alcohol level 123. Urine toxicology screen was positive for opiates and marijuana. Laboratory workup revealed no leukocytosis, stable hemoglobin and hematocrit, stable electrolytes, renal parameters and LFT. Vital signs were stable . Patient was loaded with Keppra and Dilantin in emergency department. Patient was admitted with diagnosis of seizure, acute alcohol intoxication, Parkinson disease, history of craniotomy, noncompliance. CONSULTANTS: pulmonary Dr. Lorenzo classified advertising manager/oncologist Dr. Gill psychiatrist [facility] COURSE: Patient was admitted and started on IV banana bag. Seizure precautions were maintained Patient was observed for alcohol withdrawal symptoms Anxiolytics were on board as needed for breakthrough seizures. No further evidence of seizure activity. Home medications were resumed, including Sinemet. Supplemental oxygen provided as needed to keep pulse oximetry above 92%. Psychiatrist closely followed, diagnosed patient with major depressive disorder , opioid dependency and anxiety. Patient was reluctant to start antidepressant therapy at this time. Pain management provided . Psychiatrist recommended long-acting opioid for long -term management. Patient was working with physical and occupational therapists. DVT prophylaxis provided. Supportive care provided. Encouraged compliance with medication regimen and follow up with neurologist as outpatient. Blood sugar was closely monitored, diabetic diet was continued. Patient was counseled on abstinence from alcohol. Patient was given resources for AA group Patient was stable for discharge home. FINAL DIAGNOSES: Intractable seizure, likely secondary to acute alcohol intoxication Acute alcohol intoxication Parkinson disease Noncompliance History of craniotomy , secondary to brain meningioma Opioid dependency Major depressive disorder Anxiety Diabetes DISCHARGE MEDICATIONS: See Medication Reconciliation list. DISCHARGE INSTRUCTIONS: Patient was discharged home. Encouraged compliance with medication. Patient to follow-up with the primary care provider and neurologist as outpatient. Patient was counseled on abstinence from ETOH. Resources provided. I have been assigned to dictate discharge summary for this account. I was not involved in the patient's management. Lanette Graham NP Nov 23, 2017 09:26
== END 2017-11-21 15:31 | disposition home or self-care (01) | DRG 53 ==
LOC: EDBD 14:56 → EMR 15:25 → 2E 16:03 → EDBEDREQ 17:26 → 4W 11-19 23:23
DX: G40.804 Other epilepsy, intractable, without status epilepticus (principal); G20 Parkinson's disease; F11.20 Opioid dependence, uncomplicated; F10.120 Alcohol abuse with intoxication, uncomplicated; E11.9 Type 2 diabetes mellitus without complications; Z86.73 Personal history of transient ischemic attack (TIA), and cerebral infarction without residual deficits; Z91.19 Patient's noncompliance with other medical treatment and regimen; G89.29 Other chronic pain; F32.9 Major depressive disorder, single episode, unspecified; F41.9 Anxiety disorder, unspecified
CPT/HCPCS: 36415; 72070; 80048; 80053; 80185; 80307; 80329; 83735; 84100; 85025; 99285; J1165

== ENCOUNTER 2017-12-07 19:51 | Emergency (ER) | payer OTHER ==
[~2017-12-07] VITALS: Ht 177.8 cm; Wt 77.1 kg
[~2017-12-07 19:51] MED LIST changes: +GABAPENTIN300 MG ORAL; +KLONOPIN1 MG ORAL; +PERCOCET 10-321 EACH ORAL; +ROXICODONE15 MG ORAL
[2017-12-07] MEDS ORDERED: NKM (20:17)
[2017-12-07 20:20] VITALS: BP 133/82
[2017-12-07] MEDS ORDERED: PERCOCET 10-321 EACH ORAL (21:13)
[2017-12-07] MEDS ORDERED: NEURONTIN400 MG ORAL (21:17)
[2017-12-07 21:20] VITALS: BP 133/82
--- NOTE | 2017-12-07 23:51 | Emergency Room Report ---
History of Present Illness General Chief Complaint: Seizure Source: Patient Present Illness HPI Patient is a 57-year-old male presented after increased generalized tremor. Patient reports having recently had a seizure. He states that he had fallen out of his wheelchair. He reports having increased pain. Patient reports having prior history of Parkinson's disease and is wheelchair-bound. Patient states that he had been having increased pain to his extremities. This did not appear to be associated with any weakness. He reports having previously been prescribed Keppra for seizures as well as Neurontin. Patient states that he takes Percocet for pain. Allergies: Coded Allergies: VANCOMYCIN (Verified Allergy, Unknown, 08/01/15) Patient History Past Medical History: see triage record Reviewed Nursing Documentation: PMH: Agreed; PSxH: Agreed Nursing Documentation-PMH Hx Cardiac Problems: No Hx Hypertension: Yes Hx Diabetes: Yes Hx Cancer: No - crainiotomy for meningioma Hx Gastrointestinal Problems: No Hx Cerebrovascular Accident: Yes Hx Parkinson's Disease: Yes Hx Seizures: Yes Hx Tremors: Yes Hx Weakness: Yes Hx Neurologic Surgery: Yes - s/p craniotomy Review of Systems All Other Systems: negative except mentioned in HPI Physical Exam Vital Signs Date Time Temp Pulse Resp B/P (MAP) Pulse Ox O2 Delivery O2 Flow Rate FiO2 12/07/17 20:13 97.9 71 18 133/82 98 Room Air 97.9 General Appearance: normal inspection, well appearing, no apparent distress, alert, GCS 15 Head: normocephalic, atraumatic ENT: hearing grossly normal, normal voice Neck: full range of motion, supple Respiratory: no respiratory distress, speaking full sentences Cardiovascular #1: normal inspection Musculoskeletal: no calf tenderness Neurologic: normal inspection, alert, carpenter III-XII nml as tested, normal gait, motor weakness Psychiatric: mood/affect normal Skin: no rash Medical Decision Making Diagnostic Impression: Primary Impression: Chronic pain Additional Impression: Parkinson disease ER Course Patient presented for generalized pain after a fall. Differential diagnosis included was not limited to seizure, alcoholic withdrawal. Patient presented benign exam. Patient is chronically wheelchair-bound. Patient appears to have chronic pain and was given oral Percocet in emergency department. He is given prescription for short-term medications. The patient is advised to follow up with primary care doctor in 1-2 days. Patient is advised to return if any worsening condition or if any changes in status that are concerning. This report is dictated with [employer] sprinkler designer software which may occasionally lead to discrepancies related to use of this software. Last Vital Signs Date Time Temp Pulse Resp B/P (MAP) Pulse Ox O2 Delivery O2 Flow Rate FiO2 12/07/17 21:13 97.9 12/07/17 20:20 71 18 Room Air 12/07/17 20:20 133/82 98 Status: improved Disposition: HOME, SELF-CARE Condition: Stable Scripts Gabapentin* (NEURONTIN*) 400 Mg Capsule 400 MG ORAL THREE TIMES A DAY, #15 CAP 0 Refills Prov: Baldomero Acuña MD 12/07/17 Oxycodone Hcl/Acetaminophen 10-325 Mg Tablet (PERCOCET 10-325 MG TABLET*) 1 Each Tablet 1 TAB ORAL Q4H PRN for For Pain, #14 TAB Prov: Baldomero Acuña MD 12/07/17 Referrals: NON PHYSICIAN (PCP) Patient Instructions: Seizure, Adult Baldomero Acuña MD Dec 07, 2017 23:51
== END 2017-12-07 21:45 | disposition home or self-care (01) ==
LOC: EMR 21:31
DX: G89.29 Other chronic pain (principal); G20 Parkinson's disease; I10 Essential (primary) hypertension; E11.9 Type 2 diabetes mellitus without complications; Z86.73 Personal history of transient ischemic attack (TIA), and cerebral infarction without residual deficits; Z88.1 Allergy status to other antibiotic agents
CPT/HCPCS: 99284

== ENCOUNTER 2017-12-15 14:52 | Inpatient (IN) | payer OTHER ==
[~2017-12-15] VITALS: Ht 177.8 cm; Wt 84.4 kg
[~2017-12-15 14:52] MED LIST changes: +NEURONTIN400 MG ORAL; +NKM
--- NOTE | 2017-12-15 15:26 | Emergency Room Report ---
History of Present Illness General Chief Complaint: Back Pain-No Injury Source: Patient Present Illness HPI Patient is a 57-year-old male with multiple comorbidities including 2 previous strokes, seizures and Parkinson's disease who presents today with complaints of left-sided weakness. He states that approximately 5 hours ago he began to have complete weakness of his left side. He is previously able to move his left arm and leg and he is completely unable to move his left extremities at this time. He states he was seated at home when the symptoms began. Patient is a history of seizures but states he did not have a seizure today, he remembers the entire incident. He denies any chest pain, shortness of breath or associated symptoms. Allergies: Coded Allergies: ERYTHROMYCIN BASE (Unverified Allergy, Unknown, 12/15/17) VANCOMYCIN (Verified Allergy, Unknown, 08/01/15) Patient History Reviewed Nursing Documentation: PMH: Agreed; PSxH: Agreed Nursing Documentation-PM Past Medical History: No History, Except For Hx Cardiac Problems: No Hx Hypertension: Yes Hx Diabetes: Yes Hx Cancer: No - crainiotomy for meningioma Hx Gastrointestinal Problems: No Hx Cerebrovascular Accident: Yes Hx Parkinson's Disease: Yes Hx Seizures: Yes Hx Tremors: Yes Hx Weakness: Yes Hx Neurologic Surgery: Yes - s/p craniotomy Review of Systems Neurological: Reports: other - hemiparesis All Other Systems: negative except mentioned in HPI Physical Exam Vital Signs Date Time Temp Pulse Resp B/P (MAP) Pulse Ox O2 Delivery O2 Flow Rate FiO2 12/15/17 14:46 98.4 111 18 112/88 98 Room Air 98.4 Sp02 EP Interpretation: reviewed, normal General Appearance: no apparent distress, alert, GCS 15, non-toxic Head: normocephalic, atraumatic Eyes: bilateral eye normal inspection, bilateral eye PERRL ENT: hearing grossly normal, normal pharynx, no angioedema, normal voice Neck: full range of motion, supple/symm/no masses Respiratory: chest non-tender, lungs clear, normal breath sounds, speaking full sentences Cardiovascular #1: regular rate, rhythm, no edema Cardiovascular #2: 2+ carotid (R), 2+ carotid (L), 2+ radial (R), 2+ radial (L) , 2+ dorsalis pedis (R), 2+ dorsalis pedis (L) Gastrointestinal: normal bowel sounds, non tender, soft, non-distended, no guarding, no rebound Rectal: deferred Genitourinary: normal inspection, no CVA tenderness Musculoskeletal: back normal, gait/station normal, normal range of motion, non- tender, calf tenderness Neurologic: alert, oriented x3, responsive, endoscopy technician III-XII nml as tested, sensory intact, speech normal, other - completely unable to move his left upper and left lower extremity Psychiatric: judgement/insight normal, memory normal, mood/affect normal, no suicidal/homicidal ideation Reflexes: 3+ bicep (R), 3+ bicep (L), 3+ tricep (R), 3+ tricep (L), 3+ knee (R) , 3+ knee (L) Skin: normal color, no rash, warm/dry, well hydrated Lymphatic: no adenopathy Medical Decision Making PA Attestation Supervising physician is Dr. Pedersen Diagnostic Impression: Primary Impression: Hemiparesis Additional Impressions: History of CVA (cerebrovascular accident) Lumbago ER Course Patient presents to ED today stating he is having left-sided paralysis. On physical exam is complete paralysis of the left upper and left lower extremity. No facial deficits noted. Code stroke is ordered and CT head is within normal limits. Labs are also within normal limits. Multiple re-evaluations made, patient has minimal improvement throughout his stay in the ED. Patient also complaining of back pain with no recent trauma. Morphine is given with improvement. Discussed case with Dr. Pedersen and patient is admitted to Dr. Fraire for further evaluation and management. Patient is stable at time of admission. Laboratory Tests Test 12/15/17 15:15 12/15/17 17:00 Prothrombin Time 10.7 SEC (9.30-11.50) Prothrombin Time INR 1.0 (0.9-1.1) PTT 21 SEC (23-33) L Sodium Level 139 MMOL/L (136-145) Potassium Level 4.4 MMOL/L (3.5-5.1) Chloride Level 101 MMOL/L (98-107) Carbon Dioxide Level 26 MMOL/L (21-32) Anion Gap 12 mmol/L (5-15) Blood Urea Nitrogen 23 mg/dL (7-18) H Creatinine 1.0 MG/DL (0.55-1.30) Estimate Glomerular Filtration Rate > 60 mL/min (>60) Glucose Level 125 MG/DL (74-106) H Calcium Level 9.8 MG/DL (8.5-10.1) Total Bilirubin 0.9 MG/DL (0.2-1.0) Aspartate Amino Transferase (AST) 37 U/L (15-37) Alanine Aminotransferase (ALT) 30 U/L (12-78) Alkaline Phosphatase 137 U/L (46-116) H Troponin I 0.000 ng/mL (0.000-0.056) Total Protein 7.9 G/DL (6.4-8.2) Albumin 3.9 G/DL (3.4-5.0) Globulin 4.0 g/dL Albumin/Globulin Ratio 1.0 (1.0-2.7) Serum Alcohol 96 mg/dL White Blood Count 9.5 K/UL (4.8-10.8) Red Blood Count 4.84 M/UL (4.70-6.10) Hemoglobin 16.0 G/DL (14.2-18.0) Hematocrit 46.6 % (42.0-52.0) Mean Corpuscular Volume 96 FL (80-99) Mean Corpuscular Hemoglobin 33.0 PG (27.0-31.0) H Mean Corpuscular Hemoglobin Concent 34.3 G/DL (32.0-36.0) Red Cell Distribution Width 13.2 % (11.6-14.8) Platelet Count 359 K/UL (150-450) Mean Platelet Volume 5.1 FL (6.5-10.1) L Neutrophils (%) (Auto) 73.8 % (45.0-75.0) Lymphocytes (%) (Auto) 18.1 % (20.0-45.0) L Monocytes (%) (Auto) 7.5 % (1.0-10.0) Eosinophils (%) (Auto) 0.2 % (0.0-3.0) Basophils (%) (Auto) 0.5 % (0.0-2.0) Last Vital Signs Date Time Temp Pulse Resp B/P (MAP) Pulse Ox O2 Delivery O2 Flow Rate FiO2 12/15/17 18:42 97.9 117 15 158/112 98 Room Air 97.9 Chest X-Ray Diagnostic Results Chest X-Ray Diagnostic Results : Chest X-Ray Ordered: Yes # of Views/Limited/Complete: 1 View Indication: Chest Pain EP Interpretation: Yes PA Xray: Interpretation reviewed, by supervising MD Interpretation: no consolidation, no effusion, no pneumothorax Impression: No acute disease Electronically Signed by: Gisele Castellon PA-C CT/MRI/US Diagnostic Results CT/MRI/US Diagnostic Results : Imaging Test Ordered: CT head Impression WNL Last Vital Signs Date Time Temp Pulse Resp B/P (MAP) Pulse Ox O2 Delivery O2 Flow Rate FiO2 12/15/17 14:46 98.4 111 18 112/88 98 Room Air 98.4 Status: unchanged Disposition: ADMITTED INPATIENT Gisele Castellon Dec 15, 2017 15:25
[2017-12-15 15:48] VITALS: BP 113/76
--- NOTE | 2017-12-15 15:56 | Diagnostic Imaging Report ---
Indications: Headache, left-sided weakness Technique: Spiral acquisitions obtained through the brain. Angled axial and coronal 5 x 5 mm slices were reconstructed. Total dose length product 1485.17 mGycm. CTDI vol(s) 70.38 mGy. Dose reduction achieved using automated exposure control Comparison: 10/16/2017 Findings: Again demonstrated is evidence of prior left frontotemporal parietal craniotomy/craniectomy. Again demonstrated is encephalomalacia of the anterior left temporal lobe and inferior left frontal lobe. This results in mild ex vacuo dilatation of the left lateral ventricle. There is very mild generalized cortical volume loss as well. No acute intracranial hemorrhage nor edema, mass effect, nor midline shift. Bowles-white differentiation is normal elsewhere. The calvarium is otherwise intact. The sinuses are clear. The orbits are unremarkable Impression: Evidence of prior left-sided craniotomy/craniectomy. Frontal and temporal encephalomalacia on the left, suspect related to the above. Correlate with clinical and surgical history Negative for acute intracranial bleed or mass effect or significant interim change The CT scanner at [facility] is accredited by the [employer] and the scans are performed using protocols designed to limit radiation exposure to as low as reasonably achievable to attain images of sufficient resolution adequate for diagnostic evaluation.
[2017-12-15 16:23] LABS: ANION GAP 12 mmol/L (5-15); BLOOD UREA NITROGEN 23 mg/dL (7-18); CARBON DIOXIDE 26 MMOL/L (21-32); CHLORIDE 101 MMOL/L (98-107); POTASSIUM 4.4 MMOL/L (3.5-5.1); SODIUM 139 MMOL/L (136-145)
[2017-12-15 16:24] LABS: CALCIUM 9.8 MG/DL (8.5-10.1)
[2017-12-15 16:31] LABS: ALANINE AMINOTRANSFERASE 30 U/L (12-78); ALBUMIN 3.9 G/DL (3.4-5.0); ALKALINE PHOSPHATASE 137 U/L (46-116); ASPARTATE AMINO TRANSFERASE 37 U/L (15-37); BILIRUBIN,TOTAL 0.9 MG/DL (0.2-1.0)
[2017-12-15 17:02] VITALS: BP 125/95
--- NOTE | 2017-12-15 17:10 | Diagnostic Imaging Report ---
Indication: Chest pain Technique: One view of the chest Comparison: 05/25/2017 Findings: The lungs and pleural spaces are clear. Heart size is normal. No significant interim change Impression: No acute process
[2017-12-15 17:15] LABS: BASOPHILS % (AUTO) 0.5 % (0.0-2.0); EOSINOPHILS % (AUTO) 0.2 % (0.0-3.0); HEMATOCRIT 46.6 % (42.0-52.0); LYMPHOCYTES % (AUTO) 18.1 % (20.0-45.0); MEAN CORPUSCULAR VOLUME 96 FL (80-99); MONOCYTES % (AUTO) 7.5 % (1.0-10.0); NEUTROPHILS % (AUTO) 73.8 % (45.0-75.0); PLATELET COUNT 359 K/UL (150-450); RED BLOOD COUNT 4.84 M/UL (4.70-6.10); RED CELL DISTRIBUTION WIDTH 13.2 % (11.6-14.8); WHITE BLOOD COUNT 9.5 K/UL (4.8-10.8)
[2017-12-15 18:42] VITALS: BP 158/112
[2017-12-15] MEDS ORDERED: Morphine Sulfate 2mg/ml Inj IVP ONE (19:30)
[2017-12-15 20:00] VITALS: BP 129/83
[2017-12-15] MEDS ORDERED: Zolpidem 5mg tab ORAL PRN (21:33)
[2017-12-15] MEDS ORDERED: Mylanta II UD 30ml ORAL PRN (21:33)
[2017-12-15] MEDS ORDERED: LORazepam Inj 2mg/ml 1ml IV PRN (21:40)
[2017-12-15] MEDS ORDERED: Morphine Sulfate 2mg/ml Inj IVP PRN (21:40)
[2017-12-15] MEDS: Levodopa/Carbidopa 25/100 tab ORAL SCH (21:47)
[2017-12-15] MEDS ORDERED: Miralax 17gm pkt ORAL PRN (22:00)
[2017-12-16] VITALS: BP 141/98
[2017-12-16 04:00] VITALS: BP 144/87
[2017-12-16] MEDS: Levodopa/Carbidopa 25/100 tab ORAL SCH ×3 (06:44→22:21)
[2017-12-16 08:00] VITALS: BP 131/83
--- NOTE | 2017-12-16 08:36 | Consultation ---
History of Present Illness General Date patient seen: Dec 16, 2017 Time patient seen: 08:00 - am Referring physician: Dr. Fraire Reason for Consultation: Pain management Present Illness HPI SUBJECTIVE: Patient is a known patient from prior admission and has been admitted under the care of Dr. Fraire with seizures found to have alcohol intoxification which may have precipitated the seizure attacks. Has been c/o low back pain started on Morphine 4mg Iv Q4H PRN pain and Percocet 10/325mg PO 1 tab Q4H PRN pain. He is comfortable showing no signs of distress. Allergies: Coded Allergies: ERYTHROMYCIN BASE (Unverified Allergy, Unknown, 12/15/17) VANCOMYCIN (Verified Allergy, Unknown, 08/01/15) Medication History Scheduled Carbidopa/Levodopa 25-100 Mg* (Sinemet 25-100 Mg Tablet*), 3 TAB ORAL THREE TIMES A DAY, (Reported) Gabapentin* (Gabapentin*), 600 MG ORAL THREE TIMES A DAY, (Reported) Gabapentin* (Neurontin*), 400 MG ORAL THREE TIMES A DAY No Known Medications* (NKM - No Known Medications*), 0 ., (Reported) Scheduled PRN Clonazepam* (Klonopin*), 1 MG ORAL DAILY PRN for For Anxiety, (Reported) Oxycodone Hcl/Acetaminophen 10-325 Mg Tablet (Percocet 10-325 Mg Tablet*), 1 TAB ORAL Q6H PRN for For Pain, (Reported) Oxycodone Hcl/Acetaminophen 10-325 Mg Tablet (Percocet 10-325 Mg Tablet*), 1 TAB ORAL Q4H PRN for For Pain Patient History Healthcare decision maker Resuscitation status Full Code Advanced Directive on File Review of Systems ROS Narrative REVIEW OF SYSTEMS: Denies rash, fever, chills, sweating, dizziness, drowsiness, blurred vision, sore throat, or change in weight. No shortness of breath or chest pain. No nausea, vomiting, diarrhea, or blood in the stool or urine. No bowel or bladder incontinence. No dysuria. C/o Low back pain Physical Exam Physical Exam Narrative NECK: Range of motion is decreased due to the patient's condition. No tenderness to paracervical muscles. No adenopathy. LUNGS: Decreased breath sounds bilaterally. HEART: Regular. ABDOMEN: Benign. BACK: Range of motion is decreased in flexion and extension with tenderness to paraspinal muscles. No tenderness to trapezius or rhomboid muscles. EXTREMITIES: Upper extremity range of motion is decreased due to the patient's pain and condition with severe spasms and shaking noted due to Parkinson's disease. Lower extremity range of motion is decreased due to the patient's pain and condition. No cyanosis. No clubbing. No edema. Sensory is intact. Reflexes are not obtainable. No adenopathy. Last 24 Hour Vital Signs Date Time Temp Pulse Resp B/P (MAP) Pulse Ox O2 Delivery O2 Flow Rate FiO2 12/16/17 08:00 97.1 83 20 131/83 (99) 100 97.1 12/16/17 04:00 90 12/16/17 04:00 97.9 96 20 144/87 (106) 96 97.9 12/16/17 00:00 97.0 97 20 141/98 (112) 96 97.0 12/16/17 00:00 85 12/15/17 22:00 Room Air 12/15/17 21:00 Room Air 12/15/17 20:35 98.0 77 18 127/87 99 Room Air 12/15/17 20:00 98.0 108 18 129/83 (98) 96 98.0 12/15/17 19:29 97.9 12/15/17 18:42 97.9 117 15 158/112 98 Room Air 97.9 12/15/17 17:02 103 17 125/95 99 Room Air 12/15/17 15:48 98.4 106 20 113/76 98 Room Air 98.4 12/15/17 14:46 98.4 111 18 112/88 98 Room Air 98.4 Intake and Output 12/15/17 12/16/17 19:00 07:00 Intake Total 0 ml 240 ml Output Total 500 ml Balance 0 ml -260 ml Intake Oral 0 ml 240 ml Output Urine Total 500 ml Laboratory Tests Test 12/15/17 15:15 12/15/17 17:00 Prothrombin Time 10.7 SEC (9.30-11.50) Prothromb Time International Ratio 1.0 (0.9-1.1) Activated Partial Thromboplast Time 21 SEC (23-33) L Sodium Level 139 MMOL/L (136-145) Potassium Level 4.4 MMOL/L (3.5-5.1) Chloride Level 101 MMOL/L (98-107) Carbon Dioxide Level 26 MMOL/L (21-32) Anion Gap 12 mmol/L (5-15) Blood Urea Nitrogen 23 mg/dL (7-18) H Creatinine 1.0 MG/DL (0.55-1.30) Estimat Glomerular Filtration Rate > 60 mL/min (>60) Glucose Level 125 MG/DL (74-106) H Calcium Level 9.8 MG/DL (8.5-10.1) Total Bilirubin 0.9 MG/DL (0.2-1.0) Aspartate Amino Transf (AST/SGOT) 37 U/L (15-37) Alanine Aminotransferase (ALT/SGPT) 30 U/L (12-78) Alkaline Phosphatase 137 U/L (46-116) H Troponin I 0.000 ng/mL (0.000-0.056) Total Protein 7.9 G/DL (6.4-8.2) Albumin 3.9 G/DL (3.4-5.0) Globulin 4.0 g/dL Albumin/Globulin Ratio 1.0 (1.0-2.7) Serum Alcohol 96 mg/dL White Blood Count 9.5 K/UL (4.8-10.8) Red Blood Count 4.84 M/UL (4.70-6.10) Hemoglobin 16.0 G/DL (14.2-18.0) Hematocrit 46.6 % (42.0-52.0) Mean Corpuscular Volume 96 FL (80-99) Mean Corpuscular Hemoglobin 33.0 PG (27.0-31.0) H Mean Corpuscular Hemoglobin Concent 34.3 G/DL (32.0-36.0) Red Cell Distribution Width 13.2 % (11.6-14.8) Platelet Count 359 K/UL (150-450) Mean Platelet Volume 5.1 FL (6.5-10.1) L Neutrophils (%) (Auto) 73.8 % (45.0-75.0) Lymphocytes (%) (Auto) 18.1 % (20.0-45.0) L Monocytes (%) (Auto) 7.5 % (1.0-10.0) Eosinophils (%) (Auto) 0.2 % (0.0-3.0) Basophils (%) (Auto) 0.5 % (0.0-2.0) Height (Feet): 5 Height (Inches): 10.00 Weight (Pounds): 175 Medications Current Medications Medications (Trade) Dose Ordered Sig/Job Route PRN Reason Start Time Stop Time Status Last Admin Dose Admin Acetaminophen (Tylenol) 650 mg Q4H PRN ORAL fever 12/15/17 21:32 01/14/18 21:31 Al Hydroxide/Mg Hydroxide (Mylanta II) 30 ml Q6H PRN ORAL dyspepsia 12/15/17 21:33 01/14/18 21:32 Carbidopa/Levodopa (Sinemet 25/100) 3 tab Q8HR ORAL 12/15/17 22:00 01/14/18 21:59 12/16/17 06:44 Dextrose (Dextrose 50%) 25 ml STAT PRN IV Hypoglycemia 12/15/17 21:33 01/14/18 21:32 Dextrose (Dextrose 50%) 50 ml STAT PRN IV Hypoglycemia 12/15/17 21:33 01/14/18 21:32 Gabapentin (Neurontin) 600 mg THREE TIMES A DAY ORAL 12/16/17 09:00 01/15/18 08:59 Lorazepam (Ativan 2mg/ml 1ml) 0.5 mg Q4H PRN IV For Anxiety 12/15/17 21:40 12/22/17 21:39 Morphine Sulfate (Morphine Sulfate) 4 mg Q4H PRN IVP For mild to moderate pain 12/16/17 07:45 12/23/17 07:44 Ondansetron HCl (Zofran) 4 mg Q6H PRN IVP Nausea & Vomiting 12/15/17 21:32 01/14/18 21:31 12/15/17 23:20 Oxycodone/ Acetaminophen (Percocet 10/325) 1 tab Q4H PRN ORAL For Severe Pain 12/15/17 21:40 12/22/17 21:39 12/16/17 06:46 Polyethylene Glycol (Miralax) 17 gm HSPRN PRN ORAL Constipation 12/15/17 22:00 01/14/18 21:59 Zolpidem Tartrate (Ambien) 5 mg HSPRN PRN ORAL Insomnia 12/15/17 21:33 12/22/17 21:32 Assessment/Plan Assessment/Plan (1) Parkinson's disease (2) Seizure disorder (3) Alcohol abuse (4) H/o substance abuse (5) Lumbago Patient to be continued on Morphine and Percocet. D/w Dr. Mckinley and he concurred. Itz Donald Dec 16, 2017 08:36
[2017-12-16] MEDS: Morphine Sulfate 4mg/ml Inj IVP PRN ×4 (10:12→22:22)
[2017-12-16 11:06] LABS: BASOPHILS % (AUTO) 0.6 % (0.0-2.0); EOSINOPHILS % (AUTO) 0.7 % (0.0-3.0); LYMPHOCYTES % (AUTO) 11.2 % (20.0-45.0); MEAN CORPUSCULAR VOLUME 98 FL (80-99); MONOCYTES % (AUTO) 9.3 % (1.0-10.0); NEUTROPHILS % (AUTO) 78.2 % (45.0-75.0); PLATELET COUNT 313 K/UL (150-450); RED BLOOD COUNT 4.59 M/UL (4.70-6.10); RED CELL DISTRIBUTION WIDTH 12.9 % (11.6-14.8); WHITE BLOOD COUNT 8.3 K/UL (4.8-10.8)
[2017-12-16 11:43] VITALS: BP 117/68
--- NOTE | 2017-12-16 11:46 | Consultation ---
History of Present Illness General Date patient seen: Dec 16, 2017 Chief Complaint: Back Pain-No Injury Present Illness HPI 57-year-old male with PMHx of previous strokes, craniotomy, seizures and Parkinson's disease presented to ER with complaints of left-sided weakness. He states that approximately 5 hours ago he began to have complete weakness of his left side. He is previously able to move his left arm and leg and he is completely unable to move his left extremities at this time. He states he was seated at home when the symptoms began. He denies any chest pain, shortness of breath or associated symptoms. His serum etoh level was 96. He is admitted to telemetry for further work up. Allergies: Coded Allergies: ERYTHROMYCIN BASE (Unverified Allergy, Unknown, 12/15/17) VANCOMYCIN (Verified Allergy, Unknown, 08/01/15) Medication History Scheduled Carbidopa/Levodopa 25-100 Mg* (Sinemet 25-100 Mg Tablet*), 3 TAB ORAL THREE TIMES A DAY, (Reported) Gabapentin* (Gabapentin*), 600 MG ORAL THREE TIMES A DAY, (Reported) Gabapentin* (Neurontin*), 400 MG ORAL THREE TIMES A DAY No Known Medications* (NKM - No Known Medications*), 0 ., (Reported) Scheduled PRN Clonazepam* (Klonopin*), 1 MG ORAL DAILY PRN for For Anxiety, (Reported) Oxycodone Hcl/Acetaminophen 10-325 Mg Tablet (Percocet 10-325 Mg Tablet*), 1 TAB ORAL Q6H PRN for For Pain, (Reported) Oxycodone Hcl/Acetaminophen 10-325 Mg Tablet (Percocet 10-325 Mg Tablet*), 1 TAB ORAL Q4H PRN for For Pain Patient History Healthcare decision maker Resuscitation status Full Code Advanced Directive on File Past Medical/Surgical History Past Medical/Surgical History: (1) History of craniotomy (2) History of CVA (cerebrovascular accident) (3) Chronic pain (4) Parkinson disease Review of Systems Constitutional: Reports: sweats, malaise All Other Systems: negative except mentioned in HPI Physical Exam General Appearance: WD/WN Lines, tubes and drains: peripheral, trach HEENT: normocephalic, PERRL Neck: normal alignment Respiratory/Chest: chest wall non-tender, lungs clear Cardiovascular/Chest: normal peripheral pulses, normal rate Abdomen: normal bowel sounds, non tender Genitourinary/Rectal: normal genital exam, normal rectal exam Extremities: normal range of motion, non-tender Neurologic: no Babinski, disoriented Last 24 Hour Vital Signs Date Time Temp Pulse Resp B/P (MAP) Pulse Ox O2 Delivery O2 Flow Rate FiO2 12/16/17 09:00 Room Air Room Air 12/16/17 08:00 97.1 83 20 131/83 (99) 100 97.1 12/16/17 08:00 82 12/16/17 04:00 90 12/16/17 04:00 97.9 96 20 144/87 (106) 96 97.9 12/16/17 00:00 97.0 97 20 141/98 (112) 96 97.0 12/16/17 00:00 85 12/15/17 22:00 Room Air 12/15/17 21:00 Room Air 12/15/17 20:35 98.0 77 18 127/87 99 Room Air 12/15/17 20:00 98.0 108 18 129/83 (98) 96 98.0 12/15/17 19:29 97.9 12/15/17 18:42 97.9 117 15 158/112 98 Room Air 97.9 12/15/17 17:02 103 17 125/95 99 Room Air 12/15/17 15:48 98.4 106 20 113/76 98 Room Air 98.4 12/15/17 14:46 98.4 111 18 112/88 98 Room Air 98.4 Intake and Output 12/15/17 12/16/17 19:00 07:00 Intake Total 0 ml 240 ml Output Total 500 ml Balance 0 ml -260 ml Intake Oral 0 ml 240 ml Output Urine Total 500 ml Laboratory Tests Test 12/15/17 15:15 12/15/17 17:00 12/16/17 11:00 Prothrombin Time 10.7 SEC (9.30-11.50) Prothromb Time International Ratio 1.0 (0.9-1.1) Activated Partial Thromboplast Time 21 SEC (23-33) L Sodium Level 139 MMOL/L (136-145) Pending Potassium Level 4.4 MMOL/L (3.5-5.1) Pending Chloride Level 101 MMOL/L (98-107) Pending Carbon Dioxide Level 26 MMOL/L (21-32) Pending Anion Gap 12 mmol/L (5-15) Blood Urea Nitrogen 23 mg/dL (7-18) H Pending Creatinine 1.0 MG/DL (0.55-1.30) Pending Estimat Glomerular Filtration Rate > 60 mL/min (>60) Pending Glucose Level 125 MG/DL (74-106) H Pending Calcium Level 9.8 MG/DL (8.5-10.1) Pending Total Bilirubin 0.9 MG/DL (0.2-1.0) Pending Aspartate Amino Transf (AST/SGOT) 37 U/L (15-37) Pending Alanine Aminotransferase (ALT/SGPT) 30 U/L (12-78) Pending Alkaline Phosphatase 137 U/L (46-116) H Pending Troponin I 0.000 ng/mL (0.000-0.056) Total Protein 7.9 G/DL (6.4-8.2) Pending Albumin 3.9 G/DL (3.4-5.0) Pending Globulin 4.0 g/dL Pending Albumin/Globulin Ratio 1.0 (1.0-2.7) Serum Alcohol 96 mg/dL White Blood Count 9.5 K/UL (4.8-10.8) 8.3 K/UL (4.8-10.8) Red Blood Count 4.84 M/UL (4.70-6.10) 4.59 M/UL (4.70-6.10) L Hemoglobin 16.0 G/DL (14.2-18.0) 15.0 G/DL (14.2-18.0) Hematocrit 46.6 % (42.0-52.0) 45.0 % (42.0-52.0) Mean Corpuscular Volume 96 FL (80-99) 98 FL (80-99) Mean Corpuscular Hemoglobin 33.0 PG (27.0-31.0) H 32.7 PG (27.0-31.0) H Mean Corpuscular Hemoglobin Concent 34.3 G/DL (32.0-36.0) 33.3 G/DL (32.0-36.0) Red Cell Distribution Width 13.2 % (11.6-14.8) 12.9 % (11.6-14.8) Platelet Count 359 K/UL (150-450) 313 K/UL (150-450) Mean Platelet Volume 5.1 FL (6.5-10.1) L 5.9 FL (6.5-10.1) L Neutrophils (%) (Auto) 73.8 % (45.0-75.0) 78.2 % (45.0-75.0) H Lymphocytes (%) (Auto) 18.1 % (20.0-45.0) L 11.2 % (20.0-45.0) L Monocytes (%) (Auto) 7.5 % (1.0-10.0) 9.3 % (1.0-10.0) Eosinophils (%) (Auto) 0.2 % (0.0-3.0) 0.7 % (0.0-3.0) Basophils (%) (Auto) 0.5 % (0.0-2.0) 0.6 % (0.0-2.0) Triglycerides Level Pending Cholesterol Level Pending LDL Cholesterol Pending HDL Cholesterol Pending Cholesterol/HDL Ratio Pending Thyroid Stimulating Hormone (TSH) Pending Height (Feet): 5 Height (Inches): 10.00 Weight (Pounds): 175 Medications Current Medications Medications (Trade) Dose Ordered Sig/Job Route PRN Reason Start Time Stop Time Status Last Admin Dose Admin Acetaminophen (Tylenol) 650 mg Q4H PRN ORAL fever 12/15/17 21:32 01/14/18 21:31 Al Hydroxide/Mg Hydroxide (Mylanta II) 30 ml Q6H PRN ORAL dyspepsia 12/15/17 21:33 01/14/18 21:32 Carbidopa/Levodopa (Sinemet 25/100) 3 tab Q8HR ORAL 12/15/17 22:00 01/14/18 21:59 12/16/17 06:44 Dextrose (Dextrose 50%) 25 ml STAT PRN IV Hypoglycemia 12/15/17 21:33 01/14/18 21:32 Dextrose (Dextrose 50%) 50 ml STAT PRN IV Hypoglycemia 12/15/17 21:33 01/14/18 21:32 Gabapentin (Neurontin) 600 mg THREE TIMES A DAY ORAL 12/16/17 09:00 01/15/18 08:59 Lorazepam (Ativan 2mg/ml 1ml) 0.5 mg Q4H PRN IV For Anxiety 12/15/17 21:40 12/22/17 21:39 Morphine Sulfate (Morphine Sulfate) 4 mg Q4H PRN IVP For mild to moderate pain 12/16/17 07:45 12/23/17 07:44 12/16/17 10:12 Ondansetron HCl (Zofran) 4 mg Q6H PRN IVP Nausea & Vomiting 12/15/17 21:32 01/14/18 21:31 12/16/17 08:38 Oxycodone/ Acetaminophen (Percocet 10/325) 1 tab Q4H PRN ORAL For Severe Pain 12/15/17 21:40 12/22/17 21:39 12/16/17 06:46 Polyethylene Glycol (Miralax) 17 gm HSPRN PRN ORAL Constipation 12/15/17 22:00 01/14/18 21:59 Zolpidem Tartrate (Ambien) 5 mg HSPRN PRN ORAL Insomnia 12/15/17 21:33 12/22/17 21:32 Assessment/Plan Problem List: (1) Acute alcoholic intoxication ICD Codes: F10.929 - Alcohol use, unspecified with intoxication, unspecified SNOMED: 43336988 (2) Acute CVA (cerebrovascular accident) ICD Codes: I63.9 - Cerebral infarction, unspecified SNOMED: 697649743, 286315080 (3) History of craniotomy ICD Codes: Z98.890 - Other specified postprocedural states SNOMED: 72496988, 201785755 (4) Parkinson disease ICD Codes: G20 - Parkinson's disease SNOMED: 92853679 (5) History of CVA (cerebrovascular accident) ICD Codes: Z86.73 - Personal history of transient ischemic attack (TIA), and cerebral infarction without residual deficits SNOMED: 286359352 (6) Hemiparesis ICD Codes: G81.90 - Hemiplegia, unspecified affecting unspecified side SNOMED: 87915833 Assessment/Plan seizure precaution neuro evaluation Banana bag pt/ot check electrolytes iv meds Ativan prn for seizures dvt prophylaxis. Cash Lorenzo MD Dec 16, 2017 11:46
[2017-12-16 12:03] LABS: ALANINE AMINOTRANSFERASE 13 U/L (12-78); ALBUMIN 3.5 G/DL (3.4-5.0); ALBUMIN/GLOBULIN RATIO 1.2 (1.0-2.7); ALKALINE PHOSPHATASE 113 U/L (46-116); ANION GAP 3 mmol/L (5-15); ASPARTATE AMINO TRANSFERASE 20 U/L (15-37); BILIRUBIN,TOTAL 1.5 MG/DL (0.2-1.0); BLOOD UREA NITROGEN 23 mg/dL (7-18); CALCIUM 9.1 MG/DL (8.5-10.1); CARBON DIOXIDE 33 MMOL/L (21-32); CHLORIDE 102 MMOL/L (98-107); CHOLESTEROL 153 MG/DL (< 200); HDL CHOLESTEROL 79 MG/DL (40-60); POTASSIUM 3.8 MMOL/L (3.5-5.1); SODIUM 138 MMOL/L (136-145); TRIGLYCERIDES 62 MG/DL (30-150)
[2017-12-16 12:04] LABS: BILIRUBIN,DIRECT 0.4 MG/DL (0.0-0.3)
[2017-12-16] MEDS: Folic Acid 1 MG, Magnesium Sulfate 2,000 MG, Multivitamin - 12 Injection 10 ML in NS 10... IV SCH (14:04)
[2017-12-16] MEDS: Thiamine HCl 100 MG in D5W 55 ML IV SCH (14:04)
[2017-12-16 16:00] VITALS: BP 111/55
--- NOTE | 2017-12-16 16:41 | Cardiology Report ---
APPROVED REPORT EKG Measurement Heart [id number] [id number] Sinus tachycardia Left axis deviation Anteroseptal infarct, age undetermined Abnormal ECG
[2017-12-16 19:36] VITALS: BP 108/66
--- NOTE | 2017-12-16 19:36 | Consultation ---
Consult Note Consult Note NEUROLOGY CONSULTATION CONSULTING PHYSICIAN: Melissa Rodriguez M.D. REQUESTING PHYSICIAN: Krishan Fraire D.O. HISTORY: Mr. Andrew Mccallum is a 57-year-old, right-handed, gentleman, who does have a past history of Parkinson's disease for numerous years, a meningioma on the left side for which he had surgery numerous years ago followed by a seizure disorder, a left brain intra cerebral hemorrhage evacuated at [facility] in the early , residual right sided weakness, chronic pain syndrome, alcohol abuse, cocaine abuse, and frequent falls due to which he uses a motorized wheelchair. He started to have seizures a few months following his meningioma surgery. When he has a seizure, he apparently passes out. There are no warnings prior to his seizures and he is uncertain as to what exactly happens when he has one of his seizures. He cannot describe what other people have seen. He then becomes a little confused and disoriented for some time following the event and then is back to his normal self. He is unable to tell me how frequently he has seizures. He is also unable to tell me if there are any definite aggravating factors, but he states that when he is under lot of stress, the seizures become more frequent. In the past, he has taken Dilantin and Keppra in unknown doses for his seizures. However, he feels that the only medicine that seems to help the most with the seizures is Klonopin. Yesterday prior to admission his left side got weak suddenly. At first he was unable to move the left side completely but now it is better but still weaker than his baseline. He says he was drinking a lot prior to his left side becoming weak. He is uncertain as to whether he had a seizure or not. PAST MEDICAL HISTORY: Significant for Parkinson disease, meningioma on the left side treated surgically followed by a seizure disorder, left brain intra cerebral hemorrhage evacuated at [facility] in the early followed by residual right sided weakness, alcohol abuse, cocaine abuse, and frequent falls. FAMILY HISTORY: Nothing significant as per the patient. PERSONAL HISTORY: Home: He lives in his own apartment. 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 He has been disabled since he had his meningioma surgery. Habits: He denies use of illicit drugs, but as per the admission note, cocaine abuse has been mentioned. He states he smokes 4 to 5 cigarettes per day and used to smoke larger quantities in the past. He drinks as much alcohol as he can. PHYSICAL EXAMINATION: GENERAL: He is a well-developed, well-nourished, depressed, tearful, gentleman, lying in bed, in no acute distress. VITAL SIGNS: Pulse 80/minute, blood pressure 111/55 mmHg, respirations 20/minute, and temperature 97.4 degrees Fahrenheit. HEAD: Normocephalic with left frontotemporal craniotomy defect. EENT: Examination benign. NECK: No neck rigidity was observed. NEUROLOGIC EXAMINATION: MENTAL STATUS EXAMINATION: He was awake and alert. He was oriented to person, place, and time except for the exact date. He was able to recall 3/3 words immediately, but could only remember 2/3 words in 1 minute and 3 minutes even on the second trial. He was able to remember presidents Trump through Huff Chinedu, spontaneously, but needed hints to remember through Huff senior. His mathematical skills were minimally impaired. His visuospatial function was relatively good. SPEECH: He had no dysarthria. LANGUAGE: He had a mild anomia for low-frequency words. CRANIAL NERVE EXAMINATION: II: The visual kaplan were intact on confrontation testing. III, IV & : The external ocular movements were full and the pupils 3 mm in diameter, equal, round, regular, and reactive to light. V: He had normal facial sensations, and the temporales, masseters, and pterygoids functioned normally. VII: He had a mild right VII central facial paresis. VIII: He was able to hear well bilaterally and had no nystagmus. IX: The palate moved symmetrically on phonation. X: He had no hoarseness of voice. XI: The sternocleidomastoids and trapezii functioned normally. XII: The tongue was in the midline without any fasciculations or atrophy. MOTOR SYSTEM: The tone was normal in all four extremities. Examination of muscle mass revealed no focal wasting. Examination of power revealed G 5/5 power except for G 4+/5 power in the right iliopsoas, and G 5-/5 power in the right finger extensors. On the left side he had significant give way weakness making accurate power testing difficult. He exhibited G 4/5 power in the left upper and lower extremities except for G 3/5 in the left iliopsoas. SENSORY EXAMINATION: He had intact sensations to pinprick, light touch, and graphesthesia. COORDINATION: He performed well on [id number] and [id number] testing. REFLEXES: 2++ on the right and 2+ on the left in the biceps, triceps, brachioradialis, and knees, 0 at both ankles. The plantar responses were flexor bilaterally. STANCE & GAIT: Could not be tested because he said he could not stand and walk. ABNORMAL MOVEMENTS: Tremor (4-5 Hz): G 0/4 in the upper and lower extremities. Rigidity: G 0/4 Bradykinesia: G 0/4 Hypomimia: G 0/4 Hypophonia: G 0/4. DIAGNOSTIC IMPRESSION: 1. Mr. Andrew Mccallum is a 57-year-old, right-handed, gentleman, who does have a past history of Parkinson's disease for numerous years, a meningioma on the left side for which he had surgery numerous years ago followed by a seizure disorder, a left brain intra cerebral hemorrhage evacuated at [facility] in the early , residual right sided weakness, chronic pain syndrome, alcohol abuse, cocaine abuse, and frequent falls due to which he uses a motorized wheelchair. When he has his seizures, he states that he passes out without any warning and following that, there is a period of confusion. He is uncertain as to what exactly happens after he has passed out and he is also unable to tell us what other people have observed. 2. He was hospitalized on 12/15/17 for new onset left sided weakness. At first he was unable to move the left side completely but now it is better but still weaker than his baseline. He says he was drinking a lot prior to his left side becoming weak. He is uncertain as to whether he had a seizure or not. 3. On neurological examination, at this time, he does demonstrate significant problems with orientation, recent and remote memory, higher cognitive function, and a mild anomia. He does have a mild right VII central facial paresis, and right finger extensor and iliopsoas weakness. On the left side he has significant give way weakness making accurate power testing difficult. He exhibits G 4/5 power in the left upper and lower extremities except for G 3/5 in the left iliopsoas. The deep tendon reflexes are brisker on the right side compared to the left. He is unable to stand and walk as he feels he will fall down. 3. The CT scan of the brain without contrast performed on 12/15/2017 reveals a large area of encephalomalacia in the left frontotemporal region and a craniotomy defect in the left frontotemporal region. 4. Laboratory data obtained thus far have revealed that his CBC reveals macrocytic indices. His chemistry panel is relatively benign and his serun alcohol level was 96. 5. 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 His seizures are not controlled as he is not taking his anticonvulsant and in addition he continues to drink alcohol and possibly uses other illicit drugs. 6. It is unclear if his left sided weakness is true or not as he exhibits significant give-way weakness. RECOMMENDATIONS: 1. Agree with management thus far. 2. Sinemet 25/100 -2 tablets to be taken at 6 a.m., 12 noon, and 6 p.m. 3. He will be restarted on Keppra 750 mg at 6 a.m. and 6 p.m. for seizure prophylaxis. 4. The patient was instructed on the basics of seizure hygiene: He was told to sleep well, that is sleep for at least 7 hours in the 24-hour period. Eat well, that is have a breakfast, lunch, and dinner. Stay away from tobacco, alcohol, and all illicit drugs. Take his antiseizure medicine on a regular basis. 5. MRI of brain to evaluate new left sided weakness. 6. Urine toxicology screen. 7. The patient will be observed closely and depending on how he fares over the next day or so, further recommendations will be given. Thank you for entrusting me with the care of Mr. Mccallum. I shall follow him with you. Melissa Rodriguez M.D., M.S.P.H. MELISSA RODRIGUEZ Dec 16, 2017 19:36
--- NOTE | 2017-12-16 20:45 | History and Physical Report ---
DATE OF ADMISSION: 12/15/2017 TIME SEEN: 3 p.m. CONSULTANTS: 1. Cash Lorenzo M.D. 2. Josselyn Mckinley M.D. 3. Julio Root M.D. 4. Rowan Mendoza M.D. CHIEF COMPLAINT: Progressive increased weakness and back pain. BRIEF HISTORY: The patient is a 57-year-old male, who lives at home presents with increased weakness, bilateral lower extremity and arm, and increased back pain. The patient in the ER diagnosed with the above, possible CVA, admitted to telemetry for further care. Currently, calm, general body pain, slight tremor, no complaints. REVIEW OF SYSTEMS: No chest pain. No shortness of breath. No nausea, vomiting, or diarrhea. PAST MEDICAL HISTORY: Include CVA, left-sided weakness, alcohol abuse, and Parkinson. PAST SURGICAL HISTORY: Craniotomy. MEDICATIONS: Include folic acid, thiamine, gabapentin, morphine, carbidopa, oxycodone, lorazepam, zolpidem, IV fluids. ALLERGIES: Vancomycin and erythromycin base. SOCIAL HISTORY: Positive smoke. Positive alcohol. No intravenous drug abuse. FAMILY HISTORY: Noncontributory. PHYSICAL EXAMINATION: GENERAL: Calm in bed, oriented x2, in no acute distress. VITAL SIGNS: Temperature is 97 degrees, pulse 76, respiratory rate 20, blood pressure 117/68. CARDIOVASCULAR: No murmur. LUNGS: Distant and clear. ABDOMEN: Bowel sounds positive. Nontender, nondistended. EXTREMITIES: No cyanosis, clubbing, or edema. Bilateral upper extremity resting tremor noted. NEURO: As noted bilateral upper extremity tremor noted. Bilateral weakness noted as well. LABORATORY DATA: Labs at this time show CBC is normal. BMP shows CO2 33, BUN and creatinine 23 and 1.0, glucose 124. Troponin 0.00. INR is 1.0 and PTT 21. ASSESSMENT: 1. Weakness. 2. Alcohol intoxication. 3. Back pain. 4. History of CVA with left-sided weakness. PLAN: 1. OT, PT, dietary followup, IV fluids, . 2. Resume home medications. 3. Pain control. 4. We will continue to follow the patient. Krishan Fraire D.O. DR: Jennifer JOB#: [id number] CC:
[2017-12-17 00:04] VITALS: BP 114/79
[2017-12-17] MEDS: Morphine Sulfate 4mg/ml Inj IVP PRN ×6 (02:26→23:21)
[2017-12-17 04:00] VITALS: BP 115/70
[2017-12-17] MEDS ORDERED: Levodopa/Carbidopa 25/100 tab ORAL SCH ×2 (06:00→18:00)
[2017-12-17] MEDS: Levodopa/Carbidopa 25/100 tab ORAL SCH ×3 (06:23→17:27)
[2017-12-17 08:00] VITALS: BP 110/74
[2017-12-17 08:15] LABS: BASOPHILS % (AUTO) 0.6 % (0.0-2.0); EOSINOPHILS % (AUTO) 3.1 % (0.0-3.0); HEMATOCRIT 42.6 % (42.0-52.0); HEMOGLOBIN 14.1 G/DL (14.2-18.0); LYMPHOCYTES % (AUTO) 18.6 % (20.0-45.0); MEAN CORPUSCULAR VOLUME 101 FL (80-99); MONOCYTES % (AUTO) 8.8 % (1.0-10.0); NEUTROPHILS % (AUTO) 68.9 % (45.0-75.0); PLATELET COUNT 257 K/UL (150-450); RED BLOOD COUNT 4.23 M/UL (4.70-6.10); RED CELL DISTRIBUTION WIDTH 12.8 % (11.6-14.8)
--- NOTE | 2017-12-17 08:30 | General Progress Note ---
Assessment/Plan Assessment/Plan (1) Parkinson's disease (2) Seizure disorder (3) Alcohol abuse (4) H/o substance abuse (5) Lumbago Patient to be continued on Morphine and Percocet. D/w Dr. Mckinley and he concurred. Subjective Date patient seen: Dec 17, 2017 Time patient seen: 07:30 - am Allergies: Coded Allergies: ERYTHROMYCIN BASE (Unverified Allergy, Unknown, 12/15/17) VANCOMYCIN (Verified Allergy, Unknown, 08/01/15) Subjective REVIEW OF SYSTEMS: Denies rash, fever, chills, sweating, dizziness, drowsiness, blurred vision, sore throat, or change in weight. No shortness of breath or chest pain. No nausea, vomiting, diarrhea, or blood in the stool or urine. No bowel or bladder incontinence. No dysuria. C/o Low back pain SUBJECTIVE: Patient reports that the pain has been tolerated on the Morphine and Percocet. He has been ordered to have MRI of brain later this morning. Objective Last 24 Hour Vital Signs Date Time Temp Pulse Resp B/P (MAP) Pulse Ox O2 Delivery O2 Flow Rate FiO2 12/17/17 04:00 89 12/17/17 04:00 97.3 71 20 115/70 (85) 97 97.3 12/17/17 02:56 96.6 12/17/17 00:04 96.6 70 20 114/79 (91) 95 96.6 12/17/17 00:00 75 12/16/17 21:00 Room Air Room Air 12/16/17 20:00 79 12/16/17 19:36 98.2 79 20 108/66 (80) 96 98.2 12/16/17 18:21 97.4 12/16/17 16:00 97.4 80 20 111/55 (73) 97 97.4 12/16/17 16:00 78 12/16/17 12:00 81 12/16/17 11:43 97.3 76 20 117/68 (84) 97 97.3 12/16/17 09:00 Room Air Room Air Intake and Output 12/16/17 12/17/17 19:00 07:00 Intake Total 1356 ml 985 ml Output Total 700 ml 800 ml Balance 656 ml 185 ml Intake Oral 800 ml 360 ml IV Total 556 ml 625 ml Output Urine Total 700 ml 800 ml # Voids 1 # Bowel Movements 1 1 Laboratory Tests 12/16/17 11:00: White Blood Count 8.3, Red Blood Count 4.59L, Hemoglobin 15.0, Hematocrit 45.0, Mean Corpuscular Volume 98, Mean Corpuscular Hemoglobin 32.7H, Mean Corpuscular Hemoglobin Concent 33.3, Red Cell Distribution Width 12.9, Platelet Count 313, Mean Platelet Volume 5.9L, Neutrophils (%) (Auto) 78.2H, Lymphocytes (%) (Auto) 11.2L, Monocytes (%) (Auto) 9.3, Eosinophils (%) (Auto) 0.7, Basophils (%) (Auto ) 0.6, Sodium Level 138, Potassium Level 3.8, Chloride Level 102, Carbon Dioxide Level 33H, Anion Gap 3L, Blood Urea Nitrogen 23H, Creatinine 1.0, Estimat Glomerular Filtration Rate > 60, Glucose Level 124H, Calcium Level 9.1, Total Bilirubin 1.5H, Direct Bilirubin 0.4H, Aspartate Amino Transf (AST/SGOT) 20, Alanine Aminotransferase (ALT/SGPT) 13, Alkaline Phosphatase 113, Total Protein 6.3L, Albumin 3.5, Globulin 2.8, Albumin/Globulin Ratio 1.2, Triglycerides Level 62, Cholesterol Level 153, LDL Cholesterol 65, HDL Cholesterol 79H, Cholesterol/HDL Ratio 1.9L, Thyroid Stimulating Hormone (TSH) 1.264 12/17/17 06:23: White Blood Count 8.0, Red Blood Count 4.23L, Hemoglobin 14.1L, Hematocrit 42.6 , Mean Corpuscular Volume 101H, Mean Corpuscular Hemoglobin 33.4H, Mean Corpuscular Hemoglobin Concent 33.1, Red Cell Distribution Width 12.8, Platelet Count 257, Mean Platelet Volume 5.9L, Neutrophils (%) (Auto) 68.9, Lymphocytes ( %) (Auto) 18.6L, Monocytes (%) (Auto) 8.8, Eosinophils (%) (Auto) 3.1H, Basophils (%) (Auto) 0.6, Sodium Level [Pending], Potassium Level [Pending], Chloride Level [Pending], Carbon Dioxide Level [Pending], Blood Urea Nitrogen [ Pending], Creatinine [Pending], Estimat Glomerular Filtration Rate [Pending], Glucose Level [Pending], Calcium Level [Pending] Height (Feet): 5 Height (Inches): 10.00 Weight (Pounds): 174 Objective GENERAL: AA&O LUNGS: Decreased breath sounds bilaterally. HEART: S1 S2 Regular. ABDOMEN: Benign. EXTREMITIES: No cyanosis. No clubbing. No edema. NEURO: No changes. Itz Donald Dec 17, 2017 08:30
[2017-12-17 09:16] LABS: ANION GAP 5 mmol/L (5-15); BLOOD UREA NITROGEN 17 mg/dL (7-18); CALCIUM 8.4 MG/DL (8.5-10.1); CARBON DIOXIDE 31 MMOL/L (21-32); CHLORIDE 106 MMOL/L (98-107); POTASSIUM 3.8 MMOL/L (3.5-5.1); SODIUM 141 MMOL/L (136-145)
[2017-12-17] MEDS: Docusate 100mg cap ORAL SCH ×3 (10:27→17:27)
[2017-12-17 11:21] VITALS: BP 124/78
--- NOTE | 2017-12-17 12:12 | Diagnostic Imaging Report ---
Indication: New onset left-sided weakness, history of prior meningioma resection in the early Technique: sagittal T1 fast spin echo, axial T1 FLAIR, axial T2 FLAIR, axial T2 FS PROPELLER, axial T2* GRE, axial diffusion weighted images. ADC and exponential ADC maps generated Comparison: No comparison MRI. Reference made to brain CT dated 12/15/2017 Findings: There is some motion artifact which limits assessment of the GRE images. There is gyriform restricted diffusion in the anterior right temporal lobe. No definite associated abnormality on the T2-weighted images. No other foci of restricted diffusion are demonstrated. No acute hemorrhage or edema. No mass effect nor midline shift. There is encephalomalacia of the left anterior temporal lobe and left inferior frontal lobe, also described on recent CT scan. There is evidence of prior left frontotemporal parietal craniotomy/craniectomy, better visualized on prior CT.. Visualized orbits and sinuses are unremarkable. There is mild age-related volume loss. The vascular flow voids are preserved. Impression: Positive for acute cortical infarct in the anterior right temporal lobe. Evidence of left frontotemporal parietal craniotomy/craniectomy. Underlying inferior frontal and anterior temporal encephalomalacia, consistent with remote insult, possibly related to stated clinical history of meningioma resection Age-related volume loss, mild Findings discussed by phone with Dr. Garza at 1205 PM on 12/17/2017
[2017-12-17] MEDS: Folic Acid 1 MG, Magnesium Sulfate 2,000 MG, Multivitamin - 12 Injection 10 ML in NS 10... IV SCH (14:00)
[2017-12-17] MEDS: Thiamine HCl 100 MG in D5W 55 ML IV SCH (14:00)
--- NOTE | 2017-12-17 14:29 | Pulmonology Progress Note ---
Assessment/Plan Problems: (1) Acute alcoholic intoxication (2) Acute CVA (cerebrovascular accident) (3) History of craniotomy (4) Parkinson disease (5) History of CVA (cerebrovascular accident) (6) Hemiparesis Assessment/Plan feeling better wants to get stronger symptomatic treatment check electrolytes Subjective ROS Limited/Unobtainable: No Constitutional: Reports: no symptoms HEENT: Repors: no symptoms Respiratory: Reports: no symptoms Allergies: Coded Allergies: ERYTHROMYCIN BASE (Unverified Allergy, Unknown, 12/15/17) VANCOMYCIN (Verified Allergy, Unknown, 08/01/15) Objective Last 24 Hour Vital Signs Date Time Temp Pulse Resp B/P (MAP) Pulse Ox O2 Delivery O2 Flow Rate FiO2 12/17/17 11:21 97.5 68 20 124/78 (93) 95 97.5 12/17/17 09:00 Room Air Room Air 12/17/17 08:00 90 12/17/17 08:00 97.9 82 20 110/74 (86) 95 97.9 12/17/17 04:00 89 12/17/17 04:00 97.3 71 20 115/70 (85) 97 97.3 12/17/17 02:56 96.6 12/17/17 00:04 96.6 70 20 114/79 (91) 95 96.6 12/17/17 00:00 75 12/16/17 21:00 Room Air Room Air 12/16/17 20:00 79 12/16/17 19:36 98.2 79 20 108/66 (80) 96 98.2 12/16/17 18:21 97.4 12/16/17 16:00 97.4 80 20 111/55 (73) 97 97.4 12/16/17 16:00 78 Intake and Output 12/16/17 12/17/17 19:00 07:00 Intake Total 1356 ml 985 ml Output Total 700 ml 800 ml Balance 656 ml 185 ml Intake Oral 800 ml 360 ml IV Total 556 ml 625 ml Output Urine Total 700 ml 800 ml # Voids 1 # Bowel Movements 1 1 General Appearance: WD/WN HEENT: normocephalic, atraumatic, PERRL Respiratory/Chest: lungs clear Cardiovascular: normal peripheral pulses, normal rate Abdomen: normal bowel sounds, soft, non tender Genitourinary: normal external genitalia Extremities: no cyanosis Skin: no rash Laboratory Tests 12/17/17 06:23: White Blood Count 8.0, Red Blood Count 4.23L, Hemoglobin 14.1L, Hematocrit 42.6 , Mean Corpuscular Volume 101H, Mean Corpuscular Hemoglobin 33.4H, Mean Corpuscular Hemoglobin Concent 33.1, Red Cell Distribution Width 12.8, Platelet Count 257, Mean Platelet Volume 5.9L, Neutrophils (%) (Auto) 68.9, Lymphocytes ( %) (Auto) 18.6L, Monocytes (%) (Auto) 8.8, Eosinophils (%) (Auto) 3.1H, Basophils (%) (Auto) 0.6, Sodium Level 141, Potassium Level 3.8, Chloride Level 106, Carbon Dioxide Level 31, Anion Gap 5, Blood Urea Nitrogen 17, Creatinine 1.0, Estimat Glomerular Filtration Rate > 60, Glucose Level 95, Calcium Level 8.4L Current Medications Medications (Trade) Dose Ordered Sig/Job Route PRN Reason Start Time Stop Time Status Last Admin Dose Admin Acetaminophen (Tylenol) 650 mg Q4H PRN ORAL fever 12/15/17 21:32 01/14/18 21:31 Al Hydroxide/Mg Hydroxide (Mylanta II) 30 ml Q6H PRN ORAL dyspepsia 12/15/17 21:33 01/14/18 21:32 Carbidopa/Levodopa (Sinemet 25/100) 2 tab TID@0600,1200,1800 ORAL 12/16/17 22:00 01/16/18 05:59 12/17/17 12:10 Dextrose (Dextrose 50%) 25 ml STAT PRN IV Hypoglycemia 12/15/17 21:33 01/14/18 21:32 Dextrose (Dextrose 50%) 50 ml STAT PRN IV Hypoglycemia 12/15/17 21:33 01/14/18 21:32 Docusate Sodium (Colace) 100 mg THREE TIMES A DAY ORAL 12/17/17 10:00 01/16/18 09:59 12/17/17 12:10 Folic Acid 1 mg/ Magnesium Sulfate 2000 mg/ Multivitamins 10 ml/Sodium Chloride 1,014.2 ml @ 125 mls/ hr Q24H IV 12/16/17 14:00 01/15/18 13:59 12/16/17 14:04 Gabapentin (Neurontin) 600 mg THREE TIMES A DAY ORAL 12/16/17 09:00 01/15/18 08:59 12/17/17 12:09 Levetiracetam (Keppra) 750 mg Q12HR ORAL 12/16/17 21:00 01/15/18 20:59 12/17/17 09:25 Lorazepam (Ativan 2mg/ml 1ml) 0.5 mg Q4H PRN IV For Anxiety 12/15/17 21:40 12/22/17 21:39 Morphine Sulfate (Morphine Sulfate) 4 mg Q4H PRN IVP For mild to moderate pain 12/16/17 07:45 12/23/17 07:44 12/17/17 10:28 Ondansetron HCl (Zofran) 4 mg Q6H PRN IVP Nausea & Vomiting 12/15/17 21:32 01/14/18 21:31 12/16/17 08:38 Oxycodone/ Acetaminophen (Percocet 10/325) 1 tab Q4H PRN ORAL For Severe Pain 12/15/17 21:40 12/22/17 21:39 12/16/17 06:46 Polyethylene Glycol (Miralax) 17 gm HSPRN PRN ORAL Constipation 12/15/17 22:00 01/14/18 21:59 Thiamine HCl 100 mg/Dextrose 56 ml @ 56 mls/hr Q24H IV 12/16/17 14:00 01/15/18 13:59 12/16/17 14:04 Zolpidem Tartrate (Ambien) 5 mg HSPRN PRN ORAL Insomnia 12/15/17 21:33 12/22/17 21:32 Cash Lorenzo MD Dec 17, 2017 14:29
--- NOTE | 2017-12-17 14:41 | General Progress Note ---
Assessment/Plan Problem List: (1) Back pain ICD Codes: M54.9 - Dorsalgia, unspecified SNOMED: 145461531 (2) CVA (cerebral vascular accident) ICD Codes: I63.9 - Cerebral infarction, unspecified SNOMED: 740458284 (3) Parkinson disease ICD Codes: G20 - Parkinson's disease SNOMED: 48032025 (4) Alcohol abuse ICD Codes: F10.10 - Alcohol abuse, uncomplicated SNOMED: 28288776 (5) Generalized pain ICD Codes: R52 - Pain, unspecified SNOMED: 45918231 (6) Weakness ICD Codes: R53.1 - Weakness SNOMED: 47011044 Status: unchanged Assessment/Plan ot pt diet pain control gi eval cbc bmp am Subjective Allergies: Coded Allergies: ERYTHROMYCIN BASE (Unverified Allergy, Unknown, 12/15/17) VANCOMYCIN (Verified Allergy, Unknown, 08/01/15) All Systems: reviewed and negative except above Subjective weak in bed poor appetite Objective Last 24 Hour Vital Signs Date Time Temp Pulse Resp B/P (MAP) Pulse Ox O2 Delivery O2 Flow Rate FiO2 12/17/17 11:21 97.5 68 20 124/78 (93) 95 97.5 12/17/17 09:00 Room Air Room Air 12/17/17 08:00 90 12/17/17 08:00 97.9 82 20 110/74 (86) 95 97.9 12/17/17 04:00 89 12/17/17 04:00 97.3 71 20 115/70 (85) 97 97.3 12/17/17 02:56 96.6 12/17/17 00:04 96.6 70 20 114/79 (91) 95 96.6 12/17/17 00:00 75 12/16/17 21:00 Room Air Room Air 12/16/17 20:00 79 12/16/17 19:36 98.2 79 20 108/66 (80) 96 98.2 12/16/17 18:21 97.4 12/16/17 16:00 97.4 80 20 111/55 (73) 97 97.4 12/16/17 16:00 78 Intake and Output 12/16/17 12/17/17 19:00 07:00 Intake Total 1356 ml 985 ml Output Total 700 ml 800 ml Balance 656 ml 185 ml Intake Oral 800 ml 360 ml IV Total 556 ml 625 ml Output Urine Total 700 ml 800 ml # Voids 1 # Bowel Movements 1 1 Laboratory Tests 12/17/17 06:23: White Blood Count 8.0, Red Blood Count 4.23L, Hemoglobin 14.1L, Hematocrit 42.6 , Mean Corpuscular Volume 101H, Mean Corpuscular Hemoglobin 33.4H, Mean Corpuscular Hemoglobin Concent 33.1, Red Cell Distribution Width 12.8, Platelet Count 257, Mean Platelet Volume 5.9L, Neutrophils (%) (Auto) 68.9, Lymphocytes ( %) (Auto) 18.6L, Monocytes (%) (Auto) 8.8, Eosinophils (%) (Auto) 3.1H, Basophils (%) (Auto) 0.6, Sodium Level 141, Potassium Level 3.8, Chloride Level 106, Carbon Dioxide Level 31, Anion Gap 5, Blood Urea Nitrogen 17, Creatinine 1.0, Estimat Glomerular Filtration Rate > 60, Glucose Level 95, Calcium Level 8.4L Height (Feet): 5 Height (Inches): 10.00 Weight (Pounds): 174 General Appearance: lethargic EENT: normal ENT inspection Neck: normal alignment Cardiovascular: normal peripheral pulses, normal rate, regular rhythm Respiratory/Chest: chest wall non-tender, lungs clear, normal breath sounds Abdomen: normal bowel sounds, non tender, soft Extremities: normal inspection Edema: no edema noted Arm (L), no edema noted Arm (R), no edema noted Leg (L), no edema noted Leg (R), no edema noted Pedal (L), no edema noted Pedal (R), no edema noted Generalized Neurologic: responsive, motor weakness Skin: normal pigmentation, warm/dry Krishan Fraire DO Dec 17, 2017 14:40
[2017-12-17 16:00] VITALS: BP 118/76
--- NOTE | 2017-12-17 17:27 | Neurology Progress Note ---
Interim History Interim History Interim History Mr. Mccallum feels worse. He still complains of increased weakness on his left side. He is still having problems with walking because his left leg will not carry him. He has been seizure free. He says he has been more tremulous. He denies any other neurologic symptoms. Review of Systems Neuro Review of Systems Benign. Objective Physical Exam Last Vital Signs Date Time Temp Pulse Resp B/P (MAP) Pulse Ox O2 Delivery O2 Flow Rate FiO2 12/17/17 16:00 98.2 75 20 118/76 (90) 95 98.2 12/17/17 09:00 Room Air Room Air Laboratory Tests Test 12/17/17 06:23 White Blood Count 8.0 K/UL (4.8-10.8) Red Blood Count 4.23 M/UL (4.70-6.10) L Hemoglobin 14.1 G/DL (14.2-18.0) L Hematocrit 42.6 % (42.0-52.0) Mean Corpuscular Volume 101 FL (80-99) H Mean Corpuscular Hemoglobin 33.4 PG (27.0-31.0) H Mean Corpuscular Hemoglobin Concent 33.1 G/DL (32.0-36.0) Red Cell Distribution Width 12.8 % (11.6-14.8) Platelet Count 257 K/UL (150-450) Mean Platelet Volume 5.9 FL (6.5-10.1) L Neutrophils (%) (Auto) 68.9 % (45.0-75.0) Lymphocytes (%) (Auto) 18.6 % (20.0-45.0) L Monocytes (%) (Auto) 8.8 % (1.0-10.0) Eosinophils (%) (Auto) 3.1 % (0.0-3.0) H Basophils (%) (Auto) 0.6 % (0.0-2.0) Sodium Level 141 MMOL/L (136-145) Potassium Level 3.8 MMOL/L (3.5-5.1) Chloride Level 106 MMOL/L (98-107) Carbon Dioxide Level 31 MMOL/L (21-32) Anion Gap 5 mmol/L (5-15) Blood Urea Nitrogen 17 mg/dL (7-18) Creatinine 1.0 MG/DL (0.55-1.30) Estimat Glomerular Filtration Rate > 60 mL/min (>60) Glucose Level 95 MG/DL (74-106) Calcium Level 8.4 MG/DL (8.5-10.1) L Neurologic Exam Objective PHYSICAL EXAMINATION: GENERAL: He is a well-developed, well-nourished, depressed, gentleman , lying in bed, in no acute distress. HEAD: Normocephalic with left frontotemporal craniotomy defect. EENT: Examination benign. NECK: No neck rigidity was observed. NEUROLOGIC EXAMINATION: MENTAL STATUS EXAMINATION: He was awake and alert. He was oriented to person, place, and time except for the exact date. He was able to recall 3/3 words immediately, but could only remember 2/3 words in 1 minute and 3 minutes even on the second trial. He was able to remember presidents Trump through [employer], spontaneously, but needed hints to remember through [employer] senior. His mathematical skills were minimally impaired. His visuospatial function was relatively good. SPEECH: He had no dysarthria. LANGUAGE: He had a mild anomia for low-frequency words. CRANIAL NERVE EXAMINATION: II: The visual kaplan were intact on confrontation testing. III, IV & : The external ocular movements were full and the pupils 3 mm in diameter, equal, round, regular, and reactive to light. V: He had normal facial sensations, and the temporales, masseters, and pterygoids functioned normally. VII: He had a mild right VII central facial paresis. VIII: He was able to hear well bilaterally and had no nystagmus. IX: The palate moved symmetrically on phonation. X: He had no hoarseness of voice. XI: The sternocleidomastoids and trapezii functioned normally. XII: The tongue was in the midline without any fasciculations or atrophy. MOTOR SYSTEM: The tone was normal in all four extremities. Examination of muscle mass revealed no focal wasting. Examination of power revealed G 5/5 power except for G 4+/5 power in the right iliopsoas, and G 5-/5 power in the right finger extensors. On the left side he had significant give way weakness making accurate power testing difficult. He exhibited G 4+/5 power in the left upper and lower extremities except for G 3/5 in the left iliopsoas. SENSORY EXAMINATION: He had intact sensations to pinprick, light touch, and graphesthesia. COORDINATION: He performed well on [id number] and [id number] testing on the right side - he sais he could not do it on the left. REFLEXES: 2++ on the right and 2+ on the left in the biceps, triceps, brachioradialis, and knees, 0 at both ankles. The plantar responses were flexor bilaterally. STANCE & GAIT: Could not be tested because he said he could not stand and walk. ABNORMAL MOVEMENTS: Tremor (4-5 Hz): G 1/4 in the upper and lower extremities. Rigidity: G 0/4 Bradykinesia: G Tr/4 Hypomimia: G 0/4 Hypophonia: G 0/4. Impression/Recommendations Diagnostic Impression 1. Mr. Andrew Mccallum is a 57-year-old, right-handed, gentleman, who does have a past history of Parkinson's disease for numerous years, a meningioma on the left side for which he had surgery numerous years ago followed by a seizure disorder, a left brain intra cerebral hemorrhage evacuated at [facility] in the early , residual right sided weakness, chronic pain syndrome, alcohol abuse, cocaine abuse, and frequent falls due to which he uses a motorized wheelchair. When he has his seizures, he states that he passes out without any warning and following that, there is a period of confusion. He is uncertain as to what exactly happens after he has passed out and he is also unable to tell us what other people have observed. 2. He was hospitalized on 12/15/17 for new onset left sided weakness. At first he was unable to move the left side completely but now it is better but still weaker than his baseline. He says he was drinking a lot prior to his left side becoming weak. He is uncertain as to whether he had a seizure or not. 3. He feels worse. He still complains of increased weakness on his left side. He is still having problems with walking because his left leg will not carry him. He has been seizure free. He says he has been more tremulous. He denies any other neurologic symptoms. 4. On neurological examination, at this time, he does demonstrate significant problems with orientation, recent and remote memory, higher cognitive function, and a mild anomia. He does have a mild right VII central facial paresis, and right finger extensor and iliopsoas weakness. On the left side he has significant give way weakness making accurate power testing difficult. He exhibits G 4+/5 power in the left upper and lower extremities except for G 3/5 in the left iliopsoas. The deep tendon reflexes are brisker on the right side compared to the left. He is unable to stand and walk as he feels he will fall down. 5. The CT scan of the brain without contrast performed on 12/15/2017 reveals a large area of encephalomalacia in the left frontotemporal region and a craniotomy defect in the left frontotemporal region. 6. The MRI of the brain done on 12/17/17 revealed an acute right temporal infarct. 7. Laboratory data obtained thus far have revealed that his CBC reveals macrocytic indices. His chemistry panel is relatively benign and his serun alcohol level was 96. 8. 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 His seizures are not controlled as he is not taking his anticonvulsant and in addition he continues to drink alcohol and possibly uses other illicit drugs. 9. His new left sided weakness is due to an acute right temporal infarct. However it is still unclear as to how much of the weakness is true as he exhibits significant give-way weakness. 10. He feels that his PD is worse. Recommendations 1. Continue present management. 2. Increase Sinemet 25/100 - to 3 tablets to be taken at 6 a.m., 12 noon, and 6 p.m. 3. Continue Keppra 750 mg at 6 a.m. and 6 p.m. for seizure prophylaxis. 4. Urine toxicology screen. 5. PT/OT to mobilize. 6. ASA 81 mg q day. 7. Carotid Duplex. Melissa Rodriguez M.D., M.S.P.H. MELISSA RODRIGUEZ Dec 17, 2017 17:27
[2017-12-17] MEDS ORDERED: Aspirin Baby 81mg ORAL SCH (18:00)
[2017-12-17 20:40] VITALS: BP 126/87
[2017-12-17] MEDS ORDERED: LORazepam Inj 2mg/ml 1ml IV PRN (21:45)
[2017-12-17] MEDS ORDERED: Zolpidem 5mg tab ORAL PRN (21:45)
[2017-12-17] MEDS ORDERED: Mylanta II UD 30ml ORAL PRN (21:45)
[2017-12-17] MEDS ORDERED: Miralax 17gm pkt ORAL PRN (22:00)
[2017-12-18] VITALS: BP 122/75
[2017-12-18] MEDS: Morphine Sulfate 4mg/ml Inj IVP PRN ×5 (03:23→20:52)
[2017-12-18 04:00] VITALS: BP 125/73
[2017-12-18] MEDS: Levodopa/Carbidopa 25/100 tab ORAL SCH ×3 (05:59→17:57)
[2017-12-18 07:21] LABS: BASOPHILS % (AUTO) 0.5 % (0.0-2.0); EOSINOPHILS % (AUTO) 7.1 % (0.0-3.0); HEMATOCRIT 40.7 % (42.0-52.0); HEMOGLOBIN 13.6 G/DL (14.2-18.0); LYMPHOCYTES % (AUTO) 23.6 % (20.0-45.0); MEAN CORPUSCULAR VOLUME 101 FL (80-99); MONOCYTES % (AUTO) 9.9 % (1.0-10.0); NEUTROPHILS % (AUTO) 58.9 % (45.0-75.0); PLATELET COUNT 242 K/UL (150-450); RED BLOOD COUNT 4.04 M/UL (4.70-6.10); RED CELL DISTRIBUTION WIDTH 13.1 % (11.6-14.8); WHITE BLOOD COUNT 6.6 K/UL (4.8-10.8)
[2017-12-18 07:26] LABS: ANION GAP 6 mmol/L (5-15); BLOOD UREA NITROGEN 17 mg/dL (7-18); CALCIUM 8.8 MG/DL (8.5-10.1); CARBON DIOXIDE 29 MMOL/L (21-32); CHLORIDE 104 MMOL/L (98-107); CREATININE 0.9 MG/DL (0.55-1.30); POTASSIUM 4.2 MMOL/L (3.5-5.1); SODIUM 139 MMOL/L (136-145)
[2017-12-18 08:00] VITALS: BP 116/73
[2017-12-18] MEDS: Aspirin Baby 81mg ORAL SCH (08:52)
[2017-12-18] MEDS: Docusate 100mg cap ORAL SCH ×3 (08:52→17:57)
--- NOTE | 2017-12-18 09:49 | Neurology Progress Note ---
Interim History Interim History Interim History Mr. Mccallum feels better today. The weakness on his left side is improving. However he feels that the left side is still significantly weak. He is still having problems with walking because his left leg will not carry him. He has been seizure free. He is less tremulous today. He denies any other neurologic symptoms. Review of Systems Neuro Review of Systems Benign. Objective Physical Exam Last Vital Signs Date Time Temp Pulse Resp B/P (MAP) Pulse Ox O2 Delivery O2 Flow Rate FiO2 12/18/17 04:00 97.9 72 18 125/73 (90) 99 97.9 12/17/17 21:00 Room Air Room Air Laboratory Tests Test 12/17/17 20:50 12/18/17 06:10 Urine Opiates Screen Positive (NEGATIVE) H Urine Barbiturates Screen Negative (NEGATIVE) Phencyclidine (PCP) Screen Negative (NEGATIVE) Urine Amphetamines Screen Negative (NEGATIVE) Urine Benzodiazepines Screen Negative (NEGATIVE) Urine Cocaine Screen Negative (NEGATIVE) Urine Marijuana (THC) Screen Positive (NEGATIVE) H White Blood Count 6.6 K/UL (4.8-10.8) Red Blood Count 4.04 M/UL (4.70-6.10) L Hemoglobin 13.6 G/DL (14.2-18.0) L Hematocrit 40.7 % (42.0-52.0) L Mean Corpuscular Volume 101 FL (80-99) H Mean Corpuscular Hemoglobin 33.7 PG (27.0-31.0) H Mean Corpuscular Hemoglobin Concent 33.4 G/DL (32.0-36.0) Red Cell Distribution Width 13.1 % (11.6-14.8) Platelet Count 242 K/UL (150-450) Mean Platelet Volume 6.6 FL (6.5-10.1) Neutrophils (%) (Auto) 58.9 % (45.0-75.0) Lymphocytes (%) (Auto) 23.6 % (20.0-45.0) Monocytes (%) (Auto) 9.9 % (1.0-10.0) Eosinophils (%) (Auto) 7.1 % (0.0-3.0) H Basophils (%) (Auto) 0.5 % (0.0-2.0) Sodium Level 139 MMOL/L (136-145) Potassium Level 4.2 MMOL/L (3.5-5.1) Chloride Level 104 MMOL/L (98-107) Carbon Dioxide Level 29 MMOL/L (21-32) Anion Gap 6 mmol/L (5-15) Blood Urea Nitrogen 17 mg/dL (7-18) Creatinine 0.9 MG/DL (0.55-1.30) Estimat Glomerular Filtration Rate > 60 mL/min (>60) Glucose Level 108 MG/DL (74-106) H Calcium Level 8.8 MG/DL (8.5-10.1) Neurologic Exam Objective PHYSICAL EXAMINATION: GENERAL: He is a well-developed, well-nourished, depressed, gentleman , lying in bed, in no acute distress. HEAD: Normocephalic with left frontotemporal craniotomy defect. EENT: Examination benign. NECK: No neck rigidity was observed. NEUROLOGIC EXAMINATION: MENTAL STATUS EXAMINATION: He was awake and alert. He was oriented to person, place, and time except for the exact date. He was able to recall 3/3 words immediately, but could only remember 2/3 words in 1 minute and 3 minutes even on the second trial. He was able to remember presidents Trump through [employer], spontaneously, but needed hints to remember through [employer] senior. His mathematical skills were minimally impaired. His visuospatial function was relatively good. SPEECH: He had no dysarthria. LANGUAGE: He had a mild anomia for low-frequency words. CRANIAL NERVE EXAMINATION: II: The visual kaplan were intact on confrontation testing. III, IV & : The external ocular movements were full and the pupils 3 mm in diameter, equal, round, regular, and reactive to light. V: He had normal facial sensations, and the temporales, masseters, and pterygoids functioned normally. VII: He had a mild right VII central facial paresis. VIII: He was able to hear well bilaterally and had no nystagmus. IX: The palate moved symmetrically on phonation. X: He had no hoarseness of voice. XI: The sternocleidomastoids and trapezii functioned normally. XII: The tongue was in the midline without any fasciculations or atrophy. MOTOR SYSTEM: The tone was normal in all four extremities. Examination of muscle mass revealed no focal wasting. Examination of power revealed G 5/5 power except for G 5-/5 power in the right iliopsoas, and right finger extensors. On the left side he had significant give way weakness making accurate power testing difficult. He exhibited G 4++/5 power in the left upper and lower extremities except for G 3+/5 in the left iliopsoas. SENSORY EXAMINATION: He had intact sensations to pinprick, light touch, and graphesthesia. COORDINATION: He performed well on [id number] and [id number]-oh-gvri testing on the right side - he sais he could not do it on the left. REFLEXES: 2+ on the right and 2++ on the left in the biceps, triceps, brachioradialis, and knees, 0 at both ankles. The plantar responses were flexor bilaterally. STANCE & GAIT: Could not be tested because he said he could not stand and walk. ABNORMAL MOVEMENTS: Tremor (4-5 Hz): G Trace/4 in the upper and lower extremities. Rigidity: G 0/4 Bradykinesia: G Tr/4 Hypomimia: G 0/4 Hypophonia: G 0/4. Impression/Recommendations Diagnostic Impression 1. Mr. Andrew Mccallum is a 57-year-old, right-handed, gentleman, who does have a past history of Parkinson's disease for numerous years, a meningioma on the left side for which he had surgery numerous years ago followed by a seizure disorder, a left brain intra cerebral hemorrhage evacuated at [facility] in the early , residual right sided weakness, chronic pain syndrome, alcohol abuse, cocaine abuse, and frequent falls due to which he uses a motorized wheelchair. When he has his seizures, he states that he passes out without any warning and following that, there is a period of confusion. He is uncertain as to what exactly happens after he has passed out and he is also unable to tell us what other people have observed. 2. He was hospitalized on 12/15/17 for new onset left sided weakness. At first he was unable to move the left side completely but now it is better but still weaker than his baseline. He says he was drinking a lot prior to his left side becoming weak. He is uncertain as to whether he had a seizure or not. 3. He feels better today. The weakness on his left side is improving. However he feels that the left side is still significantly weak. He is still having problems with walking because his left leg will not carry him. He has been seizure free. He is less tremulous today. He denies any other neurologic symptoms. 4. On neurological examination, at this time, he does demonstrate significant problems with orientation, recent and remote memory, higher cognitive function, and a mild anomia. He does have a mild right VII central facial paresis, and right finger extensor and iliopsoas weakness. On the left side he has significant give way weakness making accurate power testing difficult. He exhibits G 4++/5 power in the left upper and lower extremities except for G 3+/ 5 in the left iliopsoas. The deep tendon reflexes are brisker on the right side compared to the left. He is unable to stand and walk as he feels he will fall down. 5. The CT scan of the brain without contrast performed on 12/15/2017 reveals a large area of encephalomalacia in the left frontotemporal region and a craniotomy defect in the left frontotemporal region. 6. The MRI of the brain done on 12/17/17 revealed an acute right temporal infarct. 7. Laboratory data obtained thus far have revealed that his CBC reveals macrocytic indices. His chemistry panel is relatively benign and his serum alcohol level was 96. His urine toxicology was positive for THC and opiates - even though he told me that he has stopped using THC! 8. 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 His seizures are not controlled as he is not taking his anticonvulsant and in addition he continues to drink alcohol and possibly uses other illicit drugs. 9. His new left sided weakness is due to an acute right temporal infarct. However it is still unclear as to how much of the weakness is true as he exhibits significant give-way weakness. 10. His parkinsonian symptoms are better today. Recommendations 1. Continue present management. 2. Continue Sinemet 25/100 - 3 tablets to be taken at 6 a.m., 12 noon, and 6 p.m. 3. Continue Keppra 750 mg at 6 a.m. and 6 p.m. for seizure prophylaxis. 4. PT/OT to mobilize. 5. ASA 81 mg q day. 6. Await Carotid Duplex. 7. Echocardiogram with bubble study. Melissa Rodriguez M.D., M.S.P.H. MELISSA RODRIGUEZ Dec 18, 2017 09:49
--- NOTE | 2017-12-18 11:39 | GI Initial Consult Note ---
History of Present Illness General Date patient seen: Dec 18, 2017 Time patient seen: 11:32 Reason for Hospitalization: Back Pain-No Injury Referring physician: Dr. Fraire Reason for Consultation: Abdominal Pain Present Illness HPI Patient is a 57-year-old male with multiple comorbidities including 2 previous strokes, seizures and Parkinson's disease who presents today with complaints of left-sided weakness. He states that approximately 5 hours ago he began to have complete weakness of his left side. He is previously able to move his left arm and leg and he is completely unable to move his left extremities at this time. He states he was seated at home when the symptoms began. Patient is a history of seizures but states he did not have a seizure today, he remembers the entire incident. He denies any chest pain, shortness of breath or associated symptoms. GI consult for abdominal pain. Pt seen, awake A&Ox4 NAD noted with parkinson's , no N/V/D. Pt has complaint of abdominal pain, constipation but had a BM last night. Abdomen is firm, non distended at the time. Presents with mild anemia. Unknown history of endoscopy / colonoscopy. Home Meds Active Scripts Gabapentin* (NEURONTIN*) 400 Mg Capsule, 400 MG ORAL THREE TIMES A DAY, #15 CAP 0 Refills Prov:Baldomero Acuña MD 12/07/17 Oxycodone Hcl/Acetaminophen 10-325 Mg Tablet (PERCOCET 10-325 MG TABLET*) 1 Each Tablet, 1 TAB ORAL Q4H PRN for For Pain, #14 TAB Prov:Baldomero Acuña MD 12/07/17 Reported Medications No Known Medications* (NKM - No Known Medications*) ., 0 ., 0 Refills 12/07/17 Oxycodone Hcl/Acetaminophen 10-325 Mg Tablet (PERCOCET 10-325 MG TABLET*) 1 Each Tablet, 1 TAB ORAL Q6H PRN for For Pain, TAB 11/18/17 Gabapentin* (GABAPENTIN*) 300 Mg Capsule, 600 MG ORAL THREE TIMES A DAY for seizures, CAP 0 Refills 11/18/17 Carbidopa/Levodopa 25-100 Mg* (SINEMET 25-100 MG TABLET*) 1 Each Tablet, 3 TAB ORAL THREE TIMES A DAY for Parkinson's, TAB 11/18/17 Clonazepam* (KLONOPIN*) 1 Mg Tablet, 1 MG ORAL DAILY PRN for For Anxiety, #15 TAB 0 Refills 11/18/17 Med list reviewed/reconciled: Yes Allergies: Coded Allergies: ERYTHROMYCIN BASE (Unverified Allergy, Unknown, 12/15/17) VANCOMYCIN (Verified Allergy, Unknown, 08/01/15) Patient History History Provided By: Patient, Medical Record PMH Narrative Past Medical History: No History, Except For Hx Cardiac Problems: No Hx Hypertension: Yes Hx Diabetes: Yes Hx Cancer: No - craniotomy for meningioma Hx Gastrointestinal Problems: No Hx Cerebrovascular Accident: Yes Hx Parkinson's Disease: Yes Hx Seizures: Yes Hx Tremors: Yes Hx Weakness: Yes Hx Neurologic Surgery: Yes - s/p craniotomy Social History: Reports: drug use - marijuana Review of Systems All Other Systems: negative except mentioned in HPI Physical Exam Vital Signs Date Time Temp Pulse Resp B/P (MAP) Pulse Ox O2 Delivery O2 Flow Rate FiO2 12/15/17 14:46 98.4 111 18 112/88 98 Room Air 98.4 Sp02 EP Interpretation: reviewed, normal Labs Laboratory Tests Test 12/17/17 20:50 12/18/17 06:10 Urine Opiates Screen Positive (NEGATIVE) H Urine Barbiturates Screen Negative (NEGATIVE) Phencyclidine (PCP) Screen Negative (NEGATIVE) Urine Amphetamines Screen Negative (NEGATIVE) Urine Benzodiazepines Screen Negative (NEGATIVE) Urine Cocaine Screen Negative (NEGATIVE) Urine Marijuana (THC) Screen Positive (NEGATIVE) H White Blood Count 6.6 K/UL (4.8-10.8) Red Blood Count 4.04 M/UL (4.70-6.10) L Hemoglobin 13.6 G/DL (14.2-18.0) L Hematocrit 40.7 % (42.0-52.0) L Mean Corpuscular Volume 101 FL (80-99) H Mean Corpuscular Hemoglobin 33.7 PG (27.0-31.0) H Mean Corpuscular Hemoglobin Concent 33.4 G/DL (32.0-36.0) Red Cell Distribution Width 13.1 % (11.6-14.8) Platelet Count 242 K/UL (150-450) Mean Platelet Volume 6.6 FL (6.5-10.1) Neutrophils (%) (Auto) 58.9 % (45.0-75.0) Lymphocytes (%) (Auto) 23.6 % (20.0-45.0) Monocytes (%) (Auto) 9.9 % (1.0-10.0) Eosinophils (%) (Auto) 7.1 % (0.0-3.0) H Basophils (%) (Auto) 0.5 % (0.0-2.0) Sodium Level 139 MMOL/L (136-145) Potassium Level 4.2 MMOL/L (3.5-5.1) Chloride Level 104 MMOL/L (98-107) Carbon Dioxide Level 29 MMOL/L (21-32) Anion Gap 6 mmol/L (5-15) Blood Urea Nitrogen 17 mg/dL (7-18) Creatinine 0.9 MG/DL (0.55-1.30) Estimat Glomerular Filtration Rate > 60 mL/min (>60) Glucose Level 108 MG/DL (74-106) H Calcium Level 8.8 MG/DL (8.5-10.1) General Appearance: well appearing, no apparent distress, alert Head: normocephalic EENT: PERRL/EOMI, normal ENT inspection Neck: supple Respiratory: normal breath sounds, no respiratory distress Cardiovascular: normal rate Gastrointestinal: normal inspection, non tender, soft, normal bowel sounds, non -distended Rectal: deferred Genitourinary: deferred Musculoskeletal: other - left sided weakness / parkinsons Neurologic: normal inspection, alert, oriented x3, responsive Psychiatric: normal inspection, judgement/insight normal, memory normal Skin: normal inspection, normal color, no rash, warm/dry, palpation normal, well hydrated Lymphatic: normal inspection, no adenopathy Current Medications Current Medications Medications (Trade) Dose Ordered Sig/Job Route PRN Reason Start Time Stop Time Status Last Admin Dose Admin Acetaminophen (Tylenol) 650 mg Q4H PRN ORAL T>100.5 12/17/17 21:45 01/14/18 21:31 Al Hydroxide/Mg Hydroxide (Mylanta II) 30 ml Q6H PRN ORAL dyspepsia 12/17/17 21:45 01/14/18 21:32 Aspirin (ASA) 81 mg DAILY ORAL 12/18/17 09:00 01/16/18 17:59 12/18/17 08:52 Carbidopa/Levodopa (Sinemet 25/100) 3 tab TID@0600,1200,1800 ORAL 12/18/17 06:00 01/16/18 05:59 12/18/17 05:59 Dextrose (Dextrose 50%) 25 ml STAT PRN IV Hypoglycemia 12/17/17 21:45 01/14/18 21:32 Dextrose (Dextrose 50%) 50 ml STAT PRN IV Hypoglycemia 12/17/17 21:45 01/14/18 21:32 Docusate Sodium (Colace) 100 mg THREE TIMES A DAY ORAL 12/18/17 09:00 01/16/18 09:59 12/18/17 08:52 Folic Acid 1 mg/ Magnesium Sulfate 2000 mg/ Multivitamins 10 ml/Sodium Chloride 1,014.2 ml @ 125 mls/ hr Q24H IV 12/18/17 14:00 01/15/18 13:59 Gabapentin (Neurontin) 600 mg THREE TIMES A DAY ORAL 12/18/17 09:00 01/15/18 08:59 12/18/17 08:52 Levetiracetam (Keppra) 750 mg Q12HR ORAL 12/17/17 21:00 01/15/18 20:59 12/18/17 08:52 Lorazepam (Ativan 2mg/ml 1ml) 0.5 mg Q4H PRN IV For Anxiety 12/17/17 21:45 12/22/17 21:39 Morphine Sulfate (Morphine Sulfate) 4 mg Q4H PRN IVP PAIN 1-6 12/17/17 21:00 12/23/17 20:59 12/18/17 08:03 Ondansetron HCl (Zofran) 4 mg Q6H PRN IVP Nausea & Vomiting 12/17/17 21:00 01/14/18 20:59 Oxycodone/ Acetaminophen (Percocet 10/325) 1 tab Q4H PRN ORAL Severe Pain (Pain Scale 7-10) 12/17/17 21:45 12/22/17 21:39 Polyethylene Glycol (Miralax) 17 gm HSPRN PRN ORAL Constipation 12/17/17 22:00 01/14/18 21:59 Thiamine HCl 100 mg/Dextrose 56 ml @ 56 mls/hr Q24H IV 12/18/17 14:00 01/15/18 13:59 Zolpidem Tartrate (Ambien) 5 mg HSPRN PRN ORAL Insomnia 12/17/17 21:45 12/22/17 21:32 GI: Plan Problems: (1) Uncontrolled seizures (2) Non-compliance (3) History of CVA (cerebrovascular accident) (4) Chronic pain (5) Hemiparesis (6) Weakness (7) Alcohol abuse (8) CVA (cerebral vascular accident) (9) Generalized pain Plan symptomatic treatment / supportive care adv diet pain mgmt zofran prn prn transfusions ppi MVI/folate bowel regime titrate fu labs outpatient GI procedures Discussed with Dr. Pierson. Thank you for this patient referral, we will follow. The patient was seen and examined at bedside and all new and available data was reviewed in the patients chart. I agree with the above findings, impression and plan. (Patient seen earlier today. Signature stamp does not reflect patient encounter time.). - MD Sowmya HoranCobalt Rehabilitation (Tbi) HospitalEvelio BOYLE Dec 18, 2017 11:39
--- NOTE | 2017-12-18 11:51 | Pulmonology Progress Note ---
Assessment/Plan Problems: (1) Acute alcoholic intoxication (2) Acute CVA (cerebrovascular accident) (3) History of craniotomy (4) Parkinson disease (5) History of CVA (cerebrovascular accident) (6) Hemiparesis Assessment/Plan feeling better wants to get stronger symptomatic treatment check electrolytes no seizures less tremor Subjective ROS Limited/Unobtainable: No Constitutional: Reports: no symptoms HEENT: Repors: no symptoms, dysphagia Cardiovascular: Reports: no symptoms Allergies: Coded Allergies: ERYTHROMYCIN BASE (Unverified Allergy, Unknown, 12/15/17) VANCOMYCIN (Verified Allergy, Unknown, 08/01/15) Objective Last 24 Hour Vital Signs Date Time Temp Pulse Resp B/P (MAP) Pulse Ox O2 Delivery O2 Flow Rate FiO2 12/18/17 09:00 Room Air Room Air 12/18/17 08:00 98.0 72 16 116/73 (87) 94 98.0 12/18/17 04:00 97.9 72 18 125/73 (90) 99 97.9 12/18/17 00:00 99.0 74 20 122/75 (91) 97 99.0 12/17/17 21:00 Room Air Room Air 12/17/17 20:40 98.2 75 18 126/87 (100) 98 98.2 12/17/17 16:00 98.2 75 20 118/76 (90) 95 98.2 12/17/17 16:00 77 12/17/17 15:20 98.2 12/17/17 12:00 69 Intake and Output 12/17/17 12/18/17 19:00 07:00 Intake Total 840 ml 360 ml Output Total 400 ml Balance 440 ml 360 ml Intake Oral 840 ml 360 ml Output Urine Total 400 ml # Voids 3 3 # Bowel Movements 2 General Appearance: WD/WN HEENT: normocephalic, atraumatic Respiratory/Chest: chest wall non-tender, lungs clear Cardiovascular: normal peripheral pulses, normal rate Genitourinary: normal external genitalia Skin: no rash Neurologic/Psychiatric: abnormal gait, responsive Lymphatic: no neck adenopathy Laboratory Tests 12/17/17 20:50: Urine Opiates Screen PositiveH, Urine Barbiturates Screen Negative, Phencyclidine (PCP) Screen Negative, Urine Amphetamines Screen Negative, Urine Benzodiazepines Screen Negative, Urine Cocaine Screen Negative, Urine Marijuana (THC) Screen PositiveH 12/18/17 06:10: White Blood Count 6.6, Red Blood Count 4.04L, Hemoglobin 13.6L, Hematocrit 40.7L , Mean Corpuscular Volume 101H, Mean Corpuscular Hemoglobin 33.7H, Mean Corpuscular Hemoglobin Concent 33.4, Red Cell Distribution Width 13.1, Platelet Count 242, Mean Platelet Volume 6.6, Neutrophils (%) (Auto) 58.9, Lymphocytes (% ) (Auto) 23.6, Monocytes (%) (Auto) 9.9, Eosinophils (%) (Auto) 7.1H, Basophils (%) (Auto) 0.5, Sodium Level 139, Potassium Level 4.2, Chloride Level 104, Carbon Dioxide Level 29, Anion Gap 6, Blood Urea Nitrogen 17, Creatinine 0.9, Estimat Glomerular Filtration Rate > 60, Glucose Level 108H, Calcium Level 8.8 Current Medications Medications (Trade) Dose Ordered Sig/Job Route PRN Reason Start Time Stop Time Status Last Admin Dose Admin Acetaminophen (Tylenol) 650 mg Q4H PRN ORAL T>100.5 12/17/17 21:45 01/14/18 21:31 Al Hydroxide/Mg Hydroxide (Mylanta II) 30 ml Q6H PRN ORAL dyspepsia 12/17/17 21:45 01/14/18 21:32 Aspirin (ASA) 81 mg DAILY ORAL 12/18/17 09:00 01/16/18 17:59 12/18/17 08:52 Carbidopa/Levodopa (Sinemet 25/100) 3 tab TID@0600,1200,1800 ORAL 12/18/17 06:00 01/16/18 05:59 12/18/17 05:59 Dextrose (Dextrose 50%) 25 ml STAT PRN IV Hypoglycemia 12/17/17 21:45 01/14/18 21:32 Dextrose (Dextrose 50%) 50 ml STAT PRN IV Hypoglycemia 12/17/17 21:45 01/14/18 21:32 Docusate Sodium (Colace) 100 mg THREE TIMES A DAY ORAL 12/18/17 09:00 01/16/18 09:59 12/18/17 08:52 Folic Acid 1 mg/ Magnesium Sulfate 2000 mg/ Multivitamins 10 ml/Sodium Chloride 1,014.2 ml @ 125 mls/ hr Q24H IV 12/18/17 14:00 01/15/18 13:59 Gabapentin (Neurontin) 600 mg THREE TIMES A DAY ORAL 12/18/17 09:00 01/15/18 08:59 12/18/17 08:52 Levetiracetam (Keppra) 750 mg Q12HR ORAL 12/17/17 21:00 01/15/18 20:59 12/18/17 08:52 Lorazepam (Ativan 2mg/ml 1ml) 0.5 mg Q4H PRN IV For Anxiety 12/17/17 21:45 12/22/17 21:39 Morphine Sulfate (Morphine Sulfate) 4 mg Q4H PRN IVP PAIN 1-6 12/17/17 21:00 12/23/17 20:59 12/18/17 08:03 Ondansetron HCl (Zofran) 4 mg Q6H PRN IVP Nausea & Vomiting 12/17/17 21:00 01/14/18 20:59 Oxycodone/ Acetaminophen (Percocet 10/325) 1 tab Q4H PRN ORAL Severe Pain (Pain Scale 7-10) 12/17/17 21:45 12/22/17 21:39 Polyethylene Glycol (Miralax) 17 gm BEDTIME ORAL 12/18/17 21:00 01/17/18 20:59 UNV Polyethylene Glycol (Miralax) 17 gm HSPRN PRN ORAL Constipation 12/17/17 22:00 01/14/18 21:59 Thiamine HCl 100 mg/Dextrose 56 ml @ 56 mls/hr Q24H IV 12/18/17 14:00 01/15/18 13:59 Zolpidem Tartrate (Ambien) 5 mg HSPRN PRN ORAL Insomnia 12/17/17 21:45 12/22/17 21:32 Cash Lorenzo MD Dec 18, 2017 11:51
[2017-12-18 12:00] VITALS: BP 133/83
--- NOTE | 2017-12-18 13:14 | General Progress Note ---
Assessment/Plan Assessment/Plan (1) Parkinson's disease (2) Seizure disorder (3) Alcohol abuse (4) H/o substance abuse (5) Lumbago Patient to be continued on Morphine and Percocet. D/w Dr. Mckinley and he concurred. Subjective Date patient seen: Dec 18, 2017 Time patient seen: 12:15 - pm Allergies: Coded Allergies: ERYTHROMYCIN BASE (Unverified Allergy, Unknown, 12/15/17) VANCOMYCIN (Verified Allergy, Unknown, 08/01/15) Subjective REVIEW OF SYSTEMS: Denies rash, fever, chills, sweating, dizziness, drowsiness, blurred vision, sore throat, or change in weight. No shortness of breath or chest pain. No nausea, vomiting, diarrhea, or blood in the stool or urine. No bowel or bladder incontinence. No dysuria. C/o Low back pain SUBJECTIVE: Patient continues to c/o pain. The pain has been tolerated on the Morphine and will use the Percocet for breakthrough pain. He has no new complaints. Objective Last 24 Hour Vital Signs Date Time Temp Pulse Resp B/P (MAP) Pulse Ox O2 Delivery O2 Flow Rate FiO2 12/18/17 09:00 Room Air Room Air 12/18/17 08:00 98.0 72 16 116/73 (87) 94 98.0 12/18/17 04:00 97.9 72 18 125/73 (90) 99 97.9 12/18/17 00:00 99.0 74 20 122/75 (91) 97 99.0 12/17/17 21:00 Room Air Room Air 12/17/17 20:40 98.2 75 18 126/87 (100) 98 98.2 12/17/17 16:00 98.2 75 20 118/76 (90) 95 98.2 12/17/17 16:00 77 12/17/17 15:20 98.2 Intake and Output 12/17/17 12/18/17 19:00 07:00 Intake Total 840 ml 360 ml Output Total 400 ml Balance 440 ml 360 ml Intake Oral 840 ml 360 ml Output Urine Total 400 ml # Voids 3 3 # Bowel Movements 2 Laboratory Tests 12/17/17 20:50: Urine Opiates Screen PositiveH, Urine Barbiturates Screen Negative, Phencyclidine (PCP) Screen Negative, Urine Amphetamines Screen Negative, Urine Benzodiazepines Screen Negative, Urine Cocaine Screen Negative, Urine Marijuana (THC) Screen PositiveH 12/18/17 06:10: White Blood Count 6.6, Red Blood Count 4.04L, Hemoglobin 13.6L, Hematocrit 40.7L , Mean Corpuscular Volume 101H, Mean Corpuscular Hemoglobin 33.7H, Mean Corpuscular Hemoglobin Concent 33.4, Red Cell Distribution Width 13.1, Platelet Count 242, Mean Platelet Volume 6.6, Neutrophils (%) (Auto) 58.9, Lymphocytes (% ) (Auto) 23.6, Monocytes (%) (Auto) 9.9, Eosinophils (%) (Auto) 7.1H, Basophils (%) (Auto) 0.5, Sodium Level 139, Potassium Level 4.2, Chloride Level 104, Carbon Dioxide Level 29, Anion Gap 6, Blood Urea Nitrogen 17, Creatinine 0.9, Estimat Glomerular Filtration Rate > 60, Glucose Level 108H, Calcium Level 8.8 Height (Feet): 5 Height (Inches): 10.00 Weight (Pounds): 174 Objective GENERAL: AA&O LUNGS: Decreased breath sounds bilaterally. HEART: S1 S2 Regular. ABDOMEN: Benign. EXTREMITIES: No cyanosis. No clubbing. No edema. NEURO: No changes. Itz Donald Dec 18, 2017 13:14
[2017-12-18] MEDS: Thiamine HCl 100 MG in D5W 55 ML IV SCH (13:58)
[2017-12-18] MEDS: Folic Acid 1 MG, Magnesium Sulfate 2,000 MG, Multivitamin - 12 Injection 10 ML in NS 10... IV SCH (13:58)
[2017-12-18 16:00] VITALS: BP 118/69
--- NOTE | 2017-12-18 16:21 | General Progress Note ---
Assessment/Plan Problem List: (1) Back pain ICD Codes: M54.9 - Dorsalgia, unspecified SNOMED: 597397992 (2) CVA (cerebral vascular accident) ICD Codes: I63.9 - Cerebral infarction, unspecified SNOMED: 731235010 (3) Parkinson disease ICD Codes: G20 - Parkinson's disease SNOMED: 98593373 (4) Alcohol abuse ICD Codes: F10.10 - Alcohol abuse, uncomplicated SNOMED: 24099533 (5) Generalized pain ICD Codes: R52 - Pain, unspecified SNOMED: 93488796 (6) Weakness ICD Codes: R53.1 - Weakness SNOMED: 84751926 Status: stable, progressing Assessment/Plan ot pt diet pain control gi eval cbc bmp am dc plan snf Subjective Constitutional: Reports: weakness Allergies: Coded Allergies: ERYTHROMYCIN BASE (Unverified Allergy, Unknown, 12/15/17) VANCOMYCIN (Verified Allergy, Unknown, 08/01/15) All Systems: reviewed and negative except above Subjective weak in bed poor appetite Objective Last 24 Hour Vital Signs Date Time Temp Pulse Resp B/P (MAP) Pulse Ox O2 Delivery O2 Flow Rate FiO2 12/18/17 12:00 95.0 78 16 133/83 (100) 97 95.0 12/18/17 09:00 Room Air Room Air 12/18/17 08:00 98.0 72 16 116/73 (87) 94 98.0 12/18/17 04:00 97.9 72 18 125/73 (90) 99 97.9 12/18/17 00:00 99.0 74 20 122/75 (91) 97 99.0 12/17/17 21:00 Room Air Room Air 12/17/17 20:40 98.2 75 18 126/87 (100) 98 98.2 Intake and Output 12/17/17 12/18/17 19:00 07:00 Intake Total 840 ml 360 ml Output Total 400 ml Balance 440 ml 360 ml Intake Oral 840 ml 360 ml Output Urine Total 400 ml # Voids 3 3 # Bowel Movements 2 Laboratory Tests 12/17/17 20:50: Urine Opiates Screen PositiveH, Urine Barbiturates Screen Negative, Phencyclidine (PCP) Screen Negative, Urine Amphetamines Screen Negative, Urine Benzodiazepines Screen Negative, Urine Cocaine Screen Negative, Urine Marijuana (THC) Screen PositiveH 12/18/17 06:10: White Blood Count 6.6, Red Blood Count 4.04L, Hemoglobin 13.6L, Hematocrit 40.7L , Mean Corpuscular Volume 101H, Mean Corpuscular Hemoglobin 33.7H, Mean Corpuscular Hemoglobin Concent 33.4, Red Cell Distribution Width 13.1, Platelet Count 242, Mean Platelet Volume 6.6, Neutrophils (%) (Auto) 58.9, Lymphocytes (% ) (Auto) 23.6, Monocytes (%) (Auto) 9.9, Eosinophils (%) (Auto) 7.1H, Basophils (%) (Auto) 0.5, Sodium Level 139, Potassium Level 4.2, Chloride Level 104, Carbon Dioxide Level 29, Anion Gap 6, Blood Urea Nitrogen 17, Creatinine 0.9, Estimat Glomerular Filtration Rate > 60, Glucose Level 108H, Calcium Level 8.8 Height (Feet): 5 Height (Inches): 10.00 Weight (Pounds): 174 General Appearance: lethargic EENT: normal ENT inspection Neck: normal alignment Cardiovascular: normal peripheral pulses, normal rate, regular rhythm Respiratory/Chest: chest wall non-tender, lungs clear, normal breath sounds Abdomen: normal bowel sounds, non tender, soft Extremities: normal inspection Edema: no edema noted Arm (L), no edema noted Arm (R), no edema noted Leg (L), no edema noted Leg (R), no edema noted Pedal (L), no edema noted Pedal (R), no edema noted Generalized Neurologic: motor weakness Skin: normal pigmentation, warm/dry Krishan Fraire DO Dec 18, 2017 16:21
[2017-12-18 20:19] VITALS: BP 139/82
[2017-12-18] MEDS: Miralax 17gm pkt ORAL SCH (20:49)
[2017-12-19] VITALS (7 sets, daily range): BP systolic 108–142; BP diastolic 67–91
[2017-12-19] MEDS: Morphine Sulfate 4mg/ml Inj IVP PRN ×5 (02:16→21:00)
[2017-12-19] MEDS: Levodopa/Carbidopa 25/100 tab ORAL SCH ×3 (06:18→18:50)
[2017-12-19 07:19] LABS: BASOPHILS % (AUTO) 0.4 % (0.0-2.0); EOSINOPHILS % (AUTO) 5.4 % (0.0-3.0); HEMOGLOBIN 14.3 G/DL (14.2-18.0); LYMPHOCYTES % (AUTO) 21.7 % (20.0-45.0); MEAN CORPUSCULAR VOLUME 101 FL (80-99); MONOCYTES % (AUTO) 7.4 % (1.0-10.0); NEUTROPHILS % (AUTO) 65.1 % (45.0-75.0); PLATELET COUNT 272 K/UL (150-450); RED BLOOD COUNT 4.27 M/UL (4.70-6.10); WHITE BLOOD COUNT 6.9 K/UL (4.8-10.8)
[2017-12-19 07:44] LABS: ANION GAP 7 mmol/L (5-15); BLOOD UREA NITROGEN 15 mg/dL (7-18); CALCIUM 8.5 MG/DL (8.5-10.1); CARBON DIOXIDE 28 MMOL/L (21-32); CHLORIDE 103 MMOL/L (98-107); POTASSIUM 4.6 MMOL/L (3.5-5.1); SODIUM 137 MMOL/L (136-145)
[2017-12-19] MEDS: Docusate 100mg cap ORAL SCH ×3 (09:07→18:51)
[2017-12-19] MEDS: Aspirin Baby 81mg ORAL SCH (09:07)
--- NOTE | 2017-12-19 09:36 | Neurology Progress Note ---
Interim History Interim History Interim History Mr. Mccallum feels better generally. He is still consumed by pain. He says he was unable to sleep all night, but was sleeping soundly when I went into his room. The weakness on his left side is improving. However he feels that the left side is still significantly weak. He is still having problems with walking because his left leg will not carry him. He has been seizure free. He is not tremulous today. He denies any other neurologic symptoms. Review of Systems Neuro Review of Systems Benign. Objective Physical Exam Last Vital Signs Date Time Temp Pulse Resp B/P (MAP) Pulse Ox O2 Delivery O2 Flow Rate FiO2 12/19/17 08:00 98.0 73 19 108/67 (81) 98 98.0 12/18/17 21:00 Room Air Room Air Laboratory Tests Test 12/19/17 06:15 White Blood Count 6.9 K/UL (4.8-10.8) Red Blood Count 4.27 M/UL (4.70-6.10) L Hemoglobin 14.3 G/DL (14.2-18.0) Hematocrit 43.0 % (42.0-52.0) Mean Corpuscular Volume 101 FL (80-99) H Mean Corpuscular Hemoglobin 33.6 PG (27.0-31.0) H Mean Corpuscular Hemoglobin Concent 33.3 G/DL (32.0-36.0) Red Cell Distribution Width 13.0 % (11.6-14.8) Platelet Count 272 K/UL (150-450) Mean Platelet Volume 6.2 FL (6.5-10.1) L Neutrophils (%) (Auto) 65.1 % (45.0-75.0) Lymphocytes (%) (Auto) 21.7 % (20.0-45.0) Monocytes (%) (Auto) 7.4 % (1.0-10.0) Eosinophils (%) (Auto) 5.4 % (0.0-3.0) H Basophils (%) (Auto) 0.4 % (0.0-2.0) Sodium Level 137 MMOL/L (136-145) Potassium Level 4.6 MMOL/L (3.5-5.1) Chloride Level 103 MMOL/L (98-107) Carbon Dioxide Level 28 MMOL/L (21-32) Anion Gap 7 mmol/L (5-15) Blood Urea Nitrogen 15 mg/dL (7-18) Creatinine 1.0 MG/DL (0.55-1.30) Estimat Glomerular Filtration Rate > 60 mL/min (>60) Glucose Level 100 MG/DL (74-106) Calcium Level 8.5 MG/DL (8.5-10.1) Neurologic Exam Objective PHYSICAL EXAMINATION: GENERAL: He is a well-developed, well-nourished, depressed, gentleman , lying in bed, in no acute distress. HEAD: Normocephalic with left frontotemporal craniotomy defect. EENT: Examination benign. NECK: No neck rigidity was observed. NEUROLOGIC EXAMINATION: MENTAL STATUS EXAMINATION: He was awake and alert. He was oriented to person, place, and time except for the exact date. He was able to recall 3/3 words immediately, but could only remember 2/3 words in 1 minute and 3 minutes even on the second trial. He was able to remember presidents Trump through [facility] [place], spontaneously, but needed hints to remember through [facility] senior. His mathematical skills were minimally impaired. His visuospatial function was relatively good. SPEECH: He had no dysarthria. LANGUAGE: He had a mild anomia for low-frequency words. CRANIAL NERVE EXAMINATION: II: The visual kaplan were intact on confrontation testing. III, IV & : The external ocular movements were full and the pupils 3 mm in diameter, equal, round, regular, and reactive to light. V: He had normal facial sensations, and the temporales, masseters, and pterygoids functioned normally. VII: He had a mild right VII central facial paresis. VIII: He was able to hear well bilaterally and had no nystagmus. IX: The palate moved symmetrically on phonation. X: He had no hoarseness of voice. XI: The sternocleidomastoids and trapezii functioned normally. XII: The tongue was in the midline without any fasciculations or atrophy. MOTOR SYSTEM: The tone was normal in all four extremities. Examination of muscle mass revealed no focal wasting. Examination of power revealed G 5/5 power except for G 5-/5 power in the right iliopsoas, and right finger extensors. On the left side he had significant give way weakness making accurate power testing difficult. He exhibited G 4++/5 power in the left upper and lower extremities except for G 3+/5 in the left iliopsoas. SENSORY EXAMINATION: He had intact sensations to pinprick, light touch, and graphesthesia. COORDINATION: He performed well on [id number] and [id number] testing on the right side - he sais he could not do it on the left. REFLEXES: 2+ on the right and 2++ on the left in the biceps, triceps, brachioradialis, and knees, 0 at both ankles. The plantar responses were flexor bilaterally. STANCE & GAIT: Could not be tested because he said he could not stand and walk. ABNORMAL MOVEMENTS: Tremor (4-5 Hz): G Trace/4 in the upper and lower extremities. Rigidity: G 0/4 Bradykinesia: G Tr/4 Hypomimia: G 0/4 Hypophonia: G 0/4. Impression/Recommendations Diagnostic Impression 1. Mr. 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 When he has his seizures, he states that he passes out without any warning and following that, there is a period of confusion. He is uncertain as to what exactly happens after he has passed out and he is also unable to tell us what other people have observed. 2. He was hospitalized on 12/15/17 for new onset left sided weakness. At first he was unable to move the left side completely but now it is better but still weaker than his baseline. He says he was drinking a lot prior to his left side becoming weak. He is uncertain as to whether he had a seizure or not. 3. He feels better generally. He is still consumed by pain. He says he was unable to sleep all night, but was sleeping soundly when I went into his room. The weakness on his left side is improving. However he feels that the left side is still significantly weak. He is still having problems with walking because his left leg will not carry him. He has been seizure free. He is not tremulous today. He denies any other neurologic symptoms. 4. On neurological examination, at this time, he does demonstrate significant problems with orientation, recent and remote memory, higher cognitive function, and a mild anomia. He does have a mild right VII central facial paresis, and right finger extensor and iliopsoas weakness. On the left side he has significant give way weakness making accurate power testing difficult. He exhibits G 4++/5 power in the left upper and lower extremities except for G 3+/ 5 in the left iliopsoas. The deep tendon reflexes are brisker on the left side compared to the right. He is unable to stand and walk as he feels he will fall down. 5. The CT scan of the brain without contrast performed on 12/15/2017 reveals a large area of encephalomalacia in the left frontotemporal region and a craniotomy defect in the left frontotemporal region. 6. The MRI of the brain done on 12/17/17 revealed an acute right temporal infarct. 7. Laboratory data obtained thus far have revealed that his CBC reveals macrocytic indices. His chemistry panel is relatively benign and his serum alcohol level was 96. His urine toxicology was positive for THC and opiates - even though he told me that he has stopped using THC! 8. The cerebro-vascular non-invasive profile is benign. 9. 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 His seizures are not controlled as he is not taking his anticonvulsant and in addition he continues to drink alcohol and possibly uses other illicit drugs. 10. His new left sided weakness is due to an acute right temporal infarct. However it is still unclear as to how much of the weakness is true as he exhibits significant give-way weakness. 11. His parkinsonian symptoms are better today. Recommendations 1. Continue present management. 2. Continue Sinemet 25/100 - 3 tablets to be taken at 6 a.m., 12 noon, and 6 p.m. 3. Continue Keppra 750 mg at 6 a.m. and 6 p.m. for seizure prophylaxis. 4. PT/OT to mobilize. 5. ASA 81 mg q day. 6. Await echocardiogram with bubble study. 7. Acute rehabilitation for new stroke. Melissa Root M.D., M.S.P.H. MELISSA ROOT Dec 19, 2017 09:36
--- NOTE | 2017-12-19 11:21 | GI Progress Note ---
Assessment/Plan Problems: (1) CVA (cerebral vascular accident) ICD Codes: I63.9 - Cerebral infarction, unspecified SNOMED: 701605856 (2) Weakness ICD Codes: R53.1 - Weakness SNOMED: 38101621 (3) Parkinson disease ICD Codes: G20 - Parkinson's disease SNOMED: 62749046 (4) Alcohol abuse ICD Codes: F10.10 - Alcohol abuse, uncomplicated SNOMED: 32572126 (5) Chronic pain ICD Codes: G89.29 - Other chronic pain SNOMED: 40870376 (6) Hemiparesis ICD Codes: G81.90 - Hemiplegia, unspecified affecting unspecified side SNOMED: 17902179 (7) Drug-seeking behavior ICD Codes: Z76.5 - Malingerer [conscious simulation] SNOMED: 397775196 Status: stable, unchanged Status Narrative Discussed with Dr. Pierson. Assessment/Plan dc planning symptomatic treatment / supportive care adv diet pain mgmt zofran prn prn transfusions ppi MVI/folate bowel regime titrate fu labs outpatient GI procedures The patient was seen and examined at bedside and all new and available data was reviewed in the patients chart. I agree with the above findings, impression and plan. (Patient seen earlier today. Signature stamp does not reflect patient encounter time.). - Justin Pierson MD Subjective Gastrointestinal/Abdominal: Reports: no symptoms Subjective generalized pain Objective Last 24 Hour Vital Signs Date Time Temp Pulse Resp B/P (MAP) Pulse Ox O2 Delivery O2 Flow Rate FiO2 12/19/17 08:00 98.0 73 19 108/67 (81) 98 98.0 12/19/17 05:02 98.1 59 20 135/83 (100) 100 98.1 12/19/17 04:00 98.1 59 20 132/83 (99) 94 98.1 12/19/17 00:00 98.1 62 20 138/80 (99) 100 98.1 12/19/17 00:00 98.1 59 20 132/87 (102) 100 98.1 12/18/17 21:00 Room Air Room Air 12/18/17 20:19 97.7 68 20 139/82 (101) 95 97.7 12/18/17 16:00 98.2 65 24 118/69 (85) 97 98.2 12/18/17 12:00 95.0 78 16 133/83 (100) 97 95.0 Intake and Output 12/18/17 12/19/17 19:00 07:00 Intake Total 1941 ml 750 ml Output Total 600 ml 750 ml Balance 1341 ml 0 ml Intake Oral 1510 ml IV Total 431 ml 750 ml Output Urine Total 600 ml 750 ml # Voids 7 4 Laboratory Tests Test 12/19/17 06:15 White Blood Count 6.9 K/UL (4.8-10.8) Red Blood Count 4.27 M/UL (4.70-6.10) L Hemoglobin 14.3 G/DL (14.2-18.0) Hematocrit 43.0 % (42.0-52.0) Mean Corpuscular Volume 101 FL (80-99) H Mean Corpuscular Hemoglobin 33.6 PG (27.0-31.0) H Mean Corpuscular Hemoglobin Concent 33.3 G/DL (32.0-36.0) Red Cell Distribution Width 13.0 % (11.6-14.8) Platelet Count 272 K/UL (150-450) Mean Platelet Volume 6.2 FL (6.5-10.1) L Neutrophils (%) (Auto) 65.1 % (45.0-75.0) Lymphocytes (%) (Auto) 21.7 % (20.0-45.0) Monocytes (%) (Auto) 7.4 % (1.0-10.0) Eosinophils (%) (Auto) 5.4 % (0.0-3.0) H Basophils (%) (Auto) 0.4 % (0.0-2.0) Sodium Level 137 MMOL/L (136-145) Potassium Level 4.6 MMOL/L (3.5-5.1) Chloride Level 103 MMOL/L (98-107) Carbon Dioxide Level 28 MMOL/L (21-32) Anion Gap 7 mmol/L (5-15) Blood Urea Nitrogen 15 mg/dL (7-18) Creatinine 1.0 MG/DL (0.55-1.30) Estimat Glomerular Filtration Rate > 60 mL/min (>60) Glucose Level 100 MG/DL (74-106) Calcium Level 8.5 MG/DL (8.5-10.1) Height (Feet): 5 Height (Inches): 10.00 Weight (Pounds): 174 General Appearance: WD/WN, no apparent distress, alert Cardiovascular: normal rate Respiratory/Chest: normal breath sounds, no respiratory distress Abdominal Exam: normal bowel sounds, non tender, soft Extremities: normal range of motion, non-tender Moises Deng NP Dec 19, 2017 11:21
--- NOTE | 2017-12-19 12:17 | General Progress Note ---
Assessment/Plan Problem List: (1) Back pain ICD Codes: M54.9 - Dorsalgia, unspecified SNOMED: 408821310 (2) CVA (cerebral vascular accident) ICD Codes: I63.9 - Cerebral infarction, unspecified SNOMED: 126439037 (3) Parkinson disease ICD Codes: G20 - Parkinson's disease SNOMED: 60724582 (4) Alcohol abuse ICD Codes: F10.10 - Alcohol abuse, uncomplicated SNOMED: 73748153 (5) Generalized pain ICD Codes: R52 - Pain, unspecified SNOMED: 85663578 (6) Weakness ICD Codes: R53.1 - Weakness SNOMED: 94323273 Status: stable, progressing Assessment/Plan ot pt diet pain control gi eval cbc bmp am dc plan snf Subjective Constitutional: Reports: weakness Allergies: Coded Allergies: ERYTHROMYCIN BASE (Unverified Allergy, Unknown, 12/15/17) VANCOMYCIN (Verified Allergy, Unknown, 08/01/15) All Systems: reviewed and negative except above Subjective sleepy in bed calm Objective Last 24 Hour Vital Signs Date Time Temp Pulse Resp B/P (MAP) Pulse Ox O2 Delivery O2 Flow Rate FiO2 12/19/17 08:00 98.0 73 19 108/67 (81) 98 98.0 12/19/17 05:02 98.1 59 20 135/83 (100) 100 98.1 12/19/17 04:00 98.1 59 20 132/83 (99) 94 98.1 12/19/17 00:00 98.1 62 20 138/80 (99) 100 98.1 12/19/17 00:00 98.1 59 20 132/87 (102) 100 98.1 12/18/17 21:00 Room Air Room Air 12/18/17 20:19 97.7 68 20 139/82 (101) 95 97.7 12/18/17 16:00 98.2 65 24 118/69 (85) 97 98.2 Intake and Output 12/18/17 12/19/17 19:00 07:00 Intake Total 1941 ml 750 ml Output Total 600 ml 750 ml Balance 1341 ml 0 ml Intake Oral 1510 ml IV Total 431 ml 750 ml Output Urine Total 600 ml 750 ml # Voids 7 4 Laboratory Tests 12/19/17 06:15: White Blood Count 6.9, Red Blood Count 4.27L, Hemoglobin 14.3, Hematocrit 43.0, Mean Corpuscular Volume 101H, Mean Corpuscular Hemoglobin 33.6H, Mean Corpuscular Hemoglobin Concent 33.3, Red Cell Distribution Width 13.0, Platelet Count 272, Mean Platelet Volume 6.2L, Neutrophils (%) (Auto) 65.1, Lymphocytes ( %) (Auto) 21.7, Monocytes (%) (Auto) 7.4, Eosinophils (%) (Auto) 5.4H, Basophils (%) (Auto) 0.4, Sodium Level 137, Potassium Level 4.6, Chloride Level 103, Carbon Dioxide Level 28, Anion Gap 7, Blood Urea Nitrogen 15, Creatinine 1.0, Estimat Glomerular Filtration Rate > 60, Glucose Level 100, Calcium Level 8.5 Height (Feet): 5 Height (Inches): 10.00 Weight (Pounds): 174 General Appearance: lethargic EENT: normal ENT inspection Neck: normal alignment Cardiovascular: normal peripheral pulses, normal rate, regular rhythm Respiratory/Chest: chest wall non-tender, lungs clear, normal breath sounds Abdomen: normal bowel sounds, non tender, soft Extremities: normal inspection Edema: no edema noted Arm (L), no edema noted Arm (R), no edema noted Leg (L), no edema noted Leg (R), no edema noted Pedal (L), no edema noted Pedal (R), no edema noted Generalized Neurologic: motor weakness Skin: normal pigmentation, warm/dry Krishan Fraire DO Dec 19, 2017 12:17
--- NOTE | 2017-12-19 14:05 | Pulmonology Progress Note ---
Assessment/Plan Problems: (1) Acute alcoholic intoxication (2) Acute CVA (cerebrovascular accident) (3) History of craniotomy (4) Parkinson disease (5) History of CVA (cerebrovascular accident) (6) Hemiparesis Assessment/Plan feeling better wants to get stronger symptomatic treatment check electrolytes no seizures less tremor Subjective ROS Limited/Unobtainable: No Constitutional: Reports: no symptoms HEENT: Repors: no symptoms Respiratory: Reports: no symptoms Allergies: Coded Allergies: ERYTHROMYCIN BASE (Unverified Allergy, Unknown, 12/15/17) VANCOMYCIN (Verified Allergy, Unknown, 08/01/15) Objective Last 24 Hour Vital Signs Date Time Temp Pulse Resp B/P (MAP) Pulse Ox O2 Delivery O2 Flow Rate FiO2 12/19/17 12:00 97.5 75 18 142/83 (102) 98 97.5 12/19/17 08:00 98.0 73 19 108/67 (81) 98 98.0 12/19/17 05:02 98.1 59 20 135/83 (100) 100 98.1 12/19/17 04:00 98.1 59 20 132/83 (99) 94 98.1 12/19/17 00:00 98.1 62 20 138/80 (99) 100 98.1 12/19/17 00:00 98.1 59 20 132/87 (102) 100 98.1 12/18/17 21:00 Room Air Room Air 12/18/17 20:19 97.7 68 20 139/82 (101) 95 97.7 12/18/17 16:00 98.2 65 24 118/69 (85) 97 98.2 Intake and Output 12/18/17 12/19/17 19:00 07:00 Intake Total 1941 ml 750 ml Output Total 600 ml 750 ml Balance 1341 ml 0 ml Intake Oral 1510 ml IV Total 431 ml 750 ml Output Urine Total 600 ml 750 ml # Voids 7 4 General Appearance: WD/WN HEENT: normocephalic, atraumatic Respiratory/Chest: chest wall non-tender, lungs clear Cardiovascular: normal peripheral pulses, normal rate Abdomen: normal bowel sounds, soft, non tender, no scars Extremities: no clubbing Skin: no lesions Laboratory Tests 12/19/17 06:15: White Blood Count 6.9, Red Blood Count 4.27L, Hemoglobin 14.3, Hematocrit 43.0, Mean Corpuscular Volume 101H, Mean Corpuscular Hemoglobin 33.6H, Mean Corpuscular Hemoglobin Concent 33.3, Red Cell Distribution Width 13.0, Platelet Count 272, Mean Platelet Volume 6.2L, Neutrophils (%) (Auto) 65.1, Lymphocytes ( %) (Auto) 21.7, Monocytes (%) (Auto) 7.4, Eosinophils (%) (Auto) 5.4H, Basophils (%) (Auto) 0.4, Sodium Level 137, Potassium Level 4.6, Chloride Level 103, Carbon Dioxide Level 28, Anion Gap 7, Blood Urea Nitrogen 15, Creatinine 1.0, Estimat Glomerular Filtration Rate > 60, Glucose Level 100, Calcium Level 8.5 Current Medications Medications (Trade) Dose Ordered Sig/Job Route PRN Reason Start Time Stop Time Status Last Admin Dose Admin Acetaminophen (Tylenol) 650 mg Q4H PRN ORAL T>100.5 12/17/17 21:45 01/14/18 21:31 Al Hydroxide/Mg Hydroxide (Mylanta II) 30 ml Q6H PRN ORAL dyspepsia 12/17/17 21:45 01/14/18 21:32 Aspirin (ASA) 81 mg DAILY ORAL 12/18/17 09:00 01/16/18 17:59 12/19/17 09:07 Carbidopa/Levodopa (Sinemet 25/100) 3 tab TID@0600,1200,1800 ORAL 12/18/17 06:00 01/16/18 05:59 12/19/17 12:20 Dextrose (Dextrose 50%) 25 ml STAT PRN IV Hypoglycemia 12/17/17 21:45 01/14/18 21:32 Dextrose (Dextrose 50%) 50 ml STAT PRN IV Hypoglycemia 12/17/17 21:45 01/14/18 21:32 Docusate Sodium (Colace) 100 mg THREE TIMES A DAY ORAL 12/18/17 09:00 01/16/18 09:59 12/19/17 12:20 Folic Acid 1 mg/ Magnesium Sulfate 2000 mg/ Multivitamins 10 ml/Sodium Chloride 1,014.2 ml @ 125 mls/ hr Q24H IV 12/18/17 14:00 01/15/18 13:59 12/18/17 13:58 Gabapentin (Neurontin) 600 mg THREE TIMES A DAY ORAL 12/18/17 09:00 01/15/18 08:59 12/19/17 12:20 Levetiracetam (Keppra) 750 mg Q12HR ORAL 12/17/17 21:00 01/15/18 20:59 12/19/17 09:07 Lorazepam (Ativan 2mg/ml 1ml) 0.5 mg Q4H PRN IV For Anxiety 12/17/17 21:45 12/22/17 21:39 Morphine Sulfate (Morphine Sulfate) 4 mg Q4H PRN IVP PAIN 1-6 12/17/17 21:00 12/23/17 20:59 12/19/17 10:57 Ondansetron HCl (Zofran) 4 mg Q6H PRN IVP Nausea & Vomiting 12/17/17 21:00 01/14/18 20:59 Oxycodone/ Acetaminophen (Percocet 10/325) 1 tab Q4H PRN ORAL Breakthrough Pain 12/19/17 01:45 12/22/17 21:39 Polyethylene Glycol (Miralax) 17 gm BEDTIME ORAL 12/18/17 21:00 01/17/18 20:59 12/18/17 20:49 Polyethylene Glycol (Miralax) 17 gm HSPRN PRN ORAL Constipation 12/17/17 22:00 01/14/18 21:59 Thiamine HCl 100 mg/Dextrose 56 ml @ 56 mls/hr Q24H IV 12/18/17 14:00 01/15/18 13:59 12/18/17 13:58 Zolpidem Tartrate (Ambien) 5 mg HSPRN PRN ORAL Insomnia 12/17/17 21:45 12/22/17 21:32 Cash Lorenzo MD Dec 19, 2017 14:05
[2017-12-19] MEDS: Folic Acid 1 MG, Magnesium Sulfate 2,000 MG, Multivitamin - 12 Injection 10 ML in NS 10... IV SCH (14:11)
[2017-12-19] MEDS: Thiamine HCl 100 MG in D5W 55 ML IV SCH (14:11)
[2017-12-19] MEDS ORDERED: Zolpidem 5mg tab ORAL PRN (14:15)
--- NOTE | 2017-12-19 14:27 | General Progress Note ---
Assessment/Plan Assessment/Plan (1) Parkinson's disease (2) Seizure disorder (3) Alcohol abuse (4) H/o substance abuse (5) Lumbago (6) Insomnia Patient to be continued on Morphine and Percocet. We will start Ambien 5mg PO 1 tab QHS PRN insomnia. D/w Dr. Mckinley and he concurred. Subjective Date patient seen: Dec 19, 2017 Time patient seen: 01:30 - pm Allergies: Coded Allergies: ERYTHROMYCIN BASE (Unverified Allergy, Unknown, 12/15/17) VANCOMYCIN (Verified Allergy, Unknown, 08/01/15) Subjective REVIEW OF SYSTEMS: Denies rash, fever, chills, sweating, dizziness, drowsiness, blurred vision, sore throat, or change in weight. No shortness of breath or chest pain. No nausea, vomiting, diarrhea, or blood in the stool or urine. No bowel or bladder incontinence. No dysuria. C/o Low back pain SUBJECTIVE: Patient is in bed and reports that his pain has been tolerated on the Morphine using the Percocet for breakthrough pain. Having trouble sleeping. Objective Last 24 Hour Vital Signs Date Time Temp Pulse Resp B/P (MAP) Pulse Ox O2 Delivery O2 Flow Rate FiO2 12/19/17 12:00 97.5 75 18 142/83 (102) 98 97.5 12/19/17 08:00 98.0 73 19 108/67 (81) 98 98.0 12/19/17 05:02 98.1 59 20 135/83 (100) 100 98.1 12/19/17 04:00 98.1 59 20 132/83 (99) 94 98.1 12/19/17 00:00 98.1 62 20 138/80 (99) 100 98.1 12/19/17 00:00 98.1 59 20 132/87 (102) 100 98.1 12/18/17 21:00 Room Air Room Air 12/18/17 20:19 97.7 68 20 139/82 (101) 95 97.7 12/18/17 16:00 98.2 65 24 118/69 (85) 97 98.2 Intake and Output 12/18/17 12/19/17 19:00 07:00 Intake Total 1941 ml 750 ml Output Total 600 ml 750 ml Balance 1341 ml 0 ml Intake Oral 1510 ml IV Total 431 ml 750 ml Output Urine Total 600 ml 750 ml # Voids 7 4 Laboratory Tests 12/19/17 06:15: White Blood Count 6.9, Red Blood Count 4.27L, Hemoglobin 14.3, Hematocrit 43.0, Mean Corpuscular Volume 101H, Mean Corpuscular Hemoglobin 33.6H, Mean Corpuscular Hemoglobin Concent 33.3, Red Cell Distribution Width 13.0, Platelet Count 272, Mean Platelet Volume 6.2L, Neutrophils (%) (Auto) 65.1, Lymphocytes ( %) (Auto) 21.7, Monocytes (%) (Auto) 7.4, Eosinophils (%) (Auto) 5.4H, Basophils (%) (Auto) 0.4, Sodium Level 137, Potassium Level 4.6, Chloride Level 103, Carbon Dioxide Level 28, Anion Gap 7, Blood Urea Nitrogen 15, Creatinine 1.0, Estimat Glomerular Filtration Rate > 60, Glucose Level 100, Calcium Level 8.5 Height (Feet): 5 Height (Inches): 10.00 Weight (Pounds): 174 Objective GENERAL: AA&O LUNGS: Decreased breath sounds bilaterally. HEART: S1 S2 Regular. ABDOMEN: Benign. EXTREMITIES: No cyanosis. No clubbing. No edema. NEURO: No changes. Itz Donald Dec 19, 2017 14:27
--- NOTE | 2017-12-19 16:15 | Cardiology Report ---
APPROVED REPORT EXAM: Two-dimensional and M-mode echocardiogram with Doppler and color Doppler. INDICATION CVA/TIA M-Mode DIMENSIONS IVSd3.3 (0.7-1.1cm)Left Atrium (MM)3.6 (1.6-4.0cm) LVDd2.9 (3.5-5.6cm)Aortic Root3.6 (2.0-3.7cm) PWd1.4 (0.7-1.1cm)Aortic Cusp Exc.2.1 (1.5-2.0cm) IVSs1.9 cm LVDs3.4 (2.5-4.0cm) PWs2.0 cm Technically difficult study due to poor acoustical windows. Normal left ventricular chamber size, systolic function and wall motion to extent visualized. Left ventricular ejection fraction estimated to be 55-60 %. Mild left ventricular hypertrophy by 2-D. Trace posterior pericardial effusion. All other cardiac chamber sizes are within normal limits. Focal aortic valve sclerosis with adequate cusp excursion. Thickened mitral valve leaflets with normal excursion. Mitral annulus and aortic root calcification. Pulmonic valve not well visualized. Normal tricuspid valve structure. IVC at normal size with physiologic collapse. A color flow and spectral Doppler study was performed and revealed: No aortic regurgitation. Trace mitral regurgitation. Mitral diastolic velocities suggest reduced left ventricular relaxation c/w mild LV diastolic dysfunction (Grade I ). Trace tricuspid regurgitation. Tricuspid systolic velocities suggests peak right ventricular systolic pressure of 23mmHg. No Pulmonic regurgitation present.
[2017-12-19] MEDS ORDERED: Tubing IV Secondary IV ONE (17:10)
[2017-12-19] MEDS: Miralax 17gm pkt ORAL SCH (21:00)
[2017-12-20] VITALS: BP 116/73
[2017-12-20] MEDS: Morphine Sulfate 4mg/ml Inj IVP PRN ×6 (01:09→21:06)
[2017-12-20 04:45] VITALS: BP 132/81
[2017-12-20] MEDS: Levodopa/Carbidopa 25/100 tab ORAL SCH ×3 (06:18→17:19)
--- NOTE | 2017-12-20 07:11 | General Progress Note ---
Assessment/Plan Problem List: (1) Back pain ICD Codes: M54.9 - Dorsalgia, unspecified SNOMED: 749341761 (2) CVA (cerebral vascular accident) ICD Codes: I63.9 - Cerebral infarction, unspecified SNOMED: 500165682 (3) Parkinson disease ICD Codes: G20 - Parkinson's disease SNOMED: 96477062 (4) Alcohol abuse ICD Codes: F10.10 - Alcohol abuse, uncomplicated SNOMED: 55679844 (5) Generalized pain ICD Codes: R52 - Pain, unspecified SNOMED: 67437780 (6) Weakness ICD Codes: R53.1 - Weakness SNOMED: 58550533 Status: unchanged Assessment/Plan ot pt diet pain control gi eval cbc bmp am brotman aru eval Subjective Constitutional: Reports: weakness Allergies: Coded Allergies: ERYTHROMYCIN BASE (Unverified Allergy, Unknown, 12/15/17) VANCOMYCIN (Verified Allergy, Unknown, 08/01/15) All Systems: reviewed and negative except above Subjective sleepy in bed calm Objective Last 24 Hour Vital Signs Date Time Temp Pulse Resp B/P (MAP) Pulse Ox O2 Delivery O2 Flow Rate FiO2 12/20/17 07:00 97.9 12/20/17 05:30 97.9 12/20/17 05:00 97.9 12/20/17 04:45 97.9 86 19 132/81 (98) 94 97.9 12/20/17 04:03 97.9 12/20/17 03:04 97.9 12/20/17 01:09 97.9 12/20/17 00:00 98.2 71 18 116/73 (87) 93 98.2 12/19/17 23:04 97.9 12/19/17 21:00 Room Air Room Air 12/19/17 21:00 97.9 12/19/17 20:55 98.2 83 18 128/91 (103) 93 98.2 12/19/17 16:00 98.2 68 19 114/73 (87) 98 98.2 12/19/17 12:00 97.5 75 18 142/83 (102) 98 97.5 12/19/17 09:00 Room Air Room Air 12/19/17 08:00 98.0 73 19 108/67 (81) 98 98.0 Intake and Output 12/19/17 12/20/17 19:00 07:00 Intake Total 431 ml 735 ml Output Total 800 ml Balance 431 ml -65 ml Intake Oral 360 ml IV Total 431 ml 375 ml Output Urine Total 800 ml # Voids 3 # Bowel Movements 1 Height (Feet): 5 Height (Inches): 10.00 Weight (Pounds): 174 General Appearance: lethargic EENT: normal ENT inspection Neck: normal alignment Cardiovascular: normal peripheral pulses, normal rate, regular rhythm Respiratory/Chest: chest wall non-tender, lungs clear, normal breath sounds Abdomen: normal bowel sounds, non tender, soft Extremities: normal inspection Edema: no edema noted Arm (L), no edema noted Arm (R), no edema noted Leg (L), no edema noted Leg (R), no edema noted Pedal (L), no edema noted Pedal (R), no edema noted Generalized Neurologic: motor weakness Skin: normal pigmentation, warm/dry Krishan Fraire DO Dec 20, 2017 07:11
[2017-12-20] MEDS: Docusate 100mg cap ORAL SCH ×3 (07:53→17:18)
[2017-12-20] MEDS: Aspirin Baby 81mg ORAL SCH (07:53)
[2017-12-20 08:00] VITALS: BP 106/61
[2017-12-20 08:08] LABS: EOSINOPHILS % (AUTO) 6.1 % (0.0-3.0); HEMATOCRIT 42.5 % (42.0-52.0); HEMOGLOBIN 14.3 G/DL (14.2-18.0); LYMPHOCYTES % (AUTO) 24.2 % (20.0-45.0); MEAN CORPUSCULAR VOLUME 100 FL (80-99); MONOCYTES % (AUTO) 6.9 % (1.0-10.0); NEUTROPHILS % (AUTO) 61.8 % (45.0-75.0); PLATELET COUNT 248 K/UL (150-450); RED BLOOD COUNT 4.26 M/UL (4.70-6.10); RED CELL DISTRIBUTION WIDTH 12.9 % (11.6-14.8); WHITE BLOOD COUNT 6.8 K/UL (4.8-10.8)
[2017-12-20 08:27] LABS: ANION GAP 7 mmol/L (5-15); BLOOD UREA NITROGEN 18 mg/dL (7-18); CARBON DIOXIDE 28 MMOL/L (21-32); CHLORIDE 103 MMOL/L (98-107); CREATININE 1.1 MG/DL (0.55-1.30); POTASSIUM 4.3 MMOL/L (3.5-5.1); SODIUM 138 MMOL/L (136-145)
--- NOTE | 2017-12-20 08:38 | General Progress Note ---
Assessment/Plan Problem List: (1) History of craniotomy ICD Codes: Z98.890 - Other specified postprocedural states SNOMED: 27283344, 977070380 (2) Non-compliance ICD Codes: Z91.19 - Patient's noncompliance with other medical treatment and regimen SNOMED: 7155847 (3) CVA (cerebral vascular accident) ICD Codes: I63.9 - Cerebral infarction, unspecified SNOMED: 624861192 (4) Generalized pain ICD Codes: R52 - Pain, unspecified SNOMED: 99291228 (5) Weakness ICD Codes: R53.1 - Weakness SNOMED: 72825178 (6) Parkinson disease ICD Codes: G20 - Parkinson's disease SNOMED: 72945923 (7) Alcohol abuse ICD Codes: F10.10 - Alcohol abuse, uncomplicated SNOMED: 36239918 (8) Chronic pain ICD Codes: G89.29 - Other chronic pain SNOMED: 05038732 Assessment/Plan dc planning symptomatic treatment / supportive care pain mgmt zofran prn prn transfusions ppi MVI/folate bowel regime titrate fu labs outpatient GI procedures Subjective ROS Limited/Unobtainable: Yes Allergies: Coded Allergies: ERYTHROMYCIN BASE (Unverified Allergy, Unknown, 12/15/17) VANCOMYCIN (Verified Allergy, Unknown, 08/01/15) Objective Last 24 Hour Vital Signs Date Time Temp Pulse Resp B/P (MAP) Pulse Ox O2 Delivery O2 Flow Rate FiO2 12/20/17 08:28 Room Air Room Air 12/20/17 08:00 98.1 76 18 106/61 (76) 96 98.1 12/20/17 07:59 97.9 12/20/17 07:00 97.9 12/20/17 05:30 97.9 12/20/17 05:00 97.9 12/20/17 04:45 97.9 86 19 132/81 (98) 94 97.9 12/20/17 03:04 97.9 12/20/17 01:09 97.9 12/20/17 00:00 98.2 71 18 116/73 (87) 93 98.2 12/19/17 23:04 97.9 12/19/17 21:00 Room Air Room Air 12/19/17 21:00 97.9 12/19/17 20:55 98.2 83 18 128/91 (103) 93 98.2 12/19/17 16:00 98.2 68 19 114/73 (87) 98 98.2 12/19/17 12:00 97.5 75 18 142/83 (102) 98 97.5 12/19/17 09:00 Room Air Room Air Intake and Output 12/19/17 12/20/17 19:00 07:00 Intake Total 431 ml 735 ml Output Total 800 ml Balance 431 ml -65 ml Intake Oral 360 ml IV Total 431 ml 375 ml Output Urine Total 800 ml # Voids 3 # Bowel Movements 1 Laboratory Tests 12/20/17 07:47: White Blood Count 6.8, Red Blood Count 4.26L, Hemoglobin 14.3, Hematocrit 42.5, Mean Corpuscular Volume 100H, Mean Corpuscular Hemoglobin 33.7H, Mean Corpuscular Hemoglobin Concent 33.8, Red Cell Distribution Width 12.9, Platelet Count 248, Mean Platelet Volume 6.2L, Neutrophils (%) (Auto) 61.8, Lymphocytes ( %) (Auto) 24.2, Monocytes (%) (Auto) 6.9, Eosinophils (%) (Auto) 6.1H, Basophils (%) (Auto) 1.0, Sodium Level 138, Potassium Level 4.3, Chloride Level 103, Carbon Dioxide Level 28, Anion Gap 7, Blood Urea Nitrogen 18, Creatinine 1.1, Estimat Glomerular Filtration Rate > 60, Glucose Level 126H, Calcium Level 9.0 Height (Feet): 5 Height (Inches): 10.00 Weight (Pounds): 174 General Appearance: no apparent distress EENT: normal ENT inspection Neck: supple Cardiovascular: normal rate Respiratory/Chest: decreased breath sounds Abdomen: normal bowel sounds, non tender, soft Extremities: non-tender Justin Pierson MD Dec 20, 2017 08:38
[2017-12-20 11:47] VITALS: BP 126/85
--- NOTE | 2017-12-20 14:44 | Neurology Progress Note ---
Interim History Interim History Interim History Mr. Mccallum feels better generally. He feels stronger. He was able to take a few steps today and was able to shower. He is still consumed by pain. He says he was able to sleep better last night. The weakness on his left side is improving. However he feels that the left side is still significantly weak. He has been seizure free. He is mildly tremulous today. He denies any other neurologic symptoms. Review of Systems Neuro Review of Systems Benign. Objective Physical Exam Last Vital Signs Date Time Temp Pulse Resp B/P (MAP) Pulse Ox O2 Delivery O2 Flow Rate FiO2 12/20/17 13:35 97.0 12/20/17 11:47 71 18 126/85 (99) 97 12/20/17 08:28 Room Air Room Air Laboratory Tests Test 12/20/17 07:47 White Blood Count 6.8 K/UL (4.8-10.8) Red Blood Count 4.26 M/UL (4.70-6.10) L Hemoglobin 14.3 G/DL (14.2-18.0) Hematocrit 42.5 % (42.0-52.0) Mean Corpuscular Volume 100 FL (80-99) H Mean Corpuscular Hemoglobin 33.7 PG (27.0-31.0) H Mean Corpuscular Hemoglobin Concent 33.8 G/DL (32.0-36.0) Red Cell Distribution Width 12.9 % (11.6-14.8) Platelet Count 248 K/UL (150-450) Mean Platelet Volume 6.2 FL (6.5-10.1) L Neutrophils (%) (Auto) 61.8 % (45.0-75.0) Lymphocytes (%) (Auto) 24.2 % (20.0-45.0) Monocytes (%) (Auto) 6.9 % (1.0-10.0) Eosinophils (%) (Auto) 6.1 % (0.0-3.0) H Basophils (%) (Auto) 1.0 % (0.0-2.0) Sodium Level 138 MMOL/L (136-145) Potassium Level 4.3 MMOL/L (3.5-5.1) Chloride Level 103 MMOL/L (98-107) Carbon Dioxide Level 28 MMOL/L (21-32) Anion Gap 7 mmol/L (5-15) Blood Urea Nitrogen 18 mg/dL (7-18) Creatinine 1.1 MG/DL (0.55-1.30) Estimat Glomerular Filtration Rate > 60 mL/min (>60) Glucose Level 126 MG/DL (74-106) H Calcium Level 9.0 MG/DL (8.5-10.1) Neurologic Exam Objective PHYSICAL EXAMINATION: GENERAL: He is a well-developed, well-nourished, depressed, gentleman , lying in bed, in no acute distress. HEAD: Normocephalic with left frontotemporal craniotomy defect. EENT: Examination benign. NECK: No neck rigidity was observed. NEUROLOGIC EXAMINATION: MENTAL STATUS EXAMINATION: He was awake and alert. He was oriented to person, place, and time except for the exact date. He was able to recall 3/3 words immediately, but could only remember 2/3 words in 1 minute and 3 minutes even on the second trial. He was able to remember presidents Trump through Lingt Chinedu, spontaneously, but needed hints to remember through Lingt senior. His mathematical skills were minimally impaired. His visuospatial function was relatively good. SPEECH: He had no dysarthria. LANGUAGE: He had a mild anomia for low-frequency words. CRANIAL NERVE EXAMINATION: II: The visual kaplan were intact on confrontation testing. III, IV & : The external ocular movements were full and the pupils 3 mm in diameter, equal, round, regular, and reactive to light. V: He had normal facial sensations, and the temporales, masseters, and pterygoids functioned normally. VII: He had a mild right VII central facial paresis. VIII: He was able to hear well bilaterally and had no nystagmus. IX: The palate moved symmetrically on phonation. X: He had no hoarseness of voice. XI: The sternocleidomastoids and trapezii functioned normally. XII: The tongue was in the midline without any fasciculations or atrophy. MOTOR SYSTEM: The tone was normal in all four extremities. Examination of muscle mass revealed no focal wasting. Examination of power revealed G 5/5 power except for G 5-/5 power in the right iliopsoas, and right finger extensors. On the left side he had G 5-/5 power except for G 4+/5 in the left finger extensors, and G 3+/5 in the left iliopsoas. SENSORY EXAMINATION: He had intact sensations to pinprick, light touch, and graphesthesia. COORDINATION: He performed well on [id number] and [id number] testing on the right side - he said he could not do it on the left. REFLEXES: 2+ on the right and 2++ on the left in the biceps, triceps, brachioradialis, and knees, 0 at both ankles. The plantar responses were flexor bilaterally. STANCE & GAIT: Could not be tested because he said he could not stand and walk. ABNORMAL MOVEMENTS: Tremor (4-5 Hz): G Trace/4 in the upper and lower extremities. Rigidity: G 0/4 Bradykinesia: G Tr/4 Hypomimia: G 0/4 Hypophonia: G 0/4. Impression/Recommendations Diagnostic Impression 1. Mr. Andrew Mccallum is a 57-year-old, right-handed, gentleman, who does have a past history of Parkinson's disease for numerous years, a meningioma on the left side for which he had surgery numerous years ago followed by a seizure disorder, a left brain intra cerebral hemorrhage evacuated at [facility] in the early , residual right sided weakness, chronic pain syndrome, alcohol abuse, cocaine abuse, and frequent falls due to which he uses a motorized wheelchair. When he has his seizures, he states that he passes out without any warning and following that, there is a period of confusion. He is uncertain as to what exactly happens after he has passed out and he is also unable to tell us what other people have observed. 2. He was hospitalized on 12/15/17 for new onset left sided weakness. At first he was unable to move the left side completely but now it is better but still weaker than his baseline. He says he was drinking a lot prior to his left side becoming weak. He is uncertain as to whether he had a seizure or not. 3. He feels feels better generally. He feels stronger. He was able to take a few steps today and was able to shower. He is still consumed by pain. He says he was able to sleep better last night. The weakness on his left side is improving. However he feels that the left side is still significantly weak. He has been seizure free. He is mildly tremulous today. He denies any other neurologic symptoms. 4. On neurological examination, at this time, he does demonstrate significant problems with orientation, recent and remote memory, higher cognitive function, and a mild anomia. He does have a mild right VII central facial paresis, and right finger extensor and iliopsoas weakness. On the left side he had G 5-/5 power except for G 4+/5 in the left finger extensors, and G 3+/5 in the left iliopsoas. The deep tendon reflexes are brisker on the left side compared to the right. He is unable to stand and walk as he feels he will fall down. 5. The CT scan of the brain without contrast performed on 12/15/2017 reveals a large area of encephalomalacia in the left frontotemporal region and a craniotomy defect in the left frontotemporal region. 6. The MRI of the brain done on 12/17/17 revealed an acute right temporal infarct. 7. Laboratory data obtained thus far have revealed that his CBC reveals macrocytic indices. His chemistry panel is relatively benign and his serum alcohol level was 96. His urine toxicology was positive for THC and opiates - even though he told me that he has stopped using THC! 8. The cerebro-vascular non-invasive profile is benign. 9. 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 His seizures are not controlled as he is not taking his anticonvulsant and in addition he continues to drink alcohol and possibly uses other illicit drugs. 10. His new left sided weakness is due to an acute right temporal infarct. The weakness is improving. 11. His parkinsonian symptoms are better today. Recommendations 1. Continue present management. 2. Continue Sinemet 25/100 - 3 tablets to be taken at 6 a.m., 12 noon, and 6 p.m. 3. Continue Keppra 750 mg at 6 a.m. and 6 p.m. for seizure prophylaxis. 4. PT/OT to mobilize. 5. ASA 81 mg q day. 6. Await echocardiogram with bubble study. 7. Acute rehabilitation for new stroke. Melissa Root M.D., [place]. MELISSA ROOT Dec 20, 2017 14:44
[2017-12-20 15:42] VITALS: BP 118/80
--- NOTE | 2017-12-20 18:26 | Pulmonology Progress Note ---
Assessment/Plan Problems: (1) Acute alcoholic intoxication (2) Acute CVA (cerebrovascular accident) (3) History of craniotomy (4) Parkinson disease (5) History of CVA (cerebrovascular accident) (6) Hemiparesis Assessment/Plan feeling better wants to get stronger symptomatic treatment check electrolytes no seizures less tremor Subjective ROS Limited/Unobtainable: No HEENT: Repors: no symptoms, dysphagia Allergies: Coded Allergies: ERYTHROMYCIN BASE (Unverified Allergy, Unknown, 12/15/17) VANCOMYCIN (Verified Allergy, Unknown, 08/01/15) Objective Last 24 Hour Vital Signs Date Time Temp Pulse Resp B/P (MAP) Pulse Ox O2 Delivery O2 Flow Rate FiO2 12/20/17 17:04 98.1 12/20/17 15:42 98.1 68 18 118/80 (93) 94 98.1 12/20/17 13:35 97.0 12/20/17 13:05 97.0 12/20/17 13:00 97.0 12/20/17 12:01 97.0 12/20/17 11:47 97.0 71 18 126/85 (99) 97 97.0 12/20/17 09:12 98.1 12/20/17 08:28 Room Air Room Air 12/20/17 08:00 98.1 76 18 106/61 (76) 96 98.1 12/20/17 07:00 97.9 12/20/17 05:00 97.9 12/20/17 04:45 97.9 86 19 132/81 (98) 94 97.9 12/20/17 03:04 97.9 12/20/17 01:09 97.9 12/20/17 00:00 98.2 71 18 116/73 (87) 93 98.2 12/19/17 23:04 97.9 12/19/17 21:00 Room Air Room Air 12/19/17 21:00 97.9 12/19/17 20:55 98.2 83 18 128/91 (103) 93 98.2 Intake and Output 12/19/17 12/20/17 19:00 07:00 Intake Total 431 ml 735 ml Output Total 800 ml Balance 431 ml -65 ml Intake Oral 360 ml IV Total 431 ml 375 ml Output Urine Total 800 ml # Voids 3 # Bowel Movements 1 General Appearance: WD/WN HEENT: normocephalic, atraumatic Respiratory/Chest: chest wall non-tender, normal breath sounds Cardiovascular: normal peripheral pulses, regular rhythm Abdomen: soft, non tender Genitourinary: normal external genitalia Extremities: no cyanosis Skin: no ulcers Neurologic/Psychiatric: recruiting and selection consultant II-XII grossly normal, abnormal gait Laboratory Tests 12/20/17 07:47: White Blood Count 6.8, Red Blood Count 4.26L, Hemoglobin 14.3, Hematocrit 42.5, Mean Corpuscular Volume 100H, Mean Corpuscular Hemoglobin 33.7H, Mean Corpuscular Hemoglobin Concent 33.8, Red Cell Distribution Width 12.9, Platelet Count 248, Mean Platelet Volume 6.2L, Neutrophils (%) (Auto) 61.8, Lymphocytes ( %) (Auto) 24.2, Monocytes (%) (Auto) 6.9, Eosinophils (%) (Auto) 6.1H, Basophils (%) (Auto) 1.0, Sodium Level 138, Potassium Level 4.3, Chloride Level 103, Carbon Dioxide Level 28, Anion Gap 7, Blood Urea Nitrogen 18, Creatinine 1.1, Estimat Glomerular Filtration Rate > 60, Glucose Level 126H, Calcium Level 9.0 Current Medications Medications (Trade) Dose Ordered Sig/Job Route PRN Reason Start Time Stop Time Status Last Admin Dose Admin Acetaminophen (Tylenol) 650 mg Q4H PRN ORAL T>100.5 12/17/17 21:45 01/14/18 21:31 Al Hydroxide/Mg Hydroxide (Mylanta II) 30 ml Q6H PRN ORAL dyspepsia 12/17/17 21:45 01/14/18 21:32 Aspirin (ASA) 81 mg DAILY ORAL 12/18/17 09:00 01/16/18 17:59 12/20/17 07:53 Carbidopa/Levodopa (Sinemet 25/100) 3 tab TID@0600,1200,1800 ORAL 12/18/17 06:00 01/16/18 05:59 12/20/17 17:19 Dextrose (Dextrose 50%) 25 ml STAT PRN IV Hypoglycemia 12/17/17 21:45 01/14/18 21:32 Dextrose (Dextrose 50%) 50 ml STAT PRN IV Hypoglycemia 12/17/17 21:45 01/14/18 21:32 Docusate Sodium (Colace) 100 mg THREE TIMES A DAY ORAL 12/18/17 09:00 01/16/18 09:59 12/20/17 17:18 Gabapentin (Neurontin) 600 mg THREE TIMES A DAY ORAL 12/18/17 09:00 01/15/18 08:59 12/20/17 17:19 Levetiracetam (Keppra) 750 mg Q12HR ORAL 12/17/17 21:00 01/15/18 20:59 12/20/17 07:53 Lorazepam (Ativan 2mg/ml 1ml) 0.5 mg Q4H PRN IV For Anxiety 12/17/17 21:45 12/22/17 21:39 Morphine Sulfate (Morphine Sulfate) 4 mg Q4H PRN IVP PAIN 1-6 12/17/17 21:00 12/23/17 20:59 12/20/17 17:04 Ondansetron HCl (Zofran) 4 mg Q6H PRN IVP Nausea & Vomiting 12/17/17 21:00 01/14/18 20:59 Oxycodone/ Acetaminophen (Percocet 10/325) 1 tab Q4H PRN ORAL Breakthrough Pain 12/19/17 01:45 12/22/17 21:39 12/20/17 12:01 Polyethylene Glycol (Miralax) 17 gm BEDTIME ORAL 12/18/17 21:00 01/17/18 20:59 12/19/17 21:00 Polyethylene Glycol (Miralax) 17 gm HSPRN PRN ORAL Constipation 12/17/17 22:00 01/14/18 21:59 Zolpidem Tartrate (Ambien) 5 mg HSPRN PRN ORAL Insomnia 12/17/17 21:45 12/22/17 21:32 Cash Lorenzo MD Dec 20, 2017 18:26
[2017-12-20 20:02] VITALS: BP 117/68
[2017-12-20] MEDS: Miralax 17gm pkt ORAL SCH ×2 (20:13→20:17)
[2017-12-21] VITALS: BP 121/72
[2017-12-21] MEDS: Morphine Sulfate 4mg/ml Inj IVP PRN ×6 (01:09→22:02)
[2017-12-21 04:00] VITALS: BP 133/84
[2017-12-21] MEDS: Levodopa/Carbidopa 25/100 tab ORAL SCH ×3 (05:13→17:48)
--- NOTE | 2017-12-21 06:38 | General Progress Note ---
Assessment/Plan Problem List: (1) Back pain ICD Codes: M54.9 - Dorsalgia, unspecified SNOMED: 463413387 (2) CVA (cerebral vascular accident) ICD Codes: I63.9 - Cerebral infarction, unspecified SNOMED: 913797785 (3) Parkinson disease ICD Codes: G20 - Parkinson's disease SNOMED: 13493896 (4) Alcohol abuse ICD Codes: F10.10 - Alcohol abuse, uncomplicated SNOMED: 75497582 (5) Generalized pain ICD Codes: R52 - Pain, unspecified SNOMED: 58492262 (6) Weakness ICD Codes: R53.1 - Weakness SNOMED: 31750915 Status: stable, progressing Assessment/Plan ot pt diet pain control gi eval cbc bmp am brotman aru eval vs snf Subjective Constitutional: Reports: weakness Allergies: Coded Allergies: ERYTHROMYCIN BASE (Unverified Allergy, Unknown, 12/15/17) VANCOMYCIN (Verified Allergy, Unknown, 08/01/15) All Systems: reviewed and negative except above Subjective sleepy in bed calm Objective Last 24 Hour Vital Signs Date Time Temp Pulse Resp B/P (MAP) Pulse Ox O2 Delivery O2 Flow Rate FiO2 12/21/17 04:00 97.5 73 20 133/84 (100) 98 97.5 12/21/17 00:00 97.6 78 18 121/72 (88) 93 97.6 12/20/17 21:00 Room Air Room Air 12/20/17 20:02 97.7 85 16 117/68 (84) 93 97.7 12/20/17 17:34 98.1 12/20/17 17:04 98.1 12/20/17 15:42 98.1 68 18 118/80 (93) 94 98.1 12/20/17 13:05 97.0 12/20/17 13:00 97.0 12/20/17 12:01 97.0 12/20/17 11:47 97.0 71 18 126/85 (99) 97 97.0 12/20/17 09:12 98.1 12/20/17 08:28 Room Air Room Air 12/20/17 08:00 98.1 76 18 106/61 (76) 96 98.1 12/20/17 07:00 97.9 Intake and Output 12/20/17 12/21/17 19:00 07:00 Intake Total 375 ml Output Total 450 ml Balance -75 ml IV Total 375 ml Output Urine Total 450 ml # Voids 2 4 # Bowel Movements 1 Laboratory Tests 12/20/17 07:47: White Blood Count 6.8, Red Blood Count 4.26L, Hemoglobin 14.3, Hematocrit 42.5, Mean Corpuscular Volume 100H, Mean Corpuscular Hemoglobin 33.7H, Mean Corpuscular Hemoglobin Concent 33.8, Red Cell Distribution Width 12.9, Platelet Count 248, Mean Platelet Volume 6.2L, Neutrophils (%) (Auto) 61.8, Lymphocytes ( %) (Auto) 24.2, Monocytes (%) (Auto) 6.9, Eosinophils (%) (Auto) 6.1H, Basophils (%) (Auto) 1.0, Sodium Level 138, Potassium Level 4.3, Chloride Level 103, Carbon Dioxide Level 28, Anion Gap 7, Blood Urea Nitrogen 18, Creatinine 1.1, Estimat Glomerular Filtration Rate > 60, Glucose Level 126H, Calcium Level 9.0 Height (Feet): 5 Height (Inches): 10.00 Weight (Pounds): 174 General Appearance: lethargic EENT: normal ENT inspection Neck: normal alignment Cardiovascular: normal peripheral pulses, normal rate, regular rhythm Respiratory/Chest: chest wall non-tender, lungs clear, normal breath sounds Abdomen: normal bowel sounds, non tender, soft Extremities: normal inspection Edema: no edema noted Arm (L), no edema noted Arm (R), no edema noted Leg (L), no edema noted Leg (R), no edema noted Pedal (L), no edema noted Pedal (R), no edema noted Generalized Neurologic: motor weakness Skin: normal pigmentation, warm/dry Krishan Fraire DO Dec 21, 2017 06:38
[2017-12-21] MEDS: Docusate 100mg cap ORAL SCH ×3 (07:59→17:02)
[2017-12-21] MEDS: Aspirin Baby 81mg ORAL SCH (07:59)
[2017-12-21 08:00] VITALS: BP 114/70
--- NOTE | 2017-12-21 08:20 | General Progress Note ---
Assessment/Plan Problem List: (1) History of craniotomy ICD Codes: Z98.890 - Other specified postprocedural states SNOMED: 28316483, 476038245 (2) Non-compliance ICD Codes: Z91.19 - Patient's noncompliance with other medical treatment and regimen SNOMED: 5985340 (3) CVA (cerebral vascular accident) ICD Codes: I63.9 - Cerebral infarction, unspecified SNOMED: 798831355 (4) Generalized pain ICD Codes: R52 - Pain, unspecified SNOMED: 32454688 (5) Weakness ICD Codes: R53.1 - Weakness SNOMED: 06740991 (6) Parkinson disease ICD Codes: G20 - Parkinson's disease SNOMED: 04980499 (7) Alcohol abuse ICD Codes: F10.10 - Alcohol abuse, uncomplicated SNOMED: 10329817 (8) Chronic pain ICD Codes: G89.29 - Other chronic pain SNOMED: 40018920 Assessment/Plan dc planning symptomatic treatment / supportive care pain mgmt zofran prn prn transfusions ppi MVI/folate bowel regime titrate fu labs outpatient GI procedures Subjective ROS Limited/Unobtainable: Yes Allergies: Coded Allergies: ERYTHROMYCIN BASE (Unverified Allergy, Unknown, 12/15/17) VANCOMYCIN (Verified Allergy, Unknown, 08/01/15) Objective Last 24 Hour Vital Signs Date Time Temp Pulse Resp B/P (MAP) Pulse Ox O2 Delivery O2 Flow Rate FiO2 12/21/17 04:00 97.5 73 20 133/84 (100) 98 97.5 12/21/17 00:00 97.6 78 18 121/72 (88) 93 97.6 12/20/17 21:00 Room Air Room Air 12/20/17 20:02 97.7 85 16 117/68 (84) 93 97.7 12/20/17 17:34 98.1 12/20/17 17:04 98.1 12/20/17 15:42 98.1 68 18 118/80 (93) 94 98.1 12/20/17 13:05 97.0 12/20/17 13:00 97.0 12/20/17 12:01 97.0 12/20/17 11:47 97.0 71 18 126/85 (99) 97 97.0 7/21/18 09:12 98.1 12/20/17 08:28 Room Air Room Air Intake and Output 12/20/17 12/21/17 19:00 07:00 Intake Total 375 ml Output Total 450 ml Balance -75 ml IV Total 375 ml Output Urine Total 450 ml # Voids 2 4 # Bowel Movements 1 Height (Feet): 5 Height (Inches): 10.00 Weight (Pounds): 174 General Appearance: alert EENT: PERRL/EOMI Neck: supple Cardiovascular: normal rate Respiratory/Chest: decreased breath sounds Abdomen: normal bowel sounds, non tender, soft Extremities: non-tender Justin Pierson MD Dec 21, 2017 08:20
[2017-12-21 12:00] VITALS: BP 116/72
[2017-12-21 12:24] LABS: BASOPHILS % (AUTO) 0.4 % (0.0-2.0); EOSINOPHILS % (AUTO) 5.8 % (0.0-3.0); HEMOGLOBIN 14.3 G/DL (14.2-18.0); LYMPHOCYTES % (AUTO) 21.2 % (20.0-45.0); MEAN CORPUSCULAR VOLUME 100 FL (80-99); NEUTROPHILS % (AUTO) 64.7 % (45.0-75.0); PLATELET COUNT 270 K/UL (150-450); RED CELL DISTRIBUTION WIDTH 12.6 % (11.6-14.8); WHITE BLOOD COUNT 6.3 K/UL (4.8-10.8)
--- NOTE | 2017-12-21 12:26 | Pulmonology Progress Note ---
Assessment/Plan Problems: (1) Acute alcoholic intoxication (2) Acute CVA (cerebrovascular accident) (3) History of craniotomy (4) Parkinson disease (5) History of CVA (cerebrovascular accident) (6) Hemiparesis Assessment/Plan feeling better wants to get stronger symptomatic treatment check electrolytes no seizures less tremor Subjective ROS Limited/Unobtainable: No Constitutional: Reports: no symptoms HEENT: Repors: no symptoms Allergies: Coded Allergies: ERYTHROMYCIN BASE (Unverified Allergy, Unknown, 12/15/17) VANCOMYCIN (Verified Allergy, Unknown, 08/01/15) Objective Last 24 Hour Vital Signs Date Time Temp Pulse Resp B/P (MAP) Pulse Ox O2 Delivery O2 Flow Rate FiO2 12/21/17 11:28 97.3 12/21/17 09:33 97.3 12/21/17 09:03 97.3 12/21/17 09:00 Room Air Room Air 12/21/17 08:00 97.3 79 18 114/70 (85) 95 97.3 12/21/17 04:00 97.5 73 20 133/84 (100) 98 97.5 12/21/17 00:00 97.6 78 18 121/72 (88) 93 97.6 12/20/17 21:00 Room Air Room Air 12/20/17 20:02 97.7 85 16 117/68 (84) 93 97.7 12/20/17 17:04 98.1 12/20/17 15:42 98.1 68 18 118/80 (93) 94 98.1 12/20/17 13:05 97.0 12/20/17 13:00 97.0 Intake and Output 12/20/17 12/21/17 19:00 07:00 Intake Total 375 ml Output Total 450 ml Balance -75 ml IV Total 375 ml Output Urine Total 450 ml # Voids 2 4 # Bowel Movements 1 General Appearance: WD/WN HEENT: normocephalic, atraumatic Respiratory/Chest: chest wall non-tender, lungs clear Abdomen: normal bowel sounds, soft, non tender Extremities: no cyanosis Skin: no ulcers Neurologic/Psychiatric: no motor/sensory deficits Laboratory Tests 12/21/17 11:35: White Blood Count [Pending], Red Blood Count [Pending], Hemoglobin [Pending], Hematocrit [Pending], Mean Corpuscular Volume [Pending], Mean Corpuscular Hemoglobin [Pending], Mean Corpuscular Hemoglobin Concent [Pending], Red Cell Distribution Width [Pending], Platelet Count [Pending], Mean Platelet Volume [ Pending], Neutrophils (%) (Auto) [Pending], Lymphocytes (%) (Auto) [Pending], Monocytes (%) (Auto) [Pending], Eosinophils (%) (Auto) [Pending], Basophils (%) (Auto) [Pending], Sodium Level [Pending], Potassium Level [Pending], Chloride Level [Pending], Carbon Dioxide Level [Pending], Blood Urea Nitrogen [Pending], Creatinine [Pending], Estimat Glomerular Filtration Rate [Pending], Glucose Level [Pending], Calcium Level [Pending] Current Medications Medications (Trade) Dose Ordered Sig/Job Route PRN Reason Start Time Stop Time Status Last Admin Dose Admin Acetaminophen (Tylenol) 650 mg Q4H PRN ORAL T>100.5 12/17/17 21:45 01/14/18 21:31 Al Hydroxide/Mg Hydroxide (Mylanta II) 30 ml Q6H PRN ORAL dyspepsia 12/17/17 21:45 01/14/18 21:32 Aspirin (ASA) 81 mg DAILY ORAL 12/18/17 09:00 01/16/18 17:59 12/21/17 07:59 Carbidopa/Levodopa (Sinemet 25/100) 3 tab TID@0600,1200,1800 ORAL 12/18/17 06:00 01/16/18 05:59 12/21/17 11:58 Dextrose (Dextrose 50%) 25 ml STAT PRN IV Hypoglycemia 12/17/17 21:45 01/14/18 21:32 Dextrose (Dextrose 50%) 50 ml STAT PRN IV Hypoglycemia 12/17/17 21:45 01/14/18 21:32 Docusate Sodium (Colace) 100 mg THREE TIMES A DAY ORAL 12/18/17 09:00 01/16/18 09:59 12/21/17 11:58 Gabapentin (Neurontin) 600 mg THREE TIMES A DAY ORAL 12/18/17 09:00 01/15/18 08:59 12/21/17 11:58 Levetiracetam (Keppra) 750 mg Q12HR ORAL 12/17/17 21:00 01/15/18 20:59 12/21/17 07:59 Lorazepam (Ativan 2mg/ml 1ml) 0.5 mg Q4H PRN IV For Anxiety 12/17/17 21:45 12/22/17 21:39 Morphine Sulfate (Morphine Sulfate) 4 mg Q4H PRN IVP PAIN 1-6 12/17/17 21:00 12/23/17 20:59 12/21/17 09:03 Ondansetron HCl (Zofran) 4 mg Q6H PRN IVP Nausea & Vomiting 12/17/17 21:00 01/14/18 20:59 Oxycodone/ Acetaminophen (Percocet 10/325) 1 tab Q4H PRN ORAL Breakthrough Pain 12/19/17 01:45 12/22/17 21:39 12/21/17 11:28 Polyethylene Glycol (Miralax) 17 gm BEDTIME ORAL 12/18/17 21:00 01/17/18 20:59 12/19/17 21:00 Polyethylene Glycol (Miralax) 17 gm HSPRN PRN ORAL Constipation 12/17/17 22:00 01/14/18 21:59 Zolpidem Tartrate (Ambien) 5 mg HSPRN PRN ORAL Insomnia 12/17/17 21:45 12/22/17 21:32 Cash Lorenzo MD Dec 21, 2017 12:26
[2017-12-21 12:34] LABS: ANION GAP 8 mmol/L (5-15); BLOOD UREA NITROGEN 19 mg/dL (7-18); CALCIUM 8.9 MG/DL (8.5-10.1); CARBON DIOXIDE 27 MMOL/L (21-32); CHLORIDE 103 MMOL/L (98-107); CREATININE 1.2 MG/DL (0.55-1.30); POTASSIUM 4.2 MMOL/L (3.5-5.1); SODIUM 138 MMOL/L (136-145)
--- NOTE | 2017-12-21 13:45 | Neurology Progress Note ---
Interim History Interim History Interim History Mr. Mccallum feels better generally. He feels stronger. He was able to work with the therapist. He was able to take a few steps to the bathroom. He is less bothered by pain. He says he was able to sleep well last night. The weakness on his left side is improving. However the left side is still significantly weak. He has been seizure free. He is mildly tremulous. He denies any other neurologic symptoms. Review of Systems Neuro Review of Systems Benign. Objective Physical Exam Last Vital Signs Date Time Temp Pulse Resp B/P (MAP) Pulse Ox O2 Delivery O2 Flow Rate FiO2 12/21/17 13:08 97.3 12/21/17 12:00 75 18 116/72 (87) 95 12/21/17 09:00 Room Air Room Air Laboratory Tests Test 12/21/17 11:35 White Blood Count 6.3 K/UL (4.8-10.8) Red Blood Count 4.30 M/UL (4.70-6.10) L Hemoglobin 14.3 G/DL (14.2-18.0) Hematocrit 43.0 % (42.0-52.0) Mean Corpuscular Volume 100 FL (80-99) H Mean Corpuscular Hemoglobin 33.3 PG (27.0-31.0) H Mean Corpuscular Hemoglobin Concent 33.3 G/DL (32.0-36.0) Red Cell Distribution Width 12.6 % (11.6-14.8) Platelet Count 270 K/UL (150-450) Mean Platelet Volume 6.6 FL (6.5-10.1) Neutrophils (%) (Auto) 64.7 % (45.0-75.0) Lymphocytes (%) (Auto) 21.2 % (20.0-45.0) Monocytes (%) (Auto) 8.0 % (1.0-10.0) Eosinophils (%) (Auto) 5.8 % (0.0-3.0) H Basophils (%) (Auto) 0.4 % (0.0-2.0) Sodium Level 138 MMOL/L (136-145) Potassium Level 4.2 MMOL/L (3.5-5.1) Chloride Level 103 MMOL/L (98-107) Carbon Dioxide Level 27 MMOL/L (21-32) Anion Gap 8 mmol/L (5-15) Blood Urea Nitrogen 19 mg/dL (7-18) H Creatinine 1.2 MG/DL (0.55-1.30) Estimat Glomerular Filtration Rate > 60 mL/min (>60) Glucose Level 119 MG/DL (74-106) H Calcium Level 8.9 MG/DL (8.5-10.1) Neurologic Exam Objective PHYSICAL EXAMINATION: GENERAL: He is a well-developed, well-nourished, depressed, gentleman , lying in bed, in no acute distress. HEAD: Normocephalic with left frontotemporal craniotomy defect. EENT: Examination benign. NECK: No neck rigidity was observed. NEUROLOGIC EXAMINATION: MENTAL STATUS EXAMINATION: He was awake and alert. He was oriented to person, place, and time. He was able to recall 3/3 words immediately, but could only remember 2/3 words in 1 minute and 3 minutes even on the second trial. He was able to remember presidents Trump through [employer], spontaneously, but needed hints to remember through [employer]. His mathematical skills were minimally impaired. His visuospatial function was relatively good. SPEECH: He had no dysarthria. LANGUAGE: He had a mild anomia for low-frequency words. CRANIAL NERVE EXAMINATION: II: The visual kaplan were intact on confrontation testing. III, IV & : The external ocular movements were full and the pupils 3 mm in diameter, equal, round, regular, and reactive to light. V: He had normal facial sensations, and the temporales, masseters, and pterygoids functioned normally. VII: He had a mild right VII central facial paresis. VIII: He was able to hear well bilaterally and had no nystagmus. IX: The palate moved symmetrically on phonation. X: He had no hoarseness of voice. XI: The sternocleidomastoids and trapezii functioned normally. XII: The tongue was in the midline without any fasciculations or atrophy. MOTOR SYSTEM: The tone was normal in all four extremities. Examination of muscle mass revealed no focal wasting. Examination of power revealed G 5/5 power except for G 5-/5 power in the right iliopsoas, and right finger extensors. On the left side he had G 5-/5 power except for G 4+/5 in the left finger extensors, and G 3+/5 in the left iliopsoas. SENSORY EXAMINATION: He had intact sensations to pinprick, light touch, and graphesthesia. COORDINATION: He performed well on [id number] and fyvb-[id number] testing on the right side - he said he could not do it on the left. REFLEXES: 2+ on the right and 2++ on the left in the biceps, triceps, brachioradialis, and knees, 0 at both ankles. The plantar responses were flexor bilaterally. STANCE & GAIT: Could not be tested because he said he could not stand and walk. ABNORMAL MOVEMENTS: Tremor (4-5 Hz): G Trace/4 in the upper and lower extremities. Rigidity: G 0/4 Bradykinesia: G Tr/4 Hypomimia: G 0/4 Hypophonia: G 0/4. Impression/Recommendations Diagnostic Impression 1. Mr. Andrew Mccallum is a 57-year-old, right-handed, gentleman, who does have a past history of Parkinson's disease for numerous years, a meningioma on the left side for which he had surgery numerous years ago followed by a seizure disorder, a left brain intra cerebral hemorrhage evacuated at [facility] in the early , residual right sided weakness, chronic pain syndrome, alcohol abuse, cocaine abuse, and frequent falls due to which he uses a motorized wheelchair. When he has his seizures, he states that he passes out without any warning and following that, there is a period of confusion. He is uncertain as to what exactly happens after he has passed out and he is also unable to tell us what other people have observed. 2. He was hospitalized on 12/15/17 for new onset left sided weakness. At first he was unable to move the left side completely but now it is better but still weaker than his baseline. He says he was drinking a lot prior to his left side becoming weak. He is uncertain as to whether he had a seizure or not. 3. He feels better generally. He feels stronger. He was able to work with the therapist. He was able to take a few steps to the bathroom. He is less bothered by pain. He says he was able to sleep well last night. The weakness on his left side is improving. However the left side is still significantly weak. He has been seizure free. He is mildly tremulous. He denies any other neurologic symptoms. 4. On neurological examination, at this time, he does demonstrate significant problems with orientation, recent and remote memory, higher cognitive function, and a mild anomia. He does have a mild right VII central facial paresis, and right finger extensor and iliopsoas weakness. On the left side he has G 5-/5 power except for G 4+/5 in the left finger extensors, and G 3+/5 in the left iliopsoas. The deep tendon reflexes are brisker on the left side compared to the right. He is unable to stand and walk as he feels he will fall down. 5. The CT scan of the brain without contrast performed on 12/15/2017 reveals a large area of encephalomalacia in the left frontotemporal region and a craniotomy defect in the left frontotemporal region. 6. The MRI of the brain done on 12/17/17 revealed an acute right temporal infarct. 7. Laboratory data obtained thus far have revealed that his CBC reveals macrocytic indices. His chemistry panel is relatively benign and his serum alcohol level was 96. His urine toxicology was positive for THC and opiates - even though he told me that he has stopped using THC! 8. The cerebro-vascular non-invasive profile is benign. 9. 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 His seizures are not controlled as he is not taking his anticonvulsant and in addition he continues to drink alcohol and possibly uses other illicit drugs. 10. His new left sided weakness is due to an acute right temporal infarct. The weakness is improving. 11. His parkinsonian symptoms are stable and well controlled on his present regimen. Recommendations 1. Continue present management. 2. Continue Sinemet 25/100 - 3 tablets to be taken at 6 a.m., 12 noon, and 6 p.m. 3. Continue Keppra 750 mg at 6 a.m. and 6 p.m. for seizure prophylaxis. 4. PT/OT to mobilize. 5. ASA 81 mg q day. 6. Await echocardiogram with bubble study. 7. Acute rehabilitation for new stroke. Melissa Rodriguez M.D., [place]. MELISSA RODRIGUEZ Dec 21, 2017 13:45
--- NOTE | 2017-12-21 14:38 | General Progress Note ---
Assessment/Plan Assessment/Plan (1) Parkinson's disease (2) Seizure disorder (3) Alcohol abuse (4) H/o substance abuse (5) Lumbago (6) Insomnia Patient to be continued on Ambien, Morphine and Percocet. D/w Dr. Mckinley and he concurred. Subjective Date patient seen: Dec 21, 2017 Time patient seen: 02:30 - pm Allergies: Coded Allergies: ERYTHROMYCIN BASE (Unverified Allergy, Unknown, 12/15/17) VANCOMYCIN (Verified Allergy, Unknown, 08/01/15) Subjective REVIEW OF SYSTEMS: Denies rash, fever, chills, sweating, dizziness, drowsiness, blurred vision, sore throat, or change in weight. No shortness of breath or chest pain. No nausea, vomiting, diarrhea, or blood in the stool or urine. No bowel or bladder incontinence. No dysuria. C/o Low back pain SUBJECTIVE: Patient shows no signs of pain or distress. He has no new complaints. Pain is tolerated on the Morphine and Percocet. Objective Last 24 Hour Vital Signs Date Time Temp Pulse Resp B/P (MAP) Pulse Ox O2 Delivery O2 Flow Rate FiO2 12/21/17 13:38 97.3 12/21/17 13:08 97.3 12/21/17 12:27 97.3 12/21/17 12:00 97.5 75 18 116/72 (87) 95 97.5 12/21/17 11:28 97.3 12/21/17 09:03 97.3 12/21/17 09:00 Room Air Room Air 12/21/17 08:00 97.3 79 18 114/70 (85) 95 97.3 12/21/17 04:00 97.5 73 20 133/84 (100) 98 97.5 12/21/17 00:00 97.6 78 18 121/72 (88) 93 97.6 12/20/17 21:00 Room Air Room Air 12/20/17 20:02 97.7 85 16 117/68 (84) 93 97.7 12/20/17 17:04 98.1 12/20/17 15:42 98.1 68 18 118/80 (93) 94 98.1 Intake and Output 12/20/17 12/21/17 19:00 07:00 Intake Total 375 ml Output Total 450 ml Balance -75 ml IV Total 375 ml Output Urine Total 450 ml # Voids 2 4 # Bowel Movements 1 Laboratory Tests 12/21/17 11:35: White Blood Count 6.3, Red Blood Count 4.30L, Hemoglobin 14.3, Hematocrit 43.0, Mean Corpuscular Volume 100H, Mean Corpuscular Hemoglobin 33.3H, Mean Corpuscular Hemoglobin Concent 33.3, Red Cell Distribution Width 12.6, Platelet Count 270, Mean Platelet Volume 6.6, Neutrophils (%) (Auto) 64.7, Lymphocytes (% ) (Auto) 21.2, Monocytes (%) (Auto) 8.0, Eosinophils (%) (Auto) 5.8H, Basophils (%) (Auto) 0.4, Sodium Level 138, Potassium Level 4.2, Chloride Level 103, Carbon Dioxide Level 27, Anion Gap 8, Blood Urea Nitrogen 19H, Creatinine 1.2, Estimat Glomerular Filtration Rate > 60, Glucose Level 119H, Calcium Level 8.9 Height (Feet): 5 Height (Inches): 10.00 Weight (Pounds): 174 Objective GENERAL: AA&O LUNGS: Decreased breath sounds bilaterally. HEART: S1 S2 Regular. ABDOMEN: Benign. EXTREMITIES: No cyanosis. No clubbing. No edema. NEURO: No changes. Itz Donald Dec 21, 2017 14:38
[2017-12-21 16:00] VITALS: BP 115/87
[2017-12-21 20:00] VITALS: BP 104/75
[2017-12-21] MEDS: Miralax 17gm pkt ORAL SCH (21:00)
[2017-12-22 00:07] VITALS: BP 109/66
[2017-12-22] MEDS: Morphine Sulfate 4mg/ml Inj IVP PRN ×6 (02:18→22:41)
[2017-12-22 04:00] VITALS: BP 111/71
[2017-12-22] MEDS: Levodopa/Carbidopa 25/100 tab ORAL SCH ×3 (06:14→17:10)
[2017-12-22 06:47] LABS: BASOPHILS % (AUTO) 0.5 % (0.0-2.0); EOSINOPHILS % (AUTO) 5.8 % (0.0-3.0); HEMATOCRIT 43.3 % (42.0-52.0); HEMOGLOBIN 14.2 G/DL (14.2-18.0); LYMPHOCYTES % (AUTO) 28.9 % (20.0-45.0); MEAN CORPUSCULAR VOLUME 100 FL (80-99); MONOCYTES % (AUTO) 9.8 % (1.0-10.0); PLATELET COUNT 300 K/UL (150-450); RED BLOOD COUNT 4.33 M/UL (4.70-6.10); RED CELL DISTRIBUTION WIDTH 12.9 % (11.6-14.8); WHITE BLOOD COUNT 5.6 K/UL (4.8-10.8)
[2017-12-22 06:48] LABS: ANION GAP 8 mmol/L (5-15); BLOOD UREA NITROGEN 17 mg/dL (7-18); CALCIUM 8.8 MG/DL (8.5-10.1); CARBON DIOXIDE 27 MMOL/L (21-32); CHLORIDE 104 MMOL/L (98-107); POTASSIUM 4.4 MMOL/L (3.5-5.1); SODIUM 139 MMOL/L (136-145)
[2017-12-22 08:01] VITALS: BP 123/57
[2017-12-22] MEDS: Docusate 100mg cap ORAL SCH ×3 (08:17→17:10)
[2017-12-22] MEDS: Aspirin Baby 81mg ORAL SCH (08:17)
--- NOTE | 2017-12-22 08:33 | General Progress Note ---
Assessment/Plan Assessment/Plan (1) Parkinson's disease (2) Seizure disorder (3) Alcohol abuse (4) H/o substance abuse (5) Lumbago (6) Insomnia Patient to be continued on Ambien, Morphine and Percocet. D/w Dr. Mckinley and he concurred. Subjective Date patient seen: Dec 22, 2017 Time patient seen: 07:30 - am Allergies: Coded Allergies: ERYTHROMYCIN BASE (Unverified Allergy, Unknown, 12/15/17) VANCOMYCIN (Verified Allergy, Unknown, 08/01/15) Subjective REVIEW OF SYSTEMS: Denies rash, fever, chills, sweating, dizziness, drowsiness, blurred vision, sore throat, or change in weight. No shortness of breath or chest pain. No nausea, vomiting, diarrhea, or blood in the stool or urine. No bowel or bladder incontinence. No dysuria. C/o Low back pain SUBJECTIVE: Patient is in bed showing no signs of pain or distress. The pain is tolerated on the Morphine and Percocet. He has no new complaints. Objective Last 24 Hour Vital Signs Date Time Temp Pulse Resp B/P (MAP) Pulse Ox O2 Delivery O2 Flow Rate FiO2 12/22/17 08:01 97.2 82 18 123/57 (79) 92 97.2 12/22/17 07:35 97.5 12/22/17 06:59 97.5 12/22/17 06:15 97.5 12/22/17 04:00 97.5 75 17 111/71 (84) 95 97.5 12/22/17 02:18 96.8 12/22/17 00:47 96.8 12/22/17 00:07 96.8 69 17 109/66 (80) 95 96.8 12/21/17 23:41 98.1 12/21/17 22:02 98.1 12/21/17 21:00 Room Air Room Air 12/21/17 20:00 98.6 77 17 104/75 (85) 96 98.6 12/21/17 19:26 98.1 12/21/17 17:48 98.1 12/21/17 16:00 98.1 79 18 115/87 (96) 94 98.1 12/21/17 13:08 97.3 12/21/17 12:00 97.5 75 18 116/72 (87) 95 97.5 12/21/17 11:28 97.3 12/21/17 09:03 97.3 12/21/17 09:00 Room Air Room Air Intake and Output 12/21/17 12/22/17 19:00 07:00 Intake Total 920 ml 720 ml Output Total 350 ml 1500 ml Balance 570 ml -780 ml Intake Oral 920 ml 720 ml Output Urine Total 350 ml 1500 ml # Voids 2 Laboratory Tests 12/21/17 11:35: White Blood Count 6.3, Red Blood Count 4.30L, Hemoglobin 14.3, Hematocrit 43.0, Mean Corpuscular Volume 100H, Mean Corpuscular Hemoglobin 33.3H, Mean Corpuscular Hemoglobin Concent 33.3, Red Cell Distribution Width 12.6, Platelet Count 270, Mean Platelet Volume 6.6, Neutrophils (%) (Auto) 64.7, Lymphocytes (% ) (Auto) 21.2, Monocytes (%) (Auto) 8.0, Eosinophils (%) (Auto) 5.8H, Basophils (%) (Auto) 0.4, Sodium Level 138, Potassium Level 4.2, Chloride Level 103, Carbon Dioxide Level 27, Anion Gap 8, Blood Urea Nitrogen 19H, Creatinine 1.2, Estimat Glomerular Filtration Rate > 60, Glucose Level 119H, Calcium Level 8.9 12/22/17 06:00: White Blood Count 5.6, Red Blood Count 4.33L, Hemoglobin 14.2, Hematocrit 43.3, Mean Corpuscular Volume 100H, Mean Corpuscular Hemoglobin 32.9H, Mean Corpuscular Hemoglobin Concent 32.9, Red Cell Distribution Width 12.9, Platelet Count 300, Mean Platelet Volume 6.7, Neutrophils (%) (Auto) 55.0, Lymphocytes (% ) (Auto) 28.9, Monocytes (%) (Auto) 9.8, Eosinophils (%) (Auto) 5.8H, Basophils (%) (Auto) 0.5, Sodium Level 139, Potassium Level 4.4, Chloride Level 104, Carbon Dioxide Level 27, Anion Gap 8, Blood Urea Nitrogen 17, Creatinine 1.0, Estimat Glomerular Filtration Rate > 60, Glucose Level 114H, Calcium Level 8.8 Height (Feet): 5 Height (Inches): 10.00 Weight (Pounds): 174 Objective GENERAL: AA&O LUNGS: Decreased breath sounds bilaterally. HEART: S1 S2 Regular. ABDOMEN: Benign. EXTREMITIES: No cyanosis. No clubbing. No edema. NEURO: No changes. Itz Donald Dec 22, 2017 08:33
--- NOTE | 2017-12-22 08:41 | Neurology Progress Note ---
Interim History Interim History Interim History Mr. Mccallum feels unwell. He cannot explain in what way he feels unwell. The strength is about the same. He was able to take a few steps to the bathroom yesterday. He is less bothered by pain. He says he was able to sleep fairly well last night. The weakness on his left side is improving. However the left side is still significantly weak. He has been seizure free. The tremor is well controlled. He denies any other neurologic symptoms. Review of Systems Neuro Review of Systems Benign. Objective Physical Exam Last Vital Signs Date Time Temp Pulse Resp B/P (MAP) Pulse Ox O2 Delivery O2 Flow Rate FiO2 12/22/17 08:01 97.2 82 18 123/57 (79) 92 97.2 12/21/17 21:00 Room Air Room Air Laboratory Tests Test 12/21/17 11:35 12/22/17 06:00 White Blood Count 6.3 K/UL (4.8-10.8) 5.6 K/UL (4.8-10.8) Red Blood Count 4.30 M/UL (4.70-6.10) L 4.33 M/UL (4.70-6.10) L Hemoglobin 14.3 G/DL (14.2-18.0) 14.2 G/DL (14.2-18.0) Hematocrit 43.0 % (42.0-52.0) 43.3 % (42.0-52.0) Mean Corpuscular Volume 100 FL (80-99) H 100 FL (80-99) H Mean Corpuscular Hemoglobin 33.3 PG (27.0-31.0) H 32.9 PG (27.0-31.0) H Mean Corpuscular Hemoglobin Concent 33.3 G/DL (32.0-36.0) 32.9 G/DL (32.0-36.0) Red Cell Distribution Width 12.6 % (11.6-14.8) 12.9 % (11.6-14.8) Platelet Count 270 K/UL (150-450) 300 K/UL (150-450) Mean Platelet Volume 6.6 FL (6.5-10.1) 6.7 FL (6.5-10.1) Neutrophils (%) (Auto) 64.7 % (45.0-75.0) 55.0 % (45.0-75.0) Lymphocytes (%) (Auto) 21.2 % (20.0-45.0) 28.9 % (20.0-45.0) Monocytes (%) (Auto) 8.0 % (1.0-10.0) 9.8 % (1.0-10.0) Eosinophils (%) (Auto) 5.8 % (0.0-3.0) H 5.8 % (0.0-3.0) H Basophils (%) (Auto) 0.4 % (0.0-2.0) 0.5 % (0.0-2.0) Sodium Level 138 MMOL/L (136-145) 139 MMOL/L (136-145) Potassium Level 4.2 MMOL/L (3.5-5.1) 4.4 MMOL/L (3.5-5.1) Chloride Level 103 MMOL/L (98-107) 104 MMOL/L (98-107) Carbon Dioxide Level 27 MMOL/L (21-32) 27 MMOL/L (21-32) Anion Gap 8 mmol/L (5-15) 8 mmol/L (5-15) Blood Urea Nitrogen 19 mg/dL (7-18) H 17 mg/dL (7-18) Creatinine 1.2 MG/DL (0.55-1.30) 1.0 MG/DL (0.55-1.30) Estimat Glomerular Filtration Rate > 60 mL/min (>60) > 60 mL/min (>60) Glucose Level 119 MG/DL (74-106) H 114 MG/DL (74-106) H Calcium Level 8.9 MG/DL (8.5-10.1) 8.8 MG/DL (8.5-10.1) Neurologic Exam Objective PHYSICAL EXAMINATION: GENERAL: He is a well-developed, well-nourished, depressed, gentleman , lying in bed, in no acute distress. HEAD: Normocephalic with left frontotemporal craniotomy defect. EENT: Examination benign. NECK: No neck rigidity was observed. NEUROLOGIC EXAMINATION: MENTAL STATUS EXAMINATION: He was awake and alert. He was oriented to person, place, and time. He was able to recall 3/3 words immediately, but could only remember 2/3 words in 1 minute and 3 minutes even on the second trial. He was able to remember presidents Trump through [employer], spontaneously, but needed hints to remember through [employer] senior. His mathematical skills were minimally impaired. His visuospatial function was relatively good. SPEECH: He had no dysarthria. LANGUAGE: He had a mild anomia for low-frequency words. CRANIAL NERVE EXAMINATION: II: The visual kaplan were intact on confrontation testing. III, IV & : The external ocular movements were full and the pupils 3 mm in diameter, equal, round, regular, and reactive to light. V: He had normal facial sensations, and the temporales, masseters, and pterygoids functioned normally. VII: He had a mild right VII central facial paresis. VIII: He was able to hear well bilaterally and had no nystagmus. IX: The palate moved symmetrically on phonation. X: He had no hoarseness of voice. XI: The sternocleidomastoids and trapezii functioned normally. XII: The tongue was in the midline without any fasciculations or atrophy. MOTOR SYSTEM: The tone was normal in all four extremities. Examination of muscle mass revealed no focal wasting. Examination of power revealed G 5/5 power except for G 5-/5 power in the right iliopsoas, and right finger extensors. On the left side he had G 5-/5 power except for G 4+/5 in the left finger extensors, and G 3+/5 in the left iliopsoas. SENSORY EXAMINATION: He had intact sensations to pinprick, light touch, and graphesthesia. COORDINATION: He performed well on [id number] and [id number]-ip-[id number] testing on the right side - he said he could not do it on the left. REFLEXES: 2+ on the right and 2++ on the left in the biceps, triceps, brachioradialis, and knees, 0 at both ankles. The plantar responses were flexor bilaterally. STANCE & GAIT: Could not be tested because he said he could not stand and walk. ABNORMAL MOVEMENTS: Tremor (4-5 Hz): G Trace/4 in the upper and lower extremities. Rigidity: G 0/4 Bradykinesia: G Tr/4 Hypomimia: G 0/4 Hypophonia: G 0/4. Impression/Recommendations Diagnostic Impression 1. Mr. Andrew Mccallum is a 57-year-old, right-handed, gentleman, who does have a past history of Parkinson's disease for numerous years, a meningioma on the left side for which he had surgery numerous years ago followed by a seizure disorder, a left brain intra cerebral hemorrhage evacuated at [facility] in the early 1999s, residual right sided weakness, chronic pain syndrome, alcohol abuse, cocaine abuse, and frequent falls due to which he uses a motorized wheelchair. When he has his seizures, he states that he passes out without any warning and following that, there is a period of confusion. He is uncertain as to what exactly happens after he has passed out and he is also unable to tell us what other people have observed. 2. He was hospitalized on 12/15/17 for new onset left sided weakness. At first he was unable to move the left side completely but now it is better but still weaker than his baseline. He says he was drinking a lot prior to his left side becoming weak. He is uncertain as to whether he had a seizure or not. 3. He feels unwell. He cannot explain in what way he feels unwell. The strength is about the same. He was able to take a few steps to the bathroom yesterday. He is less bothered by pain. He says he was able to sleep fairly well last night. The weakness on his left side is improving. However the left side is still significantly weak. He has been seizure free. The tremor is well controlled. He denies any other neurologic symptoms. 4. On neurological examination, at this time, he does demonstrate significant problems with orientation, recent and remote memory, higher cognitive function, and a mild anomia. He does have a mild right VII central facial paresis, and right finger extensor and iliopsoas weakness. On the left side he has G 5-/5 power except for G 4+/5 in the left finger extensors, and G 3+/5 in the left iliopsoas. The deep tendon reflexes are brisker on the left side compared to the right. He is unable to stand and walk as he feels he will fall down. 5. The CT scan of the brain without contrast performed on 12/15/2017 reveals a large area of encephalomalacia in the left frontotemporal region and a craniotomy defect in the left frontotemporal region. 6. The MRI of the brain done on 12/17/17 revealed an acute right temporal infarct. 7. Laboratory data obtained thus far have revealed that his CBC reveals macrocytic indices. His chemistry panel is relatively benign and his serum alcohol level was 96. His urine toxicology was positive for THC and opiates - even though he told me that he has stopped using THC! 8. The cerebro-vascular non-invasive profile is benign. 9. 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 His seizures are not controlled as he is not taking his anticonvulsant and in addition he continues to drink alcohol and possibly uses other illicit drugs. 10. His new left sided weakness is due to an acute right temporal infarct. The weakness is improving. 11. His parkinsonian symptoms are stable and well controlled on his present regimen. Recommendations 1. Continue present management. 2. Continue Sinemet 25/100 - 3 tablets to be taken at 6 a.m., 12 noon, and 6 p.m. 3. Continue Keppra 750 mg at 6 a.m. and 6 p.m. for seizure prophylaxis. 4. PT/OT to mobilize. 5. ASA 81 mg q day. 6. Await echocardiogram with bubble study. 7. Acute rehabilitation for new stroke. Melissa Rodriguez M.D., M.S.P.H. MELISSA RODRIGUEZ Dec 22, 2017 08:41
--- NOTE | 2017-12-22 11:32 | GI Progress Note ---
Assessment/Plan Problems: (1) CVA (cerebral vascular accident) ICD Codes: I63.9 - Cerebral infarction, unspecified SNOMED: 262623799 (2) Weakness ICD Codes: R53.1 - Weakness SNOMED: 52989918 (3) Parkinson disease ICD Codes: G20 - Parkinson's disease SNOMED: 22314502 (4) Alcohol abuse ICD Codes: F10.10 - Alcohol abuse, uncomplicated SNOMED: 07872207 (5) Chronic pain ICD Codes: G89.29 - Other chronic pain SNOMED: 53213489 (6) Hemiparesis ICD Codes: G81.90 - Hemiplegia, unspecified affecting unspecified side SNOMED: 23050202 (7) Drug-seeking behavior ICD Codes: Z76.5 - Malingerer [conscious simulation] SNOMED: 773863613 Status: stable Status Narrative Discussed with Dr. Pierson. Assessment/Plan dc planning symptomatic treatment / supportive care pain mgmt zofran prn prn transfusions ppi MVI/folate bowel regime titrate fu labs outpatient GI procedures The patient was seen and examined at bedside and all new and available data was reviewed in the patients chart. I agree with the above findings, impression and plan. (Patient seen earlier today. Signature stamp does not reflect patient encounter time.). - Justin Pierson MD Subjective Subjective generalized pain Objective Last 24 Hour Vital Signs Date Time Temp Pulse Resp B/P (MAP) Pulse Ox O2 Delivery O2 Flow Rate FiO2 12/22/17 10:45 97.2 12/22/17 10:15 97.2 12/22/17 08:34 97.2 12/22/17 08:01 97.2 82 18 123/57 (79) 92 97.2 12/22/17 08:00 Room Air Room Air 12/22/17 07:35 97.5 12/22/17 06:59 97.5 12/22/17 06:15 97.5 12/22/17 04:00 97.5 75 17 111/71 (84) 95 97.5 12/22/17 02:18 96.8 12/22/17 00:07 96.8 69 17 109/66 (80) 95 96.8 12/21/17 23:41 98.1 12/21/17 22:02 98.1 7/22/18 21:00 Room Air Room Air 12/21/17 20:00 98.6 77 17 104/75 (85) 96 98.6 12/21/17 19:26 98.1 12/21/17 17:48 98.1 12/21/17 16:00 98.1 79 18 115/87 (96) 94 98.1 12/21/17 13:08 97.3 12/21/17 12:00 97.5 75 18 116/72 (87) 95 97.5 Intake and Output 12/21/17 12/22/17 19:00 07:00 Intake Total 920 ml 720 ml Output Total 350 ml 1500 ml Balance 570 ml -780 ml Intake Oral 920 ml 720 ml Output Urine Total 350 ml 1500 ml # Voids 2 Laboratory Tests Test 12/21/17 11:35 12/22/17 06:00 White Blood Count 6.3 K/UL (4.8-10.8) 5.6 K/UL (4.8-10.8) Red Blood Count 4.30 M/UL (4.70-6.10) L 4.33 M/UL (4.70-6.10) L Hemoglobin 14.3 G/DL (14.2-18.0) 14.2 G/DL (14.2-18.0) Hematocrit 43.0 % (42.0-52.0) 43.3 % (42.0-52.0) Mean Corpuscular Volume 100 FL (80-99) H 100 FL (80-99) H Mean Corpuscular Hemoglobin 33.3 PG (27.0-31.0) H 32.9 PG (27.0-31.0) H Mean Corpuscular Hemoglobin Concent 33.3 G/DL (32.0-36.0) 32.9 G/DL (32.0-36.0) Red Cell Distribution Width 12.6 % (11.6-14.8) 12.9 % (11.6-14.8) Platelet Count 270 K/UL (150-450) 300 K/UL (150-450) Mean Platelet Volume 6.6 FL (6.5-10.1) 6.7 FL (6.5-10.1) Neutrophils (%) (Auto) 64.7 % (45.0-75.0) 55.0 % (45.0-75.0) Lymphocytes (%) (Auto) 21.2 % (20.0-45.0) 28.9 % (20.0-45.0) Monocytes (%) (Auto) 8.0 % (1.0-10.0) 9.8 % (1.0-10.0) Eosinophils (%) (Auto) 5.8 % (0.0-3.0) H 5.8 % (0.0-3.0) H Basophils (%) (Auto) 0.4 % (0.0-2.0) 0.5 % (0.0-2.0) Sodium Level 138 MMOL/L (136-145) 139 MMOL/L (136-145) Potassium Level 4.2 MMOL/L (3.5-5.1) 4.4 MMOL/L (3.5-5.1) Chloride Level 103 MMOL/L (98-107) 104 MMOL/L (98-107) Carbon Dioxide Level 27 MMOL/L (21-32) 27 MMOL/L (21-32) Anion Gap 8 mmol/L (5-15) 8 mmol/L (5-15) Blood Urea Nitrogen 19 mg/dL (7-18) H 17 mg/dL (7-18) Creatinine 1.2 MG/DL (0.55-1.30) 1.0 MG/DL (0.55-1.30) Estimat Glomerular Filtration Rate > 60 mL/min (>60) > 60 mL/min (>60) Glucose Level 119 MG/DL (74-106) H 114 MG/DL (74-106) H Calcium Level 8.9 MG/DL (8.5-10.1) 8.8 MG/DL (8.5-10.1) Height (Feet): 5 Height (Inches): 10.00 Weight (Pounds): 174 General Appearance: WD/WN, no apparent distress, alert, thin Cardiovascular: normal rate Respiratory/Chest: normal breath sounds, no respiratory distress Abdominal Exam: normal bowel sounds, non tender, soft Extremities: non-tender Moises Deng NP Dec 22, 2017 11:32
[2017-12-22 11:43] VITALS: BP 116/77
--- NOTE | 2017-12-22 14:06 | General Progress Note ---
Assessment/Plan Problem List: (1) Back pain ICD Codes: M54.9 - Dorsalgia, unspecified SNOMED: 672510923 (2) CVA (cerebral vascular accident) ICD Codes: I63.9 - Cerebral infarction, unspecified SNOMED: 916455995 (3) Parkinson disease ICD Codes: G20 - Parkinson's disease SNOMED: 86102150 (4) Alcohol abuse ICD Codes: F10.10 - Alcohol abuse, uncomplicated SNOMED: 79661706 (5) Generalized pain ICD Codes: R52 - Pain, unspecified SNOMED: 22033731 (6) Weakness ICD Codes: R53.1 - Weakness SNOMED: 61710647 Status: stable, progressing Assessment/Plan ot pt diet pain control gi eval cbc bmp am brotman aru eval vs snf Subjective Constitutional: Reports: weakness Allergies: Coded Allergies: ERYTHROMYCIN BASE (Unverified Allergy, Unknown, 12/15/17) VANCOMYCIN (Verified Allergy, Unknown, 08/01/15) All Systems: reviewed and negative except above Subjective sleepy in bed calm Objective Last 24 Hour Vital Signs Date Time Temp Pulse Resp B/P (MAP) Pulse Ox O2 Delivery O2 Flow Rate FiO2 12/22/17 11:43 97.7 71 18 116/77 (90) 95 97.7 12/22/17 10:45 97.2 12/22/17 10:15 97.2 12/22/17 08:34 97.2 12/22/17 08:01 97.2 82 18 123/57 (79) 92 97.2 12/22/17 08:00 Room Air Room Air 12/22/17 07:35 97.5 12/22/17 06:59 97.5 12/22/17 06:15 97.5 12/22/17 04:00 97.5 75 17 111/71 (84) 95 97.5 12/22/17 02:18 96.8 12/22/17 00:07 96.8 69 17 109/66 (80) 95 96.8 12/21/17 23:41 98.1 12/21/17 22:02 98.1 12/21/17 21:00 Room Air Room Air 12/21/17 20:00 98.6 77 17 104/75 (85) 96 98.6 12/21/17 19:26 98.1 12/21/17 17:48 98.1 12/21/17 16:00 98.1 79 18 115/87 (96) 94 98.1 Intake and Output 12/21/17 12/22/17 19:00 07:00 Intake Total 920 ml 720 ml Output Total 350 ml 1500 ml Balance 570 ml -780 ml Intake Oral 920 ml 720 ml Output Urine Total 350 ml 1500 ml # Voids 2 Laboratory Tests 12/22/17 06:00: White Blood Count 5.6, Red Blood Count 4.33L, Hemoglobin 14.2, Hematocrit 43.3, Mean Corpuscular Volume 100H, Mean Corpuscular Hemoglobin 32.9H, Mean Corpuscular Hemoglobin Concent 32.9, Red Cell Distribution Width 12.9, Platelet Count 300, Mean Platelet Volume 6.7, Neutrophils (%) (Auto) 55.0, Lymphocytes (% ) (Auto) 28.9, Monocytes (%) (Auto) 9.8, Eosinophils (%) (Auto) 5.8H, Basophils (%) (Auto) 0.5, Sodium Level 139, Potassium Level 4.4, Chloride Level 104, Carbon Dioxide Level 27, Anion Gap 8, Blood Urea Nitrogen 17, Creatinine 1.0, Estimat Glomerular Filtration Rate > 60, Glucose Level 114H, Calcium Level 8.8 Height (Feet): 5 Height (Inches): 10.00 Weight (Pounds): 174 General Appearance: lethargic EENT: normal ENT inspection Neck: normal alignment Cardiovascular: normal peripheral pulses, normal rate, regular rhythm Respiratory/Chest: chest wall non-tender, lungs clear, normal breath sounds Abdomen: normal bowel sounds, non tender, soft Extremities: normal inspection Edema: no edema noted Arm (L), no edema noted Arm (R), no edema noted Leg (L), no edema noted Leg (R), no edema noted Pedal (L), no edema noted Pedal (R), no edema noted Generalized Neurologic: responsive Skin: normal pigmentation, warm/dry Krishan Fraire DO Dec 22, 2017 14:06
--- NOTE | 2017-12-22 14:39 | Pulmonology Progress Note ---
Assessment/Plan Problems: (1) Acute alcoholic intoxication (2) Acute CVA (cerebrovascular accident) (3) History of craniotomy (4) Parkinson disease (5) History of CVA (cerebrovascular accident) (6) Hemiparesis Assessment/Plan feeling better wants to get stronger symptomatic treatment check electrolytes no seizures less tremor Subjective ROS Limited/Unobtainable: No Allergies: Coded Allergies: ERYTHROMYCIN BASE (Unverified Allergy, Unknown, 12/15/17) VANCOMYCIN (Verified Allergy, Unknown, 08/01/15) Objective Last 24 Hour Vital Signs Date Time Temp Pulse Resp B/P (MAP) Pulse Ox O2 Delivery O2 Flow Rate FiO2 12/22/17 14:29 97.7 12/22/17 11:43 97.7 71 18 116/77 (90) 95 97.7 12/22/17 10:45 97.2 12/22/17 10:15 97.2 12/22/17 08:34 97.2 12/22/17 08:01 97.2 82 18 123/57 (79) 92 97.2 12/22/17 08:00 Room Air Room Air 12/22/17 07:35 97.5 12/22/17 06:59 97.5 12/22/17 06:15 97.5 12/22/17 04:00 97.5 75 17 111/71 (84) 95 97.5 12/22/17 02:18 96.8 12/22/17 00:07 96.8 69 17 109/66 (80) 95 96.8 12/21/17 23:41 98.1 12/21/17 22:02 98.1 12/21/17 21:00 Room Air Room Air 12/21/17 20:00 98.6 77 17 104/75 (85) 96 98.6 12/21/17 19:26 98.1 12/21/17 17:48 98.1 12/21/17 16:00 98.1 79 18 115/87 (96) 94 98.1 Intake and Output 12/21/17 12/22/17 19:00 07:00 Intake Total 920 ml 720 ml Output Total 350 ml 1500 ml Balance 570 ml -780 ml Intake Oral 920 ml 720 ml Output Urine Total 350 ml 1500 ml # Voids 2 General Appearance: WD/WN Respiratory/Chest: lungs clear, no accessory muscle use Abdomen: non distended Extremities: no cyanosis Neurologic/Psychiatric: medical physiologist II-XII grossly normal, abnormal gait Laboratory Tests 12/22/17 06:00: White Blood Count 5.6, Red Blood Count 4.33L, Hemoglobin 14.2, Hematocrit 43.3, Mean Corpuscular Volume 100H, Mean Corpuscular Hemoglobin 32.9H, Mean Corpuscular Hemoglobin Concent 32.9, Red Cell Distribution Width 12.9, Platelet Count 300, Mean Platelet Volume 6.7, Neutrophils (%) (Auto) 55.0, Lymphocytes (% ) (Auto) 28.9, Monocytes (%) (Auto) 9.8, Eosinophils (%) (Auto) 5.8H, Basophils (%) (Auto) 0.5, Sodium Level 139, Potassium Level 4.4, Chloride Level 104, Carbon Dioxide Level 27, Anion Gap 8, Blood Urea Nitrogen 17, Creatinine 1.0, Estimat Glomerular Filtration Rate > 60, Glucose Level 114H, Calcium Level 8.8 Current Medications Medications (Trade) Dose Ordered Sig/Job Route PRN Reason Start Time Stop Time Status Last Admin Dose Admin Acetaminophen (Tylenol) 650 mg Q4H PRN ORAL T>100.5 12/17/17 21:45 01/14/18 21:31 Al Hydroxide/Mg Hydroxide (Mylanta II) 30 ml Q6H PRN ORAL dyspepsia 12/17/17 21:45 01/14/18 21:32 Aspirin (ASA) 81 mg DAILY ORAL 12/18/17 09:00 01/16/18 17:59 12/22/17 08:17 Carbidopa/Levodopa (Sinemet 25/100) 3 tab TID@0600,1200,1800 ORAL 12/18/17 06:00 01/16/18 05:59 12/22/17 12:00 Dextrose (Dextrose 50%) 25 ml STAT PRN IV Hypoglycemia 12/17/17 21:45 01/14/18 21:32 Dextrose (Dextrose 50%) 50 ml STAT PRN IV Hypoglycemia 12/17/17 21:45 01/14/18 21:32 Docusate Sodium (Colace) 100 mg THREE TIMES A DAY ORAL 12/18/17 09:00 01/16/18 09:59 12/22/17 12:00 Gabapentin (Neurontin) 600 mg THREE TIMES A DAY ORAL 12/18/17 09:00 01/15/18 08:59 12/22/17 12:00 Levetiracetam (Keppra) 750 mg Q12HR ORAL 12/17/17 21:00 01/15/18 20:59 12/22/17 08:17 Lorazepam (Ativan 2mg/ml 1ml) 0.5 mg Q4H PRN IV For Anxiety 12/17/17 21:45 12/22/17 21:39 Morphine Sulfate (Morphine Sulfate) 4 mg Q4H PRN IVP PAIN 1-6 12/22/17 08:44 12/28/17 08:43 12/22/17 14:29 Ondansetron HCl (Zofran) 4 mg Q6H PRN IVP Nausea & Vomiting 12/17/17 21:00 01/14/18 20:59 Oxycodone/ Acetaminophen (Percocet 10/325) 1 tab Q4H PRN ORAL Breakthrough Pain 12/22/17 08:44 12/26/17 08:43 Polyethylene Glycol (Miralax) 17 gm BEDTIME ORAL 12/18/17 21:00 01/17/18 20:59 12/19/17 21:00 Polyethylene Glycol (Miralax) 17 gm HSPRN PRN ORAL Constipation 12/17/17 22:00 01/14/18 21:59 Zolpidem Tartrate (Ambien) 5 mg HSPRN PRN ORAL Insomnia 12/22/17 21:00 12/27/17 20:59 Cash Lorenzo MD Dec 22, 2017 14:39
[2017-12-22 15:53] VITALS: BP 111/76
[2017-12-22 20:00] VITALS: BP 103/58
[2017-12-22] MEDS: Miralax 17gm pkt ORAL SCH (20:26)
[2017-12-22] MEDS ORDERED: Zolpidem 5mg tab ORAL PRN (21:00)
[2017-12-23] VITALS: BP 115/82
[2017-12-23] MEDS: Morphine Sulfate 4mg/ml Inj IVP PRN ×6 (02:57→23:05)
[2017-12-23] MEDS: Levodopa/Carbidopa 25/100 tab ORAL SCH ×3 (05:27→17:04)
[2017-12-23 07:45] LABS: BASOPHILS % (AUTO) 0.7 % (0.0-2.0); EOSINOPHILS % (AUTO) 5.3 % (0.0-3.0); HEMOGLOBIN 14.2 G/DL (14.2-18.0); LYMPHOCYTES % (AUTO) 26.5 % (20.0-45.0); MEAN CORPUSCULAR VOLUME 100 FL (80-99); MONOCYTES % (AUTO) 9.7 % (1.0-10.0); NEUTROPHILS % (AUTO) 57.8 % (45.0-75.0); PLATELET COUNT 267 K/UL (150-450); RED BLOOD COUNT 4.31 M/UL (4.70-6.10); RED CELL DISTRIBUTION WIDTH 12.8 % (11.6-14.8); WHITE BLOOD COUNT 5.9 K/UL (4.8-10.8)
--- NOTE | 2017-12-23 07:46 | General Progress Note ---
Assessment/Plan Assessment/Plan (1) Parkinson's disease (2) Seizure disorder (3) Alcohol abuse (4) H/o substance abuse (5) Lumbago (6) Insomnia (7) CVA (8) Thalamic pain syndrome Patient to be continued on Ambien, Morphine and Percocet. D/w Dr. Mckinley and he concurred. Subjective Date patient seen: Dec 23, 2017 Time patient seen: 07:30 - am Allergies: Coded Allergies: ERYTHROMYCIN BASE (Unverified Allergy, Unknown, 12/15/17) VANCOMYCIN (Verified Allergy, Unknown, 08/01/15) Subjective REVIEW OF SYSTEMS: Denies rash, fever, chills, sweating, dizziness, drowsiness, blurred vision, sore throat, or change in weight. No shortness of breath or chest pain. No nausea, vomiting, diarrhea, or blood in the stool or urine. No bowel or bladder incontinence. No dysuria. C/o Low back pain SUBJECTIVE: Patient reports no changes. The pain is tolerated on the Percocet and Morphine. Doing PT to the best of his abilities. No new complaints. Objective Last 24 Hour Vital Signs Date Time Temp Pulse Resp B/P (MAP) Pulse Ox O2 Delivery O2 Flow Rate FiO2 12/23/17 01:19 96.4 12/23/17 00:00 98.4 92 18 115/82 (93) 93 98.4 12/22/17 22:41 98.2 12/22/17 20:00 98.2 79 18 103/58 (73) 95 98.2 12/22/17 20:00 Room Air Room Air 12/22/17 19:03 97.3 12/22/17 18:33 97.3 12/22/17 16:45 97.3 12/22/17 15:53 97.3 84 18 111/76 (88) 96 97.3 12/22/17 15:46 97.7 12/22/17 14:29 97.7 12/22/17 11:43 97.7 71 18 116/77 (90) 95 97.7 12/22/17 10:15 97.2 12/22/17 08:34 97.2 12/22/17 08:01 97.2 82 18 123/57 (79) 92 97.2 12/22/17 08:00 Room Air Room Air Intake and Output 12/22/17 12/23/17 19:00 07:00 Intake Total 1560 ml Output Total 700 ml Balance 860 ml Intake Oral 1560 ml Output Urine Total 700 ml # Voids 2 # Bowel Movements 3 Laboratory Tests 12/23/17 07:00: White Blood Count [Pending], Red Blood Count [Pending], Hemoglobin [Pending], Hematocrit [Pending], Mean Corpuscular Volume [Pending], Mean Corpuscular Hemoglobin [Pending], Mean Corpuscular Hemoglobin Concent [Pending], Red Cell Distribution Width [Pending], Platelet Count [Pending], Mean Platelet Volume [ Pending], Neutrophils (%) (Auto) [Pending], Lymphocytes (%) (Auto) [Pending], Monocytes (%) (Auto) [Pending], Eosinophils (%) (Auto) [Pending], Basophils (%) (Auto) [Pending], Sodium Level [Pending], Potassium Level [Pending], Chloride Level [Pending], Carbon Dioxide Level [Pending], Blood Urea Nitrogen [Pending], Creatinine [Pending], Estimat Glomerular Filtration Rate [Pending], Glucose Level [Pending], Calcium Level [Pending] Height (Feet): 5 Height (Inches): 10.00 Weight (Pounds): 174 Objective GENERAL: AA&O LUNGS: Decreased breath sounds bilaterally. HEART: S1 S2 Regular. ABDOMEN: Benign. EXTREMITIES: No cyanosis. No clubbing. No edema. NEURO: No changes. Itz Donald Dec 23, 2017 07:46
[2017-12-23 07:58] LABS: ANION GAP 8 mmol/L (5-15); BLOOD UREA NITROGEN 19 mg/dL (7-18); CALCIUM 8.7 MG/DL (8.5-10.1); CARBON DIOXIDE 29 MMOL/L (21-32); CHLORIDE 102 MMOL/L (98-107); CREATININE 0.9 MG/DL (0.55-1.30); POTASSIUM 4.3 MMOL/L (3.5-5.1); SODIUM 138 MMOL/L (136-145)
[2017-12-23 08:02] VITALS: BP 115/71
[2017-12-23] MEDS: Docusate 100mg cap ORAL SCH ×3 (08:16→17:04)
[2017-12-23] MEDS: Aspirin Baby 81mg ORAL SCH (08:16)
[2017-12-23 12:00] VITALS: BP 115/72
--- NOTE | 2017-12-23 14:43 | Pulmonology Progress Note ---
Assessment/Plan Problems: (1) Acute alcoholic intoxication (2) Acute CVA (cerebrovascular accident) (3) History of craniotomy (4) Parkinson disease (5) History of CVA (cerebrovascular accident) (6) Hemiparesis Assessment/Plan feeling better wants to get stronger symptomatic treatment check electrolytes no seizures less tremor Subjective ROS Limited/Unobtainable: No Constitutional: Reports: no symptoms HEENT: Repors: no symptoms, dysphagia Allergies: Coded Allergies: ERYTHROMYCIN BASE (Unverified Allergy, Unknown, 12/15/17) VANCOMYCIN (Verified Allergy, Unknown, 08/01/15) Objective Last 24 Hour Vital Signs Date Time Temp Pulse Resp B/P (MAP) Pulse Ox O2 Delivery O2 Flow Rate FiO2 12/23/17 12:59 97.8 12/23/17 12:00 97.5 76 20 115/72 (86) 97 97.5 76 12/23/17 12:00 97.8 12/23/17 11:25 97.8 12/23/17 10:55 97.8 12/23/17 08:02 97.8 73 19 115/71 (86) 98 97.8 12/23/17 08:00 Room Air Room Air 12/23/17 01:19 96.4 12/23/17 00:00 98.4 92 18 115/82 (93) 93 98.4 12/22/17 22:41 98.2 12/22/17 20:00 98.2 79 18 103/58 (73) 95 98.2 12/22/17 20:00 Room Air Room Air 12/22/17 18:33 97.3 12/22/17 15:53 97.3 84 18 111/76 (88) 96 97.3 12/22/17 15:46 97.7 Intake and Output 12/22/17 12/23/17 19:00 07:00 Intake Total 1560 ml 600 ml Output Total 700 ml 1500 ml Balance 860 ml -900 ml Intake Oral 1560 ml 600 ml Output Urine Total 700 ml 1500 ml # Voids 2 # Bowel Movements 3 General Appearance: WD/WN HEENT: normocephalic Respiratory/Chest: lungs clear, no respiratory distress Cardiovascular: normal peripheral pulses, regularly irregular Abdomen: soft, non tender, no scars Neurologic/Psychiatric: teller head II-XII grossly normal, responsive Laboratory Tests 12/23/17 07:00: White Blood Count 5.9, Red Blood Count 4.31L, Hemoglobin 14.2, Hematocrit 43.0, Mean Corpuscular Volume 100H, Mean Corpuscular Hemoglobin 32.9H, Mean Corpuscular Hemoglobin Concent 33.0, Red Cell Distribution Width 12.8, Platelet Count 267, Mean Platelet Volume 6.1L, Neutrophils (%) (Auto) 57.8, Lymphocytes ( %) (Auto) 26.5, Monocytes (%) (Auto) 9.7, Eosinophils (%) (Auto) 5.3H, Basophils (%) (Auto) 0.7, Sodium Level 138, Potassium Level 4.3, Chloride Level 102, Carbon Dioxide Level 29, Anion Gap 8, Blood Urea Nitrogen 19H, Creatinine 0.9, Estimat Glomerular Filtration Rate > 60, Glucose Level 104, Calcium Level 8.7 Current Medications Medications (Trade) Dose Ordered Sig/Job Route PRN Reason Start Time Stop Time Status Last Admin Dose Admin Acetaminophen (Tylenol) 650 mg Q4H PRN ORAL T>100.5 12/17/17 21:45 01/14/18 21:31 Al Hydroxide/Mg Hydroxide (Mylanta II) 30 ml Q6H PRN ORAL dyspepsia 12/17/17 21:45 01/14/18 21:32 Aspirin (ASA) 81 mg DAILY ORAL 12/18/17 09:00 01/16/18 17:59 12/23/17 08:16 Carbidopa/Levodopa (Sinemet 25/100) 3 tab TID@0600,1200,1800 ORAL 12/18/17 06:00 01/16/18 05:59 12/23/17 11:00 Dextrose (Dextrose 50%) 25 ml STAT PRN IV Hypoglycemia 12/17/17 21:45 01/14/18 21:32 Dextrose (Dextrose 50%) 50 ml STAT PRN IV Hypoglycemia 12/17/17 21:45 01/14/18 21:32 Docusate Sodium (Colace) 100 mg THREE TIMES A DAY ORAL 12/18/17 09:00 01/16/18 09:59 12/23/17 12:00 Gabapentin (Neurontin) 600 mg THREE TIMES A DAY ORAL 12/18/17 09:00 01/15/18 08:59 12/23/17 12:00 Levetiracetam (Keppra) 750 mg Q12HR ORAL 12/17/17 21:00 01/15/18 20:59 12/23/17 08:17 Morphine Sulfate (Morphine Sulfate) 4 mg Q4H PRN IVP PAIN 1-6 12/22/17 08:44 12/28/17 08:43 12/23/17 10:55 Ondansetron HCl (Zofran) 4 mg Q6H PRN IVP Nausea & Vomiting 12/17/17 21:00 01/14/18 20:59 Oxycodone/ Acetaminophen (Percocet 10/325) 1 tab Q4H PRN ORAL Breakthrough Pain 12/22/17 08:44 12/26/17 08:43 12/23/17 12:00 Polyethylene Glycol (Miralax) 17 gm BEDTIME ORAL 12/18/17 21:00 01/17/18 20:59 12/22/17 20:26 Polyethylene Glycol (Miralax) 17 gm HSPRN PRN ORAL Constipation 12/17/17 22:00 01/14/18 21:59 Zolpidem Tartrate (Ambien) 5 mg HSPRN PRN ORAL Insomnia 12/22/17 21:00 12/27/17 20:59 Cash Lorenzo MD Dec 23, 2017 14:43
--- NOTE | 2017-12-23 14:46 | GI Progress Note ---
Assessment/Plan Problems: (1) CVA (cerebral vascular accident) ICD Codes: I63.9 - Cerebral infarction, unspecified SNOMED: 040572271 (2) Weakness ICD Codes: R53.1 - Weakness SNOMED: 46217112 (3) Parkinson disease ICD Codes: G20 - Parkinson's disease SNOMED: 94900196 (4) Alcohol abuse ICD Codes: F10.10 - Alcohol abuse, uncomplicated SNOMED: 00551389 (5) Chronic pain ICD Codes: G89.29 - Other chronic pain SNOMED: 63120697 (6) Hemiparesis ICD Codes: G81.90 - Hemiplegia, unspecified affecting unspecified side SNOMED: 90274865 (7) Drug-seeking behavior ICD Codes: Z76.5 - Malingerer [conscious simulation] SNOMED: 979835066 Status: stable Status Narrative Discussed with Dr. Pierson. Assessment/Plan dc planning symptomatic treatment / supportive care pain mgmt zofran prn prn transfusions ppi MVI/folate bowel regime titrate fu labs outpatient GI procedures The patient was seen and examined at bedside and all new and available data was reviewed in the patients chart. I agree with the above findings, impression and plan. (Patient seen earlier today. Signature stamp does not reflect patient encounter time.). - Justin Pierson MD Subjective Subjective generalized pain Objective Last 24 Hour Vital Signs Date Time Temp Pulse Resp B/P (MAP) Pulse Ox O2 Delivery O2 Flow Rate FiO2 12/23/17 12:59 97.8 12/23/17 12:00 97.5 76 20 115/72 (86) 97 97.5 76 12/23/17 12:00 97.8 12/23/17 11:25 97.8 12/23/17 10:55 97.8 12/23/17 08:02 97.8 73 19 115/71 (86) 98 97.8 12/23/17 08:00 Room Air Room Air 12/23/17 01:19 96.4 12/23/17 00:00 98.4 92 18 115/82 (93) 93 98.4 12/22/17 22:41 98.2 12/22/17 20:00 98.2 79 18 103/58 (73) 95 98.2 12/22/17 20:00 Room Air Room Air 12/22/17 18:33 97.3 12/22/17 15:53 97.3 84 18 111/76 (88) 96 97.3 12/22/17 15:46 97.7 Intake and Output 12/22/17 12/23/17 19:00 07:00 Intake Total 1560 ml 600 ml Output Total 700 ml 1500 ml Balance 860 ml -900 ml Intake Oral 1560 ml 600 ml Output Urine Total 700 ml 1500 ml # Voids 2 # Bowel Movements 3 Laboratory Tests Test 12/23/17 07:00 White Blood Count 5.9 K/UL (4.8-10.8) Red Blood Count 4.31 M/UL (4.70-6.10) L Hemoglobin 14.2 G/DL (14.2-18.0) Hematocrit 43.0 % (42.0-52.0) Mean Corpuscular Volume 100 FL (80-99) H Mean Corpuscular Hemoglobin 32.9 PG (27.0-31.0) H Mean Corpuscular Hemoglobin Concent 33.0 G/DL (32.0-36.0) Red Cell Distribution Width 12.8 % (11.6-14.8) Platelet Count 267 K/UL (150-450) Mean Platelet Volume 6.1 FL (6.5-10.1) L Neutrophils (%) (Auto) 57.8 % (45.0-75.0) Lymphocytes (%) (Auto) 26.5 % (20.0-45.0) Monocytes (%) (Auto) 9.7 % (1.0-10.0) Eosinophils (%) (Auto) 5.3 % (0.0-3.0) H Basophils (%) (Auto) 0.7 % (0.0-2.0) Sodium Level 138 MMOL/L (136-145) Potassium Level 4.3 MMOL/L (3.5-5.1) Chloride Level 102 MMOL/L (98-107) Carbon Dioxide Level 29 MMOL/L (21-32) Anion Gap 8 mmol/L (5-15) Blood Urea Nitrogen 19 mg/dL (7-18) H Creatinine 0.9 MG/DL (0.55-1.30) Estimat Glomerular Filtration Rate > 60 mL/min (>60) Glucose Level 104 MG/DL (74-106) Calcium Level 8.7 MG/DL (8.5-10.1) Height (Feet): 5 Height (Inches): 10.00 Weight (Pounds): 174 General Appearance: WD/WN, no apparent distress, alert Cardiovascular: normal rate Respiratory/Chest: normal breath sounds, no respiratory distress Abdominal Exam: normal bowel sounds, non tender, soft Extremities: normal range of motion, non-tender Moises Deng NP Dec 23, 2017 14:46
--- NOTE | 2017-12-23 15:47 | General Progress Note ---
Assessment/Plan Problem List: (1) Back pain ICD Codes: M54.9 - Dorsalgia, unspecified SNOMED: 232498566 (2) CVA (cerebral vascular accident) ICD Codes: I63.9 - Cerebral infarction, unspecified SNOMED: 635106474 (3) Parkinson disease ICD Codes: G20 - Parkinson's disease SNOMED: 45597868 (4) Alcohol abuse ICD Codes: F10.10 - Alcohol abuse, uncomplicated SNOMED: 83040084 (5) Generalized pain ICD Codes: R52 - Pain, unspecified SNOMED: 52614149 (6) Weakness ICD Codes: R53.1 - Weakness SNOMED: 60461330 Status: stable, progressing Assessment/Plan ot pt diet pain control gi eval cbc bmp am brotman aru eval vs snf Subjective Allergies: Coded Allergies: ERYTHROMYCIN BASE (Unverified Allergy, Unknown, 12/15/17) VANCOMYCIN (Verified Allergy, Unknown, 08/01/15) All Systems: reviewed and negative except above Subjective sl anxious c/o gen pain Objective Last 24 Hour Vital Signs Date Time Temp Pulse Resp B/P (MAP) Pulse Ox O2 Delivery O2 Flow Rate FiO2 12/23/17 15:26 97.8 12/23/17 14:56 97.8 12/23/17 12:59 97.8 12/23/17 12:00 97.5 76 20 115/72 (86) 97 97.5 76 12/23/17 12:00 97.8 12/23/17 10:55 97.8 12/23/17 08:02 97.8 73 19 115/71 (86) 98 97.8 12/23/17 08:00 Room Air Room Air 12/23/17 01:19 96.4 12/23/17 00:00 98.4 92 18 115/82 (93) 93 98.4 12/22/17 22:41 98.2 12/22/17 20:00 98.2 79 18 103/58 (73) 95 98.2 12/22/17 20:00 Room Air Room Air 12/22/17 18:33 97.3 12/22/17 15:53 97.3 84 18 111/76 (88) 96 97.3 Intake and Output 12/22/17 12/23/17 19:00 07:00 Intake Total 1560 ml 600 ml Output Total 700 ml 1500 ml Balance 860 ml -900 ml Intake Oral 1560 ml 600 ml Output Urine Total 700 ml 1500 ml # Voids 2 # Bowel Movements 3 Laboratory Tests 12/23/17 07:00: White Blood Count 5.9, Red Blood Count 4.31L, Hemoglobin 14.2, Hematocrit 43.0, Mean Corpuscular Volume 100H, Mean Corpuscular Hemoglobin 32.9H, Mean Corpuscular Hemoglobin Concent 33.0, Red Cell Distribution Width 12.8, Platelet Count 267, Mean Platelet Volume 6.1L, Neutrophils (%) (Auto) 57.8, Lymphocytes ( %) (Auto) 26.5, Monocytes (%) (Auto) 9.7, Eosinophils (%) (Auto) 5.3H, Basophils (%) (Auto) 0.7, Sodium Level 138, Potassium Level 4.3, Chloride Level 102, Carbon Dioxide Level 29, Anion Gap 8, Blood Urea Nitrogen 19H, Creatinine 0.9, Estimat Glomerular Filtration Rate > 60, Glucose Level 104, Calcium Level 8.7 Height (Feet): 5 Height (Inches): 10.00 Weight (Pounds): 174 General Appearance: alert EENT: normal ENT inspection Neck: normal alignment Cardiovascular: normal peripheral pulses, normal rate, regular rhythm Respiratory/Chest: chest wall non-tender, lungs clear, normal breath sounds Abdomen: normal bowel sounds, non tender, soft Extremities: normal inspection Edema: no edema noted Arm (L), no edema noted Arm (R), no edema noted Leg (L), no edema noted Leg (R), no edema noted Pedal (L), no edema noted Pedal (R), no edema noted Generalized Neurologic: responsive, motor weakness Skin: normal pigmentation, warm/dry Krishan Fraire DO Dec 23, 2017 15:47
[2017-12-23 16:00] VITALS: BP 111/74
--- NOTE | 2017-12-23 17:26 | Neurology Progress Note ---
Interim History Interim History Interim History Mr. Mccallum feels unwell. He cannot explain in what way he feels unwell. He says he is in a lot of pain. The strength is about the same. He was able to take a few steps to the bathroom today. He says he was able to sleep fairly well last night. The weakness on his left side is improving. However the left side is still significantly weak. He has been seizure free. The tremor is fairly controlled. He denies any other neurologic symptoms. Review of Systems Neuro Review of Systems Mr. Mccallum feels unwell. Benign. Objective Physical Exam Last Vital Signs Date Time Temp Pulse Resp B/P (MAP) Pulse Ox O2 Delivery O2 Flow Rate FiO2 12/23/17 17:05 98.1 12/23/17 16:00 74 19 111/74 (86) 98 74 12/23/17 08:00 Room Air Room Air Laboratory Tests Test 12/23/17 07:00 White Blood Count 5.9 K/UL (4.8-10.8) Red Blood Count 4.31 M/UL (4.70-6.10) L Hemoglobin 14.2 G/DL (14.2-18.0) Hematocrit 43.0 % (42.0-52.0) Mean Corpuscular Volume 100 FL (80-99) H Mean Corpuscular Hemoglobin 32.9 PG (27.0-31.0) H Mean Corpuscular Hemoglobin Concent 33.0 G/DL (32.0-36.0) Red Cell Distribution Width 12.8 % (11.6-14.8) Platelet Count 267 K/UL (150-450) Mean Platelet Volume 6.1 FL (6.5-10.1) L Neutrophils (%) (Auto) 57.8 % (45.0-75.0) Lymphocytes (%) (Auto) 26.5 % (20.0-45.0) Monocytes (%) (Auto) 9.7 % (1.0-10.0) Eosinophils (%) (Auto) 5.3 % (0.0-3.0) H Basophils (%) (Auto) 0.7 % (0.0-2.0) Sodium Level 138 MMOL/L (136-145) Potassium Level 4.3 MMOL/L (3.5-5.1) Chloride Level 102 MMOL/L (98-107) Carbon Dioxide Level 29 MMOL/L (21-32) Anion Gap 8 mmol/L (5-15) Blood Urea Nitrogen 19 mg/dL (7-18) H Creatinine 0.9 MG/DL (0.55-1.30) Estimat Glomerular Filtration Rate > 60 mL/min (>60) Glucose Level 104 MG/DL (74-106) Calcium Level 8.7 MG/DL (8.5-10.1) Neurologic Exam Objective PHYSICAL EXAMINATION: GENERAL: He is a well-developed, well-nourished, depressed, gentleman , lying in bed, in no acute distress. HEAD: Normocephalic with left frontotemporal craniotomy defect. EENT: Examination benign. NECK: No neck rigidity was observed. NEUROLOGIC EXAMINATION: MENTAL STATUS EXAMINATION: He was awake and alert. He was oriented to person, place, and time. He was able to recall 3/3 words immediately, but could only remember 2/3 words in 1 minute and 3 minutes even on the second trial. He was able to remember presidents Trump through [employer], spontaneously, but needed hints to remember through [employer] senior. His mathematical skills were minimally impaired. His visuospatial function was relatively good. SPEECH: He had no dysarthria. LANGUAGE: He had a mild anomia for low-frequency words. CRANIAL NERVE EXAMINATION: II: The visual kaplan were intact on confrontation testing. III, IV & : The external ocular movements were full and the pupils 3 mm in diameter, equal, round, regular, and reactive to light. V: He had normal facial sensations, and the temporales, masseters, and pterygoids functioned normally. VII: He had a mild right VII central facial paresis. VIII: He was able to hear well bilaterally and had no nystagmus. IX: The palate moved symmetrically on phonation. X: He had no hoarseness of voice. XI: The sternocleidomastoids and trapezii functioned normally. XII: The tongue was in the midline without any fasciculations or atrophy. MOTOR SYSTEM: The tone was normal in all four extremities. Examination of muscle mass revealed no focal wasting. Examination of power revealed G 5/5 power except for G 5-/5 power in the right iliopsoas, and right finger extensors. On the left side he had G 5-/5 power except for G 4+/5 in the left finger extensors, and G 3+/5 in the left iliopsoas. SENSORY EXAMINATION: He had intact sensations to pinprick, light touch, and graphesthesia. COORDINATION: He performed well on [id number] and [id number] testing on the right side - he said he could not do it on the left. REFLEXES: 2+ on the right and 2++ on the left in the biceps, triceps, brachioradialis, and knees, 0 at both ankles. The plantar responses were flexor bilaterally. STANCE & GAIT: Could not be tested because he said he could not stand and walk. ABNORMAL MOVEMENTS: Tremor (4-5 Hz): G Trace/4 in the upper and lower extremities. Rigidity: G 0/4 Bradykinesia: G Tr/4 Hypomimia: G 0/4 Hypophonia: G 0/4. Impression/Recommendations Diagnostic Impression 1. Mr. 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 When he has his seizures, he states that he passes out without any warning and following that, there is a period of confusion. He is uncertain as to what exactly happens after he has passed out and he is also unable to tell us what other people have observed. 2. He was hospitalized on 12/15/17 for new onset left sided weakness. At first he was unable to move the left side completely but now it is better but still weaker than his baseline. He says he was drinking a lot prior to his left side becoming weak. He is uncertain as to whether he had a seizure or not. 3. He feels unwell. He cannot explain in what way he feels unwell. The pain is much worse today. The strength is about the same. He was able to take a few steps to the bathroom yesterday. He says he was able to sleep fairly well last night. The weakness on his left side is improving. However the left side is still significantly weak. He has been seizure free. The tremor is well controlled. He denies any other neurologic symptoms. 4. On neurological examination, at this time, he does demonstrate significant problems with orientation, recent and remote memory, higher cognitive function, and a mild anomia. He does have a mild right VII central facial paresis, and right finger extensor and iliopsoas weakness. On the left side he has G 5-/5 power except for G 4+/5 in the left finger extensors, and G 3+/5 in the left iliopsoas. The deep tendon reflexes are brisker on the left side compared to the right. He is unable to stand and walk as he feels he will fall down. 5. The CT scan of the brain without contrast performed on 12/15/2017 reveals a large area of encephalomalacia in the left frontotemporal region and a craniotomy defect in the left frontotemporal region. 6. The MRI of the brain done on 12/17/17 revealed an acute right temporal infarct. 7. Laboratory data obtained thus far have revealed that his CBC reveals macrocytic indices. His chemistry panel is relatively benign and his serum alcohol level was 96. His urine toxicology was positive for THC and opiates - even though he told me that he has stopped using THC! 8. The cerebro-vascular non-invasive profile is benign. 9. 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 His seizures are not controlled as he is not taking his anticonvulsant and in addition he continues to drink alcohol and possibly uses other illicit drugs. 10. His new left sided weakness is due to an acute right temporal infarct. The weakness is improving. 11. His parkinsonian symptoms are stable and well controlled on his present regimen. Recommendations 1. Continue present management. 2. Continue Sinemet 25/100 - 3 tablets to be taken at 6 a.m., 12 noon, and 6 p.m. 3. Continue Keppra 750 mg at 6 a.m. and 6 p.m. for seizure prophylaxis. 4. PT/OT to mobilize. 5. ASA 81 mg q day. 6. Await echocardiogram with bubble study. 7. Acute rehabilitation for new stroke. Melissa Root M.D., M.S.P.H. MELISSA ROOT Dec 23, 2017 17:26
[2017-12-23] MEDS: Miralax 17gm pkt ORAL SCH (21:00)
[2017-12-24] VITALS (7 sets, daily range): BP systolic 94–122; BP diastolic 65–80
[2017-12-24] MEDS: Morphine Sulfate 4mg/ml Inj IVP PRN ×5 (03:09→20:11)
[2017-12-24] MEDS: Levodopa/Carbidopa 25/100 tab ORAL SCH ×3 (05:49→18:11)
--- NOTE | 2017-12-24 07:40 | Diagnostic Imaging Report ---
APPROVED REPORT CPT Code: 80387 Vascular Symptoms CVA/TIA: CAROTID (BILATERAL) - Imaging reveals no significant plaque within the right and left extracranial carotid arteries. The Doppler spectral flow analysis is within normal limits throughout the extracranial carotid arteries bilaterally. VERTEBRAL- The vertebral arteries are within normal limits.
--- NOTE | 2017-12-24 07:40 | Diagnostic Imaging Report ---
APPROVED REPORT CPT Code: 89902 Present Symptoms Comments: R/O DVT BILATERAL: Imaging reveals a patent deep venous system bilaterally. There is no evidence of thrombus within the femoral, popliteal or tibial segments. The greater saphenous veins are also within normal limits. Doppler indicates normal spontaneous flow within these segments.
[2017-12-24 07:53] LABS: BASOPHILS % (AUTO) 0.8 % (0.0-2.0); EOSINOPHILS % (AUTO) 3.9 % (0.0-3.0); HEMOGLOBIN 14.8 G/DL (14.2-18.0); LYMPHOCYTES % (AUTO) 28.2 % (20.0-45.0); MEAN CORPUSCULAR VOLUME 100 FL (80-99); MONOCYTES % (AUTO) 9.5 % (1.0-10.0); NEUTROPHILS % (AUTO) 57.6 % (45.0-75.0); PLATELET COUNT 297 K/UL (150-450); RED CELL DISTRIBUTION WIDTH 12.7 % (11.6-14.8); WHITE BLOOD COUNT 5.9 K/UL (4.8-10.8)
--- NOTE | 2017-12-24 08:08 | General Progress Note ---
Assessment/Plan Assessment/Plan (1) Parkinson's disease (2) Seizure disorder (3) Alcohol abuse (4) H/o substance abuse (5) Lumbago (6) Insomnia (7) CVA (8) Thalamic pain syndrome Patient to be continued on Ambien, Morphine and Percocet changed to scheduled Q6H hold for oversedation. We will start Dilaudid 2mg PO 1 tab Q4H severe breakthrough pain. We will discontinued Neurontin and start Lyrica 100mg TID. D/w Dr. Mckinley and he concurred. Subjective Date patient seen: Dec 24, 2017 Time patient seen: 07:30 - am Allergies: Coded Allergies: ERYTHROMYCIN BASE (Unverified Allergy, Unknown, 12/15/17) VANCOMYCIN (Verified Allergy, Unknown, 08/01/15) Subjective REVIEW OF SYSTEMS: Denies rash, fever, chills, sweating, dizziness, drowsiness, blurred vision, sore throat, or change in weight. No shortness of breath or chest pain. No nausea, vomiting, diarrhea, or blood in the stool or urine. No bowel or bladder incontinence. No dysuria. C/o Low back pain SUBJECTIVE: Patient is c/o severe pain which has not been tolerated on the Morphine and Percocet. I d/w him about adding Dilaudid tabs and he understands. I explained to patient that his pain is originating from an Neuropathic issue and the need to take neuropathic medications. I d/w him about changing the Neurontin to Lyrica and he understands. Objective Last 24 Hour Vital Signs Date Time Temp Pulse Resp B/P (MAP) Pulse Ox O2 Delivery O2 Flow Rate FiO2 12/24/17 04:00 98.1 71 18 100/65 (77) 96 98.1 12/24/17 00:00 97.6 82 20 113/74 (87) 96 97.6 12/23/17 21:00 Room Air 12/23/17 18:56 98.1 12/23/17 18:04 98.1 12/23/17 17:05 98.1 12/23/17 16:00 98.1 74 19 111/74 (86) 98 98.1 74 12/23/17 15:26 97.8 12/23/17 14:56 97.8 12/23/17 12:00 97.5 76 20 115/72 (86) 97 97.5 76 12/23/17 12:00 97.8 12/23/17 10:55 97.8 Intake and Output 12/23/17 12/24/17 19:00 07:00 Intake Total 2000 ml 240 ml Output Total 1500 ml 800 ml Balance 500 ml -560 ml Intake Oral 2000 ml 240 ml Output Urine Total 1500 ml 800 ml # Voids 5 Laboratory Tests 12/24/17 07:20: White Blood Count 5.9, Red Blood Count 4.50L, Hemoglobin 14.8, Hematocrit 45.0, Mean Corpuscular Volume 100H, Mean Corpuscular Hemoglobin 32.8H, Mean Corpuscular Hemoglobin Concent 32.9, Red Cell Distribution Width 12.7, Platelet Count 297, Mean Platelet Volume 6.1L, Neutrophils (%) (Auto) 57.6, Lymphocytes ( %) (Auto) 28.2, Monocytes (%) (Auto) 9.5, Eosinophils (%) (Auto) 3.9H, Basophils (%) (Auto) 0.8, Sodium Level [Pending], Potassium Level [Pending], Chloride Level [Pending], Carbon Dioxide Level [Pending], Blood Urea Nitrogen [ Pending], Creatinine [Pending], Estimat Glomerular Filtration Rate [Pending], Glucose Level [Pending], Calcium Level [Pending], Phosphorus Level [Pending], Magnesium Level [Pending], Total Bilirubin [Pending], Aspartate Amino Transf ( AST/SGOT) [Pending], Alanine Aminotransferase (ALT/SGPT) [Pending], Alkaline Phosphatase [Pending], Total Protein [Pending], Albumin [Pending], Globulin [ Pending] Height (Feet): 5 Height (Inches): 10.00 Weight (Pounds): 186 Objective GENERAL: AA&O LUNGS: Decreased breath sounds bilaterally. HEART: S1 S2 Regular. ABDOMEN: Benign. EXTREMITIES: No cyanosis. No clubbing. No edema. NEURO: No changes. Itz Donald Dec 24, 2017 08:08
[2017-12-24 08:19] LABS: ALANINE AMINOTRANSFERASE 11 U/L (12-78); ALBUMIN 3.3 G/DL (3.4-5.0); ALKALINE PHOSPHATASE 75 U/L (46-116); ANION GAP 6 mmol/L (5-15); ASPARTATE AMINO TRANSFERASE 14 U/L (15-37); BILIRUBIN,TOTAL 0.3 MG/DL (0.2-1.0); BLOOD UREA NITROGEN 21 mg/dL (7-18); CALCIUM 8.9 MG/DL (8.5-10.1); CARBON DIOXIDE 29 MMOL/L (21-32); CHLORIDE 104 MMOL/L (98-107); PHOSPHORUS 3.7 MG/DL (2.5-4.9); POTASSIUM 4.2 MMOL/L (3.5-5.1); SODIUM 139 MMOL/L (136-145)
[2017-12-24] MEDS: Docusate 100mg cap ORAL SCH ×4 (09:02→17:22)
[2017-12-24] MEDS: Aspirin Baby 81mg ORAL SCH (09:03)
[2017-12-24] MEDS: Lyrica 50mg cap ORAL SCH ×3 (09:03→17:22)
[2017-12-24] MEDS: HYDROmorphone 2mg tab ORAL PRN ×4 (09:04→21:54)
--- NOTE | 2017-12-24 13:41 | GI Progress Note ---
Assessment/Plan Problems: (1) CVA (cerebral vascular accident) ICD Codes: I63.9 - Cerebral infarction, unspecified SNOMED: 250934280 (2) Weakness ICD Codes: R53.1 - Weakness SNOMED: 14466136 (3) Parkinson disease ICD Codes: G20 - Parkinson's disease SNOMED: 13412522 (4) Alcohol abuse ICD Codes: F10.10 - Alcohol abuse, uncomplicated SNOMED: 59379673 (5) Chronic pain ICD Codes: G89.29 - Other chronic pain SNOMED: 71213711 (6) Hemiparesis ICD Codes: G81.90 - Hemiplegia, unspecified affecting unspecified side SNOMED: 99669592 (7) Drug-seeking behavior ICD Codes: Z76.5 - Malingerer [conscious simulation] SNOMED: 015254066 Status: stable Status Narrative Discussed with Dr. Pierson. Assessment/Plan dc planning symptomatic treatment / supportive care pain mgmt zofran prn prn transfusions ppi MVI/folate bowel regime titrate fu labs outpatient GI procedures The patient was seen and examined at bedside and all new and available data was reviewed in the patients chart. I agree with the above findings, impression and plan. (Patient seen earlier today. Signature stamp does not reflect patient encounter time.). - Justin Pierson MD Subjective Subjective generalized pain Objective Last 24 Hour Vital Signs Date Time Temp Pulse Resp B/P (MAP) Pulse Ox O2 Delivery O2 Flow Rate FiO2 12/24/17 13:06 97.3 73 18 112/76 (88) 95 97.3 12/24/17 12:30 97.3 73 18 112/76 (88) 95 97.3 12/24/17 09:00 Room Air 12/24/17 08:00 98.9 67 18 122/80 (94) 97 98.9 12/24/17 04:00 98.1 71 18 100/65 (77) 96 98.1 12/24/17 00:00 97.6 82 20 113/74 (87) 96 97.6 12/23/17 21:00 Room Air 12/23/17 18:56 98.1 12/23/17 18:04 98.1 12/23/17 17:05 98.1 12/23/17 16:00 98.1 74 19 111/74 (86) 98 98.1 74 7/24/18 15:26 97.8 12/23/17 14:56 97.8 Intake and Output 12/23/17 12/24/17 19:00 07:00 Intake Total 2000 ml 240 ml Output Total 1500 ml 800 ml Balance 500 ml -560 ml Intake Oral 2000 ml 240 ml Output Urine Total 1500 ml 800 ml # Voids 5 Laboratory Tests Test 12/24/17 07:20 White Blood Count 5.9 K/UL (4.8-10.8) Red Blood Count 4.50 M/UL (4.70-6.10) L Hemoglobin 14.8 G/DL (14.2-18.0) Hematocrit 45.0 % (42.0-52.0) Mean Corpuscular Volume 100 FL (80-99) H Mean Corpuscular Hemoglobin 32.8 PG (27.0-31.0) H Mean Corpuscular Hemoglobin Concent 32.9 G/DL (32.0-36.0) Red Cell Distribution Width 12.7 % (11.6-14.8) Platelet Count 297 K/UL (150-450) Mean Platelet Volume 6.1 FL (6.5-10.1) L Neutrophils (%) (Auto) 57.6 % (45.0-75.0) Lymphocytes (%) (Auto) 28.2 % (20.0-45.0) Monocytes (%) (Auto) 9.5 % (1.0-10.0) Eosinophils (%) (Auto) 3.9 % (0.0-3.0) H Basophils (%) (Auto) 0.8 % (0.0-2.0) Sodium Level 139 MMOL/L (136-145) Potassium Level 4.2 MMOL/L (3.5-5.1) Chloride Level 104 MMOL/L (98-107) Carbon Dioxide Level 29 MMOL/L (21-32) Anion Gap 6 mmol/L (5-15) Blood Urea Nitrogen 21 mg/dL (7-18) H Creatinine 1.0 MG/DL (0.55-1.30) Estimat Glomerular Filtration Rate > 60 mL/min (>60) Glucose Level 106 MG/DL (74-106) Calcium Level 8.9 MG/DL (8.5-10.1) Phosphorus Level 3.7 MG/DL (2.5-4.9) Magnesium Level 1.7 MG/DL (1.8-2.4) L Total Bilirubin 0.3 MG/DL (0.2-1.0) Aspartate Amino Transf (AST/SGOT) 14 U/L (15-37) L Alanine Aminotransferase (ALT/SGPT) 11 U/L (12-78) L Alkaline Phosphatase 75 U/L (46-116) Total Protein 6.5 G/DL (6.4-8.2) Albumin 3.3 G/DL (3.4-5.0) L Globulin 3.2 g/dL Albumin/Globulin Ratio 1.0 (1.0-2.7) Height (Feet): 5 Height (Inches): 10.00 Weight (Pounds): 186 General Appearance: WD/WN, no apparent distress, alert Cardiovascular: normal rate Respiratory/Chest: normal breath sounds, no respiratory distress Abdominal Exam: normal bowel sounds, non tender, soft Extremities: normal range of motion, non-tender Moises Deng NP Dec 24, 2017 13:41
--- NOTE | 2017-12-24 14:06 | Pulmonology Progress Note ---
Assessment/Plan Problems: (1) Acute alcoholic intoxication (2) Acute CVA (cerebrovascular accident) (3) History of craniotomy (4) Parkinson disease (5) History of CVA (cerebrovascular accident) (6) Hemiparesis Assessment/Plan feeling better wants to get stronger symptomatic treatment check electrolytes no seizures less tremor Subjective ROS Limited/Unobtainable: No Constitutional: Reports: no symptoms HEENT: Repors: no symptoms Allergies: Coded Allergies: ERYTHROMYCIN BASE (Unverified Allergy, Unknown, 12/15/17) VANCOMYCIN (Verified Allergy, Unknown, 08/01/15) Objective Last 24 Hour Vital Signs Date Time Temp Pulse Resp B/P (MAP) Pulse Ox O2 Delivery O2 Flow Rate FiO2 12/24/17 13:06 97.3 73 18 112/76 (88) 95 97.3 12/24/17 12:30 97.3 73 18 112/76 (88) 95 97.3 12/24/17 09:00 Room Air 12/24/17 08:00 98.9 67 18 122/80 (94) 97 98.9 12/24/17 04:00 98.1 71 18 100/65 (77) 96 98.1 12/24/17 00:00 97.6 82 20 113/74 (87) 96 97.6 12/23/17 21:00 Room Air 12/23/17 18:56 98.1 12/23/17 18:04 98.1 12/23/17 17:05 98.1 12/23/17 16:00 98.1 74 19 111/74 (86) 98 98.1 74 12/23/17 15:26 97.8 12/23/17 14:56 97.8 Intake and Output 12/23/17 12/24/17 19:00 07:00 Intake Total 2000 ml 240 ml Output Total 1500 ml 800 ml Balance 500 ml -560 ml Intake Oral 2000 ml 240 ml Output Urine Total 1500 ml 800 ml # Voids 5 General Appearance: WD/WN HEENT: normocephalic Respiratory/Chest: chest wall non-tender, normal breath sounds Cardiovascular: normal peripheral pulses, regular rhythm Abdomen: soft, non tender Genitourinary: normal external genitalia Skin: no rash Neurologic/Psychiatric: 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 grossly normal Laboratory Tests 12/24/17 07:20: White Blood Count 5.9, Red Blood Count 4.50L, Hemoglobin 14.8, Hematocrit 45.0, Mean Corpuscular Volume 100H, Mean Corpuscular Hemoglobin 32.8H, Mean Corpuscular Hemoglobin Concent 32.9, Red Cell Distribution Width 12.7, Platelet Count 297, Mean Platelet Volume 6.1L, Neutrophils (%) (Auto) 57.6, Lymphocytes ( %) (Auto) 28.2, Monocytes (%) (Auto) 9.5, Eosinophils (%) (Auto) 3.9H, Basophils (%) (Auto) 0.8, Sodium Level 139, Potassium Level 4.2, Chloride Level 104, Carbon Dioxide Level 29, Anion Gap 6, Blood Urea Nitrogen 21H, Creatinine 1.0, Estimat Glomerular Filtration Rate > 60, Glucose Level 106, Calcium Level 8.9, Phosphorus Level 3.7, Magnesium Level 1.7L, Total Bilirubin 0.3, Aspartate Amino Transf (AST/SGOT) 14L, Alanine Aminotransferase (ALT/SGPT) 11L, Alkaline Phosphatase 75, Total Protein 6.5, Albumin 3.3L, Globulin 3.2, Albumin/Globulin Ratio 1.0 Current Medications Medications (Trade) Dose Ordered Sig/Job Route PRN Reason Start Time Stop Time Status Last Admin Dose Admin Acetaminophen (Tylenol) 650 mg Q4H PRN ORAL T>100.5 12/17/17 21:45 01/14/18 21:31 Al Hydroxide/Mg Hydroxide (Mylanta II) 30 ml Q6H PRN ORAL dyspepsia 12/17/17 21:45 01/14/18 21:32 Aspirin (ASA) 81 mg DAILY ORAL 12/18/17 09:00 01/16/18 17:59 12/24/17 09:03 Carbidopa/Levodopa (Sinemet 25/100) 3 tab TID@0600,1200,1800 ORAL 12/18/17 06:00 01/16/18 05:59 12/24/17 13:06 Dextrose (Dextrose 50%) 25 ml STAT PRN IV Hypoglycemia 12/17/17 21:45 01/14/18 21:32 Dextrose (Dextrose 50%) 50 ml STAT PRN IV Hypoglycemia 12/17/17 21:45 01/14/18 21:32 Docusate Sodium (Colace) 100 mg THREE TIMES A DAY ORAL 12/18/17 09:00 01/16/18 09:59 12/24/17 09:02 Hydromorphone HCl (Dilaudid) 2 mg Q4H PRN ORAL breakthrough pain 12/24/17 08:15 12/31/17 08:14 12/24/17 13:06 Levetiracetam (Keppra) 750 mg Q12HR ORAL 12/17/17 21:00 01/15/18 20:59 12/24/17 09:02 Morphine Sulfate (Morphine Sulfate) 4 mg Q4H PRN IVP severe pain 12/24/17 08:44 12/28/17 08:43 12/24/17 11:28 Ondansetron HCl (Zofran) 4 mg Q6H PRN IVP Nausea & Vomiting 12/17/17 21:00 01/14/18 20:59 Oxycodone/ Acetaminophen (Percocet 10/325) 1 tab Q6H ORAL 12/24/17 09:00 12/31/17 08:59 12/24/17 09:35 Polyethylene Glycol (Miralax) 17 gm BEDTIME ORAL 12/18/17 21:00 01/17/18 20:59 12/22/17 20:26 Polyethylene Glycol (Miralax) 17 gm HSPRN PRN ORAL Constipation 12/17/17 22:00 01/14/18 21:59 Pregabalin (Lyrica) 100 mg THREE TIMES A DAY ORAL 12/24/17 09:00 01/23/18 08:59 12/24/17 13:05 Zolpidem Tartrate (Ambien) 5 mg HSPRN PRN ORAL Insomnia 12/22/17 21:00 12/27/17 20:59 Cash Lorenzo MD Dec 24, 2017 14:06
--- NOTE | 2017-12-24 14:20 | General Progress Note ---
Assessment/Plan Problem List: (1) Back pain ICD Codes: M54.9 - Dorsalgia, unspecified SNOMED: 583774992 (2) CVA (cerebral vascular accident) ICD Codes: I63.9 - Cerebral infarction, unspecified SNOMED: 838129499 (3) Parkinson disease ICD Codes: G20 - Parkinson's disease SNOMED: 73109946 (4) Alcohol abuse ICD Codes: F10.10 - Alcohol abuse, uncomplicated SNOMED: 18975492 (5) Generalized pain ICD Codes: R52 - Pain, unspecified SNOMED: 84745280 (6) Weakness ICD Codes: R53.1 - Weakness SNOMED: 72554787 Status: stable, progressing Assessment/Plan ot pt diet pain control gi eval dc to snf if clear Subjective Constitutional: Reports: weakness Allergies: Coded Allergies: ERYTHROMYCIN BASE (Unverified Allergy, Unknown, 12/15/17) VANCOMYCIN (Verified Allergy, Unknown, 08/01/15) All Systems: reviewed and negative except above Subjective sl anxious c/o gen pain Objective Last 24 Hour Vital Signs Date Time Temp Pulse Resp B/P (MAP) Pulse Ox O2 Delivery O2 Flow Rate FiO2 12/24/17 13:06 97.3 73 18 112/76 (88) 95 97.3 12/24/17 12:30 97.3 73 18 112/76 (88) 95 97.3 12/24/17 09:00 Room Air 12/24/17 08:00 98.9 67 18 122/80 (94) 97 98.9 12/24/17 04:00 98.1 71 18 100/65 (77) 96 98.1 12/24/17 00:00 97.6 82 20 113/74 (87) 96 97.6 12/23/17 21:00 Room Air 12/23/17 18:56 98.1 12/23/17 18:04 98.1 12/23/17 17:05 98.1 12/23/17 16:00 98.1 74 19 111/74 (86) 98 98.1 74 12/23/17 15:26 97.8 12/23/17 14:56 97.8 Intake and Output 12/23/17 12/24/17 19:00 07:00 Intake Total 2000 ml 240 ml Output Total 1500 ml 800 ml Balance 500 ml -560 ml Intake Oral 2000 ml 240 ml Output Urine Total 1500 ml 800 ml # Voids 5 Laboratory Tests 12/24/17 07:20: White Blood Count 5.9, Red Blood Count 4.50L, Hemoglobin 14.8, Hematocrit 45.0, Mean Corpuscular Volume 100H, Mean Corpuscular Hemoglobin 32.8H, Mean Corpuscular Hemoglobin Concent 32.9, Red Cell Distribution Width 12.7, Platelet Count 297, Mean Platelet Volume 6.1L, Neutrophils (%) (Auto) 57.6, Lymphocytes ( %) (Auto) 28.2, Monocytes (%) (Auto) 9.5, Eosinophils (%) (Auto) 3.9H, Basophils (%) (Auto) 0.8, Sodium Level 139, Potassium Level 4.2, Chloride Level 104, Carbon Dioxide Level 29, Anion Gap 6, Blood Urea Nitrogen 21H, Creatinine 1.0, Estimat Glomerular Filtration Rate > 60, Glucose Level 106, Calcium Level 8.9, Phosphorus Level 3.7, Magnesium Level 1.7L, Total Bilirubin 0.3, Aspartate Amino Transf (AST/SGOT) 14L, Alanine Aminotransferase (ALT/SGPT) 11L, Alkaline Phosphatase 75, Total Protein 6.5, Albumin 3.3L, Globulin 3.2, Albumin/Globulin Ratio 1.0 Height (Feet): 5 Height (Inches): 10.00 Weight (Pounds): 186 General Appearance: lethargic EENT: normal ENT inspection Neck: normal alignment Cardiovascular: normal peripheral pulses, normal rate, regular rhythm Respiratory/Chest: chest wall non-tender, lungs clear, normal breath sounds Abdomen: normal bowel sounds, non tender, soft Extremities: normal inspection Edema: no edema noted Arm (L), no edema noted Arm (R), no edema noted Leg (L), no edema noted Leg (R), no edema noted Pedal (L), no edema noted Pedal (R), no edema noted Generalized Neurologic: responsive, motor weakness Skin: normal pigmentation, warm/dry Krishan Fraire DO Dec 24, 2017 14:20
--- NOTE | 2017-12-24 17:25 | Neurology Progress Note ---
Interim History Interim History Interim History Mr. Mccallum feels better today. He is more comfortable today. The pain is better. The strength is also better. He was able to walk with the therapists today. He says he was able to sleep fairly well last night. The weakness on his left side is definitely better. However the left side is still weak. He has been seizure free. The tremor is fairly well controlled. He denies any other neurologic symptoms. Review of Systems Neuro Review of Systems Benign. Objective Physical Exam Last Vital Signs Date Time Temp Pulse Resp B/P (MAP) Pulse Ox O2 Delivery O2 Flow Rate FiO2 12/24/17 13:06 97.3 73 18 112/76 (88) 95 97.3 12/24/17 09:00 Room Air Laboratory Tests Test 12/24/17 07:20 White Blood Count 5.9 K/UL (4.8-10.8) Red Blood Count 4.50 M/UL (4.70-6.10) L Hemoglobin 14.8 G/DL (14.2-18.0) Hematocrit 45.0 % (42.0-52.0) Mean Corpuscular Volume 100 FL (80-99) H Mean Corpuscular Hemoglobin 32.8 PG (27.0-31.0) H Mean Corpuscular Hemoglobin Concent 32.9 G/DL (32.0-36.0) Red Cell Distribution Width 12.7 % (11.6-14.8) Platelet Count 297 K/UL (150-450) Mean Platelet Volume 6.1 FL (6.5-10.1) L Neutrophils (%) (Auto) 57.6 % (45.0-75.0) Lymphocytes (%) (Auto) 28.2 % (20.0-45.0) Monocytes (%) (Auto) 9.5 % (1.0-10.0) Eosinophils (%) (Auto) 3.9 % (0.0-3.0) H Basophils (%) (Auto) 0.8 % (0.0-2.0) Sodium Level 139 MMOL/L (136-145) Potassium Level 4.2 MMOL/L (3.5-5.1) Chloride Level 104 MMOL/L (98-107) Carbon Dioxide Level 29 MMOL/L (21-32) Anion Gap 6 mmol/L (5-15) Blood Urea Nitrogen 21 mg/dL (7-18) H Creatinine 1.0 MG/DL (0.55-1.30) Estimat Glomerular Filtration Rate > 60 mL/min (>60) Glucose Level 106 MG/DL (74-106) Calcium Level 8.9 MG/DL (8.5-10.1) Phosphorus Level 3.7 MG/DL (2.5-4.9) Magnesium Level 1.7 MG/DL (1.8-2.4) L Total Bilirubin 0.3 MG/DL (0.2-1.0) Aspartate Amino Transf (AST/SGOT) 14 U/L (15-37) L Alanine Aminotransferase (ALT/SGPT) 11 U/L (12-78) L Alkaline Phosphatase 75 U/L (46-116) Total Protein 6.5 G/DL (6.4-8.2) Albumin 3.3 G/DL (3.4-5.0) L Globulin 3.2 g/dL Albumin/Globulin Ratio 1.0 (1.0-2.7) Neurologic Exam Objective PHYSICAL EXAMINATION: GENERAL: He is a well-developed, well-nourished, depressed, gentleman , lying in bed, in no acute distress. HEAD: Normocephalic with left frontotemporal craniotomy defect. EENT: Examination benign. NECK: No neck rigidity was observed. NEUROLOGIC EXAMINATION: MENTAL STATUS EXAMINATION: He was awake and alert. He was oriented to person, place, and time. He was able to recall 3/3 words immediately, but could only remember 2/3 words in 1 minute and 3 minutes even on the second trial. He was able to remember presidents Trump through [employer], spontaneously, but needed hints to remember through [employer] [facility]. His mathematical skills were minimally impaired. His visuospatial function was relatively good. SPEECH: He had no dysarthria. LANGUAGE: He had a mild anomia for low-frequency words. CRANIAL NERVE EXAMINATION: II: The visual kaplan were intact on confrontation testing. III, IV & : The external ocular movements were full and the pupils 3 mm in diameter, equal, round, regular, and reactive to light. V: He had normal facial sensations, and the temporales, masseters, and pterygoids functioned normally. VII: He had a mild right VII central facial paresis. VIII: He was able to hear well bilaterally and had no nystagmus. IX: The palate moved symmetrically on phonation. X: He had no hoarseness of voice. XI: The sternocleidomastoids and trapezii functioned normally. XII: The tongue was in the midline without any fasciculations or atrophy. MOTOR SYSTEM: The tone was normal in all four extremities. Examination of muscle mass revealed no focal wasting. Examination of power revealed G 5/5 power except for G 5-/5 power in the right iliopsoas, and right finger extensors. On the left side he had G 5-/5 power except for G 4++/5 in the left finger extensors, and G 3+/5 in the left iliopsoas. SENSORY EXAMINATION: He had intact sensations to pinprick, light touch, and graphesthesia. COORDINATION: He performed well on [id number] and [id number] testing on the right side - he said he could not do it on the left. REFLEXES: 2+ on the right and 2++ on the left in the biceps, triceps, brachioradialis, and knees, 0 at both ankles. The plantar responses were flexor bilaterally. STANCE & GAIT: He stood up and walked with support on the right. ABNORMAL MOVEMENTS: Tremor (4-5 Hz): G Trace/4 in the upper and lower extremities. Rigidity: G 0/4 Bradykinesia: G Tr/4 Hypomimia: G 0/4 Hypophonia: G 0/4. Impression/Recommendations Diagnostic Impression 1. Mr. 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 When he has his seizures, he states that he passes out without any warning and following that, there is a period of confusion. He is uncertain as to what exactly happens after he has passed out and he is also unable to tell us what other people have observed. 2. He was hospitalized on 12/15/17 for new onset left sided weakness. At first he was unable to move the left side completely but now it is better but still weaker than his baseline. He says he was drinking a lot prior to his left side becoming weak. He is uncertain as to whether he had a seizure or not. 3. He feels better. He is more comfortable. The pain is better. The strength is also better. He was able to walk with the therapists today. He says he was able to sleep fairly well last night. The weakness on his left side is definitely better. However the left side is still weak. He has been seizure free. The tremor is fairly well controlled. He denies any other neurologic symptoms. 4. On neurological examination, at this time, he does demonstrate significant problems with orientation, recent and remote memory, higher cognitive function, and a mild anomia. He does have a mild right VII central facial paresis, and right finger extensor and iliopsoas weakness. On the left side he has G 5-/5 power except for G 4++/5 in the left finger extensors, and G 3+/5 in the left iliopsoas. The deep tendon reflexes are brisker on the left side compared to the right. He is able to stand and walk with support on the right. 5. The CT scan of the brain without contrast performed on 12/15/2017 reveals a large area of encephalomalacia in the left frontotemporal region and a craniotomy defect in the left frontotemporal region. 6. The MRI of the brain done on 12/17/17 revealed an acute right temporal infarct. 7. Laboratory data obtained thus far have revealed that his CBC reveals macrocytic indices. His chemistry panel is relatively benign and his serum alcohol level was 96. His urine toxicology was positive for THC and opiates - even though he told me that he has stopped using THC! 8. The cerebro-vascular non-invasive profile is benign. 9. 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 His seizures are not controlled as he is not taking his anticonvulsant and in addition he continues to drink alcohol and possibly uses other illicit drugs. 10. His new left sided weakness is due to an acute right temporal infarct. The weakness is improving. 11. His parkinsonian symptoms are stable and well controlled on his present regimen. Recommendations 1. Continue present management. 2. Continue Sinemet 25/100 - 3 tablets to be taken at 6 a.m., 12 noon, and 6 p.m. 3. Continue Keppra 750 mg at 6 a.m. and 6 p.m. for seizure prophylaxis. 4. PT/OT to mobilize. 5. ASA 81 mg q day. 6. Await echocardiogram with bubble study. 7. Acute rehabilitation for new stroke. Melissa Root M.D., M.S.P.H. MELISSA ROOT Dec 24, 2017 17:25
[2017-12-24] MEDS: Miralax 17gm pkt ORAL SCH (20:11)
[2017-12-25] VITALS: BP 103/63
[2017-12-25] MEDS: Morphine Sulfate 4mg/ml Inj IVP PRN ×3 (00:03→12:27)
[2017-12-25] MEDS: HYDROmorphone 2mg tab ORAL PRN ×4 (02:50→21:06)
[2017-12-25 04:00] VITALS: BP 130/86
[2017-12-25] MEDS: Levodopa/Carbidopa 25/100 tab ORAL SCH ×3 (05:25→18:10)
[2017-12-25 08:00] VITALS: BP 110/74
[2017-12-25] MEDS: Docusate 100mg cap ORAL SCH ×4 (08:45→18:00)
[2017-12-25] MEDS: Aspirin Baby 81mg ORAL SCH (08:46)
[2017-12-25] MEDS: Lyrica 50mg cap ORAL SCH ×3 (08:46→18:11)
[2017-12-25 12:00] VITALS: BP 103/70
--- NOTE | 2017-12-25 13:43 | General Progress Note ---
Assessment/Plan Problem List: (1) Back pain ICD Codes: M54.9 - Dorsalgia, unspecified SNOMED: 980495351 (2) CVA (cerebral vascular accident) ICD Codes: I63.9 - Cerebral infarction, unspecified SNOMED: 079739327 (3) Parkinson disease ICD Codes: G20 - Parkinson's disease SNOMED: 03501462 (4) Alcohol abuse ICD Codes: F10.10 - Alcohol abuse, uncomplicated SNOMED: 24902850 (5) Generalized pain ICD Codes: R52 - Pain, unspecified SNOMED: 68860002 (6) Weakness ICD Codes: R53.1 - Weakness SNOMED: 40650165 Status: stable, progressing Assessment/Plan ot pt diet pain control gi eval cbc bmp am dc to snf if clear Subjective Constitutional: Reports: weakness Allergies: Coded Allergies: ERYTHROMYCIN BASE (Unverified Allergy, Unknown, 12/15/17) VANCOMYCIN (Verified Allergy, Unknown, 08/01/15) All Systems: reviewed and negative except above Subjective sl anxious c/o gen pain Objective Last 24 Hour Vital Signs Date Time Temp Pulse Resp B/P (MAP) Pulse Ox O2 Delivery O2 Flow Rate FiO2 12/25/17 12:00 97.8 73 20 103/70 (81) 94 97.8 12/25/17 09:00 Room Air 12/25/17 08:00 97.5 87 22 110/74 (86) 100 97.5 12/25/17 05:24 96.3 12/25/17 04:00 96.3 71 20 130/86 (101) 96 96.3 12/25/17 00:33 97.7 12/25/17 00:00 97.5 70 20 103/63 (76) 95 97.5 12/24/17 21:54 97.7 12/24/17 21:00 Room Air 12/24/17 20:07 97.7 72 20 119/76 (90) 96 97.7 12/24/17 16:00 98.2 64 18 94/65 (75) 95 98.2 Intake and Output 12/24/17 12/25/17 19:00 07:00 Intake Total 600 ml Output Total 500 ml Balance 600 ml -500 ml Other 600 ml Output Urine Total 500 ml # Voids 3 5 # Bowel Movements 1 Height (Feet): 5 Height (Inches): 10.00 Weight (Pounds): 186 General Appearance: lethargic EENT: normal ENT inspection Neck: normal alignment Cardiovascular: normal peripheral pulses, normal rate, regular rhythm Respiratory/Chest: chest wall non-tender, lungs clear, normal breath sounds Abdomen: normal bowel sounds, non tender, soft Extremities: normal inspection Edema: no edema noted Arm (L), no edema noted Arm (R), no edema noted Leg (L), no edema noted Leg (R), no edema noted Pedal (L), no edema noted Pedal (R), no edema noted Generalized Neurologic: motor weakness Skin: normal pigmentation, warm/dry Krishan Fraire DO Dec 25, 2017 13:43
--- NOTE | 2017-12-25 14:37 | GI Progress Note ---
Assessment/Plan Problems: (1) CVA (cerebral vascular accident) ICD Codes: I63.9 - Cerebral infarction, unspecified SNOMED: 071469720 (2) Weakness ICD Codes: R53.1 - Weakness SNOMED: 26536939 (3) Parkinson disease ICD Codes: G20 - Parkinson's disease SNOMED: 86061670 (4) Alcohol abuse ICD Codes: F10.10 - Alcohol abuse, uncomplicated SNOMED: 73109760 (5) Chronic pain ICD Codes: G89.29 - Other chronic pain SNOMED: 03360568 (6) Hemiparesis ICD Codes: G81.90 - Hemiplegia, unspecified affecting unspecified side SNOMED: 48028144 (7) Drug-seeking behavior ICD Codes: Z76.5 - Malingerer [conscious simulation] SNOMED: 055859529 Status: stable Status Narrative Discussed with Dr. Pierson. Assessment/Plan dc planning symptomatic treatment / supportive care pain mgmt zofran prn prn transfusions ppi MVI/folate bowel regime titrate fu labs outpatient GI procedures The patient was seen and examined at bedside and all new and available data was reviewed in the patients chart. I agree with the above findings, impression and plan. (Patient seen earlier today. Signature stamp does not reflect patient encounter time.). - Justin Pierson MD Subjective Subjective generalized pain Objective Last 24 Hour Vital Signs Date Time Temp Pulse Resp B/P (MAP) Pulse Ox O2 Delivery O2 Flow Rate FiO2 12/25/17 12:00 97.8 73 20 103/70 (81) 94 97.8 12/25/17 09:00 Room Air 12/25/17 08:00 97.5 87 22 110/74 (86) 100 97.5 12/25/17 05:24 96.3 12/25/17 04:00 96.3 71 20 130/86 (101) 96 96.3 12/25/17 00:33 97.7 12/25/17 00:00 97.5 70 20 103/63 (76) 95 97.5 12/24/17 21:54 97.7 12/24/17 21:00 Room Air 12/24/17 20:07 97.7 72 20 119/76 (90) 96 97.7 12/24/17 16:00 98.2 64 18 94/65 (75) 95 98.2 Intake and Output 12/24/17 12/25/17 19:00 07:00 Intake Total 600 ml Output Total 500 ml Balance 600 ml -500 ml Other 600 ml Output Urine Total 500 ml # Voids 3 5 # Bowel Movements 1 Height (Feet): 5 Height (Inches): 10.00 Weight (Pounds): 186 General Appearance: WD/WN, no apparent distress, alert Cardiovascular: normal rate Respiratory/Chest: normal breath sounds, no respiratory distress Abdominal Exam: normal bowel sounds, non tender, soft Extremities: normal range of motion, non-tender Mioses Deng NP Dec 25, 2017 14:37
--- NOTE | 2017-12-25 16:48 | General Progress Note ---
Assessment/Plan Assessment/Plan (1) Parkinson's disease (2) Seizure disorder (3) Alcohol abuse (4) H/o substance abuse (5) Lumbago (6) Insomnia (7) CVA (8) Thalamic pain syndrome Patient to be continued on Lyrica, Ambien and Percocet. We will change the Dilaudid to 4 mg PO 1 tab Q4H severe pain. We will discontinue the Morphine. D/w Dr. Mckinley and he concurred. Subjective Date patient seen: Dec 25, 2017 Time patient seen: 03:30 - pm Allergies: Coded Allergies: ERYTHROMYCIN BASE (Unverified Allergy, Unknown, 12/15/17) VANCOMYCIN (Verified Allergy, Unknown, 08/01/15) Subjective REVIEW OF SYSTEMS: Denies rash, fever, chills, sweating, dizziness, drowsiness, blurred vision, sore throat, or change in weight. No shortness of breath or chest pain. No nausea, vomiting, diarrhea, or blood in the stool or urine. No bowel or bladder incontinence. No dysuria. C/o Low back pain SUBJECTIVE: Patient reports that his pain had been well controlled yesterday on the medications, however today he has been having difficulty due to when and how the medications were being administered. I d/w him about discontinuing the Morphine and increasing the Dilaudid to 4mg so he shouldn't have a difficultly in getting the medications. He understands. Objective Last 24 Hour Vital Signs Date Time Temp Pulse Resp B/P (MAP) Pulse Ox O2 Delivery O2 Flow Rate FiO2 12/25/17 12:00 97.8 73 20 103/70 (81) 94 97.8 12/25/17 09:00 Room Air 12/25/17 08:00 97.5 87 22 110/74 (86) 100 97.5 12/25/17 05:24 96.3 12/25/17 04:00 96.3 71 20 130/86 (101) 96 96.3 12/25/17 00:33 97.7 12/25/17 00:00 97.5 70 20 103/63 (76) 95 97.5 12/24/17 21:54 97.7 12/24/17 21:00 Room Air 12/24/17 20:07 97.7 72 20 119/76 (90) 96 97.7 Intake and Output 12/24/17 12/25/17 19:00 07:00 Intake Total 600 ml Output Total 500 ml Balance 600 ml -500 ml Other 600 ml Output Urine Total 500 ml # Voids 3 5 # Bowel Movements 1 Height (Feet): 5 Height (Inches): 10.00 Weight (Pounds): 186 Objective GENERAL: AA&O LUNGS: Decreased breath sounds bilaterally. HEART: S1 S2 Regular. ABDOMEN: Benign. EXTREMITIES: No cyanosis. No clubbing. No edema. NEURO: No changes. Itz Donald Dec 25, 2017 16:48
--- NOTE | 2017-12-25 17:34 | Neurology Progress Note ---
Interim History Interim History Interim History Mr. Mccallum feels better. He is more comfortable. The pain is more tolerable. The strength is better. He was able to walk on his own today. He says he was able to sleep fairly well last night. The weakness on his left side is definitely better. However the left side is still weak. He has been seizure free. The tremor is fairly well controlled. He denies any new neurologic symptoms. Review of Systems Neuro Review of Systems Benign. Objective Physical Exam Last Vital Signs Date Time Temp Pulse Resp B/P (MAP) Pulse Ox O2 Delivery O2 Flow Rate FiO2 12/25/17 12:00 97.8 73 20 103/70 (81) 94 97.8 12/25/17 09:00 Room Air Neurologic Exam Objective PHYSICAL EXAMINATION: GENERAL: He is a well-developed, well-nourished, depressed, gentleman , lying in bed, in no acute distress. HEAD: Normocephalic with left frontotemporal craniotomy defect. EENT: Examination benign. NECK: No neck rigidity was observed. NEUROLOGIC EXAMINATION: MENTAL STATUS EXAMINATION: He was awake and alert. He was oriented to person, place, and time. He was able to recall 3/3 words immediately, but could only remember 2/3 words in 1 minute and 3 minutes even on the second trial. He was able to remember presidents Trump through [employer], spontaneously, but needed hints to remember through G[employer] senior. His mathematical skills were minimally impaired. His visuospatial function was relatively good. SPEECH: He had no dysarthria. LANGUAGE: He had a mild anomia for low-frequency words. CRANIAL NERVE EXAMINATION: II: The visual kaplan were intact on confrontation testing. III, IV & : The external ocular movements were full and the pupils 3 mm in diameter, equal, round, regular, and reactive to light. V: He had normal facial sensations, and the temporales, masseters, and pterygoids functioned normally. VII: He had a mild right VII central facial paresis. VIII: He was able to hear well bilaterally and had no nystagmus. IX: The palate moved symmetrically on phonation. X: He had no hoarseness of voice. XI: The sternocleidomastoids and trapezii functioned normally. XII: The tongue was in the midline without any fasciculations or atrophy. MOTOR SYSTEM: The tone was normal in all four extremities. Examination of muscle mass revealed no focal wasting. Examination of power revealed G 5/5 power except for G 5-/5 power in the right iliopsoas, and right finger extensors. On the left side he had G 5-/5 power except for G 4++/5 in the left finger extensors, and G 3+/5 in the left iliopsoas. SENSORY EXAMINATION: He had intact sensations to pinprick, light touch, and graphesthesia. COORDINATION: He performed well on nyifgw-ju-pcqu and fgfc-bt-ebpi testing on the right side - he said he could not do it on the left. REFLEXES: 2+ on the right and 2++ on the left in the biceps, triceps, brachioradialis, and knees, 0 at both ankles. The plantar responses were flexor bilaterally. STANCE & GAIT: He stood up and walked with support on the right. ABNORMAL MOVEMENTS: Tremor (4-5 Hz): G Trace/4 in the upper and lower extremities. Rigidity: G 0/4 Bradykinesia: G Tr/4 Hypomimia: G 0/4 Hypophonia: G 0/4. Impression/Recommendations Diagnostic Impression 1. Mr. Andrew Mccallum is a 57-year-old, right-handed, gentleman, who does have a past history of Parkinson's disease for numerous years, a meningioma on the left side for which he had surgery numerous years ago followed by a seizure disorder, a left brain intra cerebral hemorrhage evacuated at [facility] in the early , residual right sided weakness, chronic pain syndrome, alcohol abuse, cocaine abuse, and frequent falls due to which he uses a motorized wheelchair. When he has his seizures, he states that he passes out without any warning and following that, there is a period of confusion. He is uncertain as to what exactly happens after he has passed out and he is also unable to tell us what other people have observed. 2. He was hospitalized on 12/15/17 for new onset left sided weakness. At first he was unable to move the left side completely but now it is better but still weaker than his baseline. He says he was drinking a lot prior to his left side becoming weak. He is uncertain as to whether he had a seizure or not. 3. He feels better. He is more comfortable. The pain is more tolerable. The strength is better. He was able to walk on his own today. He says he was able to sleep fairly well last night. The weakness on his left side is definitely better. However the left side is still weak. He has been seizure free. The tremor is fairly well controlled. He denies any new neurologic symptoms. 4. On neurological examination, at this time, he does demonstrate significant problems with orientation, recent and remote memory, higher cognitive function, and a mild anomia. He does have a mild right VII central facial paresis, and right finger extensor and iliopsoas weakness. On the left side he has G 5-/5 power except for G 4++/5 in the left finger extensors, and G 3+/5 in the left iliopsoas. The deep tendon reflexes are brisker on the left side compared to the right. He is able to stand and walk with support on the right. 5. The CT scan of the brain without contrast performed on 12/15/2017 reveals a large area of encephalomalacia in the left frontotemporal region and a craniotomy defect in the left frontotemporal region. 6. The MRI of the brain done on 12/17/17 revealed an acute right temporal infarct. 7. Laboratory data obtained thus far have revealed that his CBC reveals macrocytic indices. His chemistry panel is relatively benign and his serum alcohol level was 96. His urine toxicology was positive for THC and opiates - even though he told me that he has stopped using THC! 8. The cerebro-vascular non-invasive profile is benign. 9. 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 His seizures are not controlled as he is not taking his anticonvulsant and in addition he continues to drink alcohol and possibly uses other illicit drugs. 10. His new left sided weakness is due to an acute right temporal infarct. The weakness is improving. 11. His parkinsonian symptoms are stable and well controlled on his present regimen. Recommendations 1. Continue present management. 2. Continue Sinemet 25/100 - 3 tablets to be taken at 6 a.m., 12 noon, and 6 p.m. 3. Continue Keppra 750 mg at 6 a.m. and 6 p.m. for seizure prophylaxis. 4. PT/OT to mobilize. 5. ASA 81 mg q day. 6. Await echocardiogram with bubble study. 7. Acute rehabilitation for new stroke. Melissa Rodriguez M.D., M.S.P.Mignon. MELISSA RODRIGUEZ Dec 25, 2017 17:34
[2017-12-25 20:00] VITALS: BP 116/76
[2017-12-25] MEDS: Miralax 17gm pkt ORAL SCH (21:00)
[2017-12-26] VITALS: BP 112/70
[2017-12-26] MEDS: HYDROmorphone 2mg tab ORAL PRN ×2 (01:02→05:14)
[2017-12-26 03:51] VITALS: BP 122/84
[2017-12-26] MEDS: Levodopa/Carbidopa 25/100 tab ORAL SCH ×3 (05:33→18:32)
[2017-12-26 06:40] LABS: BASOPHILS % (AUTO) 1.1 % (0.0-2.0); EOSINOPHILS % (AUTO) 5.4 % (0.0-3.0); HEMATOCRIT 42.6 % (42.0-52.0); LYMPHOCYTES % (AUTO) 32.6 % (20.0-45.0); MEAN CORPUSCULAR VOLUME 99 FL (80-99); NEUTROPHILS % (AUTO) 47.9 % (45.0-75.0); PLATELET COUNT 297 K/UL (150-450); RED CELL DISTRIBUTION WIDTH 12.5 % (11.6-14.8); WHITE BLOOD COUNT 5.5 K/UL (4.8-10.8)
[2017-12-26 06:49] LABS: ANION GAP 8 mmol/L (5-15); BLOOD UREA NITROGEN 17 mg/dL (7-18); CALCIUM 8.8 MG/DL (8.5-10.1); CARBON DIOXIDE 27 MMOL/L (21-32); CHLORIDE 105 MMOL/L (98-107); POTASSIUM 4.4 MMOL/L (3.5-5.1); SODIUM 140 MMOL/L (136-145)
[2017-12-26 08:00] VITALS: BP 101/74
[2017-12-26] MEDS ORDERED: HYDROmorphone 1mg/ml Carpuject IVP PRN (09:00)
[2017-12-26] MEDS: Docusate 100mg cap ORAL SCH ×3 (09:00→18:00)
[2017-12-26] MEDS: Aspirin Baby 81mg ORAL SCH (09:10)
[2017-12-26] MEDS: Lyrica 50mg cap ORAL SCH (09:10)
--- NOTE | 2017-12-26 10:59 | General Progress Note ---
Assessment/Plan Problem List: (1) Back pain ICD Codes: M54.9 - Dorsalgia, unspecified SNOMED: 408267872 (2) CVA (cerebral vascular accident) ICD Codes: I63.9 - Cerebral infarction, unspecified SNOMED: 212608380 (3) Parkinson disease ICD Codes: G20 - Parkinson's disease SNOMED: 98562896 (4) Alcohol abuse ICD Codes: F10.10 - Alcohol abuse, uncomplicated SNOMED: 88208536 (5) Generalized pain ICD Codes: R52 - Pain, unspecified SNOMED: 97376883 (6) Weakness ICD Codes: R53.1 - Weakness SNOMED: 87682661 Status: stable, progressing Assessment/Plan ot pt diet pain control gi eval dc to snf if clear Subjective Constitutional: Reports: weakness Allergies: Coded Allergies: ERYTHROMYCIN BASE (Unverified Allergy, Unknown, 12/15/17) VANCOMYCIN (Verified Allergy, Unknown, 08/01/15) All Systems: reviewed and negative except above Subjective sl anxious c/o gen pain Objective Last 24 Hour Vital Signs Date Time Temp Pulse Resp B/P (MAP) Pulse Ox O2 Delivery O2 Flow Rate FiO2 12/26/17 08:00 97.2 90 20 101/74 (83) 100 97.2 12/26/17 06:18 96.9 12/26/17 05:14 96.9 12/26/17 04:58 96.9 12/26/17 03:59 96.9 12/26/17 03:51 96.9 78 18 122/84 (97) 94 96.9 12/26/17 01:02 97.8 12/26/17 00:00 98.6 80 18 112/70 (84) 97 98.6 12/25/17 22:56 97.8 12/25/17 21:42 Room Air 12/25/17 21:06 97.8 12/25/17 20:00 99.1 83 18 116/76 (89) 95 99.1 12/25/17 12:00 97.8 73 20 103/70 (81) 94 97.8 Intake and Output 12/25/17 12/26/17 19:00 07:00 Intake Total 1200 ml Balance 1200 ml Intake Oral 1200 ml # Voids 3 4 # Bowel Movements 1 Laboratory Tests 12/26/17 06:05: White Blood Count 5.5, Red Blood Count 4.30L, Hemoglobin 14.0L, Hematocrit 42.6 , Mean Corpuscular Volume 99, Mean Corpuscular Hemoglobin 32.6H, Mean Corpuscular Hemoglobin Concent 32.9, Red Cell Distribution Width 12.5, Platelet Count 297, Mean Platelet Volume 5.8L, Neutrophils (%) (Auto) 47.9, Lymphocytes ( %) (Auto) 32.6, Monocytes (%) (Auto) 13.0H, Eosinophils (%) (Auto) 5.4H, Basophils (%) (Auto) 1.1, Sodium Level 140, Potassium Level 4.4, Chloride Level 105, Carbon Dioxide Level 27, Anion Gap 8, Blood Urea Nitrogen 17, Creatinine 1.0, Estimat Glomerular Filtration Rate > 60, Glucose Level 100, Calcium Level 8.8 Height (Feet): 5 Height (Inches): 10.00 Weight (Pounds): 186 General Appearance: lethargic EENT: normal ENT inspection Neck: normal alignment Cardiovascular: normal peripheral pulses, normal rate, regular rhythm Respiratory/Chest: chest wall non-tender, lungs clear, normal breath sounds Abdomen: normal bowel sounds, non tender, soft Extremities: normal inspection Edema: no edema noted Arm (L), no edema noted Arm (R), no edema noted Leg (L), no edema noted Leg (R), no edema noted Pedal (L), no edema noted Pedal (R), no edema noted Generalized Neurologic: motor weakness Skin: normal pigmentation, warm/dry Krishan Fraire DO Dec 26, 2017 10:59
[2017-12-26] MEDS ORDERED: HYDROmorphone 1mg/ml Carpuject SUBQ PRN ×2 (11:24→15:24)
--- NOTE | 2017-12-26 12:27 | General Progress Note ---
Assessment/Plan Assessment/Plan (1) Parkinson's disease (2) Seizure disorder (3) Alcohol abuse (4) H/o substance abuse (5) Lumbago (6) Insomnia (7) CVA (8) Thalamic pain syndrome Patient to be continued on while in the hospital on Percocet. We will change the Dilaudid to 2mg SubQ Q4H PRN severe pain. We will discontinue the Lyrica and restart the Neurontin at 800mg TID. An Rx for discharge was sent to [facility] pharmacy for Percocet 10/325mg PO 1 tab Q4-6H PRN 30 tabs and Neurontin 800mg PO 1 tab TID 15 tabs. We recommend psych evaluation. He was advised to f/u with his PMD and Neurologist as an outpt when discharged. D/w Dr. Mckinley and he concurred. Subjective Date patient seen: Dec 26, 2017 Time patient seen: 11:00 - pm Allergies: Coded Allergies: ERYTHROMYCIN BASE (Unverified Allergy, Unknown, 12/15/17) VANCOMYCIN (Verified Allergy, Unknown, 08/01/15) Subjective REVIEW OF SYSTEMS: Denies rash, fever, chills, sweating, dizziness, drowsiness, blurred vision, sore throat, or change in weight. No shortness of breath or chest pain. No nausea, vomiting, diarrhea, or blood in the stool or urine. No bowel or bladder incontinence. No dysuria. C/o Generalized body pain. SUBJECTIVE: Patient continues to c/o pain with no reduction on the Dilaudid 4mg tabs and was given a dose of Dilaudid 1mg IV however due to no IV access due to this was changed to SubQ which he says has not helped. He also explains that the Lyrica has caused no relief in his pain and had more relief on the Neurontin. Patient is walking an and able to get to the bathroom on his own. He is being seen by Neurologist due to CVA. I d/w Dr. Fraire about patients care. I explained to patient in detail that his condition and pain is due to a neuropathic element and must be treated with neuropathic medication. As per nurse patient has been refusing medical care, physical therapy, Parkinson medication, neuropathic medication and has been argumentative with the nursing staff. Objective Last 24 Hour Vital Signs Date Time Temp Pulse Resp B/P (MAP) Pulse Ox O2 Delivery O2 Flow Rate FiO2 12/26/17 09:00 Room Air 12/26/17 08:00 97.2 90 20 101/74 (83) 100 97.2 12/26/17 06:18 96.9 12/26/17 05:14 96.9 12/26/17 04:58 96.9 12/26/17 03:59 96.9 12/26/17 03:51 96.9 78 18 122/84 (97) 94 96.9 12/26/17 01:02 97.8 12/26/17 00:00 98.6 80 18 112/70 (84) 97 98.6 12/25/17 22:56 97.8 12/25/17 21:42 Room Air 12/25/17 21:06 97.8 12/25/17 20:00 99.1 83 18 116/76 (89) 95 99.1 Intake and Output 12/25/17 12/26/17 19:00 07:00 Intake Total 1200 ml Balance 1200 ml Intake Oral 1200 ml # Voids 3 4 # Bowel Movements 1 Laboratory Tests 12/26/17 06:05: White Blood Count 5.5, Red Blood Count 4.30L, Hemoglobin 14.0L, Hematocrit 42.6 , Mean Corpuscular Volume 99, Mean Corpuscular Hemoglobin 32.6H, Mean Corpuscular Hemoglobin Concent 32.9, Red Cell Distribution Width 12.5, Platelet Count 297, Mean Platelet Volume 5.8L, Neutrophils (%) (Auto) 47.9, Lymphocytes ( %) (Auto) 32.6, Monocytes (%) (Auto) 13.0H, Eosinophils (%) (Auto) 5.4H, Basophils (%) (Auto) 1.1, Sodium Level 140, Potassium Level 4.4, Chloride Level 105, Carbon Dioxide Level 27, Anion Gap 8, Blood Urea Nitrogen 17, Creatinine 1.0, Estimat Glomerular Filtration Rate > 60, Glucose Level 100, Calcium Level 8.8 Height (Feet): 5 Height (Inches): 10.00 Weight (Pounds): 186 Objective GENERAL: AA&O LUNGS: Decreased breath sounds bilaterally. HEART: S1 S2 Regular. ABDOMEN: Benign. EXTREMITIES: No cyanosis. No clubbing. No edema. NEURO: No changes. Itz Donald Dec 26, 2017 12:27
[2017-12-26 13:19] VITALS: BP 133/93
--- NOTE | 2017-12-26 14:19 | Pulmonology Progress Note ---
Assessment/Plan Problems: (1) Acute alcoholic intoxication (2) Acute CVA (cerebrovascular accident) (3) History of craniotomy (4) Parkinson disease (5) History of CVA (cerebrovascular accident) (6) Hemiparesis Assessment/Plan feeling better wants to get stronger symptomatic treatment check electrolytes no seizures less tremor Subjective ROS Limited/Unobtainable: No Interval Events: late note for 12/25 Allergies: Coded Allergies: ERYTHROMYCIN BASE (Unverified Allergy, Unknown, 12/15/17) VANCOMYCIN (Verified Allergy, Unknown, 08/01/15) Objective Last 24 Hour Vital Signs Date Time Temp Pulse Resp B/P (MAP) Pulse Ox O2 Delivery O2 Flow Rate FiO2 12/26/17 13:19 99.7 114 16 133/93 (106) 99.7 12/26/17 09:00 Room Air 12/26/17 08:00 97.2 90 20 101/74 (83) 100 97.2 12/26/17 06:18 96.9 12/26/17 05:14 96.9 12/26/17 04:58 96.9 12/26/17 03:59 96.9 12/26/17 03:51 96.9 78 18 122/84 (97) 94 96.9 12/26/17 01:02 97.8 12/26/17 00:00 98.6 80 18 112/70 (84) 97 98.6 12/25/17 22:56 97.8 12/25/17 21:42 Room Air 12/25/17 21:06 97.8 12/25/17 20:00 99.1 83 18 116/76 (89) 95 99.1 Intake and Output 12/25/17 12/26/17 19:00 07:00 Intake Total 1200 ml Balance 1200 ml Intake Oral 1200 ml # Voids 3 4 # Bowel Movements 1 General Appearance: WD/WN HEENT: normocephalic, atraumatic, anicteric Respiratory/Chest: chest wall non-tender, lungs clear Cardiovascular: normal peripheral pulses, normal rate Abdomen: normal bowel sounds, soft, non tender Genitourinary: normal external genitalia Extremities: no cyanosis Skin: no lesions Neurologic/Psychiatric: estimator binding II-XII grossly normal Laboratory Tests 12/26/17 06:05: White Blood Count 5.5, Red Blood Count 4.30L, Hemoglobin 14.0L, Hematocrit 42.6 , Mean Corpuscular Volume 99, Mean Corpuscular Hemoglobin 32.6H, Mean Corpuscular Hemoglobin Concent 32.9, Red Cell Distribution Width 12.5, Platelet Count 297, Mean Platelet Volume 5.8L, Neutrophils (%) (Auto) 47.9, Lymphocytes ( %) (Auto) 32.6, Monocytes (%) (Auto) 13.0H, Eosinophils (%) (Auto) 5.4H, Basophils (%) (Auto) 1.1, Sodium Level 140, Potassium Level 4.4, Chloride Level 105, Carbon Dioxide Level 27, Anion Gap 8, Blood Urea Nitrogen 17, Creatinine 1.0, Estimat Glomerular Filtration Rate > 60, Glucose Level 100, Calcium Level 8.8 Current Medications Medications (Trade) Dose Ordered Sig/Job Route PRN Reason Start Time Stop Time Status Last Admin Dose Admin Acetaminophen (Tylenol) 650 mg Q4H PRN ORAL T>100.5 12/17/17 21:45 01/14/18 21:31 Al Hydroxide/Mg Hydroxide (Mylanta II) 30 ml Q6H PRN ORAL dyspepsia 12/17/17 21:45 01/14/18 21:32 Aspirin (ASA) 81 mg DAILY ORAL 12/18/17 09:00 01/16/18 17:59 12/26/17 09:10 Carbidopa/Levodopa (Sinemet 25/100) 3 tab TID@0600,1200,1800 ORAL 12/18/17 06:00 01/16/18 05:59 12/26/17 12:23 Dextrose (Dextrose 50%) 25 ml STAT PRN IV Hypoglycemia 12/17/17 21:45 01/14/18 21:32 Dextrose (Dextrose 50%) 50 ml STAT PRN IV Hypoglycemia 12/17/17 21:45 01/14/18 21:32 Docusate Sodium (Colace) 100 mg THREE TIMES A DAY ORAL 12/18/17 09:00 01/16/18 09:59 12/24/17 17:22 Gabapentin (Neurontin) 800 mg THREE TIMES A DAY ORAL 12/26/17 13:00 01/25/18 12:59 12/26/17 12:22 Hydromorphone HCl (Dilaudid) 2 mg Q4H PRN SUBQ Severe Pain (Pain Scale 7-10) 12/26/17 14:00 01/02/18 13:59 12/26/17 13:54 Levetiracetam (Keppra) 750 mg Q12HR ORAL 12/17/17 21:00 01/15/18 20:59 12/26/17 09:10 Ondansetron HCl (Zofran) 4 mg Q6H PRN IVP Nausea & Vomiting 12/17/17 21:00 01/14/18 20:59 Oxycodone/ Acetaminophen (Percocet 10/325) 1 tab Q6H ORAL 12/24/17 09:00 12/31/17 08:59 12/26/17 09:09 Polyethylene Glycol (Miralax) 17 gm BEDTIME ORAL 12/18/17 21:00 01/17/18 20:59 12/24/17 20:11 Polyethylene Glycol (Miralax) 17 gm HSPRN PRN ORAL Constipation 12/17/17 22:00 01/14/18 21:59 Zolpidem Tartrate (Ambien) 5 mg HSPRN PRN ORAL Insomnia 12/22/17 21:00 12/27/17 20:59 Cash Lorenzo MD Dec 26, 2017 14:19
--- NOTE | 2017-12-26 14:51 | Neurology Progress Note ---
Interim History Interim History Interim History Mr. Mccallum feels better generally. He however is very worried about the future. He feels he is unable to take care of himself at home. He is more comfortable. The pain is more tolerable. The strength is better. He has able to walk better. The weakness on his left side is definitely better but not normal. He has been seizure free. The tremor is fairly well controlled. He denies any new neurologic symptoms. Review of Systems Neuro Review of Systems Benign. Objective Physical Exam Last Vital Signs Date Time Temp Pulse Resp B/P (MAP) Pulse Ox O2 Delivery O2 Flow Rate FiO2 12/26/17 13:19 99.7 114 16 133/93 (106) 99.7 12/26/17 09:00 Room Air 12/26/17 08:00 100 Laboratory Tests Test 12/26/17 06:05 White Blood Count 5.5 K/UL (4.8-10.8) Red Blood Count 4.30 M/UL (4.70-6.10) L Hemoglobin 14.0 G/DL (14.2-18.0) L Hematocrit 42.6 % (42.0-52.0) Mean Corpuscular Volume 99 FL (80-99) Mean Corpuscular Hemoglobin 32.6 PG (27.0-31.0) H Mean Corpuscular Hemoglobin Concent 32.9 G/DL (32.0-36.0) Red Cell Distribution Width 12.5 % (11.6-14.8) Platelet Count 297 K/UL (150-450) Mean Platelet Volume 5.8 FL (6.5-10.1) L Neutrophils (%) (Auto) 47.9 % (45.0-75.0) Lymphocytes (%) (Auto) 32.6 % (20.0-45.0) Monocytes (%) (Auto) 13.0 % (1.0-10.0) H Eosinophils (%) (Auto) 5.4 % (0.0-3.0) H Basophils (%) (Auto) 1.1 % (0.0-2.0) Sodium Level 140 MMOL/L (136-145) Potassium Level 4.4 MMOL/L (3.5-5.1) Chloride Level 105 MMOL/L (98-107) Carbon Dioxide Level 27 MMOL/L (21-32) Anion Gap 8 mmol/L (5-15) Blood Urea Nitrogen 17 mg/dL (7-18) Creatinine 1.0 MG/DL (0.55-1.30) Estimat Glomerular Filtration Rate > 60 mL/min (>60) Glucose Level 100 MG/DL (74-106) Calcium Level 8.8 MG/DL (8.5-10.1) Neurologic Exam Objective PHYSICAL EXAMINATION: GENERAL: He is a well-developed, well-nourished, depressed, gentleman , lying in bed, in no acute distress. HEAD: Normocephalic with left frontotemporal craniotomy defect. EENT: Examination benign. NECK: No neck rigidity was observed. NEUROLOGIC EXAMINATION: MENTAL STATUS EXAMINATION: He was awake and alert. He was oriented to person, place, and time. He was able to recall 3/3 words immediately, but could only remember 2/3 words in 1 minute and 3 minutes even on the second trial. He was able to remember presidents Trump through [employer], spontaneously, but needed hints to remember through [employer] senior. His mathematical skills were minimally impaired. His visuospatial function was relatively good. SPEECH: He had no dysarthria. LANGUAGE: He had a mild anomia for low-frequency words. CRANIAL NERVE EXAMINATION: II: The visual kaplan were intact on confrontation testing. III, IV & : The external ocular movements were full and the pupils 3 mm in diameter, equal, round, regular, and reactive to light. V: He had normal facial sensations, and the temporales, masseters, and pterygoids functioned normally. VII: He had a mild right VII central facial paresis. VIII: He was able to hear well bilaterally and had no nystagmus. IX: The palate moved symmetrically on phonation. X: He had no hoarseness of voice. XI: The sternocleidomastoids and trapezii functioned normally. XII: The tongue was in the midline without any fasciculations or atrophy. MOTOR SYSTEM: The tone was normal in all four extremities. Examination of muscle mass revealed no focal wasting. Examination of power revealed G 5/5 power except for G 5-/5 power in the right iliopsoas, and right finger extensors. On the left side he had G 5-/5 power except for G 4++/5 in the left finger extensors, and G 4-/5 in the left iliopsoas. SENSORY EXAMINATION: He had intact sensations to pinprick, light touch, and graphesthesia. COORDINATION: He performed well on [id number] and [id number] testing on the right side - he said he could not do it on the left. REFLEXES: 2+ on the right and 2++ on the left in the biceps, triceps, brachioradialis, and knees, 0 at both ankles. The plantar responses were flexor bilaterally. STANCE & GAIT: He stood up and walked with support on the right. ABNORMAL MOVEMENTS: Tremor (4-5 Hz): G Trace/4 in the upper and lower extremities. Rigidity: G 0/4 Bradykinesia: G Tr/4 Hypomimia: G 0/4 Hypophonia: G 0/4. Impression/Recommendations Diagnostic Impression 1. Mr. Andrew Mccallum is a 57-year-old, right-handed, gentleman, who does have a past history of Parkinson's disease for numerous years, a meningioma on the left side for which he had surgery numerous years ago followed by a seizure disorder, a left brain intra cerebral hemorrhage evacuated at [facility] in the early , residual right sided weakness, chronic pain syndrome, alcohol abuse, cocaine abuse, and frequent falls due to which he uses a motorized wheelchair. When he has his seizures, he states that he passes out without any warning and following that, there is a period of confusion. He is uncertain as to what exactly happens after he has passed out and he is also unable to tell us what other people have observed. 2. He was hospitalized on 12/15/17 for new onset left sided weakness. At first he was unable to move the left side completely but now it is better but still weaker than his baseline. He says he was drinking a lot prior to his left side becoming weak. He is uncertain as to whether he had a seizure or not. 3. He feels better generally. He however is very worried about the future. He feels he is unable to take care of himself at home. He is more comfortable. The pain is more tolerable. The strength is better. He has able to walk better. The weakness on his left side is definitely better but not normal. He has been seizure free. The tremor is fairly well controlled. He denies any new neurologic symptoms. 4. On neurological examination, at this time, he does demonstrate significant problems with orientation, recent and remote memory, higher cognitive function, and a mild anomia. He does have a mild right VII central facial paresis, and right finger extensor and iliopsoas weakness. On the left side he has G 5-/5 power except for G 4++/5 in the left finger extensors, and G 4-/5 in the left iliopsoas. The deep tendon reflexes are brisker on the left side compared to the right. He is able to stand and walk with support on the right. 5. The CT scan of the brain without contrast performed on 12/15/2017 reveals a large area of encephalomalacia in the left frontotemporal region and a craniotomy defect in the left frontotemporal region. 6. The MRI of the brain done on 12/17/17 revealed an acute right temporal infarct. 7. Laboratory data obtained thus far have revealed that his CBC reveals macrocytic indices. His chemistry panel is relatively benign and his serum alcohol level was 96. His urine toxicology was positive for THC and opiates - even though he told me that he has stopped using THC! 8. The cerebro-vascular non-invasive profile is benign. 9. 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 His seizures are not controlled as he is not taking his anticonvulsant and in addition he continues to drink alcohol and possibly uses other illicit drugs. 10. His new left sided weakness is due to an acute right temporal infarct. The weakness is improving. 11. His parkinsonian symptoms are stable and well controlled on his present regimen. Recommendations 1. Continue present management. 2. Continue Sinemet 25/100 - 3 tablets to be taken at 6 a.m., 12 noon, and 6 p.m. 3. Continue Keppra 750 mg at 6 a.m. and 6 p.m. for seizure prophylaxis. 4. PT/OT to mobilize. 5. ASA 81 mg q day. 6. Acute rehabilitation for new stroke. 7. Patient can be discharged to a safe living environment where he will get stroke rehabilitation, from a neurologic point of view. Melissa Rodriguez M.D., M.S.P.H. MELISSA RODRIGUEZ Dec 26, 2017 14:51
--- NOTE | 2017-12-26 15:50 | GI Progress Note ---
Assessment/Plan Problems: (1) CVA (cerebral vascular accident) ICD Codes: I63.9 - Cerebral infarction, unspecified SNOMED: 846437824 (2) Weakness ICD Codes: R53.1 - Weakness SNOMED: 89078910 (3) Parkinson disease ICD Codes: G20 - Parkinson's disease SNOMED: 09675869 (4) Alcohol abuse ICD Codes: F10.10 - Alcohol abuse, uncomplicated SNOMED: 82090711 (5) Chronic pain ICD Codes: G89.29 - Other chronic pain SNOMED: 31646127 (6) Hemiparesis ICD Codes: G81.90 - Hemiplegia, unspecified affecting unspecified side SNOMED: 41304916 (7) Drug-seeking behavior ICD Codes: Z76.5 - Malingerer [conscious simulation] SNOMED: 509691664 Status: stable Status Narrative Discussed with Dr. Pierson. Assessment/Plan dc planning symptomatic treatment / supportive care pain mgmt zofran prn prn transfusions ppi MVI/folate bowel regime titrate fu labs outpatient GI procedures The patient was seen and examined at bedside and all new and available data was reviewed in the patients chart. I agree with the above findings, impression and plan. (Patient seen earlier today. Signature stamp does not reflect patient encounter time.). - Justin Pierson MD Subjective Subjective generalized pain Objective Last 24 Hour Vital Signs Date Time Temp Pulse Resp B/P (MAP) Pulse Ox O2 Delivery O2 Flow Rate FiO2 12/26/17 13:19 99.7 114 16 133/93 (106) 99.7 12/26/17 09:00 Room Air 12/26/17 08:00 97.2 90 20 101/74 (83) 100 97.2 12/26/17 06:18 96.9 12/26/17 05:14 96.9 12/26/17 04:58 96.9 12/26/17 03:59 96.9 12/26/17 03:51 96.9 78 18 122/84 (97) 94 96.9 12/26/17 01:02 97.8 12/26/17 00:00 98.6 80 18 112/70 (84) 97 98.6 12/25/17 22:56 97.8 12/25/17 21:42 Room Air 12/25/17 21:06 97.8 12/25/17 20:00 99.1 83 18 116/76 (89) 95 99.1 Intake and Output 12/25/17 12/26/17 19:00 07:00 Intake Total 1200 ml Balance 1200 ml Intake Oral 1200 ml # Voids 3 4 # Bowel Movements 1 Laboratory Tests Test 12/26/17 06:05 White Blood Count 5.5 K/UL (4.8-10.8) Red Blood Count 4.30 M/UL (4.70-6.10) L Hemoglobin 14.0 G/DL (14.2-18.0) L Hematocrit 42.6 % (42.0-52.0) Mean Corpuscular Volume 99 FL (80-99) Mean Corpuscular Hemoglobin 32.6 PG (27.0-31.0) H Mean Corpuscular Hemoglobin Concent 32.9 G/DL (32.0-36.0) Red Cell Distribution Width 12.5 % (11.6-14.8) Platelet Count 297 K/UL (150-450) Mean Platelet Volume 5.8 FL (6.5-10.1) L Neutrophils (%) (Auto) 47.9 % (45.0-75.0) Lymphocytes (%) (Auto) 32.6 % (20.0-45.0) Monocytes (%) (Auto) 13.0 % (1.0-10.0) H Eosinophils (%) (Auto) 5.4 % (0.0-3.0) H Basophils (%) (Auto) 1.1 % (0.0-2.0) Sodium Level 140 MMOL/L (136-145) Potassium Level 4.4 MMOL/L (3.5-5.1) Chloride Level 105 MMOL/L (98-107) Carbon Dioxide Level 27 MMOL/L (21-32) Anion Gap 8 mmol/L (5-15) Blood Urea Nitrogen 17 mg/dL (7-18) Creatinine 1.0 MG/DL (0.55-1.30) Estimat Glomerular Filtration Rate > 60 mL/min (>60) Glucose Level 100 MG/DL (74-106) Calcium Level 8.8 MG/DL (8.5-10.1) Height (Feet): 5 Height (Inches): 10.00 Weight (Pounds): 186 General Appearance: WD/WN, no apparent distress, alert Cardiovascular: normal rate Respiratory/Chest: normal breath sounds, no respiratory distress Abdominal Exam: normal bowel sounds, non tender, soft Extremities: normal range of motion, non-tender Moises Deng NP Dec 26, 2017 15:50
[2017-12-26 16:00] VITALS: BP 115/72
[2017-12-26 20:00] VITALS: BP 128/84
[2017-12-26] MEDS: Miralax 17gm pkt ORAL SCH (21:00)
[2017-12-27] VITALS: BP 106/69
[2017-12-27 04:00] VITALS: BP 144/63
[2017-12-27] MEDS: Levodopa/Carbidopa 25/100 tab ORAL SCH (04:59)
[2017-12-27 08:00] VITALS: BP 111/78
[2017-12-27] MEDS: Aspirin Baby 81mg ORAL SCH (08:48)
[2017-12-27] MEDS: Docusate 100mg cap ORAL SCH (08:49)
--- NOTE | 2017-12-27 12:07 | General Progress Note ---
Assessment/Plan Status: stable Assessment/Plan INTERNAL MEDICINE PROGRESS NOTE Covering for Dr. Harrison # Back pain # CVA # Parkinson disease # Alcohol abuse # Weakness Assessment/Plan ot pt diet pain control gi eval dc to snf if clear Subjective Date patient seen: Dec 27, 2017 Time patient seen: 07:00 ROS Limited/Unobtainable: Yes Allergies: Coded Allergies: ERYTHROMYCIN BASE (Unverified Allergy, Unknown, 12/15/17) VANCOMYCIN (Verified Allergy, Unknown, 08/01/15) All Systems: reviewed and negative except above Subjective Pt awake and alert. No acute events. DC planning. Objective Last 24 Hour Vital Signs Date Time Temp Pulse Resp B/P (MAP) Pulse Ox O2 Delivery O2 Flow Rate FiO2 12/27/17 09:46 97.9 12/27/17 09:00 Room Air 12/27/17 08:47 97.9 12/27/17 08:00 97.9 90 20 111/78 (89) 96 97.9 12/27/17 05:30 97.5 12/27/17 05:00 97.5 12/27/17 04:58 97.5 12/27/17 04:00 101.7 108 20 144/63 (90) 93 101.7 12/27/17 03:46 101.7 12/27/17 03:18 100.3 12/27/17 00:00 100.3 103 20 106/69 (81) 96 100.3 12/26/17 22:37 97.9 12/26/17 21:17 97.9 12/26/17 20:32 Room Air 12/26/17 20:00 97.9 78 18 128/84 (99) 94 97.9 12/26/17 16:00 100.8 114 20 115/72 (86) 96 100.8 12/26/17 13:19 99.7 114 16 133/93 (106) 99.7 Intake and Output 12/26/17 12/27/17 19:00 07:00 Intake Total 360 ml Balance 360 ml Intake Oral 360 ml # Voids 3 5 Height (Feet): 5 Height (Inches): 10.00 Weight (Pounds): 186 General Appearance: no apparent distress, alert EENT: PERRL/EOMI Neck: supple Cardiovascular: normal peripheral pulses Respiratory/Chest: no respiratory distress Abdomen: soft Kleynberg,Nestor L. MD Dec 27, 2017 12:07
--- NOTE | 2017-12-30 11:50 | Discharge Summary ---
Discharge Summary Discharge Summary _ DATE OF ADMISSION: 12/15/2017 DATE OF DISCHARGE: 12/27/2017 REASON FOR ADMISSION: 57 years old male with past medical history of CVA with left-sided weakness, alcohol abuse, Parkinson disease, seizure disorder presented with chief complaint of left-sided weakness. It started about 5 hours prior to coming to emergency department . Patient reported complete weakness on the left side. He had previous left-sided weakness, but was able to move his left arm and left leg . At the time of presentation patient was completely unable to move his left upper and lower extremities. He was seated when the symptoms started. He denied any seizure at this time , and could remember the entire incident how it started. He denied chest pain, shortness of breath. Upon evaluation in emergency department laboratory workup was unremarkable . Vital signs were stable, except mild tachycardia. Urine toxicology screen was positive for opiates and marijuana ; serum alcohol level was 96 . Chest x-ray revealed no acute cardiopulmonary pathology. CT of the head showed evidence of prior left-sided craniotomy/craniectomy. Frontal and temporal encephalomalacia on the left. Negative for acute intracranial bleed or mass effect or significant interim change. Patient admitted with left side hemiparesis, acute alcohol intoxication, Parkinson disease, history of CVA ,seizure disorder. CONSULTANTS: upholsterer helper neurologist Dr. Root pulmonary Dr. Lorenzo GI specialist Dr. Pierson Pain specialist Dr. Mckinley [facility] COURSE: Patient admitted. Neurology consult was requested. Patient started on intravenous fluids with thiamine, folic acid, multivitamins and magnesium replacement. Anxiolytics were on board as needed Seizure precautions were maintained. Keppra was resumed. Neurologist seen and evaluated the patient Patient subsequently undergone brain MRI which revealed acute cortical infarct in the anterior right temporal lobe. Carotid duplex was essentially negative. Lipid panel was stable . Patient was placed on antiplatelet therapy with Aspirin. Sinemet was continued . Patient was started to work with physical and occupational therapists. Echocardiogram revealed preserved ejection fraction 55% and right ventricular systolic pressure of 23 . DVT and GI prophylaxis provided. Venous duplex bilateral lower extremity was negative Pain management was addressed. Pain specialist closely followed. Patient had back pain as well as thalamic pain syndrome . Pain management was optimized and provided as per pain specialist recommendations. GI specialist closely followed. GI specialist recommended symptomatic care . Patient was able to tolerate diet . Antiemetics were on board as needed . Bowel regimen instituted . Hemoglobin and hematocrit were closely monitored with goal to keep hemoglobin above 7. remained stable. GI recommended outpatient GI procedure. Patient was [id number] on abstinence from alcohol and illicit street drugs. Patient was stable for discharge FINAL DIAGNOSES: Acute cortical CVA right temporal lobe Acute alcohol intoxication Cerebrovascular disease with history of old CVA History of craniotomy ETOH abuse History of substance abuse Parkinson disease Seizure disorder Thalamic pain syndrome l Lumbago DISCHARGE MEDICATIONS: See Medication Reconciliation list. DISCHARGE INSTRUCTIONS: Patient was discharged home with home health services for further rehabilitation. Follow up with medical doctor in one week I have been assigned to dictate discharge summary for this account. I was not involved in the patient's management. Lanette Graham NP Dec 30, 2017 11:50
== END 2017-12-27 11:12 | disposition home health service (06) | DRG 45 ==
LOC: EDBD 14:52 → EMR 17:42 → 2E 18:54 → EDBEDREQ 19:34 → 2E 20:49 → 4W 12-17 21:15
DX: I63.8 Other cerebral infarction (principal); G20 Parkinson's disease; Z86.73 Personal history of transient ischemic attack (TIA), and cerebral infarction without residual deficits; G89.29 Other chronic pain; F10.129 Alcohol abuse with intoxication, unspecified; Z98.890 Other specified postprocedural states; F19.10 Other psychoactive substance abuse, uncomplicated; G40.909 Epilepsy, unspecified, not intractable, without status epilepticus; Z88.1 Allergy status to other antibiotic agents; G81.94 Hemiplegia, unspecified affecting left nondominant side; R29.6 Repeated falls; Z76.5 Malingerer [conscious simulation]; Z91.19 Patient's noncompliance with other medical treatment and regimen; G47.00 Insomnia, unspecified; G89.0 Central pain syndrome
CPT/HCPCS: 36415; 70450; 70551; 71045; 80048; 80053; 80061; 80299; 80307; 80329; 82248; 82962; 83735; 84100; 84443; 84484; 85025; 85610; 85730; 93005; 93306; 93880; 93970; 97803; 99285; J2405

== ENCOUNTER 2018-01-20 12:20 | Emergency (ER) | payer OTHER ==
[~2018-01-20] VITALS: Ht 175.3 cm; Wt 81.6 kg
[2018-01-20 12:30] VITALS: BP 101/72
[2018-01-20 13:16] LABS: BASOPHILS % (AUTO) 0.9 % (0.0-2.0); EOSINOPHILS % (AUTO) 3.2 % (0.0-3.0); HEMATOCRIT 44.6 % (42.0-52.0); HEMOGLOBIN 14.6 G/DL (14.2-18.0); LYMPHOCYTES % (AUTO) 17.6 % (20.0-45.0); MEAN CORPUSCULAR VOLUME 96 FL (80-99); MONOCYTES % (AUTO) 5.9 % (1.0-10.0); NEUTROPHILS % (AUTO) 72.3 % (45.0-75.0); PLATELET COUNT 392 K/UL (150-450); RED BLOOD COUNT 4.66 M/UL (4.70-6.10); WHITE BLOOD COUNT 6.6 K/UL (4.8-10.8)
[2018-01-20 13:27] LABS: AMMONIA 23 umol/L (11-32); ANION GAP 21 mmol/L (5-15); BLOOD UREA NITROGEN 11 mg/dL (7-18); CALCIUM 8.9 MG/DL (8.5-10.1); CARBON DIOXIDE 26 MMOL/L (21-32); CHLORIDE 104 MMOL/L (98-107); CREATININE 0.9 MG/DL (0.55-1.30); POTASSIUM 4.3 MMOL/L (3.5-5.1); SODIUM 151 MMOL/L (136-145)
--- NOTE | 2018-01-20 13:35 | Diagnostic Imaging Report ---
Indications: Altered level of consciousness Technique: Spiral acquisitions obtained through the brain. Angled axial and coronal 5 x 5 mm slices were reconstructed. Total dose length product 1379.6 mGycm. CTDI vol(s) 70.38 mGy. Dose reduction achieved using automated exposure control Comparison: 12/15/2017 Findings: There is a left frontotemporoparietal craniotomy/craniectomy defect again noted. There is encephalomalacia of the inferior left frontal lobe in the anterior left temporal lobe. Reportedly, patient has history of meningioma resection in this area. No acute intracranial hemorrhage nor edema. No mass effect nor midline shift. Focal scalp soft tissue thickening in the parietal regions bilaterally is unchanged from earlier. Bowles-white differentiation is otherwise normal. There is mild ex vacuo dilatation of the frontal horn and anterior body of the left lateral ventricle related to the encephalomalacia. A prior MRI suggested anterior right temporal lobe infarct. No encephalomalacia related to this is identifiable on the current study. The remainder of the calvarium is intact. The mastoids are clear. The visualized orbits and sinuses are unremarkable. Findings are unchanged Impression: Negative for acute intracranial bleed or mass effect Left frontotemporoparietal craniotomy/craniectomy defect, underlying encephalomalacia. Per prior reports, likely related to earlier meningioma resection. These findings are unchanged The CT scanner at [facility] is accredited by the [employer] and the scans are performed using protocols designed to limit radiation exposure to as low as reasonably achievable to attain images of sufficient resolution adequate for diagnostic evaluation.
[2018-01-20 13:41] LABS: ALANINE AMINOTRANSFERASE 11 U/L (12-78); ALBUMIN 3.4 G/DL (3.4-5.0); ALBUMIN/GLOBULIN RATIO 0.9 (1.0-2.7); ALKALINE PHOSPHATASE 72 U/L (46-116); ASPARTATE AMINO TRANSFERASE 16 U/L (15-37); BILIRUBIN,TOTAL 0.3 MG/DL (0.2-1.0); CREATINE KINASE 78 U/L (26-308)
[2018-01-20 14:47] VITALS: BP 131/80
[2018-01-20 14:58] LABS: APPEARANCE,URINE SLIGHTLY CLOUDY; BILIRUBIN, URINE NEGATIVE (NEGATIVE); COLOR,URINE PALE YELLOW; GLUCOSE, URINE (UA) NEGATIVE (NEGATIVE); KETONES,URINE NEGATIVE (NEGATIVE); LEUKOCYTE ESTERASE ,URINE NEGATIVE (NEGATIVE); NITRITE,URINE NEGATIVE (NEGATIVE); PH,URINE 8 (4.5-8.0); PROTEIN,URINE NEGATIVE (NEGATIVE); UROBILINOGEN,URINE NORMAL MG/DL (0.0-1.0)
--- NOTE | 2018-01-20 16:59 | Emergency Room Report ---
History of Present Illness General Chief Complaint: Pain Source: Patient, EMS (Isidro Kendall M.D.) Present Illness HPI EMS was called to patient's apartment for weakness and lethargy. Apparently he' s been drinking alcohol. Also this is suggestion that he's been taking pain medication. The patient has chronic pain and chronic alcohol abuse. He refuses to answer questions at this time. The patient was admitted last month for left-sided weakness. He was he was evaluated for stroke diagnosed by MRI. He had initial L sided weakness. Before discharge, patient was able to ambulate. Observed ambulating with support on R. Discharge dx: Acute cortical CVA right temporal lobe Acute alcohol intoxication Cerebrovascular disease with history of old CVA History of craniotomy ETOH abuse History of substance abuse Parkinson disease Seizure disorder Thalamic pain syndrome l Lumbago MRI was done: Impression: Positive for acute cortical infarct in the anterior right temporal lobe. Evidence of left frontotemporal parietal craniotomy/craniectomy. Underlying inferior frontal and anterior temporal encephalomalacia, consistent with remote insult, possibly related to stated clinical history of meningioma resection Age-related volume loss, mild The patient has been admitted in the past for uncontrolled seizure disorder also. There is no history of seizures today. The patient has been also seen for uncontrolled leg and back pain. H/O Parkinson's H/O non-compliance (Isidro Kendall M.D.) Allergies: Coded Allergies: ERYTHROMYCIN BASE (Unverified Allergy, Unknown, 12/15/17) VANCOMYCIN (Verified Allergy, Unknown, 08/01/15) Patient History Limited by: medical condition - and patient refusal Past Medical History: see triage record, old chart reviewed Past Surgical History: other - craneotomy Social History: Reports: alcohol use, drug use Social History Narrative assisted living - has motorized wheelchair Reviewed Nursing Documentation: PMH: Agreed; PSxH: Agreed (Isidor Kendall M.D.) Nursing Documentation-PMH Hx Cardiac Problems: Yes Hx Hypertension: Yes Hx Diabetes: Yes Hx Cancer: Yes - meningioma w/ craniotomy Hx Gastrointestinal Problems: No Hx Neurological Problems: Yes - parkinson, seizure, subdural hematoma Hx Cerebrovascular Accident: Yes Hx Parkinson's Disease: Yes Hx Seizures: Yes Hx Tremors: Yes Hx Weakness: Yes Hx Neurologic Surgery: Yes - s/p craniotomy (Isidro Kendall M.D.) Review of Systems All Other Systems: limited (Isidro Kendall M.D.) Physical Exam Vital Signs Date Time Temp Pulse Resp B/P (MAP) Pulse Ox O2 Delivery O2 Flow Rate FiO2 01/20/18 12:20 97.7 98 16 101/72 94 Room Air 97.7 Sp02 EP Interpretation: reviewed, abnormal - slightly low as interpreted by me General Appearance: no apparent distress, Chronically Ill Head: other - skull defect L parietal area Eyes: bilateral eye PERRL, bilateral eye abnormal EOM - nystagmus, bilateral eye Scleral Injection ENT: moist mucus membranes - no lingual lacerations Neck: supple, no bony tend Respiratory: chest non-tender, lungs clear, normal breath sounds Cardiovascular #1: regular rate, rhythm Cardiovascular #2: 2+ radial (L) Gastrointestinal: normal inspection, non tender, decreased bowel sounds, overweight Musculoskeletal: digits/nails normal, normal range of motion, other - no step off Neurologic: DTRs symmetric, sensory intact, other - resting tremor R foot, generalized weakness and lethargy + gag, nystagmus Psychiatric: other - lethargy Skin: other (Isidro Kendall M.D.) Medical Decision Making Diagnostic Impression: Primary Impression: Acute alcoholic intoxication Qualified Codes: F10.929 - Alcohol use, unspecified with intoxication, unspecified Additional Impressions: Substance abuse Status post CVA Parkinson disease ER Course Patient presents with altered mentation after drinking alcohol with a complicated medical and social history. Differential includes a call intoxication, head trauma with bleed, extension of stroke, electrolyte abnormality, drug abuse amongst others. Evaluation will be with CT of the head , chest x-ray, EKG and labs. The patient will be treated with cardiac monitoring and IV hydration. He will need repeat neurologic evaluations. CT with old surgical defect and craneomalacia. No significant change from prior. Patient is more alert at this time. He is still unsteady on his feet. He claims he was just discharged yesterday from another hospital where they didn't give him any pain medication. He's assisted to the bathroom by wheelchair and so unable to ambulate at this time. He does use a motorized wheelchair at his apartment. Labs significant for + opiates and elevated blood alcohol. Sodium 151. The patient is signed out to Dr. Recinos for continued observation and repeat neurologic exam. Labs Test 01/20/18 13:00 01/20/18 14:40 White Blood Count 6.6 K/UL (4.8-10.8) Red Blood Count 4.66 M/UL (4.70-6.10) Hemoglobin 14.6 G/DL (14.2-18.0) Hematocrit 44.6 % (42.0-52.0) Mean Corpuscular Volume 96 FL (80-99) Mean Corpuscular Hemoglobin 31.2 PG (27.0-31.0) Mean Corpuscular Hemoglobin Concent 32.6 G/DL (32.0-36.0) Red Cell Distribution Width 12.0 % (11.6-14.8) Platelet Count 392 K/UL (150-450) Mean Platelet Volume 5.7 FL (6.5-10.1) Neutrophils (%) (Auto) 72.3 % (45.0-75.0) Lymphocytes (%) (Auto) 17.6 % (20.0-45.0) Monocytes (%) (Auto) 5.9 % (1.0-10.0) Eosinophils (%) (Auto) 3.2 % (0.0-3.0) Basophils (%) (Auto) 0.9 % (0.0-2.0) Sodium Level 151 MMOL/L (136-145) Potassium Level 4.3 MMOL/L (3.5-5.1) Chloride Level 104 MMOL/L (98-107) Carbon Dioxide Level 26 MMOL/L (21-32) Anion Gap 21 mmol/L (5-15) Blood Urea Nitrogen 11 mg/dL (7-18) Creatinine 0.9 MG/DL (0.55-1.30) Estimat Glomerular Filtration Rate > 60 mL/min (>60) Glucose Level 95 MG/DL (74-106) Calcium Level 8.9 MG/DL (8.5-10.1) Total Bilirubin 0.3 MG/DL (0.2-1.0) Aspartate Amino Transf (AST/SGOT) 16 U/L (15-37) Alanine Aminotransferase (ALT/SGPT) 11 U/L (12-78) Alkaline Phosphatase 72 U/L (46-116) Ammonia 23 umol/L (11-32) Total Creatine Kinase 78 U/L (26-308) Total Protein 7.0 G/DL (6.4-8.2) Albumin 3.4 G/DL (3.4-5.0) Globulin 3.6 g/dL Albumin/Globulin Ratio 0.9 (1.0-2.7) Thyroid Stimulating Hormone (TSH) 0.515 uiU/mL (0.358-3.740) Salicylates Level 1.9 ug/mL (2.8-20) Acetaminophen Level < 2 MCG/ML (10-30) Serum Alcohol 154 mg/dL Urine Color Pale yellow Urine Appearance Slightly cloudy Urine pH 8 (4.5-8.0) Urine Specific [place] 1.010 (1.005-1.035) Urine Protein Negative (NEGATIVE) Urine Glucose (UA) Negative (NEGATIVE) Urine Ketones Negative (NEGATIVE) Urine Occult Blood Negative (NEGATIVE) Urine Nitrite Negative (NEGATIVE) Urine Bilirubin Negative (NEGATIVE) Urine Urobilinogen Normal MG/DL (0.0-1.0) Urine Leukocyte Esterase Negative (NEGATIVE) Urine Opiates Screen Positive (NEGATIVE) Urine Barbiturates Screen Negative (NEGATIVE) Phencyclidine (PCP) Screen Negative (NEGATIVE) Urine Amphetamines Screen Negative (NEGATIVE) Urine Benzodiazepines Screen Negative (NEGATIVE) Urine Cocaine Screen Negative (NEGATIVE) Urine Marijuana (THC) Screen Negative (NEGATIVE) (Isidro Kendall M.D.) ER Course I saw patient at bedside, he is awake and alert, clinically sober. He says that he is wheelchair-bound. And that his Ronnell is at home. He states that he wants to go home now. He admits to drinking last night. Stable for discharge home he will be discharged with BLS back to his home (Bryce Recinos M.D.) EKG Diagnostic Results Rate: tachycardiac ST Segments: no acute changes (Isidro Kendall M.D.) Rhythm Strip Diag. Results EP Interpretation: yes Rhythm: no PVC's, no ectopy, other - ST (Isidro Kendall M.D.) Chest X-Ray Diagnostic Results Chest X-Ray Diagnostic Results : Chest X-Ray Ordered: Yes # of Views/Limited/Complete: 1 View Indication: Other Interpretation: no effusion, no pneumothorax Impression: No acute disease (Isidro Kendall M.D.) CT/MRI/US Diagnostic Results CT/MRI/US Diagnostic Results : Imaging Test Ordered: head Impression Impression: Negative for acute intracranial bleed or mass effect Left frontotemporoparietal craniotomy/craniectomy defect, underlyingenc ephalomalacia. Per prior reports, likely related to earlier meningioma resection. These findings are unchanged (Isidro Kendall M.D.) Last Vital Signs Date Time Temp Pulse Resp B/P (MAP) Pulse Ox O2 Delivery O2 Flow Rate FiO2 01/20/18 18:49 98.2 99 22 127/90 95 Room Air 98.2 Status: improved (Isidro Kendall M.D.) Disposition: HOME, SELF-CARE Condition: Stable Referrals: OTHER,REFERRING (PCP) Isidro Kendall M.D. Jan 20, 2018 16:59 Bryce Recinos M.D. Jan 20, 2018 17:14
[2018-01-20 17:10] VITALS: BP 127/90
[2018-01-20 18:49] VITALS: BP 127/90
--- NOTE | 2018-01-21 13:08 | Diagnostic Imaging Report ---
Indication: Shortness of breath Technique: One view of the chest Comparison: 12/15/2017 Findings: The heart is upper limits normal in size. There is minimal central perihilar interstitial prominence and bronchial wall thickening, similar to the prior exam. No focal airspace consolidation. No effusion. Impression: Mild central interstitial prominence bronchial wall thickening, could indicate mild bronchitis changes. No acute process otherwise
--- NOTE | 2018-01-21 18:03 | Cardiology Report ---
APPROVED REPORT EKG Measurement Heart [id number] Sinus tachycardia Left axis deviation Abnormal ECG
== END 2018-01-20 19:29 | disposition home or self-care (01) ==
LOC: EDUNIT# 12:20 → EDBD 12:20 → EMR 13:05
DX: F10.929 Alcohol use, unspecified with intoxication, unspecified (principal); Z86.73 Personal history of transient ischemic attack (TIA), and cerebral infarction without residual deficits; G20 Parkinson's disease; F19.10 Other psychoactive substance abuse, uncomplicated; G40.909 Epilepsy, unspecified, not intractable, without status epilepticus; I10 Essential (primary) hypertension; E11.9 Type 2 diabetes mellitus without complications; Z85.9 Personal history of malignant neoplasm, unspecified
CPT/HCPCS: 36415; 70450; 71045; 80053; 80307; 80329; 81003; 82140; 82550; 82962; 84443; 85025; 93005; 96360; 96361; 99284

== ENCOUNTER 2018-01-21 22:58 | Emergency (ER) | payer OTHER ==
[~2018-01-21] VITALS: Ht 177.8 cm; Wt 81.6 kg
[2018-01-21 23:13] VITALS: BP 126/81
[2018-01-21] MEDS ORDERED: Thiamine HCl 100 MG in D5W 55 ML IVPB SCH (23:15)
--- NOTE | 2018-01-21 23:40 | Emergency Room Report ---
History of Present Illness General Chief Complaint: Alcohol Intoxication Source: Patient, Medical Record, EMS Present Illness HPI Patient is a 57-year-old male brought in by EMS after increased altered level of consciousness. Patient recent increased altered mental status. He reports drinking heavily. The patient was noted to be sent in from his the living facility and was noted to be in his motorized wheelchair and appear to be intoxicated. He was having some nausea. History is limited by poor historian. Allergies: Coded Allergies: ERYTHROMYCIN BASE (Unverified Allergy, Unknown, 12/15/17) VANCOMYCIN (Verified Allergy, Unknown, 08/01/15) Patient History Past Medical History: see triage record Reviewed Nursing Documentation: PMH: Agreed; PSxH: Agreed Nursing Documentation-PMH Hx Cardiac Problems: Yes Hx Hypertension: Yes Hx Diabetes: Yes Hx Cancer: Yes - meningioma w/ craniotomy Hx Gastrointestinal Problems: No Hx Neurological Problems: Yes - parkinson, seizure, subdural hematoma Hx Cerebrovascular Accident: Yes Hx Parkinson's Disease: Yes Hx Seizures: Yes Hx Tremors: Yes Hx Weakness: Yes Hx Neurologic Surgery: Yes - s/p craniotomy Review of Systems All Other Systems: limited - by mental status Physical Exam Vital Signs Date Time Temp Pulse Resp B/P (MAP) Pulse Ox O2 Delivery O2 Flow Rate FiO2 01/21/18 23:00 97.9 107 18 123/85 96 Room Air 97.9 Sp02 EP Interpretation: reviewed, normal General Appearance: normal inspection, well appearing, no apparent distress, alert, Chronically Ill Head: atraumatic ENT: normal ENT inspection, hearing grossly normal, normal voice Neck: normal inspection, full range of motion, supple, no bony tend Respiratory: normal inspection, lungs clear, normal breath sounds, no respiratory distress, no retraction, no wheezing Cardiovascular #1: regular rate, rhythm, no edema Gastrointestinal: normal inspection, normal bowel sounds, non tender, soft, no guarding, no hernia Genitourinary: no CVA tenderness Musculoskeletal: normal inspection, back normal, normal range of motion Neurologic: alert, responsive, other - left upper extremity pillrolling tremor Psychiatric: normal inspection, judgement/insight normal, mood/affect normal Skin: normal inspection, normal color, no rash Medical Decision Making Diagnostic Impression: Primary Impression: Alcohol intoxication Additional Impressions: Tremor Chronic pain ER Course Patient presented for altered mental status. Differential diagnosis included but was not limited to alcohol intoxication, ischemic stroke, subarachnoid hemorrhage, hypoglycemia, spinal cord injury, neurodegenerative disorder, urinary tract infection, hypoxemia.Because of complexity of patient's case laboratory testing and imaging studies were ordered. Labs Test 01/21/18 00:45 01/21/18 22:08 01/21/18 23:40 White Blood Count 10.6 K/UL (4.8-10.8) Red Blood Count 4.65 M/UL (4.70-6.10) Hemoglobin 14.7 G/DL (14.2-18.0) Hematocrit 43.9 % (42.0-52.0) Mean Corpuscular Volume 94 FL (80-99) Mean Corpuscular Hemoglobin 31.6 PG (27.0-31.0) Mean Corpuscular Hemoglobin Concent 33.5 G/DL (32.0-36.0) Red Cell Distribution Width 12.0 % (11.6-14.8) Platelet Count 430 K/UL (150-450) Mean Platelet Volume 5.3 FL (6.5-10.1) Neutrophils (%) (Auto) 71.6 % (45.0-75.0) Lymphocytes (%) (Auto) 20.2 % (20.0-45.0) Monocytes (%) (Auto) 7.1 % (1.0-10.0) Eosinophils (%) (Auto) 0.7 % (0.0-3.0) Basophils (%) (Auto) 0.4 % (0.0-2.0) Urine Color Yellow Urine Appearance Clear Urine pH 6.0 (4.5-8.0) Urine Specific [place] 1.020 (1.005-1.035) Urine Protein Negative (NEGATIVE) Urine Glucose (UA) Negative (NEGATIVE) Urine Ketones Negative (NEGATIVE) Urine Blood Negative (NEGATIVE) Urine Nitrite Negative (NEGATIVE) Urine Bilirubin Negative (NEGATIVE) Urine Urobilinogen Normal MG/DL (0.0-1.0) Urine Leukocyte Esterase Negative (NEGATIVE) Urine RBC 0-2 /HPF (0 - 0) Urine WBC 0 /HPF (0 - 0) Urine Squamous Epithelial Cells Few /LPF (NONE/OCC) Urine Bacteria None /HPF (NONE) Sodium Level 147 MMOL/L (136-145) Potassium Level 4.4 MMOL/L (3.5-5.1) Chloride Level 107 MMOL/L (98-107) Carbon Dioxide Level 24 MMOL/L (21-32) Anion Gap 16 mmol/L (5-15) Blood Urea Nitrogen 15 mg/dL (7-18) Creatinine 0.9 MG/DL (0.55-1.30) Estimat Glomerular Filtration Rate > 60 mL/min (>60) Glucose Level 91 MG/DL (74-106) Calcium Level 9.1 MG/DL (8.5-10.1) Total Bilirubin 0.4 MG/DL (0.2-1.0) Aspartate Amino Transf (AST/SGOT) 21 U/L (15-37) Alanine Aminotransferase (ALT/SGPT) 18 U/L (12-78) Alkaline Phosphatase 81 U/L (46-116) Ammonia 14 umol/L (11-32) Total Protein 7.7 G/DL (6.4-8.2) Albumin 3.8 G/DL (3.4-5.0) Globulin 3.9 g/dL Albumin/Globulin Ratio 1.0 (1.0-2.7) Serum Alcohol 169 mg/dL Last Vital Signs Date Time Temp Pulse Resp B/P (MAP) Pulse Ox O2 Delivery O2 Flow Rate FiO2 01/21/18 23:00 97.9 107 18 123/85 96 Room Air 97.9 Status: improved Disposition: HOME, SELF-CARE Condition: Stable Referrals: NOT CHOSEN ANDREY/,REFERRING (PCP) Baldomero Acuña MD Jan 21, 2018 23:40
[2018-01-22 00:04] LABS: ANION GAP 16 mmol/L (5-15); BLOOD UREA NITROGEN 15 mg/dL (7-18); CALCIUM 9.1 MG/DL (8.5-10.1); CARBON DIOXIDE 24 MMOL/L (21-32); CHLORIDE 107 MMOL/L (98-107); CREATININE 0.9 MG/DL (0.55-1.30); POTASSIUM 4.4 MMOL/L (3.5-5.1); SODIUM 147 MMOL/L (136-145)
[2018-01-22 00:05] LABS: AMMONIA 14 umol/L (11-32)
[2018-01-22 00:08] LABS: ALANINE AMINOTRANSFERASE 18 U/L (12-78); ALBUMIN 3.8 G/DL (3.4-5.0); ALKALINE PHOSPHATASE 81 U/L (46-116); ASPARTATE AMINO TRANSFERASE 21 U/L (15-37); BILIRUBIN,TOTAL 0.4 MG/DL (0.2-1.0)
[2018-01-22 00:55] LABS: BASOPHILS % (AUTO) 0.4 % (0.0-2.0); EOSINOPHILS % (AUTO) 0.7 % (0.0-3.0); HEMATOCRIT 43.9 % (42.0-52.0); HEMOGLOBIN 14.7 G/DL (14.2-18.0); LYMPHOCYTES % (AUTO) 20.2 % (20.0-45.0); MEAN CORPUSCULAR VOLUME 94 FL (80-99); MONOCYTES % (AUTO) 7.1 % (1.0-10.0); NEUTROPHILS % (AUTO) 71.6 % (45.0-75.0); PLATELET COUNT 430 K/UL (150-450); RED BLOOD COUNT 4.65 M/UL (4.70-6.10); WHITE BLOOD COUNT 10.6 K/UL (4.8-10.8)
[2018-01-22 01:16] LABS: APPEARANCE,URINE CLEAR; BILIRUBIN, URINE NEGATIVE (NEGATIVE); GLUCOSE, URINE (UA) NEGATIVE (NEGATIVE); KETONES,URINE NEGATIVE (NEGATIVE); LEUKOCYTE ESTERASE ,URINE NEGATIVE (NEGATIVE); NITRITE,URINE NEGATIVE (NEGATIVE); UROBILINOGEN,URINE NORMAL MG/DL (0.0-1.0)
[2018-01-22 01:17] LABS: COLOR,URINE YELLOW; PROTEIN,URINE NEGATIVE (NEGATIVE)
[2018-01-22 02:08] VITALS: BP 108/60
[2018-01-22] MEDS ORDERED: Sodium Chloride 500ML 500 ML IV ONE (03:00)
[2018-01-22] MEDS ORDERED: LORazepam Inj 2mg/ml 1ml IV ONE (03:00)
[2018-01-22 03:34] VITALS: BP 113/92
[2018-01-22 06:17] VITALS: BP 145/88
[2018-01-22 07:25] VITALS: BP 145/88
== END 2018-01-22 07:27 | disposition home or self-care (01) ==
LOC: EDBD 22:58 → EMR 23:18
DX: F10.129 Alcohol abuse with intoxication, unspecified (principal); Y90.6 Blood alcohol level of 120-199 mg/100 ml; R41.82 Altered mental status, unspecified; R25.1 Tremor, unspecified; G89.29 Other chronic pain; G20 Parkinson's disease; Z86.73 Personal history of transient ischemic attack (TIA), and cerebral infarction without residual deficits; Z85.89 Personal history of malignant neoplasm of other organs and systems; Z88.1 Allergy status to other antibiotic agents
CPT/HCPCS: 36415; 80053; 80329; 81001; 82140; 85025; 96365; 96366; 96375; 99285; J2405; J7040

== ENCOUNTER 2018-01-31 23:54 | Emergency (ER) | payer OTHER ==
[~2018-01-31] VITALS: Ht 175.3 cm; Wt 77.1 kg
--- NOTE | 2018-02-01 00:54 | Diagnostic Imaging Report ---
EXAM: XR Right Elbow Complete, 3 or More Views CLINICAL HISTORY: TRAUMA TECHNIQUE: Frontal, lateral and oblique views of the right elbow. COMPARISON: No relevant prior studies available. FINDINGS: Bones/joints: No acute fracture or dislocation. Tiny olecranon enthesophyte. Soft tissues: Unremarkable. IMPRESSION: No acute fracture or dislocation.
--- NOTE | 2018-02-01 00:55 | Diagnostic Imaging Report ---
EXAM: XR Right Hip With Pelvis When Performed, 4 or More Views CLINICAL HISTORY: TRAUMA TECHNIQUE: Four or more views of the right hip, with pelvis when performed. COMPARISON: 10/17/2017 FINDINGS: Bones/joints: No acute fracture or dislocation. Soft tissues: Unremarkable. IMPRESSION: No acute fracture or dislocation.
--- NOTE | 2018-02-01 00:59 | Emergency Room Report ---
History of Present Illness General Chief Complaint: Multiple Trauma/Fall Source: Patient, Medical Record, EMS Present Illness HPI Is a 57-year-old male who is an alcoholic. He has been here numerous times. Per EMS, they run on him factly every day. He presents with chief when of a fall and has right hip and right elbow pain. He said he felt today. Pain is 10 out of 10. Worse with movement. No nausea no vomiting no head injury. No loss of consciousness. Last drink was an hour ago. Denies any other complaint. Allergies: Coded Allergies: ERYTHROMYCIN BASE (Unverified Allergy, Unknown, 12/15/17) VANCOMYCIN (Verified Allergy, Unknown, 08/01/15) Patient History Past Medical History: see triage record, old chart reviewed Past Surgical History: other Pertinent Family History: none Social History: Reports: alcohol use Immunizations: other Reviewed Nursing Documentation: PMH: Agreed; PSxH: Agreed Nursing Documentation-PMH Hx Cardiac Problems: Yes Hx Hypertension: Yes Hx Diabetes: Yes Hx Cancer: Yes - meningioma w/ craniotomy Hx Gastrointestinal Problems: No Hx Neurological Problems: Yes - parkinson, seizure, subdural hematoma Hx Cerebrovascular Accident: Yes Hx Parkinson's Disease: Yes Hx Seizures: Yes Hx Tremors: Yes Hx Weakness: Yes Hx Neurologic Surgery: Yes - s/p craniotomy Review of Systems Eye: Denies: eye pain, blurred vision ENT: Denies: ear pain, nose congestion, throat swelling Respiratory: Denies: cough, shortness of breath Cardiovascular: Denies: chest pain, palpitations Gastrointestinal: Denies: abdominal pain, diarrhea, nausea, vomiting Musculoskeletal: Reports: joint pain; Denies: back pain Skin: Denies: rash Neurological: Denies: headache, numbness Endocrine: Denies: increased thirst, increased urine Hematologic/Lymphatic: Denies: easy bruising All Other Systems: negative except mentioned in HPI Physical Exam Vital Signs Date Time Temp Pulse Resp B/P (MAP) Pulse Ox O2 Delivery O2 Flow Rate FiO2 01/31/18 23:53 97.5 104 18 104/68 91 Room Air 97.5 vitals unremarkable. . Pulse ox 95% on room air. Sp02 EP Interpretation: reviewed, normal General Appearance: well appearing, no apparent distress, alert Head: normocephalic, atraumatic Eyes: bilateral eye PERRL, bilateral eye EOMI ENT: hearing grossly normal, normal pharynx Neck: full range of motion, supple, no meningismus Respiratory: chest non-tender, lungs clear, normal breath sounds Cardiovascular #1: regular rate, rhythm, no murmur Gastrointestinal: normal bowel sounds, non tender, no mass, no organomegaly, no bruit, non-distended Musculoskeletal: back normal, other - Right elbow: Tenderness over the olecranon. No deformity. Full range of motion. Neurologic: alert, oriented x3 Psychiatric: mood/affect normal Skin: warm/dry Medical Decision Making Diagnostic Impression: Primary Impression: Acute alcoholic intoxication Qualified Codes: F10.929 - Alcohol use, unspecified with intoxication, unspecified Additional Impressions: Contusion of elbow, right Qualified Codes: S50.01XA - Contusion of right elbow, initial encounter Hip pain, right ER Course Patient with chronic pain and alcohol abuse. No obvious fracture or dislocation. We'll discharge home via ambulance. Head injury to warrant CT scan. No focal deficit. Other X-Ray Diagnostic Results Other X-Ray Diagnostic Results #1: X-Ray ordered: Right elbow x-rays # of Views/Limited Vs Complete: 3 View Indication: Pain EP Interpretation: Yes Interpretation: no dislocation, no soft tissue swelling, no fractures Impression: No acute disease Electronically Signed by: Andre Deng MD Other X-Ray Diagnostic Results #2: X-Ray ordered: Rt hip xrays # of Views/Limited Vs Complete: 4 View Indication: Pain EP Interpretation: Yes Interpretation: no dislocation, no soft tissue swelling, no fractures Impression: No acute disease Electronically Signed by: Andre Deng MD Last Vital Signs Date Time Temp Pulse Resp B/P (MAP) Pulse Ox O2 Delivery O2 Flow Rate FiO2 01/31/18 23:53 97.5 104 18 104/68 91 Room Air 97.5 Status: improved Disposition: HOME, SELF-CARE Condition: Stable Referrals: NOT CHOSEN [facility]/,REFERRING (PCP) Additional Instructions: Stop using alcohol. Go to rehabilitation. Follow-up your doctor in 7 days. May take Motrin for pain. Return if worse. ANDRE DENG M.D. Feb 01, 2018 00:59
[2018-02-01 01:04] VITALS: BP 104/68
[2018-02-01 02:02] VITALS: BP 104/68
== END 2018-02-01 02:33 | disposition home or self-care (01) ==
LOC: EDBD 23:54 → EMR 23:59
DX: F10.229 Alcohol dependence with intoxication, unspecified (principal)
CPT/HCPCS: 99284

== ENCOUNTER 2018-03-17 19:38 | Inpatient (IN) | payer OTHER ==
[~2018-03-17] VITALS: Ht 175.3 cm; Wt 87.6 kg
[2018-03-17 20:00] VITALS: BP 96/71
--- NOTE | 2018-03-17 20:03 | Emergency Room Report ---
History of Present Illness General Chief Complaint: Seizure Source: Patient Present Illness HPI Patient has a history of alcohol is him Parkinson's disease CVA. Patient apparently is wheelchair-bound. Patient has had multiple visits to our emergency department for alcohol abuse. Patient apparently had a seizure today was found on the floor in his own feces by the paramedics. According the paramedics they had to perform a forced entry. Patient claimed that he had a seizure. Patient states that he's feeling weak. He has tremors on the left side of his arm. Patient is noncompliant with his seizure medications. He denies abusing alcohol today. No other complaints are noted. Symptoms are noted to be severe.No other modifying factors. No other associated signs and symptoms. No other complaints were noted. Much of the history was obtained from medical records as patient is not a very good historian. Allergies: Coded Allergies: ERYTHROMYCIN BASE (Unverified Allergy, Unknown, 12/15/17) VANCOMYCIN (Verified Allergy, Unknown, 08/01/15) Patient History Past Medical History: DM, HTN, CVA/TIA, seizures, psych hx - schizoaffective, other - Meningioma with craniotomy PMH Narrative parkinson's disease Past Surgical History: other - And prior brain surgery Social History: Reports: alcohol use Reviewed Nursing Documentation: PMH: Agreed; PSxH: Agreed Nursing Documentation-PMH Past Medical History: No History, Except For Hx Cardiac Problems: No - 3x craniotomy Hx Hypertension: Yes Hx Diabetes: Yes Hx Cancer: Yes - meningioma w/ craniotomy Hx Gastrointestinal Problems: No History Of Psychiatric Problem: Yes - schizoeffective Hx Neurological Problems: Yes - parkinson, seizure, subdural hematoma Hx Cerebrovascular Accident: Yes - 10/2017 Hx Parkinson's Disease: Yes Hx Seizures: Yes Hx Tremors: Yes Hx Weakness: Yes Hx Neurologic Surgery: Yes - s/p craniotomy Review of Systems All Other Systems: limited - Poor historian Physical Exam Vital Signs Date Time Temp Pulse Resp B/P (MAP) Pulse Ox O2 Delivery O2 Flow Rate FiO2 03/17/18 19:32 99.1 82 14 156/72 98 Room Air 99.1 Sp02 EP Interpretation: reviewed, normal General Appearance: mild distress Head: atraumatic Eyes: bilateral eye normal inspection ENT: normal ENT inspection, hearing grossly normal, moist mucus membranes Neck: normal inspection, supple Respiratory: normal inspection, normal breath sounds, no respiratory distress Cardiovascular #1: regular rate, rhythm, no edema Gastrointestinal: non tender, soft Genitourinary: no CVA tenderness, other - Left upper extremity weakness and tremors Musculoskeletal: back normal Neurologic: alert, responsive Psychiatric: depressed affect, anxious Skin: normal color, no rash Medical Decision Making Diagnostic Impression: Primary Impression: Alcohol abuse Additional Impression: Epileptic seizure, generalized ER Course Patient presents emergency department today with seizures. Patient was found in his own feces. Differential considerations include failure to thrive, alcohol abuse, seizure just name a few. Given severe patient presentation the patient also presented slightly hypotensive I felt that it would not be safe to send patient home at this time. [place] the patient require admission. Patient was admitted to Dr. Krishan Fraire past. Therefore I have recontacted Dr. Krishan Fraire patient will be admitted his service for further treatment. Labs Test 03/17/18 20:30 White Blood Count 7.0 K/UL (4.8-10.8) Red Blood Count 5.08 M/UL (4.70-6.10) Hemoglobin 16.1 G/DL (14.2-18.0) Hematocrit 48.3 % (42.0-52.0) Mean Corpuscular Volume 95 FL (80-99) Mean Corpuscular Hemoglobin 31.7 PG (27.0-31.0) Mean Corpuscular Hemoglobin Concent 33.4 G/DL (32.0-36.0) Red Cell Distribution Width 13.3 % (11.6-14.8) Platelet Count 216 K/UL (150-450) Mean Platelet Volume 5.9 FL (6.5-10.1) Neutrophils (%) (Auto) 59.0 % (45.0-75.0) Lymphocytes (%) (Auto) 31.3 % (20.0-45.0) Monocytes (%) (Auto) 7.2 % (1.0-10.0) Eosinophils (%) (Auto) 1.1 % (0.0-3.0) Basophils (%) (Auto) 1.4 % (0.0-2.0) Sodium Level 142 MMOL/L (136-145) Potassium Level 4.0 MMOL/L (3.5-5.1) Chloride Level 103 MMOL/L (98-107) Carbon Dioxide Level 28 MMOL/L (21-32) Anion Gap 11 mmol/L (5-15) Blood Urea Nitrogen 24 mg/dL (7-18) Creatinine 1.1 MG/DL (0.55-1.30) Estimat Glomerular Filtration Rate > 60 mL/min (>60) Glucose Level 114 MG/DL (74-106) Calcium Level 9.1 MG/DL (8.5-10.1) Total Bilirubin 0.5 MG/DL (0.2-1.0) Aspartate Amino Transf (AST/SGOT) 22 U/L (15-37) Alanine Aminotransferase (ALT/SGPT) 11 U/L (12-78) Alkaline Phosphatase 119 U/L (46-116) Total Creatine Kinase 123 U/L (26-308) Troponin I 0.000 ng/mL (0.000-0.056) Total Protein 7.3 G/DL (6.4-8.2) Albumin 3.6 G/DL (3.4-5.0) Globulin 3.7 g/dL Albumin/Globulin Ratio 1.0 (1.0-2.7) Serum Alcohol 181 mg/dL EKG Diagnostic Results Rate: normal Rhythm: NSR ST Segments: no acute changes Rhythm Strip Diag. Results EP Interpretation: yes Rate: 102 Rhythm: NSR, no PVC's, no ectopy Last Vital Signs Date Time Temp Pulse Resp B/P (MAP) Pulse Ox O2 Delivery O2 Flow Rate FiO2 03/17/18 19:32 99.1 82 14 156/72 98 Room Air 99.1 Status: improved Disposition: ADMITTED INPATIENT Condition: Serious Rigo Conley MD Mar 17, 2018 20:03
[2018-03-17 20:56] LABS: ANION GAP 11 mmol/L (5-15); BASOPHILS % (AUTO) 1.4 % (0.0-2.0); BLOOD UREA NITROGEN 24 mg/dL (7-18); CALCIUM 9.1 MG/DL (8.5-10.1); CARBON DIOXIDE 28 MMOL/L (21-32); CHLORIDE 103 MMOL/L (98-107); CREATININE 1.1 MG/DL (0.55-1.30); EOSINOPHILS % (AUTO) 1.1 % (0.0-3.0); HEMATOCRIT 48.3 % (42.0-52.0); HEMOGLOBIN 16.1 G/DL (14.2-18.0); LYMPHOCYTES % (AUTO) 31.3 % (20.0-45.0); MEAN CORPUSCULAR VOLUME 95 FL (80-99); MONOCYTES % (AUTO) 7.2 % (1.0-10.0); PLATELET COUNT 216 K/UL (150-450); RED BLOOD COUNT 5.08 M/UL (4.70-6.10); RED CELL DISTRIBUTION WIDTH 13.3 % (11.6-14.8); SODIUM 142 MMOL/L (136-145)
[2018-03-17 21:01] LABS: ALANINE AMINOTRANSFERASE 11 U/L (12-78); ALBUMIN 3.6 G/DL (3.4-5.0); ALKALINE PHOSPHATASE 119 U/L (46-116); ASPARTATE AMINO TRANSFERASE 22 U/L (15-37); BILIRUBIN,TOTAL 0.5 MG/DL (0.2-1.0); CREATINE KINASE 123 U/L (26-308)
[2018-03-17 22:00] VITALS: BP 153/68
[2018-03-17] MEDS ORDERED: Mylanta II UD 30ml ORAL PRN (22:45)
[2018-03-17] MEDS ORDERED: LORazepam Inj 2mg/ml 1ml IV PRN (22:45)
[2018-03-17] MEDS ORDERED: Morphine Sulfate 2mg/ml Inj IVP PRN (22:45)
[2018-03-17] MEDS ORDERED: chlordiazePOXIDE 25mg Cap ORAL PRN (22:45)
[2018-03-17] MEDS ORDERED: Miralax 17gm pkt ORAL PRN (22:45)
[2018-03-17] MEDS ORDERED: Zolpidem 5mg tab ORAL PRN (22:45)
[2018-03-18] VITALS: BP_SYST 152; BP_SYST 21; BP_DIAS 81
[2018-03-18 04:00] VITALS: BP 135/79
[2018-03-18 06:30] LABS: BASOPHILS % (AUTO) 0.6 % (0.0-2.0); EOSINOPHILS % (AUTO) 2.2 % (0.0-3.0); HEMATOCRIT 43.8 % (42.0-52.0); HEMOGLOBIN 14.6 G/DL (14.2-18.0); LYMPHOCYTES % (AUTO) 21.3 % (20.0-45.0); MEAN CORPUSCULAR VOLUME 94 FL (80-99); MONOCYTES % (AUTO) 12.4 % (1.0-10.0); NEUTROPHILS % (AUTO) 63.6 % (45.0-75.0); PLATELET COUNT 299 K/UL (150-450); RED BLOOD COUNT 4.66 M/UL (4.70-6.10); RED CELL DISTRIBUTION WIDTH 13.5 % (11.6-14.8); WHITE BLOOD COUNT 6.9 K/UL (4.8-10.8)
[2018-03-18 07:14] LABS: ALANINE AMINOTRANSFERASE 17 U/L (12-78); ALBUMIN 3.2 G/DL (3.4-5.0); ALKALINE PHOSPHATASE 103 U/L (46-116); ANION GAP 4 mmol/L (5-15); ASPARTATE AMINO TRANSFERASE 15 U/L (15-37); BLOOD UREA NITROGEN 23 mg/dL (7-18); CALCIUM 8.6 MG/DL (8.5-10.1); CARBON DIOXIDE 29 MMOL/L (21-32); CHLORIDE 106 MMOL/L (98-107); CREATININE 1.1 MG/DL (0.55-1.30); POTASSIUM 4.1 MMOL/L (3.5-5.1); SODIUM 139 MMOL/L (136-145)
[2018-03-18 08:00] VITALS: BP 123/75
[2018-03-18] MEDS: Levodopa/Carbidopa 25/100 tab ORAL SCH ×3 (08:35→17:45)
[2018-03-18] MEDS: Heparin 5000 units/ml inj SUBQ SCH ×2 (08:41→21:01)
[2018-03-18] MEDS ORDERED: Thiamine 100mg in D5W 55ml IVPB SCH (09:00)
[2018-03-18] MEDS ORDERED: Folic Acid 1 MG, Magnesium Sulfate 2,000 MG, Multivitamin - 12 Injection 10 ML in NS w/... IV SCH (09:30)
--- NOTE | 2018-03-18 11:41 | Consultation ---
History of Present Illness General Date patient seen: Mar 18, 2018 Chief Complaint: Seizure Present Illness HPI 57 year old male with hx of DM, HTN, CVA/TIA, seizures, psych hx - schizoaffective, Meningioma with craniotomy, alcohol abuse, Parkinson's disease, wheelchair-bound. Patient apparently had a seizure today was found on the floor in his own feces by the paramedics. Patient states that he's feeling weak. He has tremors on the left side of his arm. Patient is noncompliant with his seizure medications. His ETOH level was 118. He is admitted to telemetry for further management. Allergies: Coded Allergies: ERYTHROMYCIN BASE (Unverified Allergy, Unknown, 12/15/17) VANCOMYCIN (Verified Allergy, Unknown, 08/01/15) Medication History Scheduled Carbidopa/Levodopa 25-100 Mg* (Sinemet 25-100 Mg Tablet*), 3 TAB ORAL THREE TIMES A DAY, (Reported) Gabapentin* (Gabapentin*), 600 MG ORAL THREE TIMES A DAY, (Reported) No Known Medications* (NKM - No Known Medications*), 0 ., (Reported) Scheduled PRN Oxycodone Hcl/Acetaminophen 10-325 Mg Tablet (Percocet 10-325 Mg Tablet*), 1 TAB ORAL Q6H PRN for For Pain, (Reported) Patient History Healthcare decision maker N Resuscitation status Full Code Advanced Directive on File No Past Medical/Surgical History Past Medical/Surgical History: (1) Parkinson disease (2) CVA (cerebral vascular accident) (3) Non-compliance (4) Drug-seeking behavior (5) Chronic pain (6) Substance abuse Review of Systems Constitutional: Reports: no symptoms Eye: Reports: no symptoms ENT: Reports: no symptoms Physical Exam General Appearance: WD/WN Lines, tubes and drains: peripheral HEENT: normocephalic, atraumatic Neck: non-tender, normal alignment Respiratory/Chest: chest wall non-tender, lungs clear Breasts: no masses Cardiovascular/Chest: normal peripheral pulses Abdomen: normal bowel sounds Genitourinary/Rectal: normal genital exam Extremities: normal range of motion Last 24 Hour Vital Signs Date Time Temp Pulse Resp B/P (MAP) Pulse Ox O2 Delivery O2 Flow Rate FiO2 03/18/18 08:00 97.7 99 20 123/75 (91) 94 97.7 03/18/18 08:00 105 03/18/18 04:14 89 03/18/18 04:00 98.2 98 22 135/79 (97) 94 98.2 03/18/18 00:37 Room Air 03/18/18 00:04 99 03/18/18 00:00 98.5 101 24 152/81 (104) 94 98.5 03/17/18 23:21 98.7 90 18 143/69 99 Room Air 99.0 03/17/18 22:00 99.0 97 18 153/68 96 Room Air 99.0 03/17/18 21:07 15 Room Air 03/17/18 20:00 99.0 103 15 96/71 97 Room Air 99.0 03/17/18 19:32 99.1 82 14 156/72 98 Room Air 99.1 Intake and Output 03/17/18 03/18/18 19:00 07:00 Intake Total 360 ml Output Total 250 ml Balance 110 ml Intake Oral 360 ml Output Urine Total 250 ml # Voids 3 Laboratory Tests Test 03/17/18 20:30 03/17/18 21:50 03/18/18 05:30 White Blood Count 7.0 K/UL (4.8-10.8) 6.9 K/UL (4.8-10.8) Red Blood Count 5.08 M/UL (4.70-6.10) 4.66 M/UL (4.70-6.10) L Hemoglobin 16.1 G/DL (14.2-18.0) 14.6 G/DL (14.2-18.0) Hematocrit 48.3 % (42.0-52.0) 43.8 % (42.0-52.0) Mean Corpuscular Volume 95 FL (80-99) 94 FL (80-99) Mean Corpuscular Hemoglobin 31.7 PG (27.0-31.0) H 31.3 PG (27.0-31.0) H Mean Corpuscular Hemoglobin Concent 33.4 G/DL (32.0-36.0) 33.4 G/DL (32.0-36.0) Red Cell Distribution Width 13.3 % (11.6-14.8) 13.5 % (11.6-14.8) Platelet Count 216 K/UL (150-450) 299 K/UL (150-450) Mean Platelet Volume 5.9 FL (6.5-10.1) L 5.7 FL (6.5-10.1) L Neutrophils (%) (Auto) 59.0 % (45.0-75.0) 63.6 % (45.0-75.0) Lymphocytes (%) (Auto) 31.3 % (20.0-45.0) 21.3 % (20.0-45.0) Monocytes (%) (Auto) 7.2 % (1.0-10.0) 12.4 % (1.0-10.0) H Eosinophils (%) (Auto) 1.1 % (0.0-3.0) 2.2 % (0.0-3.0) Basophils (%) (Auto) 1.4 % (0.0-2.0) 0.6 % (0.0-2.0) Sodium Level 142 MMOL/L (136-145) 139 MMOL/L (136-145) Potassium Level 4.0 MMOL/L (3.5-5.1) 4.1 MMOL/L (3.5-5.1) Chloride Level 103 MMOL/L (98-107) 106 MMOL/L (98-107) Carbon Dioxide Level 28 MMOL/L (21-32) 29 MMOL/L (21-32) Anion Gap 11 mmol/L (5-15) 4 mmol/L (5-15) L Blood Urea Nitrogen 24 mg/dL (7-18) H 23 mg/dL (7-18) H Creatinine 1.1 MG/DL (0.55-1.30) 1.1 MG/DL (0.55-1.30) Estimat Glomerular Filtration Rate > 60 mL/min (>60) > 60 mL/min (>60) Glucose Level 114 MG/DL (74-106) H 102 MG/DL (74-106) Calcium Level 9.1 MG/DL (8.5-10.1) 8.6 MG/DL (8.5-10.1) Total Bilirubin 0.5 MG/DL (0.2-1.0) 1.0 MG/DL (0.2-1.0) Aspartate Amino Transf (AST/SGOT) 22 U/L (15-37) 15 U/L (15-37) Alanine Aminotransferase (ALT/SGPT) 11 U/L (12-78) L 17 U/L (12-78) Alkaline Phosphatase 119 U/L (46-116) H 103 U/L (46-116) Total Creatine Kinase 123 U/L (26-308) Troponin I 0.000 ng/mL (0.000-0.056) Total Protein 7.3 G/DL (6.4-8.2) 6.5 G/DL (6.4-8.2) Albumin 3.6 G/DL (3.4-5.0) 3.2 G/DL (3.4-5.0) L Globulin 3.7 g/dL 3.3 g/dL Albumin/Globulin Ratio 1.0 (1.0-2.7) 1.0 (1.0-2.7) Serum Alcohol 181 mg/dL Urine Opiates Screen Negative (NEGATIVE) Urine Barbiturates Screen Negative (NEGATIVE) Phencyclidine (PCP) Screen Negative (NEGATIVE) Urine Amphetamines Screen Negative (NEGATIVE) Urine Benzodiazepines Screen Negative (NEGATIVE) Urine Cocaine Screen Negative (NEGATIVE) Urine Marijuana (THC) Screen Positive (NEGATIVE) H Height (Feet): 5 Height (Inches): 9.00 Weight (Pounds): 193 Medications Current Medications Medications (Trade) Dose Ordered Sig/Job Route PRN Reason Start Time Stop Time Status Last Admin Dose Admin Acetaminophen (Tylenol) 650 mg Q4H PRN ORAL fever 03/17/18 22:45 04/16/18 22:44 Al Hydroxide/Mg Hydroxide (Mylanta II) 30 ml Q6H PRN ORAL dyspepsia 03/17/18 22:45 04/16/18 22:44 Carbidopa/Levodopa (Sinemet 25/100) 3 tab THREE TIMES A DAY ORAL 03/18/18 09:00 04/17/18 08:59 03/18/18 08:35 Chlordiazepoxide (Librium) 25 mg Q6H PRN ORAL Agitation 03/17/18 22:45 03/24/18 22:44 03/18/18 00:13 Dextrose (Dextrose 50%) 25 ml Q30M PRN IV Hypoglycemia 03/17/18 22:45 04/16/18 22:44 Dextrose (Dextrose 50%) 50 ml Q30M PRN IV Hypoglycemia 03/17/18 22:45 04/16/18 22:44 Folic Acid 1 mg/ Magnesium Sulfate 2000 mg/ Multivitamins 10 ml/Sodium Chloride 1,014.2 ml @ 124.876 mls/hr Q24H IV 03/18/18 09:30 04/17/18 09:29 03/18/18 08:36 Gabapentin (Neurontin) 600 mg THREE TIMES A DAY ORAL 03/18/18 09:00 04/17/18 08:59 03/18/18 08:35 Heparin Sodium (Porcine) (Heparin 5000 units/ml) 5,000 units EVERY 12 HOURS SUBQ 03/18/18 09:00 04/17/18 08:59 03/18/18 08:41 Lorazepam (Ativan 2mg/ml 1ml) 2 mg EVERY HOUR PRN IV seizures 03/17/18 22:45 03/24/18 22:44 Morphine Sulfate (Morphine Sulfate) 1 mg EVERY 4 HOURS PRN IVP For Pain 03/17/18 22:45 03/24/18 22:44 Ondansetron HCl (Zofran) 4 mg Q6H PRN IVP Nausea & Vomiting 03/17/18 22:45 04/16/18 22:44 Oxycodone/ Acetaminophen (Percocet 10) 1 tab Q6H PRN ORAL For Pain 03/17/18 22:45 03/24/18 22:44 Polyethylene Glycol (Miralax) 17 gm HSPRN PRN ORAL Constipation 03/17/18 22:45 04/16/18 22:44 Thiamine HCl 100 mg/Dextrose 56 ml @ 112 mls/hr Q24H IVPB 03/18/18 09:00 04/17/18 08:59 03/18/18 08:36 Zolpidem Tartrate (Ambien) 5 mg HSPRN PRN ORAL Insomnia 03/17/18 22:45 03/24/18 22:44 Assessment/Plan Problem List: (1) Acute alcoholic intoxication ICD Codes: F10.929 - Alcohol use, unspecified with intoxication, unspecified SNOMED: 52916285 (2) seizure (3) Parkinson disease ICD Codes: G20 - Parkinson's disease SNOMED: 76570752 (4) Non-compliance ICD Codes: Z91.19 - Patient's noncompliance with other medical treatment and regimen SNOMED: 8587468 (5) Substance abuse ICD Codes: F19.10 - Other psychoactive substance abuse, uncomplicated SNOMED: 93598995 Assessment/Plan banana bag seizure meds check electrolytes dvt prophylaxis. Cash Lorenzo MD Mar 18, 2018 11:41
[2018-03-18] MEDS ORDERED: LORazepam Inj 2mg/ml 1ml IV PRN ×2 (11:45→21:42)
[2018-03-18 12:00] VITALS: BP 118/79
[2018-03-18 16:00] VITALS: BP 119/89
--- NOTE | 2018-03-18 16:08 | Cardiology Report ---
APPROVED REPORT EKG Measurement Heart [id number] Sinus tachycardia Left anterior fascicular block Abnormal ECG
[2018-03-18 20:48] VITALS: BP 109/72
[2018-03-18] MEDS ORDERED: chlordiazePOXIDE 25mg Cap ORAL PRN (21:39)
[2018-03-18] MEDS ORDERED: Mylanta II UD 30ml ORAL PRN (21:39)
[2018-03-18] MEDS ORDERED: Miralax 17gm pkt ORAL PRN (22:45)
[2018-03-18] MEDS ORDERED: Zolpidem 5mg tab ORAL PRN (22:45)
--- NOTE | 2018-03-18 23:45 | History and Physical Report ---
DATE OF ADMISSION: 03/17/2018 TIME SEEN: At 2 p.m. CONSULTANTS: 1. Julio Root M.D. 2. Cash Lorenzo M.D. 3. Rowan Mendoza M.D. 4. Josselyn Mckinley M.D. CHIEF COMPLAINT: Recurrent seizure, neck and back pain. BRIEF HISTORY: This is a 57-year-old male who lives at home presents with a history of recurrent seizure x2 yesterday came to [facility], diagnosed with the above, admitted to telemetry for further care. Currently, slightly weak, slightly confused. Complains of slight neck and back pain. No chest pain. No shortness of breath. No nausea, vomiting, or diarrhea. PAST MEDICAL HISTORY: Include CVA, alcohol abuse, seizure, and weakness. PAST SURGICAL HISTORY: Meningioma of the brain and craniotomy. MEDICATIONS: Include folic acid, lorazepam, carbidopa, gabapentin, heparin, thiamine, oxycodone, morphine sulfate, Zofran, lorazepam, and zolpidem. ALLERGIES: Vancomycin and erythromycin. SOCIAL HISTORY: Positive smoke. Positive alcohol. No intravenous drug abuse. FAMILY HISTORY: Noncontributory. PHYSICAL EXAMINATION: GENERAL: Slightly weak in bed, oriented x2, in no acute distress. VITAL SIGNS: Temperature 97 degrees, pulse 89, respirations 20, and blood pressure 118/79. CARDIOVASCULAR: No murmur. LUNGS: Distant and clear. ABDOMEN: Positive bowel sounds. Soft, nontender, and nondistended. EXTREMITIES: No cyanosis. No edema. NEUROLOGIC: The patient moves all extremities, slightly weak. LABORATORY AND DIAGNOSTIC DATA: Labs at this time show CBC is normal. BMP show BUN 23, otherwise BMP is normal. Albumin is 3.2. Urine toxicology positive for marijuana. ASSESSMENT: 1. Seizure. 2. Neck pain. 3. Back pain. 4. Alcohol abuse. 5. CVA with weakness. 6. Malnutrition. 7. Confusion. PLAN: 1. Seizure control. 2. Pain control. 3. Dietary followup. 4. OT, PT, dietary evaluation. 5. CBC and BMP in morning. 6. We will continue to follow this patient. Krishan Fraire D.O. DR: ADRIANE JOB#: [id number] CC:
[2018-03-19] MEDS: Morphine Sulfate 2mg/ml Inj IVP PRN ×3 (00:10→08:41)
[2018-03-19 04:00] VITALS: BP 135/71
[2018-03-19] MEDS: LORazepam Inj 2mg/ml 1ml IV PRN (04:02)
[2018-03-19 08:00] VITALS: BP 136/83
[2018-03-19 08:17] LABS: BASOPHILS % (AUTO) 0.8 % (0.0-2.0); EOSINOPHILS % (AUTO) 6.6 % (0.0-3.0); HEMOGLOBIN 14.6 G/DL (14.2-18.0); MEAN CORPUSCULAR VOLUME 96 FL (80-99); MONOCYTES % (AUTO) 12.5 % (1.0-10.0); NEUTROPHILS % (AUTO) 54.1 % (45.0-75.0); PLATELET COUNT 229 K/UL (150-450); RED BLOOD COUNT 4.61 M/UL (4.70-6.10); RED CELL DISTRIBUTION WIDTH 13.5 % (11.6-14.8); WHITE BLOOD COUNT 5.6 K/UL (4.8-10.8)
[2018-03-19] MEDS: Folic Acid 1 MG, Magnesium Sulfate 2,000 MG, Multivitamin - 12 Injection 10 ML in NS w/... IV SCH (08:32)
[2018-03-19] MEDS: Thiamine HCl 100 MG in D5W 55 ML IVPB SCH (08:33)
[2018-03-19] MEDS: Levodopa/Carbidopa 25/100 tab ORAL SCH ×3 (08:35→17:10)
[2018-03-19] MEDS: Heparin 5000 units/ml inj SUBQ SCH ×2 (08:39→20:44)
[2018-03-19 08:40] LABS: ANION GAP 8 mmol/L (5-15); BLOOD UREA NITROGEN 16 mg/dL (7-18); CALCIUM 8.9 MG/DL (8.5-10.1); CARBON DIOXIDE 28 MMOL/L (21-32); CHLORIDE 106 MMOL/L (98-107); SODIUM 142 MMOL/L (136-145)
--- NOTE | 2018-03-19 08:56 | General Progress Note ---
Assessment/Plan Assessment/Plan (1) Parkinson's disease (2) Seizure disorder (3) Alcohol abuse (4) CVA (5) Thalmic pain syndrome (6) Insomnia Patient to be continued on Percocet. we will Discontinue Morphine IV and start Dilaudid 4mg PO 1 tab Q4H PRN severe pain and Ambien 5mg PO 1 tab QHS PRN insomnia. D/w Dr. Mckinley and he concurred. Subjective Date patient seen: Mar 19, 2018 Time patient seen: 07:00 - am Allergies: Coded Allergies: ERYTHROMYCIN BASE (Unverified Allergy, Unknown, 12/15/17) VANCOMYCIN (Verified Allergy, Unknown, 08/01/15) Subjective REVIEW OF SYSTEMS: Denies rash, fever, chills, sweating, dizziness, drowsiness, blurred vision, sore throat, or change in weight. No shortness of breath or chest pain. No nausea, vomiting, diarrhea, or blood in the stool or urine. No bowel or bladder incontinence. No dysuria. C/o generalized body pain. SUBJECTIVE: Patient is a known patient from prior admission. Has returned with c/o pain and seizures. On Morphine 1mg IV and Percocet with minimal pain relief. Due to this we were consulted. Objective Last 24 Hour Vital Signs Date Time Temp Pulse Resp B/P (MAP) Pulse Ox O2 Delivery O2 Flow Rate FiO2 03/19/18 08:41 97.0 03/19/18 08:00 97.0 88 19 136/83 (100) 95 97.0 03/19/18 07:57 Room Air 03/19/18 05:16 97.4 03/19/18 04:46 97.4 03/19/18 04:00 97.4 66 21 135/71 (92) 95 97.4 03/19/18 00:10 97.5 03/18/18 21:00 Room Air 03/18/18 20:48 97.5 76 20 109/72 (84) 93 97.5 03/18/18 16:00 97.7 92 20 119/89 (99) 95 97.7 03/18/18 16:00 78 03/18/18 12:00 81 03/18/18 12:00 97.7 89 20 118/79 (92) 95 97.7 03/18/18 09:00 Room Air Intake and Output 03/18/18 03/19/18 19:00 07:00 Intake Total 1070 ml Output Total 650 ml Balance 1070 ml -650 ml Intake Oral 1070 ml Output Urine Total 650 ml # Bowel Movements 1 Laboratory Tests 03/19/18 07:55: White Blood Count 5.6, Red Blood Count 4.61L, Hemoglobin 14.6, Hematocrit 44.0, Mean Corpuscular Volume 96, Mean Corpuscular Hemoglobin 31.7H, Mean Corpuscular Hemoglobin Concent 33.2, Red Cell Distribution Width 13.5, Platelet Count 229, Mean Platelet Volume 6.3L, Neutrophils (%) (Auto) 54.1, Lymphocytes (%) (Auto) 26.0, Monocytes (%) (Auto) 12.5H, Eosinophils (%) (Auto) 6.6H, Basophils (%) ( Auto) 0.8, Sodium Level 142, Potassium Level 4.0, Chloride Level 106, Carbon Dioxide Level 28, Anion Gap 8, Blood Urea Nitrogen 16, Creatinine 1.0, Estimat Glomerular Filtration Rate > 60, Glucose Level 126H, Calcium Level 8.9 Height (Feet): 5 Height (Inches): 9.00 Weight (Pounds): 193 Objective GENERAL: AA&O LUNGS: Decreased breath sounds bilaterally. HEART: S1 S2 Regular. ABDOMEN: Benign. EXTREMITIES: No cyanosis. No clubbing. No edema. NEURO: No changes. Itz Donald Mar 19, 2018 08:56
[2018-03-19] MEDS ORDERED: Folic Acid 1 MG, Magnesium Sulfate 2,000 MG, Multivitamin - 12 Injection 10 ML in NS w/... IV SCH (09:30)
[2018-03-19] MEDS: HYDROmorphone 4mg tab ORAL PRN ×3 (11:29→20:46)
[2018-03-19 12:00] VITALS: BP 151/53
--- NOTE | 2018-03-19 13:15 | Pulmonology Progress Note ---
Assessment/Plan Problems: (1) Acute alcoholic intoxication (2) seizure (3) Parkinson disease (4) Non-compliance (5) Substance abuse Assessment/Plan feeling better banana bag seizure meds check electrolytes dvt prophylaxis. dc home in am probably Subjective ROS Limited/Unobtainable: No Constitutional: Reports: no symptoms HEENT: Repors: no symptoms Allergies: Coded Allergies: ERYTHROMYCIN BASE (Unverified Allergy, Unknown, 12/15/17) VANCOMYCIN (Verified Allergy, Unknown, 08/01/15) Objective Last 24 Hour Vital Signs Date Time Temp Pulse Resp B/P (MAP) Pulse Ox O2 Delivery O2 Flow Rate FiO2 03/19/18 12:00 91.5 76 18 151/53 (85) 100 91.5 03/19/18 08:41 97.0 03/19/18 08:00 97.0 88 19 136/83 (100) 95 97.0 03/19/18 07:57 Room Air 03/19/18 05:16 97.4 03/19/18 04:46 97.4 03/19/18 04:00 97.4 66 21 135/71 (92) 95 97.4 03/19/18 00:10 97.5 03/18/18 21:00 Room Air 03/18/18 20:48 97.5 76 20 109/72 (84) 93 97.5 03/18/18 16:00 97.7 92 20 119/89 (99) 95 97.7 03/18/18 16:00 78 Intake and Output 03/18/18 03/19/18 19:00 07:00 Intake Total 1070 ml Output Total 650 ml Balance 1070 ml -650 ml Intake Oral 1070 ml Output Urine Total 650 ml # Bowel Movements 1 General Appearance: WD/WN HEENT: normocephalic, anicteric Respiratory/Chest: lungs clear Cardiovascular: normal peripheral pulses, normal rate Abdomen: normal bowel sounds, no organomegaly Extremities: no cyanosis Skin: no rash, no lesions Laboratory Tests 03/19/18 07:55: White Blood Count 5.6, Red Blood Count 4.61L, Hemoglobin 14.6, Hematocrit 44.0, Mean Corpuscular Volume 96, Mean Corpuscular Hemoglobin 31.7H, Mean Corpuscular Hemoglobin Concent 33.2, Red Cell Distribution Width 13.5, Platelet Count 229, Mean Platelet Volume 6.3L, Neutrophils (%) (Auto) 54.1, Lymphocytes (%) (Auto) 26.0, Monocytes (%) (Auto) 12.5H, Eosinophils (%) (Auto) 6.6H, Basophils (%) ( Auto) 0.8, Sodium Level 142, Potassium Level 4.0, Chloride Level 106, Carbon Dioxide Level 28, Anion Gap 8, Blood Urea Nitrogen 16, Creatinine 1.0, Estimat Glomerular Filtration Rate > 60, Glucose Level 126H, Calcium Level 8.9 Current Medications Medications (Trade) Dose Ordered Sig/Job Route PRN Reason Start Time Stop Time Status Last Admin Dose Admin Acetaminophen (Tylenol) 650 mg Q4H PRN ORAL fever 03/18/18 21:39 04/16/18 21:38 Al Hydroxide/Mg Hydroxide (Mylanta II) 30 ml Q6H PRN ORAL dyspepsia 03/18/18 21:39 04/16/18 21:38 Carbidopa/Levodopa (Sinemet 25/100) 3 tab THREE TIMES A DAY ORAL 03/19/18 09:00 04/17/18 08:59 03/19/18 12:17 Chlordiazepoxide (Librium) 25 mg Q6H PRN ORAL Agitation 03/18/18 21:39 03/24/18 21:38 Dextrose (Dextrose 50%) 25 ml Q30M PRN IV Hypoglycemia 03/18/18 21:39 04/16/18 21:38 Dextrose (Dextrose 50%) 50 ml Q30M PRN IV Hypoglycemia 03/18/18 21:39 04/16/18 21:38 Folic Acid 1 mg/ Magnesium Sulfate 2000 mg/ Multivitamins 10 ml/Sodium Chloride 1,014.2 ml @ 124.876 mls/hr Q24H IV 03/19/18 09:30 04/17/18 09:29 03/19/18 08:32 Gabapentin (Neurontin) 600 mg THREE TIMES A DAY ORAL 03/19/18 09:00 04/17/18 08:59 03/19/18 12:17 Heparin Sodium (Porcine) (Heparin 5000 units/ml) 5,000 units EVERY 12 HOURS SUBQ 03/19/18 09:00 04/17/18 08:59 03/19/18 08:39 Hydromorphone HCl (Dilaudid) 4 mg Q4H PRN ORAL Severe Pain (Pain Scale 7-10) 03/19/18 09:15 03/26/18 09:14 03/19/18 11:29 Lorazepam (Ativan 2mg/ml 1ml) 1 mg Q2H PRN IV For Anxiety 03/18/18 21:42 03/25/18 21:41 03/19/18 04:02 Lorazepam (Ativan 2mg/ml 1ml) 2 mg Q1H PRN IV seizures 03/18/18 21:42 03/25/18 21:41 Ondansetron HCl (Zofran) 4 mg Q6H PRN IVP Nausea & Vomiting 03/18/18 21:40 04/16/18 21:39 Oxycodone/ Acetaminophen (Percocet 10) 1 tab Q6H PRN ORAL For Moderate Pain(4-6) 03/18/18 21:49 03/25/18 21:48 Polyethylene Glycol (Miralax) 17 gm HSPRN PRN ORAL Constipation 03/18/18 22:45 04/16/18 22:44 Thiamine HCl 100 mg/Dextrose 56 ml @ 112 mls/hr Q24H IVPB 03/19/18 09:00 04/17/18 08:59 03/19/18 08:33 Zolpidem Tartrate (Ambien) 5 mg HSPRN PRN ORAL Insomnia 03/19/18 21:00 03/26/18 20:59 Cash Lorenzo MD Mar 19, 2018 13:15
--- NOTE | 2018-03-19 14:31 | General Progress Note ---
Assessment/Plan Problem List: (1) CVA (cerebral vascular accident) ICD Codes: I63.9 - Cerebral infarction, unspecified SNOMED: 246764425 (2) Chronic pain ICD Codes: G89.29 - Other chronic pain SNOMED: 90581064 (3) Acute alcoholic intoxication ICD Codes: F10.929 - Alcohol use, unspecified with intoxication, unspecified SNOMED: 44118995 (4) Epileptic seizure, generalized ICD Codes: G40.309 - Generalized idiopathic epilepsy and epileptic syndromes, not intractable, without status epilepticus SNOMED: 84773981 (5) seizure Status: unchanged Assessment/Plan ot pt diet pain seizure control cbc bmp am dc plan if clear Subjective Constitutional: Reports: weakness Allergies: Coded Allergies: ERYTHROMYCIN BASE (Unverified Allergy, Unknown, 12/15/17) VANCOMYCIN (Verified Allergy, Unknown, 08/01/15) All Systems: reviewed and negative except above Subjective sleepy in bed Objective Last 24 Hour Vital Signs Date Time Temp Pulse Resp B/P (MAP) Pulse Ox O2 Delivery O2 Flow Rate FiO2 03/19/18 12:00 91.5 76 18 151/53 (85) 100 91.5 03/19/18 08:41 97.0 03/19/18 08:00 97.0 88 19 136/83 (100) 95 97.0 03/19/18 07:57 Room Air 03/19/18 05:16 97.4 03/19/18 04:46 97.4 03/19/18 04:00 97.4 66 21 135/71 (92) 95 97.4 03/19/18 00:10 97.5 03/18/18 21:00 Room Air 03/18/18 20:48 97.5 76 20 109/72 (84) 93 97.5 03/18/18 16:00 97.7 92 20 119/89 (99) 95 97.7 03/18/18 16:00 78 Intake and Output 03/18/18 03/19/18 19:00 07:00 Intake Total 1070 ml Output Total 650 ml Balance 1070 ml -650 ml Intake Oral 1070 ml Output Urine Total 650 ml # Bowel Movements 1 Laboratory Tests 03/19/18 07:55: White Blood Count 5.6, Red Blood Count 4.61L, Hemoglobin 14.6, Hematocrit 44.0, Mean Corpuscular Volume 96, Mean Corpuscular Hemoglobin 31.7H, Mean Corpuscular Hemoglobin Concent 33.2, Red Cell Distribution Width 13.5, Platelet Count 229, Mean Platelet Volume 6.3L, Neutrophils (%) (Auto) 54.1, Lymphocytes (%) (Auto) 26.0, Monocytes (%) (Auto) 12.5H, Eosinophils (%) (Auto) 6.6H, Basophils (%) ( Auto) 0.8, Sodium Level 142, Potassium Level 4.0, Chloride Level 106, Carbon Dioxide Level 28, Anion Gap 8, Blood Urea Nitrogen 16, Creatinine 1.0, Estimat Glomerular Filtration Rate > 60, Glucose Level 126H, Calcium Level 8.9 Height (Feet): 5 Height (Inches): 9.00 Weight (Pounds): 193 General Appearance: lethargic EENT: normal ENT inspection Neck: non-tender, normal alignment, supple Cardiovascular: normal peripheral pulses, normal rate, regular rhythm Respiratory/Chest: chest wall non-tender, lungs clear, normal breath sounds Abdomen: normal bowel sounds, non tender, soft Extremities: normal inspection Edema: no edema noted Arm (L), no edema noted Arm (R), no edema noted Leg (L), no edema noted Leg (R), no edema noted Pedal (L), no edema noted Pedal (R), no edema noted Generalized Neurologic: motor weakness Skin: normal pigmentation, warm/dry Krishan Fraire DO Mar 19, 2018 14:31
[2018-03-19 16:00] VITALS: BP 126/70
[2018-03-19 20:27] VITALS: BP 120/76
[2018-03-19] MEDS ORDERED: Zolpidem 5mg tab ORAL PRN (21:00)
[2018-03-20] VITALS: BP 127/83
[2018-03-20] MEDS: HYDROmorphone 4mg tab ORAL PRN ×5 (01:10→21:17)
[2018-03-20] MEDS: LORazepam Inj 2mg/ml 1ml IV PRN ×2 (02:19→06:22)
[2018-03-20 04:00] VITALS: BP 142/92
[2018-03-20 08:00] VITALS: BP_SYST 126; BP_SYST 137; BP_DIAS 70
[2018-03-20] MEDS: Levodopa/Carbidopa 25/100 tab ORAL SCH ×3 (08:58→17:02)
[2018-03-20] MEDS: Heparin 5000 units/ml inj SUBQ SCH ×2 (09:00→21:00)
[2018-03-20 09:01] LABS: BASOPHILS % (AUTO) 0.4 % (0.0-2.0); EOSINOPHILS % (AUTO) 6.4 % (0.0-3.0); HEMATOCRIT 42.9 % (42.0-52.0); HEMOGLOBIN 13.9 G/DL (14.2-18.0); LYMPHOCYTES % (AUTO) 28.9 % (20.0-45.0); MEAN CORPUSCULAR VOLUME 95 FL (80-99); MONOCYTES % (AUTO) 11.3 % (1.0-10.0); PLATELET COUNT 231 K/UL (150-450); WHITE BLOOD COUNT 5.7 K/UL (4.8-10.8)
[2018-03-20] MEDS: Thiamine HCl 100 MG in D5W 55 ML IVPB SCH (09:06)
[2018-03-20] MEDS: Folic Acid 1 MG, Magnesium Sulfate 2,000 MG, Multivitamin - 12 Injection 10 ML in NS w/... IV SCH (09:06)
[2018-03-20 09:11] LABS: ANION GAP 7 mmol/L (5-15); BLOOD UREA NITROGEN 16 mg/dL (7-18); CALCIUM 8.8 MG/DL (8.5-10.1); CARBON DIOXIDE 29 MMOL/L (21-32); CHLORIDE 110 MMOL/L (98-107); CREATININE 1.1 MG/DL (0.55-1.30); POTASSIUM 4.7 MMOL/L (3.5-5.1); SODIUM 146 MMOL/L (136-145)
[2018-03-20 12:00] VITALS: BP 130/87
--- NOTE | 2018-03-20 13:04 | General Progress Note ---
Assessment/Plan Problem List: (1) CVA (cerebral vascular accident) ICD Codes: I63.9 - Cerebral infarction, unspecified SNOMED: 407344434 (2) Chronic pain ICD Codes: G89.29 - Other chronic pain SNOMED: 22983490 (3) Acute alcoholic intoxication ICD Codes: F10.929 - Alcohol use, unspecified with intoxication, unspecified SNOMED: 90762121 (4) Epileptic seizure, generalized ICD Codes: G40.309 - Generalized idiopathic epilepsy and epileptic syndromes, not intractable, without status epilepticus SNOMED: 25450862 (5) seizure Status: stable, progressing Assessment/Plan ot pt diet pain seizure control dc if clear Subjective Constitutional: Reports: weakness Allergies: Coded Allergies: ERYTHROMYCIN BASE (Unverified Allergy, Unknown, 12/15/17) VANCOMYCIN (Verified Allergy, Unknown, 08/01/15) All Systems: reviewed and negative except above Subjective sl anxious in bed Objective Last 24 Hour Vital Signs Date Time Temp Pulse Resp B/P (MAP) Pulse Ox O2 Delivery O2 Flow Rate FiO2 03/20/18 12:00 97.4 74 21 130/87 (101) 95 97.4 03/20/18 08:08 Room Air 03/20/18 08:00 97.4 69 19 137/70 (92) 97 97.4 03/20/18 06:05 97.2 03/20/18 05:35 97.2 03/20/18 04:00 97.2 97 17 142/92 (109) 97 97.2 03/20/18 01:10 97.7 03/20/18 00:00 97.7 86 18 127/83 (98) 99 97.7 03/19/18 21:08 Room Air 03/19/18 20:46 97.7 03/19/18 20:27 97.7 71 18 120/76 (91) 95 97.7 03/19/18 16:00 97.7 77 18 126/70 (88) 97 97.7 Intake and Output 03/19/18 03/20/18 18:59 06:59 Intake Total 2390.200 ml Output Total 450 ml Balance 2390.200 ml -450 ml Intake Oral 1320 ml IV Total 1070.200 ml Output Urine Total 450 ml # Voids 3 5 Laboratory Tests 03/20/18 08:30: White Blood Count 5.7, Red Blood Count 4.50L, Hemoglobin 13.9L, Hematocrit 42.9 , Mean Corpuscular Volume 95, Mean Corpuscular Hemoglobin 30.8, Mean Corpuscular Hemoglobin Concent 32.3, Red Cell Distribution Width 13.0, Platelet Count 231, Mean Platelet Volume 6.9, Neutrophils (%) (Auto) 53.0, Lymphocytes (% ) (Auto) 28.9, Monocytes (%) (Auto) 11.3H, Eosinophils (%) (Auto) 6.4H, Basophils (%) (Auto) 0.4, Sodium Level 146H, Potassium Level 4.7, Chloride Level 110H, Carbon Dioxide Level 29, Anion Gap 7, Blood Urea Nitrogen 16, Creatinine 1.1, Estimat Glomerular Filtration Rate > 60, Glucose Level 108H, Calcium Level 8.8 Height (Feet): 5 Height (Inches): 9.00 Weight (Pounds): 193 General Appearance: lethargic EENT: normal ENT inspection Neck: normal alignment Cardiovascular: normal peripheral pulses, normal rate, regular rhythm Respiratory/Chest: chest wall non-tender, lungs clear, normal breath sounds Abdomen: normal bowel sounds, non tender, soft Extremities: normal inspection Edema: no edema noted Arm (L), no edema noted Arm (R), no edema noted Leg (L), no edema noted Leg (R), no edema noted Pedal (L), no edema noted Pedal (R), no edema noted Generalized Neurologic: responsive, motor weakness Skin: normal pigmentation, warm/dry Krishan Fraire DO Mar 20, 2018 13:04
--- NOTE | 2018-03-20 13:08 | General Progress Note ---
Assessment/Plan Assessment/Plan (1) Parkinson's disease (2) Seizure disorder (3) Alcohol abuse (4) CVA (5) Thalmic pain syndrome (6) Insomnia Patient to be continued on Percocet, Dilaudid and Ambien. D/w Dr. Mckinley and he concurred. Subjective Date patient seen: Mar 20, 2018 Time patient seen: 12:15 - pm Allergies: Coded Allergies: ERYTHROMYCIN BASE (Unverified Allergy, Unknown, 12/15/17) VANCOMYCIN (Verified Allergy, Unknown, 08/01/15) Subjective REVIEW OF SYSTEMS: Denies rash, fever, chills, sweating, dizziness, drowsiness, blurred vision, sore throat, or change in weight. No shortness of breath or chest pain. No nausea, vomiting, diarrhea, or blood in the stool or urine. No bowel or bladder incontinence. No dysuria. C/o generalized body pain. SUBJECTIVE: Patient reports that his pain has been tolerated on the Dilaudid as needed. He has requested, 6 doses in the last 24hrs. Objective Last 24 Hour Vital Signs Date Time Temp Pulse Resp B/P (MAP) Pulse Ox O2 Delivery O2 Flow Rate FiO2 03/20/18 12:00 97.4 74 21 130/87 (101) 95 97.4 03/20/18 08:08 Room Air 03/20/18 08:00 97.4 69 19 137/70 (92) 97 97.4 03/20/18 06:05 97.2 03/20/18 05:35 97.2 03/20/18 04:00 97.2 97 17 142/92 (109) 97 97.2 03/20/18 01:10 97.7 03/20/18 00:00 97.7 86 18 127/83 (98) 99 97.7 03/19/18 21:08 Room Air 03/19/18 20:46 97.7 03/19/18 20:27 97.7 71 18 120/76 (91) 95 97.7 03/19/18 16:00 97.7 77 18 126/70 (88) 97 97.7 Intake and Output 03/19/18 03/20/18 18:59 06:59 Intake Total 2390.200 ml Output Total 450 ml Balance 2390.200 ml -450 ml Intake Oral 1320 ml IV Total 1070.200 ml Output Urine Total 450 ml # Voids 3 5 Laboratory Tests 03/20/18 08:30: White Blood Count 5.7, Red Blood Count 4.50L, Hemoglobin 13.9L, Hematocrit 42.9 , Mean Corpuscular Volume 95, Mean Corpuscular Hemoglobin 30.8, Mean Corpuscular Hemoglobin Concent 32.3, Red Cell Distribution Width 13.0, Platelet Count 231, Mean Platelet Volume 6.9, Neutrophils (%) (Auto) 53.0, Lymphocytes (% ) (Auto) 28.9, Monocytes (%) (Auto) 11.3H, Eosinophils (%) (Auto) 6.4H, Basophils (%) (Auto) 0.4, Sodium Level 146H, Potassium Level 4.7, Chloride Level 110H, Carbon Dioxide Level 29, Anion Gap 7, Blood Urea Nitrogen 16, Creatinine 1.1, Estimat Glomerular Filtration Rate > 60, Glucose Level 108H, Calcium Level 8.8 Height (Feet): 5 Height (Inches): 9.00 Weight (Pounds): 193 Objective GENERAL: AA&O LUNGS: Decreased breath sounds bilaterally. HEART: S1 S2 Regular. ABDOMEN: Benign. EXTREMITIES: No cyanosis. No clubbing. No edema. NEURO: No changes. Itz Donald Mar 20, 2018 13:08
[2018-03-20 16:00] VITALS: BP 126/81
[2018-03-20 20:00] VITALS: BP 133/88
[2018-03-21] MEDS: HYDROmorphone 4mg tab ORAL PRN ×2 (01:51→05:53)
[2018-03-21 04:00] VITALS: BP 124/71
--- NOTE | 2018-03-21 07:50 | General Progress Note ---
Assessment/Plan Problem List: (1) CVA (cerebral vascular accident) ICD Codes: I63.9 - Cerebral infarction, unspecified SNOMED: 265174541 (2) Chronic pain ICD Codes: G89.29 - Other chronic pain SNOMED: 25081724 (3) Acute alcoholic intoxication ICD Codes: F10.929 - Alcohol use, unspecified with intoxication, unspecified SNOMED: 43647953 (4) Epileptic seizure, generalized ICD Codes: G40.309 - Generalized idiopathic epilepsy and epileptic syndromes, not intractable, without status epilepticus SNOMED: 48788921 (5) seizure Status: stable, progressing Assessment/Plan ot pt diet pain seizure control dc if clear Subjective Constitutional: Reports: weakness Allergies: Coded Allergies: ERYTHROMYCIN BASE (Unverified Allergy, Unknown, 12/15/17) VANCOMYCIN (Verified Allergy, Unknown, 08/01/15) All Systems: reviewed and negative except above Subjective sl anxious in bed Objective Last 24 Hour Vital Signs Date Time Temp Pulse Resp B/P (MAP) Pulse Ox O2 Delivery O2 Flow Rate FiO2 03/21/18 04:00 98.3 73 20 124/71 (88) 94 98.3 03/21/18 00:00 19 03/20/18 21:00 Room Air 03/20/18 20:00 97.3 76 20 133/88 (103) 96 97.3 03/20/18 16:00 97.9 77 20 126/81 (96) 95 97.9 03/20/18 12:00 97.4 74 21 130/87 (101) 95 97.4 03/20/18 08:08 Room Air 03/20/18 08:00 97.4 69 19 137/70 (92) 97 97.4 Intake and Output 03/20/18 03/21/18 19:00 07:00 Intake Total 1640.380 ml 640 ml Output Total 1940 ml Balance 1640.380 ml -1300 ml Intake Oral 960 ml 640 ml IV Total 680.380 ml Output Urine Total 1940 ml Laboratory Tests 03/20/18 08:30: White Blood Count 5.7, Red Blood Count 4.50L, Hemoglobin 13.9L, Hematocrit 42.9 , Mean Corpuscular Volume 95, Mean Corpuscular Hemoglobin 30.8, Mean Corpuscular Hemoglobin Concent 32.3, Red Cell Distribution Width 13.0, Platelet Count 231, Mean Platelet Volume 6.9, Neutrophils (%) (Auto) 53.0, Lymphocytes (% ) (Auto) 28.9, Monocytes (%) (Auto) 11.3H, Eosinophils (%) (Auto) 6.4H, Basophils (%) (Auto) 0.4, Sodium Level 146H, Potassium Level 4.7, Chloride Level 110H, Carbon Dioxide Level 29, Anion Gap 7, Blood Urea Nitrogen 16, Creatinine 1.1, Estimat Glomerular Filtration Rate > 60, Glucose Level 108H, Calcium Level 8.8 Height (Feet): 5 Height (Inches): 9.00 Weight (Pounds): 193 General Appearance: alert EENT: normal ENT inspection Neck: normal alignment Cardiovascular: normal peripheral pulses, normal rate, regular rhythm Respiratory/Chest: chest wall non-tender, lungs clear, normal breath sounds Abdomen: normal bowel sounds, non tender, soft Extremities: normal inspection Edema: no edema noted Arm (L), no edema noted Arm (R), no edema noted Leg (L), no edema noted Leg (R), no edema noted Pedal (L), no edema noted Pedal (R), no edema noted Generalized Neurologic: responsive, motor weakness Skin: normal pigmentation, warm/dry Krishan Fraire DO Mar 21, 2018 07:50
[2018-03-21 08:08] VITALS: BP 143/83
[2018-03-21] MEDS: Thiamine HCl 100 MG in D5W 55 ML IVPB SCH (08:16)
[2018-03-21] MEDS: Heparin 5000 units/ml inj SUBQ SCH (08:36)
[2018-03-21] MEDS: Levodopa/Carbidopa 25/100 tab ORAL SCH (08:36)
--- NOTE | 2018-03-22 12:49 | Discharge Summary ---
Discharge Summary Discharge Summary _ DATE OF ADMISSION: 03/17/2018 DATE OF DISCHARGE: 03/21/2018 REASON FOR ADMISSION: 57 years old male with past medical history of hypertension, CVA, craniotomy due to meningioma, seizure disorder, psychiatric schizoaffective disorder, alcohol abuse , Parkinson disease , wheelchair bound , recent acute cortical stroke in November 2017, apparently had seizure and was found on the floor in his own feces by paramedics. Patient reported feeling weak and left arm tremors. Patient admitted to being noncompliant with his medication regimen. Upon evaluation serum alcohol level -118 . Urine toxicology screen was positive for marijuana . Laboratory workup revealed no leukocytosis, stable hemoglobin and hematocrit. Stable electrolytes, LFT . BUN 24 , creatinine 1.1. Patient admitted with diagnoses of acute alcohol intoxication, seizure disorder , Parkinson disease, noncompliance, substance abuse. CONSULTANTS: pulmonary Dr. Lorenzo psychiatrist pain specialist HOSPITAL COURSE: Patient admitted and started on the IV fluids / banana bag. Librium was on standby as needed. DVT prophylaxis provided. Patient was counseled on abstinence from alcohol and illicit street drugs. Seizure precautions maintained. Patient was prior on Keppra. Continue Keppra as outpatient. Seizures were likely provoked by alcohol. Patient also had a history of craniotomy. Neurologist seen patient in November 2017, when patient was hospitalized and diagnosed with acute cortical infarct. At that time , neurologist recommended compliance with medication regimen, continue Keppra, Aspirin , Sinemet, and stroke rehabilitation . Cerebrovascular noninvasive profile was benign. Parkinson disease was well controlled on current regimen of Sinemet. Patient was recommended to follow up with neurologist as outpatient and abstain from ETOH and illicit drug use. As mentioned above, patient was noncompliant and did not follow up with neurologist, neither comply with his medications. He continued ETOH abuse and use of street drugs. Pain management provided as per pain specialist recommendations. Bowel regimen instituted . Supportive care provided. Patient was working with physical and occupational therapists. Patient was stable for discharge. FINAL DIAGNOSES: Acute alcohol intoxication Seizure disorder Parkinson disease Substance abuse History of acute cortical CVA /November 2017 Status post craniotomy due to meningioma Thalamic pain syndrome Noncompliance DISCHARGE MEDICATIONS: See Medication Reconciliation list. DISCHARGE INSTRUCTIONS: Patient was discharged home. Follow up with neurologist. recommended. Compliance with medication and treatment and abstinence from ETOH and street drugs advised. Follow up with primary care provider in one week. I have been assigned to dictate discharge summary for this account. I was not involved in the patient's management. Lanette Graham NP Mar 22, 2018 12:49
== END 2018-03-21 09:15 | disposition home or self-care (01) | DRG 53 ==
LOC: EDBD 19:38 → EDBEDREQ 19:50 → EMR 20:18 → 2E 20:32 → EDBEDREQ 21:11 → 4E 03-18 20:35
DX: G40.309 Generalized idiopathic epilepsy and epileptic syndromes, not intractable, without status epilepticus (principal); G20 Parkinson's disease; F25.9 Schizoaffective disorder, unspecified; F10.129 Alcohol abuse with intoxication, unspecified; F19.10 Other psychoactive substance abuse, uncomplicated; Z86.73 Personal history of transient ischemic attack (TIA), and cerebral infarction without residual deficits; Z86.03 Personal history of neoplasm of uncertain behavior; G89.0 Central pain syndrome; Z91.14 Patient's other noncompliance with medication regimen; Z99.3 Dependence on wheelchair; Z88.1 Allergy status to other antibiotic agents; G47.00 Insomnia, unspecified
CPT/HCPCS: 36415; 80048; 80053; 80307; 80329; 82550; 84484; 85025; 93005; 96360; 97803; 99285

== ENCOUNTER 2018-04-19 16:06 | Emergency (ER) | payer OTHER ==
[~2018-04-19] VITALS: Ht 177.8 cm; Wt 77.1 kg
[2018-04-19] MEDS ORDERED: UNOBMED (16:14)
[2018-04-19 16:15] VITALS: BP 143/94
[2018-04-19] MEDS ORDERED: levETIRAcetam 1,000mg/NS100ml 100 ML IVPB ONE (16:15)
[2018-04-19 16:46] LABS: ANION GAP 18 mmol/L (5-15); BLOOD UREA NITROGEN 20 mg/dL (7-18); CALCIUM 9.4 MG/DL (8.5-10.1); CARBON DIOXIDE 21 MMOL/L (21-32); CHLORIDE 103 MMOL/L (98-107); CREATININE 0.9 MG/DL (0.55-1.30); POTASSIUM 5.1 MMOL/L (3.5-5.1); SODIUM 142 MMOL/L (136-145)
[2018-04-19 16:50] LABS: ALANINE AMINOTRANSFERASE 19 U/L (12-78); ALBUMIN/GLOBULIN RATIO 0.8 (1.0-2.7); ALKALINE PHOSPHATASE 111 U/L (46-116); ASPARTATE AMINO TRANSFERASE 24 U/L (15-37); BILIRUBIN,TOTAL 0.4 MG/DL (0.2-1.0)
[2018-04-19 16:56] LABS: BASOPHILS % (AUTO) 0.8 % (0.0-2.0); EOSINOPHILS % (AUTO) 0.5 % (0.0-3.0); HEMATOCRIT 51.2 % (42.0-52.0); HEMOGLOBIN 17.5 G/DL (14.2-18.0); LYMPHOCYTES % (AUTO) 18.1 % (20.0-45.0); MEAN CORPUSCULAR VOLUME 94 FL (80-99); MONOCYTES % (AUTO) 4.3 % (1.0-10.0); NEUTROPHILS % (AUTO) 76.3 % (45.0-75.0); PLATELET COUNT 421 K/UL (150-450); RED BLOOD COUNT 5.41 M/UL (4.70-6.10); RED CELL DISTRIBUTION WIDTH 13.2 % (11.6-14.8); WHITE BLOOD COUNT 9.5 K/UL (4.8-10.8)
--- NOTE | 2018-04-19 18:48 | Emergency Room Report ---
History of Present Illness General Chief Complaint: Seizure Source: EMS Present Illness HPI 57-year-old male presents ED for evaluation. Patient brought in by EMS for altered level of consciousness. Patient is well-known to [facility] [place] has been here multiple times for seizures. History of alcohol abuse. Found outside of his apartment today. No reported head injury. Upon arrival patient is lethargic. No witnessed seizure. Patient is in no distress. Unable to provide any additional history at this time. No other aggravating relieving factors. No other associated symptoms Allergies: Coded Allergies: ERYTHROMYCIN BASE (Unverified Allergy, Unknown, 12/15/17) VANCOMYCIN (Verified Allergy, Unknown, 08/01/15) Patient History Past Medical History: DM, HTN, CVA/TIA, seizures Past Surgical History: none Pertinent Family History: none Social History: Reports: alcohol use; Denies: smoking, drug use Immunizations: UTD Reviewed Nursing Documentation: PMH: Agreed; PSxH: Agreed Nursing Documentation-PMH Past Medical History: No History, Except For Hx Cardiac Problems: Yes Hx Hypertension: Yes Hx Diabetes: Yes Hx Cancer: No Hx Gastrointestinal Problems: No Hx Neurological Problems: Yes Hx Cerebrovascular Accident: Yes - craniotomy in october 2017 Hx Parkinson's Disease: Yes Hx Seizures: Yes Hx Tremors: Yes Hx Dizziness: Yes Hx Weakness: Yes Hx Neurologic Surgery: No Hx Brain Shunt: No Review of Systems All Other Systems: limited Physical Exam Vital Signs Date Time Temp Pulse Resp B/P (MAP) Pulse Ox O2 Delivery O2 Flow Rate FiO2 04/19/18 16:03 97.9 105 18 127/87 98 Room Air Sp02 EP Interpretation: reviewed, normal General Appearance: other - lethargic, Postictal Head: normocephalic Eyes: bilateral eye normal inspection, bilateral eye PERRL ENT: normal ENT inspection Neck: full range of motion Respiratory: chest non-tender, lungs clear, normal breath sounds, speaking full sentences Cardiovascular #1: regular rate, rhythm, no edema Gastrointestinal: normal inspection Rectal: deferred Genitourinary: no CVA tenderness Musculoskeletal: normal inspection Neurologic: other - lethargic Psychiatric: other - lethargic Skin: normal inspection Lymphatic: normal inspection Medical Decision Making Diagnostic Impression: Primary Impression: Acute alcoholic intoxication Qualified Codes: F10.929 - Alcohol use, unspecified with intoxication, unspecified Additional Impressions: seizure Hypoglycemia ER Course Hospital Course 57-year-old M presents to ED status post seizure. Differential diagnosis includes- breakthrough seizure, alcohol abuse, noncompliance with medication Clinical course Patient placed on stretcher. Initial history and physical I ordered labs, IV fluids, CT brain, Keppra Labs-glucose 65, no leukocytosis noted, hemoglobin/hematocrit stable. ETOH > 200, Utox + barbituates CT Brain ok Given loading dose of Keppra. given D50. Given that patient is still altered I believe he should be admitted. because of insurance patient will be transferred i. I feel this is a highly complex case requiring extensive working including EKG/Rhythm strip, Xray/CT/US, Blood/urine lab work, repeat exams while in ED, and administration of strong opiates/narcotics for pain control, admission to hospital or close patient follow up. Diagnosis - alcohol intoxication, hypoglycemia, seizure transferred in serious condition Labs Test 04/19/18 16:28 04/19/18 16:45 Sodium Level 142 MMOL/L (136-145) Potassium Level 5.1 MMOL/L (3.5-5.1) Chloride Level 103 MMOL/L (98-107) Carbon Dioxide Level 21 MMOL/L (21-32) Anion Gap 18 mmol/L (5-15) Blood Urea Nitrogen 20 mg/dL (7-18) Creatinine 0.9 MG/DL (0.55-1.30) Estimat Glomerular Filtration Rate > 60 mL/min (>60) Glucose Level 65 MG/DL (74-106) Calcium Level 9.4 MG/DL (8.5-10.1) Total Bilirubin 0.4 MG/DL (0.2-1.0) Aspartate Amino Transf (AST/SGOT) 24 U/L (15-37) Alanine Aminotransferase (ALT/SGPT) 19 U/L (12-78) Alkaline Phosphatase 111 U/L (46-116) Total Protein 8.9 G/DL (6.4-8.2) Albumin 4.0 G/DL (3.4-5.0) Globulin 4.9 g/dL Albumin/Globulin Ratio 0.8 (1.0-2.7) Salicylates Level 2.7 ug/mL (2.8-20) Acetaminophen Level < 2 MCG/ML (10-30) Serum Alcohol 222 mg/dL White Blood Count 9.5 K/UL (4.8-10.8) Red Blood Count 5.41 M/UL (4.70-6.10) Hemoglobin 17.5 G/DL (14.2-18.0) Hematocrit 51.2 % (42.0-52.0) Mean Corpuscular Volume 94 FL (80-99) Mean Corpuscular Hemoglobin 32.3 PG (27.0-31.0) Mean Corpuscular Hemoglobin Concent 34.2 G/DL (32.0-36.0) Red Cell Distribution Width 13.2 % (11.6-14.8) Platelet Count 421 K/UL (150-450) Mean Platelet Volume 5.3 FL (6.5-10.1) Neutrophils (%) (Auto) 76.3 % (45.0-75.0) Lymphocytes (%) (Auto) 18.1 % (20.0-45.0) Monocytes (%) (Auto) 4.3 % (1.0-10.0) Eosinophils (%) (Auto) 0.5 % (0.0-3.0) Basophils (%) (Auto) 0.8 % (0.0-2.0) EKG Diagnostic Results Rate: normal Rhythm: NSR ST Segments: no acute changes ASA given to the pt in ED: No Rhythm Strip Diag. Results EP Interpretation: yes Rhythm: NSR, no PVC's, no ectopy CT/MRI/US Diagnostic Results CT/MRI/US Diagnostic Results : Imaging Test Ordered: CT Head Impression no acute process. s/p craniotomy with encephalomalacia Last Vital Signs Date Time Temp Pulse Resp B/P (MAP) Pulse Ox O2 Delivery O2 Flow Rate FiO2 04/19/18 16:15 98.2 103 14 143/94 92 Room Air Status: improved Disposition: XFER SHT-TRM HOSP Condition: Serious Referrals: [facility],REFERR[facility] (PCP) Epifanio Haider MD Apr 19, 2018 18:48
[2018-04-19 19:30] VITALS: BP 135/82
[2018-04-19] MEDS ORDERED: LORazepam Inj 2mg/ml 1ml IV ONE (19:45)
[2018-04-19 20:55] VITALS: BP 140/83
[2018-04-19 21:49] VITALS: BP 129/84
[2018-04-19 21:54] VITALS: BP 129/84
--- NOTE | 2018-04-20 10:12 | Diagnostic Imaging Report ---
Indications: Seizure, altered mental status Technique: Spiral acquisitions obtained through the brain. Angled axial and coronal 5 x 5 mm slices were reconstructed. Total dose length product 1491.61 mGycm. CTDI vol(s) 70.38 mGy. Dose reduction achieved using automated exposure control Comparison: 01/20/2018 Findings: Again demonstrated is evidence of prior left frontotemporoparietal craniotomy/craniectomy. Again demonstrated is extensive encephalomalacia involving the left frontal and temporal lobes. No acute intracranial hemorrhage nor edema. No mass effect nor midline shift. Normal wallis-white differentiation otherwise no evidence of acute calvarial fracture. Visualized orbits and sinuses are unremarkable. The mastoids are clear. There is no significant interim change Impression: Evidence of prior left frontotemporoparietal craniotomy/craniectomy Left frontal and temporal encephalomalacia, presumably related to the above. Correlate with surgical history Negative for acute intracranial bleed or mass effect This agrees with the preliminary interpretation provided overnight by [facility] teleradiology service. The CT scanner at [facility] is accredited by the [employer] and the scans are performed using protocols designed to limit radiation exposure to as low as reasonably achievable to attain images of sufficient resolution adequate for diagnostic evaluation.
== END 2018-04-19 22:40 | disposition short-term general hospital (02) ==
LOC: EDBD 16:06 → EMR 16:32
DX: F10.129 Alcohol abuse with intoxication, unspecified (principal); R56.9 Unspecified convulsions; E11.649 Type 2 diabetes mellitus with hypoglycemia without coma; I10 Essential (primary) hypertension; Z86.73 Personal history of transient ischemic attack (TIA), and cerebral infarction without residual deficits
CPT/HCPCS: 36415; 70450; 80053; 80307; 80329; 82962; 85025; 93005; 96361; 96374; 96375; 99284; J1953

== ENCOUNTER 2018-07-02 16:11 | Emergency (ER) | payer OTHER ==
[~2018-07-02] VITALS: Ht 177.8 cm; Wt 90.7 kg
[2018-07-02 16:11] VITALS: BP 129/88
[~2018-07-02 16:11] MED LIST changes: +UNOBMED
--- NOTE | 2018-07-02 16:16 | NUR ---
ED Nurse Note: Pt brought in by ambulance from home due to alcohol intoxication. Pt is AAO x1, unable to follow commands, No respiratory distress. Noted slurring of speech and drowsiness. Sinus tach on mnoitor 104-105. Seen [address] Dr Haider.
--- NOTE | 2018-07-02 16:45 | NUR ---
ED Nurse Note: Established IV acces but unable to draw out blood. Lab called. Charge nurse aware.
--- NOTE | 2018-07-02 17:32 | Emergency Room Report ---
History of Present Illness General Chief Complaint: Alcohol Intoxication Source: Patient Present Illness HPI 58-year-old male presents ED for evaluation. Patient brought in by EMS for alcohol intoxication. Found drinking at home today. States he drinks [place]. Lethargic but answering questions. Denies drug use. History of seizures. Denies any seizure activity. Denies chest pain or shortness of breath. Denies abdominal pain nausea or vomiting. No other aggravating relieving factors. Denies any other associated symptoms Allergies: Coded Allergies: ERYTHROMYCIN BASE (Unverified Allergy, Unknown, 12/15/17) VANCOMYCIN (Verified Allergy, Unknown, 08/01/15) Patient History Past Medical History: DM, HTN, seizures Past Surgical History: other - craniotomy Pertinent Family History: none Social History: Reports: alcohol use; Denies: smoking, drug use Immunizations: UTD Reviewed Nursing Documentation: PMH: Agreed; PSxH: Agreed Nursing Documentation-PM Past Medical History: No History, Except For Hx Cardiac Problems: Yes Hx Hypertension: Yes Hx Diabetes: Yes Hx Cancer: No Hx Gastrointestinal Problems: No Hx Cerebrovascular Accident: Yes - craniotomy in october 2017 Hx Parkinson's Disease: Yes Hx Seizures: Yes Hx Tremors: Yes Hx Dizziness: Yes Hx Weakness: Yes Hx Neurologic Surgery: No Hx Brain Shunt: No Review of Systems All Other Systems: limited Physical Exam Vital Signs Date Time Temp Pulse Resp B/P (MAP) Pulse Ox O2 Delivery O2 Flow Rate FiO2 07/02/18 16:06 98.2 102 18 129/88 98 07/02/18 16:16 Room Air Sp02 EP Interpretation: reviewed, normal General Appearance: other - lethargic Head: normocephalic Eyes: bilateral eye normal inspection, bilateral eye PERRL ENT: normal ENT inspection Neck: normal inspection Respiratory: chest non-tender, lungs clear, normal breath sounds, speaking full sentences Cardiovascular #1: regular rate, rhythm, no edema Gastrointestinal: normal bowel sounds, non tender, soft, non-distended, no guarding, no rebound Rectal: deferred Genitourinary: no CVA tenderness Musculoskeletal: back normal Neurologic: other - intoxicated Psychiatric: other - intoxicated Skin: normal inspection Lymphatic: normal inspection Medical Decision Making Diagnostic Impression: Primary Impression: Substance abuse ER Course Hospital Course 58-year-old M presents to ED with altered mental status. Differential diagnoses include: Psychosis, EtOH, drug abuse Clinical course patient placed on stretcher. On telemetry monitor. After initial history and physical ordered labs, IV fluids Labs reviewed-electrolytes okay, no leukocytosis, hemoglobin/hematocrit stable, tox panel + for multilple substances Patient has stable vitals. Now more alert oriented 3 Stable and safe for discharge. Patient given referrals for substance abuse. Given PMD referrals i. I feel this is a highly complex case requiring extensive working including EKG/Rhythm strip, Xray/CT/US, Blood/urine lab work, repeat exams while in ED, and administration of strong opiates/narcotics for pain control, admission to hospital or close patient follow up. Diagnosis - substance abuse Stable and discharged to home. Followup with PMD. Return to ED if symptoms recur or worsen Labs Test 07/02/18 17:20 07/02/18 17:45 White Blood Count 13.4 K/UL (4.8-10.8) Red Blood Count 4.46 M/UL (4.70-6.10) Hemoglobin 14.0 G/DL (14.2-18.0) Hematocrit 41.9 % (42.0-52.0) Mean Corpuscular Volume 94 FL (80-99) Mean Corpuscular Hemoglobin 31.4 PG (27.0-31.0) Mean Corpuscular Hemoglobin Concent 33.4 G/DL (32.0-36.0) Red Cell Distribution Width 13.6 % (11.6-14.8) Platelet Count 271 K/UL (150-450) Mean Platelet Volume 5.9 FL (6.5-10.1) Neutrophils (%) (Auto) 78.6 % (45.0-75.0) Lymphocytes (%) (Auto) 10.6 % (20.0-45.0) Monocytes (%) (Auto) 8.3 % (1.0-10.0) Eosinophils (%) (Auto) 1.5 % (0.0-3.0) Basophils (%) (Auto) 1.0 % (0.0-2.0) Sodium Level 141 MMOL/L (136-145) Potassium Level 3.6 MMOL/L (3.5-5.1) Chloride Level 106 MMOL/L (98-107) Carbon Dioxide Level 26 MMOL/L (21-32) Anion Gap 9 mmol/L (5-15) Blood Urea Nitrogen 29 mg/dL (7-18) Creatinine 1.1 MG/DL (0.55-1.30) Estimat Glomerular Filtration Rate > 60 mL/min (>60) Glucose Level 114 MG/DL (74-106) Calcium Level 8.4 MG/DL (8.5-10.1) Total Bilirubin 2.3 MG/DL (0.2-1.0) Direct Bilirubin 0.4 MG/DL (0.0-0.3) Aspartate Amino Transf (AST/SGOT) 92 U/L (15-37) Alanine Aminotransferase (ALT/SGPT) 15 U/L (12-78) Alkaline Phosphatase 91 U/L (46-116) Total Protein 7.1 G/DL (6.4-8.2) Albumin 3.6 G/DL (3.4-5.0) Globulin 3.5 g/dL Albumin/Globulin Ratio 1.0 (1.0-2.7) Salicylates Level < 0.2 ug/mL (2.8-20) Acetaminophen Level < 2 MCG/ML (10-30) Serum Alcohol < 3 mg/dL Urine Opiates Screen Negative (NEGATIVE) Urine Barbiturates Screen Negative (NEGATIVE) Phencyclidine (PCP) Screen Negative (NEGATIVE) Urine Amphetamines Screen Positive (NEGATIVE) Urine Benzodiazepines Screen Positive (NEGATIVE) Urine Cocaine Screen Positive (NEGATIVE) Urine Marijuana (THC) Screen Positive (NEGATIVE) Last Vital Signs Date Time Temp Pulse Resp B/P (MAP) Pulse Ox O2 Delivery O2 Flow Rate FiO2 07/02/18 16:16 102 18 Room Air 07/02/18 16:06 98.2 129/88 98 Status: improved Disposition: HOME, SELF-CARE Condition: Stable Referrals: [facility]ERR[facility] (PCP) Epifanio Haider MD Jul 02, 2018 17:32
--- NOTE | 2018-07-02 17:45 | NUR ---
ED Nurse Note: Urine collected and sent.
[2018-07-02 17:50] LABS: EOSINOPHILS % (AUTO) 1.5 % (0.0-3.0); HEMATOCRIT 41.9 % (42.0-52.0); LYMPHOCYTES % (AUTO) 10.6 % (20.0-45.0); MEAN CORPUSCULAR VOLUME 94 FL (80-99); MONOCYTES % (AUTO) 8.3 % (1.0-10.0); NEUTROPHILS % (AUTO) 78.6 % (45.0-75.0); PLATELET COUNT 271 K/UL (150-450); RED BLOOD COUNT 4.46 M/UL (4.70-6.10); RED CELL DISTRIBUTION WIDTH 13.6 % (11.6-14.8); WHITE BLOOD COUNT 13.4 K/UL (4.8-10.8)
[2018-07-02 17:52] LABS: ANION GAP 9 mmol/L (5-15); BLOOD UREA NITROGEN 29 mg/dL (7-18); CALCIUM 8.4 MG/DL (8.5-10.1); CARBON DIOXIDE 26 MMOL/L (21-32); CHLORIDE 106 MMOL/L (98-107); CREATININE 1.1 MG/DL (0.55-1.30); POTASSIUM 3.6 MMOL/L (3.5-5.1); SODIUM 141 MMOL/L (136-145)
[2018-07-02 18:02] LABS: ALANINE AMINOTRANSFERASE 15 U/L (12-78); ALBUMIN 3.6 G/DL (3.4-5.0); ALKALINE PHOSPHATASE 91 U/L (46-116); ASPARTATE AMINO TRANSFERASE 92 U/L (15-37); BILIRUBIN,TOTAL 2.3 MG/DL (0.2-1.0)
[2018-07-02 18:05] LABS: BILIRUBIN,DIRECT 0.4 MG/DL (0.0-0.3)
[2018-07-02 18:51] VITALS: BP 114/84
--- NOTE | 2018-07-02 19:12 | NUR ---
HAND-OFF: Report given to Richy GAMEZ.
[2018-07-02 22:30] VITALS: BP 120/83
--- NOTE | 2018-07-02 22:30 | NUR ---
ED Nurse Note: Patient is discharged from ED after yelling at staff, patient repeatedly asked staff if he can "call his [employer] company" patient was offered a ride home however refused. patient is alert and oriented x4 and is able to walk with a steady gait, VSS. patient's id band and iv line removed
== END 2018-07-02 22:15 | disposition home or self-care (01) ==
LOC: EDBD 16:11 → EMR 16:25
DX: F10.10 Alcohol abuse, uncomplicated (principal); I10 Essential (primary) hypertension; E11.9 Type 2 diabetes mellitus without complications; Z88.1 Allergy status to other antibiotic agents; G20 Parkinson's disease
CPT/HCPCS: 36415; 80053; 80307; 80329; 82248; 85025; 96360; 99284

== ENCOUNTER 2018-07-08 12:43 | Emergency (ER) | payer OTHER ==
[~2018-07-08] VITALS: Ht 170.2 cm; Wt 90.7 kg
[2018-07-08 13:00] VITALS: BP 119/84
--- NOTE | 2018-07-08 13:00 | NUR ---
ED Nurse Note: pPt states that he ran out of percocet and states that he has Rx for 120 percocet. patient denies any pain at this time
--- NOTE | 2018-07-08 13:55 | Emergency Room Report ---
History of Present Illness General Chief Complaint: Medication Refill Present Illness HPI 58-year-old male presents to the emergency department complaining of 10 out of 10 in severity pain throughout his back and states that he has chronic back pain for which he was recently prescribed Percocet for however he states he has been unable to fill his prescription. Pt. is requesting medication refills. Patient denies any trauma or fall he reports history of craniotomy and seizures. Patient denies night sweats, recent spinal procedures, saddle anesthesia or paresthesias. Pt. Deneis fevers or chills. Denies urinary symptoms. Pt. denies change in character to the pain he chronically experiences. Pt. reports hx of parkinsons and neuropathy. Allergies: Coded Allergies: ERYTHROMYCIN BASE (Unverified Allergy, Unknown, 12/15/17) VANCOMYCIN (Verified Allergy, Unknown, 08/01/15) Patient History Past Medical History: see triage record Past Surgical History: none Pertinent Family History: none Reviewed Nursing Documentation: PMH: Agreed; PSxH: Agreed Nursing Documentation-PMH Hx Cardiac Problems: Yes Hx Hypertension: Yes Hx Diabetes: Yes Hx Cancer: No Hx Gastrointestinal Problems: No Hx Cerebrovascular Accident: Yes - craniotomy in october 2017 Hx Parkinson's Disease: Yes Hx Seizures: Yes Hx Tremors: Yes Hx Dizziness: Yes Hx Weakness: Yes Hx Neurologic Surgery: No Hx Brain Shunt: No Review of Systems All Other Systems: negative except mentioned in HPI Physical Exam Vital Signs Date Time Temp Pulse Resp B/P (MAP) Pulse Ox O2 Delivery O2 Flow Rate FiO2 07/08/18 12:56 98.4 90 18 119/84 98 Sp02 EP Interpretation: reviewed, normal General Appearance: no apparent distress, alert, GCS 15, non-toxic Head: normocephalic, atraumatic Eyes: bilateral eye normal inspection, bilateral eye PERRL ENT: hearing grossly normal, normal voice Neck: full range of motion Respiratory: lungs clear, normal breath sounds, speaking full sentences Cardiovascular #1: regular rate, rhythm, no edema Gastrointestinal: normal bowel sounds, non tender, soft, no guarding, no hernia Rectal: deferred Genitourinary: normal inspection, no CVA tenderness Musculoskeletal: back normal, gait/station normal, normal range of motion, tender - TTP to bilateral paraspinal musculature as well as midline. pt. is wheel chair and not ambulatory. Neurologic: alert, oriented x3, responsive, motor strength/tone normal, sensory intact, speech normal, grossly normal Psychiatric: judgement/insight normal Skin: normal color, no rash, warm/dry, well hydrated Lymphatic: no adenopathy Medical Decision Making PA Attestation Dr. Pedersen is my supervising Physician whom patient management has been discussed with. Diagnostic Impression: Primary Impression: Chronic pain Qualified Codes: G89.29 - Other chronic pain Additional Impression: Encounter for medication refill ER Course 45 YO male presents to the ED c/o 12/09 in severity. Left lower back pain x 3 days. denies dysuria but reports pain in the left testicle. pt. denies penile d/ c or recent unprotected intercourse. pt. denies suspicion of STI. pt. denies hematuria or hx of stones. pt. denies fevers, chills, N/V, constipation or diarrhea. Pt. denies recent spinal procedures or hx of cancer. He denies trauma or fall. pt. denies testicular swelling. reports back pain resolves with lying flat on his back. Denies hx of hernias. Denies paresthesias or saddle anesthesia. Patient denies urinary incontinence or retention. Denies dizziness, palpitations, pulsatile sensation of the stomach, or chest Pain. Ddx considered but are not limited to: acute psychosis, danger to self or others , drug seeking, OD, urgent need for medication refill request, non -urgent medication refill request just to name a few. Vital signs: are WNL, pt. is afebrile H&PE are most consistent with non- urgent need for medication refill. Pt. does not have evidence to suggest high probability of danger to self or others. pt. is Alert, Oriented, and able to make decisions. ORDERS: none required at this time, the diagnosis is clinical ED INTERVENTIONS: -Percocet PO -Patient is given multiple resources for nonurgent psychiatric medication management such as [facility] urgent care. Discussed with patient that this is a medication that is not normally prescribed by an emergency department and therefore medication refill and management needs to be performed by an appropriate provider. DISCHARGE: At this time pt. is stable for d/c to home. Will provide printed patient care instructions, and any necessary prescriptions. Care plan and follow up instructions have been discussed with the patient prior to discharge. Last Vital Signs Date Time Temp Pulse Resp B/P (MAP) Pulse Ox O2 Delivery O2 Flow Rate FiO2 07/08/18 13:00 98.4 92 18 119/84 98 Disposition: HOME, SELF-CARE Condition: Stable Scripts Acetaminophen* (TYLENOL EXTRA STRENGTH*) 500 Mg Tablet 500 MG ORAL Q6H, #20 TAB 0 Refills Prov: Radha Andrade 07/08/18 Referrals: [facility],REFERRING (PCP) Patient Instructions: Medicine Refill at the Emergency Department Additional Instructions: Take any previously prescribed medications as directed. Follow up with a Primary Care Provider in 3-5 days, even if your symptoms have resolved. --Please review list of primary care clinics, if you do not already have a primary care provider ---Emergency department does not refill controlled pain medications for chronic pain this needs to be managed by one prescribing physician for your safety. Return sooner to ED if new symptoms occur, or current symptoms become worse. - Please note that this Emergency Department Report was dictated using [employer] facilitator technology software, occasionally this can lead to erroneous entry secondary to interpretation by the dictation equipment. Radha Andrade Jul 08, 2018 13:55
[2018-07-08] MEDS ORDERED: TYLENOL EXTRA500 MG ORAL (13:57)
[2018-07-08] MEDS ORDERED: oxyCODONE HCL/Acetaminophen 5/325mg ORAL ONE (14:00)
[2018-07-08 14:07] VITALS: BP 123/72
--- NOTE | 2018-07-08 14:07 | NUR ---
ED Nurse Note: Pt. AAOx4. left with steady and all belongings. Pt. education done regarding d/c papers and prescriptions. Pt. verbalized the uderstanding of the teaching. VSS. ID armband removed.
== END 2018-07-08 14:07 | disposition home or self-care (01) ==
LOC: EMR 13:40
DX: M54.5 Low back pain (principal); G89.29 Other chronic pain; Z76.0 Encounter for issue of repeat prescription; E11.9 Type 2 diabetes mellitus without complications; I10 Essential (primary) hypertension; G20 Parkinson's disease; Z98.890 Other specified postprocedural states
CPT/HCPCS: 99282

== ENCOUNTER 2018-07-21 23:32 | Emergency (ER) | payer OTHER ==
[~2018-07-21] VITALS: Ht 175.3 cm; Wt 81.6 kg
[~2018-07-21 23:32] MED LIST changes: +TYLENOL EXTRA500 MG ORAL
--- NOTE | 2018-07-21 23:33 | NUR ---
ED Nurse Note: PT BIBA R26 from apartment for transients c/o ETOH Addendum: 07/22/18 at 0022 by PDELEON ED Nurse Note: seizure precautions utilized due to pt previous history of seizures
[2018-07-21 23:38] VITALS: BP 99/68
--- NOTE | 2018-07-21 23:40 | Emergency Room Report ---
History of Present Illness General Chief Complaint: Alcohol Intoxication Source: Medical Record, EMS Present Illness HPI This is a 58-year-old male with a history of alcohol and drug abuse. He also has history of seizure and mostly wheelchair-bound. She presents with chief complaint of alcohol to auscultation. He called 911 because of pain and alcohol abuse. EMS had to breakdown the door and found him on the floor. Patient has been to multiple hospital for the same thing. Per EMS, they get called practically every day from him. No other injury. Allergies: Coded Allergies: ERYTHROMYCIN BASE (Unverified Allergy, Unknown, 12/15/17) VANCOMYCIN (Verified Allergy, Unknown, 08/01/15) Patient History Past Medical History: see triage record, old chart reviewed, seizures Past Surgical History: other Pertinent Family History: none Social History: Reports: alcohol use, drug use Immunizations: other Reviewed Nursing Documentation: PMH: Agreed; PSxH: Agreed Nursing Documentation-PMH Hx Cardiac Problems: Yes Hx Hypertension: Yes Hx Diabetes: Yes Hx Cancer: No Hx Gastrointestinal Problems: No Hx Cerebrovascular Accident: Yes - craniotomy in october 2017 Hx Parkinson's Disease: Yes Hx Seizures: Yes Hx Tremors: Yes Hx Dizziness: Yes Hx Weakness: Yes Hx Neurologic Surgery: No Hx Brain Shunt: No Review of Systems All Other Systems: limited - Secondary to intoxication Physical Exam Vital Signs Date Time Temp Pulse Resp B/P (MAP) Pulse Ox O2 Delivery O2 Flow Rate FiO2 07/21/18 23:28 97.5 88 18 99/66 99 Room Air vitals normal Sp02 EP Interpretation: reviewed, normal General Appearance: well appearing, no apparent distress, other - Heavily intoxicated Head: normocephalic, atraumatic Eyes: bilateral eye PERRL, bilateral eye EOMI ENT: hearing grossly normal, normal pharynx Neck: full range of motion, supple, no meningismus Respiratory: chest non-tender, lungs clear, normal breath sounds Cardiovascular #1: regular rate, rhythm, no murmur Gastrointestinal: normal bowel sounds, non tender, no mass, no organomegaly, no bruit, non-distended Musculoskeletal: back normal, normal range of motion Neurologic: grossly normal Skin: warm/dry Medical Decision Making Diagnostic Impression: Primary Impression: Acute alcoholic intoxication Qualified Codes: F10.920 - Alcohol use, unspecified with intoxication, uncomplicated Additional Impressions: Chronic pain Qualified Codes: G89.4 - Chronic pain syndrome Substance abuse ER Course Patient with alcohol intoxication and substance abuse. He has chronic pain issue. We'll observe until clinical sobriety. I see no trauma to warrant CT scan or x-rays. Patient is now awake. He wants to go back home. We'll send him home by EMS and she does not have his wheelchair. Last Vital Signs Date Time Temp Pulse Resp B/P (MAP) Pulse Ox O2 Delivery O2 Flow Rate FiO2 07/21/18 23:38 88 18 07/21/18 23:38 97.5 99/68 99 Room Air Status: improved Disposition: HOME, SELF-CARE Condition: Stable Patient Instructions: Alcohol Intoxication, [id number] Additional Instructions: Abstain from drugs and alcohol. Follow-up with your DrSonal in 7 days. Return if worse. Andre Deng MD Jul 21, 2018 23:40
[2018-07-22 01:25] VITALS: BP 101/69
--- NOTE | 2018-07-22 03:00 | NUR ---
ED Nurse Note: PT FOUND ON FLOOR, PT SHOWS NO PRESENT INJURY, PT DENIES PAIN, NO ACUTE DISTRESS, SKIN INTACT, PT VITAL SIGNS ARE STABLE, PT BREATHING ON ROOM AIR 99%. PT WAS ASSISTED BY NURSE AND SECURITY BACK TO BED. ERMD INFORMED. PT IS VERBALLY AGGRESSIVE TO STAFF. PER PT "YOU ALL ARE BITCHES", "GET THESE ["N" WORDS] AWAY FROM ME". PT WAS SWUNG AT SECURITY. VERBALLY ASKED PT TO CALM DOWN, DISTRACTION METHODS PROVIDED, GAVE PT FOOD AND WATER.
--- NOTE | 2018-07-22 03:02 | NUR ---
ED Nurse Note: PT DENIED SELINA
[2018-07-22 03:30] VITALS: BP_SYST 105; BP_SYST 99; BP_DIAS 64; BP_DIAS 71
--- NOTE | 2018-07-22 03:50 | NUR ---
ED Nurse Note: Pt lives at [facility], ([address] [phone]); he does not have a grant, and this nurse is unable to contact lead generation marketing manager, at this time.
--- NOTE | 2018-07-22 04:13 | NUR ---
ED Nurse Note: PT WANTED TO TURN RIGHT SIDE. ASSISTED PT. PER PT HE WANTS TO TURN ON LEFT SIDE INSTEAD, SO PT WAS ASSISTED ONCE MORE, PT WAS GIVEN EMESIS BAG SINCE PT SAYS HE FELT NAUSOUS. PT AGAIN, INSISTED TURNING BACK TO THE RIGHT SIDE. PT WAS AGAIN ASSISTED, PT YELLED "CAN I GET ANOTHER FUCKING OTHER NURSE" PT BEGAN YELLING AGGRESSIVELY AND PUNCHING THE WALL. SECURITY AT BEDSIDE
[2018-07-22 05:23] VITALS: BP 98/64
--- NOTE | 2018-07-22 05:34 | NUR ---
ED Nurse Note: pt is asleep in bed, pt vss at the moment, pt not in distress. will continue to monitor and await further orders
--- NOTE | 2018-07-22 06:12 | NUR ---
ED Nurse Note: ATTEMPTED TO CALL LUIS ALBERTO CARO. UNABLE TO CALL. WILL TRY AGAIN
--- NOTE | 2018-07-22 06:32 | NUR ---
ED Nurse Note: UPDATE PHONE NUMBER : [phone] ATTEMPTED TO CALL PER TELEPHONE VOICE MESSAGE OFFICE DOES NOT OPEN UNTIL 0900
--- NOTE | 2018-07-22 07:03 | NUR ---
ED Nurse Note: pt was given juice
[2018-07-22] MEDS ORDERED: Levodopa/Carbidopa 25/100 tab ORAL STA (07:10)
--- NOTE | 2018-07-22 07:10 | NUR ---
HAND-OFF: Report given to farzaneh hall.
--- NOTE | 2018-07-22 07:37 | NUR ---
ED Nurse Note: Pt given juice and meds. Pt is asleep comfortably in bed. Waiting for motor hotel manager of appt's office to open for pt to be d/c.
--- NOTE | 2018-07-22 08:45 | NUR ---
ED Nurse Note: Patient found standing at the bedside. Provided bedside commode and instructed patient to call for assistance. Call light within reach.
--- NOTE | 2018-07-22 09:23 | NUR ---
ED Nurse Note: Called onsite digital sales manager [place]. Unable to confirm if he has tenant by that name due to not having access to computer right now. Will be in office at 10:15am. Will try again at that time. Pt given water and blanket. Pt is asleep in bed comortably. No acute distress or pain noted.
[2018-07-22 09:24] VITALS: BP 100/75
[2018-07-22] MEDS ORDERED: LORazepam 1mg tab ORAL ONE (12:30)
--- NOTE | 2018-07-22 14:09 | NUR ---
Social Work This Sw received a consult due to patient was locked out of his apartment; does not have his grant with him to get back in. This Sw made multiple attempts to contact landlord (lives at [facility], managed by [employer]) and unable to get contact number for jax through family or [employer]. This Sw met with patient who explains his landlord lives next door to his home and will be able to let him in upon return to his apartment building. ER cable way operator informed.
[2018-07-22 14:30] VITALS: BP 130/87
--- NOTE | 2018-07-22 14:30 | NUR ---
ED Nurse Note: Gave report to [facility]. Pt left Er via lifeline and all belongings with him. No acute distress noted.
--- NOTE | 2018-07-22 15:56 | NUR ---
ED Nurse Note: Per [facility], patient went into his apartment.
== END 2018-07-22 14:30 | disposition home or self-care (01) ==
LOC: EDBD 23:32 → EMR 23:45
DX: F10.120 Alcohol abuse with intoxication, uncomplicated (principal); G89.4 Chronic pain syndrome; F19.10 Other psychoactive substance abuse, uncomplicated; Z99.3 Dependence on wheelchair; Z88.1 Allergy status to other antibiotic agents; I10 Essential (primary) hypertension; E11.9 Type 2 diabetes mellitus without complications; Z86.73 Personal history of transient ischemic attack (TIA), and cerebral infarction without residual deficits; G20 Parkinson's disease; Z98.890 Other specified postprocedural states
CPT/HCPCS: 99283

== ENCOUNTER 2018-07-24 16:17 | Emergency (ER) | payer OTHER ==
[~2018-07-24] VITALS: Ht 177.8 cm; Wt 81.6 kg
--- NOTE | 2018-07-24 16:45 | Emergency Room Report ---
History of Present Illness General Chief Complaint: Seizure Source: Patient Present Illness HPI EMS was summoned by the patient to the facility where he lives. He alleged that he had a seizure today. He admits to drinking alcohol. He states he took his Parkinson's medication earlier. Patient has a history of seizures. Patient has a history of alcohol abuse and other drug abuse. Patient also has a history of Parkinson's disease. Prior craniotomy for meningioma. Patient was recently seen here and stabilized. There was difficulty discharging the patient because we did not have access to the patient's facility to make sure he got his electric wheelchair. Apparently paramedics broke down the patient's door to get access today. H/O chronic back pain. He is able to ambulate, but uses a motorized wheelchair. 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 Status post craniotomy due to meningioma Thalamic pain syndrome Noncompliance Allergies: Coded Allergies: ERYTHROMYCIN BASE (Unverified Allergy, Unknown, 12/15/17) VANCOMYCIN (Verified Allergy, Unknown, 08/01/15) Patient History Limited by: medical condition Past Medical History: see triage record, old chart reviewed, other - meningioma Past Surgical History: other - L craniotomy Social History: Reports: alcohol use, drug use Social History Narrative lives at a rehabilitation facility Reviewed Nursing Documentation: PMH: Agreed; PSxH: Agreed Nursing Documentation-PMH Past Medical History: No History, Except For Hx Cardiac Problems: Yes Hx Hypertension: Yes Hx Diabetes: Yes Hx Cancer: No Hx Gastrointestinal Problems: No Hx Cerebrovascular Accident: Yes - craniotomy in october 2017 Hx Parkinson's Disease: Yes Hx Seizures: Yes Hx Tremors: Yes Hx Dizziness: Yes Hx Weakness: Yes Hx Neurologic Surgery: No Hx Brain Shunt: No Review of Systems All Other Systems: limited Physical Exam Vital Signs Date Time Temp Pulse Resp B/P (MAP) Pulse Ox O2 Delivery O2 Flow Rate FiO2 07/24/18 16:13 98.4 74 12 136/82 98 Room Air Sp02 EP Interpretation: reviewed, normal General Appearance: no apparent distress, alert, lethargic, other - alcohol on breath, Chronically Ill Head: other - L craneotomy Eyes: bilateral eye PERRL, bilateral eye abnormal EOM - nystagmus, bilateral eye Scleral Injection ENT: moist mucus membranes - no lingual macerations Neck: supple, no bony tend Respiratory: lungs clear, normal breath sounds Cardiovascular #1: regular rate, rhythm Cardiovascular #2: 2+ radial (R) Gastrointestinal: normal inspection, normal bowel sounds, non tender, no mass, non-distended Musculoskeletal: normal range of motion, other - unable to stand Neurologic: alert, motor weakness - lower extremities, oriented - X2 Psychiatric: no suicidal/homicidal ideation, depressed affect - and threatening staff Reflexes: 2+ knee (R), 2+ knee (L) Skin: normal inspection, warm/dry Medical Decision Making Medical: Alcohol Abuse Reaction to Intervention: Escalated Behavior Restraint Reassesment I, Isidro Kendall MD, have personally evaluated this patient. Laboratory tests have been reviewed and addressed accordingly. The patient is deemed to present a danger to themselves and/or others. This is based on the exam, history ( provided by patient, EMS) and observed or reported behavior. Attempts for non-invasive measures have been considered and/or attempted, however, have been futile. It is in the best interest of the nursing staff, the patient, and others involved in this patient's care that non-behavioral restraints be applied. Patient evaluation reveals the following: acute alcohol intoxication demonstrating poor judgement and threatening staff. Diagnostic Impression: Primary Impression: Acute alcoholic intoxication Qualified Codes: F10.929 - Alcohol use, unspecified with intoxication, unspecified Additional Impressions: Parkinson disease History of craniotomy ER Course Patient presents after calling EMS and alleging that he had a seizure. DDx: seizure, alcohol intoxication, electrolyte abnormalities, antisocial behavior amongst others. Evaluation with labs, EKG and CXR. Treatment with IV hydration. It it unlikely that he had a seizure as he smells intoxicated and there was no witnesses to this. He will be observed on a equipment monitor phototypesetting. Patient threatening staff. There is alcohol on his breath. He is refusing to have treatment. The patient cannot understand the risks of refusal and therefore we will continue with our evaluation and treatment. After discussing his working with us he appears to be compliant at this time. Restraints are not needed at the moment. Pulled out IV and not cooperating at this time. Non-behavioral restraints ordered. Labs remarkable for elevated BAL, platelets slightly low, elevated LFTs. CXR clear. EKG no injury. Sedated and restraints removed. Patient awake and abusive to staff. Signed out to Dr. Deng. Laboratory Tests Test 07/24/18 16:52 07/24/18 17:37 07/24/18 17:40 White Blood Count 6.3 K/UL (4.8-10.8) Red Blood Count 4.83 M/UL (4.70-6.10) Hemoglobin 15.5 G/DL (14.2-18.0) Hematocrit 47.4 % (42.0-52.0) Mean Corpuscular Volume 98 FL (80-99) Mean Corpuscular Hemoglobin 32.1 PG (27.0-31.0) H Mean Corpuscular Hemoglobin Concent 32.7 G/DL (32.0-36.0) Red Cell Distribution Width 14.9 % (11.6-14.8) H Platelet Count 97 K/UL (150-450) L Mean Platelet Volume 6.3 FL (6.5-10.1) L Neutrophils (%) (Auto) % (45.0-75.0) Lymphocytes (%) (Auto) % (20.0-45.0) Monocytes (%) (Auto) % (1.0-10.0) Eosinophils (%) (Auto) % (0.0-3.0) Basophils (%) (Auto) % (0.0-2.0) Differential Total Cells Counted 100 Neutrophils % (Manual) 66 % (45-75) Lymphocytes % (Manual) 22 % (20-45) Monocytes % (Manual) 11 % (1-10) H Eosinophils % (Manual) 1 % (0-3) Basophils % (Manual) 0 % (0-2) Band Neutrophils 0 % (0-8) Platelet Estimate Decreased L Platelet Morphology Normal Polychromasia 1+ Anisocytosis 1+ Macrocytosis 2+ Urine Color Pale yellow Urine Appearance Clear Urine pH 6.5 (4.5-8.0) Urine Specific Sheldon 1.005 (1.005-1.035) Urine Protein Negative (NEGATIVE) Urine Glucose (UA) Negative (NEGATIVE) Urine Ketones Negative (NEGATIVE) Urine Blood Negative (NEGATIVE) Urine Nitrite Negative (NEGATIVE) Urine Bilirubin Negative (NEGATIVE) Urine Urobilinogen Normal MG/DL (0.0-1.0) Urine Leukocyte Esterase Negative (NEGATIVE) Sodium Level 144 MMOL/L (136-145) Potassium Level 4.1 MMOL/L (3.5-5.1) Chloride Level 108 MMOL/L (98-107) H Carbon Dioxide Level 26 MMOL/L (21-32) Anion Gap 10 mmol/L (5-15) Blood Urea Nitrogen 7 mg/dL (7-18) Creatinine 0.9 MG/DL (0.55-1.30) Estimate Glomerular Filtration Rate > 60 mL/min (>60) Glucose Level 97 MG/DL (74-106) Calcium Level 9.0 MG/DL (8.5-10.1) Total Bilirubin 0.5 MG/DL (0.2-1.0) Aspartate Amino Transferase (AST) 41 U/L (15-37) H Alanine Aminotransferase (ALT) 26 U/L (12-78) Alkaline Phosphatase 101 U/L (46-116) Total Creatine Kinase 654 U/L (26-308) H Troponin I 0.000 ng/mL (0.000-0.056) Total Protein 7.1 G/DL (6.4-8.2) Albumin 3.4 G/DL (3.4-5.0) Globulin 3.7 g/dL Albumin/Globulin Ratio 0.9 (1.0-2.7) L Salicylates Level 1.1 ug/mL (2.8-20) L Acetaminophen Level < 2 MCG/ML (10-30) L Serum Alcohol 177 mg/dL EKG Diagnostic Results Rate: normal Rhythm: NSR ST Segments: no acute changes - Left axis deviation Rhythm Strip Diag. Results EP Interpretation: yes Rhythm: NSR, no PVC's, no ectopy Chest X-Ray Diagnostic Results Chest X-Ray Diagnostic Results : Chest X-Ray Ordered: Yes # of Views/Limited/Complete: 1 View Indication: Other EP Interpretation: Yes Interpretation: no consolidation, no effusion, no pneumothorax Impression: Other Electronically Signed by: Isidro Kendall MD Last Vital Signs Date Time Temp Pulse Resp B/P (MAP) Pulse Ox O2 Delivery O2 Flow Rate FiO2 07/25/18 00:05 98.0 82 18 128/82 98 Room Air Status: improved Disposition: HOME, SELF-CARE - [facility] residential Condition: Improved Isidro Kendall MD Jul 24, 2018 16:45
[2018-07-24 16:55] VITALS: BP 119/78
[2018-07-24] MEDS ORDERED: Haloperidol 5mg/ml Inj IM ONE ×2 (17:00→18:00)
[2018-07-24] MEDS ORDERED: DiphenhydrAMINE 50mg/ml Inj IM ONE (17:00)
[2018-07-24 17:07] LABS: HEMATOCRIT 47.4 % (42.0-52.0); HEMOGLOBIN 15.5 G/DL (14.2-18.0); MEAN CORPUSCULAR VOLUME 98 FL (80-99); PLATELET COUNT 97 K/UL (150-450); RED BLOOD COUNT 4.83 M/UL (4.70-6.10); RED CELL DISTRIBUTION WIDTH 14.9 % (11.6-14.8); WHITE BLOOD COUNT 6.3 K/UL (4.8-10.8)
[2018-07-24 17:59] LABS: APPEARANCE,URINE CLEAR; BILIRUBIN, URINE NEGATIVE (NEGATIVE); COLOR,URINE PALE YELLOW; GLUCOSE, URINE (UA) NEGATIVE (NEGATIVE); KETONES,URINE NEGATIVE (NEGATIVE); LEUKOCYTE ESTERASE ,URINE NEGATIVE (NEGATIVE); NITRITE,URINE NEGATIVE (NEGATIVE); PH,URINE 6.5 (4.5-8.0); PROTEIN,URINE NEGATIVE (NEGATIVE); UROBILINOGEN,URINE NORMAL MG/DL (0.0-1.0)
[2018-07-24 18:00] LABS: ANION GAP 10 mmol/L (5-15); BLOOD UREA NITROGEN 7 mg/dL (7-18); CARBON DIOXIDE 26 MMOL/L (21-32); CHLORIDE 108 MMOL/L (98-107); CREATININE 0.9 MG/DL (0.55-1.30); POTASSIUM 4.1 MMOL/L (3.5-5.1); SODIUM 144 MMOL/L (136-145)
[2018-07-24 18:36] LABS: ALANINE AMINOTRANSFERASE 26 U/L (12-78); ALBUMIN 3.4 G/DL (3.4-5.0); ALBUMIN/GLOBULIN RATIO 0.9 (1.0-2.7); ALKALINE PHOSPHATASE 101 U/L (46-116); ASPARTATE AMINO TRANSFERASE 41 U/L (15-37); BILIRUBIN,TOTAL 0.5 MG/DL (0.2-1.0); CREATINE KINASE 654 U/L (26-308)
[2018-07-24 18:55] VITALS: BP 120/86
[2018-07-24 21:16] VITALS: BP 136/84
[2018-07-24 23:19] VITALS: BP 128/82
[2018-07-25 00:05] VITALS: BP 128/82
--- NOTE | 2018-07-27 12:34 | Diagnostic Imaging Report ---
Indication: Dyspnea Comparison: 01/20/2018 A single view chest radiograph was obtained. Findings: The lungs are clear. Heart is normal in size. Bones are osteopenic. IMPRESSION: No acute disease
== END 2018-07-25 00:05 | disposition home or self-care (01) ==
LOC: EDBD 16:17 → EMR 18:06
DX: F10.120 Alcohol abuse with intoxication, uncomplicated (principal); G20 Parkinson's disease; Z98.890 Other specified postprocedural states; E11.9 Type 2 diabetes mellitus without complications; I10 Essential (primary) hypertension
CPT/HCPCS: 36415; 71045; 80053; 80329; 81003; 82550; 84484; 85007; 85025; 93005; 96372; 99284; J1200; J1630

== ENCOUNTER 2018-07-30 23:22 | Emergency (ER) | payer OTHER ==
[~2018-07-30] VITALS: Ht 172.7 cm; Wt 97.5 kg
--- NOTE | 2018-07-30 23:40 | Emergency Room Report ---
History of Present Illness General Chief Complaint: Abdominal Pain Source: Patient, Medical Record, EMS Present Illness HPI This is a 58-year-old male with history of Parkinson disease and alcoholism. He presents with chief complaint of alcohol intoxication. Patient called 911 because he's been shaky and couldn't get up. His been drinking a pint of liquor today. Denies any trauma. No nausea no vomiting. No diarrhea. Similar symptom in the past. Per EMS, they get call and him practically every day. He's been here numerous times. No other complaint. Allergies: Coded Allergies: ERYTHROMYCIN BASE (Unverified Allergy, Unknown, 12/15/17) VANCOMYCIN (Verified Allergy, Unknown, 08/01/15) Patient History Past Medical History: see triage record, old chart reviewed Past Surgical History: other Pertinent Family History: none Social History: Reports: alcohol use Immunizations: other Reviewed Nursing Documentation: PMH: Agreed; PSxH: Agreed Nursing Documentation-PMH Hx Cardiac Problems: Yes Hx Hypertension: Yes Hx Diabetes: Yes Hx Cancer: No Hx Gastrointestinal Problems: No Hx Cerebrovascular Accident: Yes - craniotomy in october 2017 Hx Parkinson's Disease: Yes Hx Seizures: Yes Hx Tremors: Yes Hx Dizziness: Yes Hx Weakness: Yes Hx Neurologic Surgery: No Hx Brain Shunt: No Review of Systems Eye: Denies: eye pain, blurred vision ENT: Denies: ear pain, nose congestion, throat swelling Respiratory: Denies: cough, shortness of breath Cardiovascular: Denies: chest pain, palpitations Gastrointestinal: Denies: abdominal pain, diarrhea, nausea, vomiting Musculoskeletal: Denies: back pain, joint pain Skin: Denies: rash Neurological: Denies: headache, numbness Endocrine: Denies: increased thirst, increased urine Hematologic/Lymphatic: Denies: easy bruising All Other Systems: negative except mentioned in HPI Physical Exam Vital Signs Date Time Temp Pulse Resp B/P (MAP) Pulse Ox O2 Delivery O2 Flow Rate FiO2 07/30/18 23:18 97.5 79 18 125/75 98 Room Air vitals normal Sp02 EP Interpretation: reviewed, normal General Appearance: well appearing, no apparent distress, alert, obese, other - Intoxicated Head: normocephalic, atraumatic Eyes: bilateral eye PERRL, bilateral eye EOMI ENT: hearing grossly normal, normal pharynx Neck: full range of motion, supple, no meningismus Respiratory: chest non-tender, lungs clear, normal breath sounds Cardiovascular #1: regular rate, rhythm, no murmur Gastrointestinal: normal bowel sounds, non tender, no mass, no organomegaly, no bruit, non-distended Musculoskeletal: back normal, normal range of motion Psychiatric: other Skin: warm/dry Medical Decision Making Diagnostic Impression: Primary Impression: Acute alcoholic intoxication Qualified Codes: F10.920 - Alcohol use, unspecified with intoxication, uncomplicated Additional Impression: Substance abuse ER Course Patient presents with alcohol intoxication. No trauma to warrant x-ray or CT scan. Patient now able to stand up with his cane. He was to go home. We'll discharge home with taxi voucher. Last Vital Signs Date Time Temp Pulse Resp B/P (MAP) Pulse Ox O2 Delivery O2 Flow Rate FiO2 07/30/18 23:18 97.5 79 18 125/75 98 Room Air Status: improved Disposition: HOME, SELF-CARE Condition: Stable Additional Instructions: Follow-up with your doctor in 7 days. Stop using alcohol and drugs. Return if worse. Andre Deng MD Jul 30, 2018 23:39
--- NOTE | 2018-07-30 23:41 | NUR ---
ED Nurse Note: Patient biba RA 24 c/o abdominal pain. patient complains of 5/10 pain. EMS report Pt's living room has several empty wiskey bottles, and Pt is current drunk. Pt is AO 2~3 times, VSS, on room air no distress. ERMD seen Pt ta bedside.
[2018-07-30 23:44] VITALS: BP 125/75
--- NOTE | 2018-07-31 | NUR ---
ED Nurse Note: Pt yelled to nurse and states he needs michelle blood for texting his blood alocohol level, inform Pt no order for that, Pt yelled to nurse go away.
--- NOTE | 2018-07-31 00:15 | NUR ---
ED Nurse Note: Pt yelled nurse and states he needs meds for his anxiety, inform Pt needs to calm down and will talk to ERMD. Pt states he will call someone for this.
--- NOTE | 2018-07-31 00:35 | NUR ---
ED Nurse Note: Pt c/o he is wet and got up from bed. Assist Pt to sit back the bed but Pt refused and yelled back nurse and secuity. Cover Pt with new blanket.
--- NOTE | 2018-07-31 01:00 | NUR ---
ED Nurse Note: Pt called 911 and c/o ER hold him not let him go. Inform Pt with wrong info and will let pt sign DC papers, but pt refused to listen to nurse and ERMD.
--- NOTE | 2018-07-31 01:15 | NUR ---
ED Nurse Note: Pt refused to sign the DC papers and increasing the voice. Inform security for assisting Pt to go out the unit, Pt refused and called 911 again.
[2018-07-31 01:30] VITALS: BP 133/80
--- NOTE | 2018-07-31 01:30 | NUR ---
ED Nurse Note: Pt still refused to sign Dc papers and meds treatment. security assist Pt out of unit and Pt continue to yell back staff.
== END 2018-07-31 02:17 | disposition home or self-care (01) ==
LOC: EDBD 23:22 → EMR 23:40
DX: F10.129 Alcohol abuse with intoxication, unspecified (principal); I10 Essential (primary) hypertension; E11.9 Type 2 diabetes mellitus without complications; G20 Parkinson's disease; Z98.890 Other specified postprocedural states
CPT/HCPCS: 99282

== ENCOUNTER 2018-08-13 19:18 | Emergency (ER) | payer OTHER ==
[~2018-08-13] VITALS: Ht 177.8 cm; Wt 90.7 kg
[2018-08-13 19:30] VITALS: BP 107/68
--- NOTE | 2018-08-13 19:30 | NUR ---
ED Nurse Note: Pt brought in by ambulance for ETOH intoxication. [facility] states they were called after he was found vomiting in home. VSS. Will continue to monitor and with patients plan of care.
--- NOTE | 2018-08-13 19:37 | Emergency Room Report ---
History of Present Illness General Chief Complaint: Alcohol Intoxication Source: Medical Record, EMS Present Illness HPI Patient was brought to the emergency department via EMS after drinking alcohol. According to the [facility] up report, he allegedly was vomiting blood. They state he did not complain of having seizures today. Apparently EMS has calls almost daily to evaluate him. They alleged they did not have to breakdown the door today. In the past we have had difficulty discharging the patient as the landlord does not help with taking the patient back. Patient not answering questions. H/O meningioma. H/O seizures - on dilantin H/O chronic back pain - on oxycontin H/O Parkinson's - on Sinemet He is able to ambulate, but uses a motorized wheelchair. 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 Status post craniotomy due to meningioma Thalamic pain syndrome Noncompliance Allergies: Coded Allergies: ERYTHROMYCIN BASE (Unverified Allergy, Unknown, 12/15/17) VANCOMYCIN (Verified Allergy, Unknown, 08/01/15) Patient History Limited by: medical condition Past Medical History: see triage record, old chart reviewed Past Surgical History: other - mieningioma, craniotomy October 2017 Social History: Reports: alcohol use, drug use - cocaine in past; Denies: smoking Social History Narrative lives in rehab facility Reviewed Nursing Documentation: PMH: Agreed; PSxH: Agreed Nursing Documentation-PMH Hx Cardiac Problems: Yes Hx Hypertension: Yes Hx Diabetes: Yes Hx Cancer: No Hx Gastrointestinal Problems: No Hx Cerebrovascular Accident: Yes - craniotomy in october 2017 Hx Parkinson's Disease: Yes Hx Seizures: Yes Hx Tremors: Yes Hx Dizziness: Yes Hx Weakness: Yes Hx Neurologic Surgery: No Hx Brain Shunt: No Review of Systems All Other Systems: limited Physical Exam Vital Signs Date Time Temp Pulse Resp B/P (MAP) Pulse Ox O2 Delivery O2 Flow Rate FiO2 08/13/18 19:22 97.7 106 16 107/68 96 Room Air Sp02 EP Interpretation: reviewed, normal General Appearance: no apparent distress, lethargic, Chronically Ill Head: normocephalic Eyes: bilateral eye PERRL, bilateral eye Scleral Injection ENT: moist mucus membranes - no lingual macerations Neck: supple, no bony tend Respiratory: lungs clear, normal breath sounds Cardiovascular #1: regular rate, rhythm Cardiovascular #2: 2+ radial (R) Gastrointestinal: normal inspection, non tender, non-distended, decreased bowel sounds Musculoskeletal: back normal, normal range of motion Neurologic: responsive, DTRs symmetric, sensory intact, motor weakness - lower extremities, other - muscle rigidity with some cogwheeling Psychiatric: no suicidal/homicidal ideation, depressed affect Skin: warm/dry, other - plethoric Medical Decision Making Diagnostic Impression: Primary Impression: Acute alcoholic intoxication Qualified Codes: F10.929 - Alcohol use, unspecified with intoxication, unspecified Additional Impressions: Parkinson disease History of craniotomy ER Course Patient presents with decreased mentation. H/O multiple presentations for alcohol intoxication and chronic back pain. DDX: alcohol intoxication, depression amongst others. Based on current exam, no labs or imaging are indicated. However, the patient needs to be observed until sober and re- evaluated. Improving with observation. Requests Sinemet. Given. No evidence of vomiting. Tolerating oral intake without difficulty. Signed out to Dr. Acuña. Last Vital Signs Date Time Temp Pulse Resp B/P (MAP) Pulse Ox O2 Delivery O2 Flow Rate FiO2 08/14/18 05:10 98.1 98 16 110/60 97 08/13/18 19:30 Room Air Status: improved Disposition: HOME, SELF-CARE Condition: Improved Isidro Kendall MD Aug 13, 2018 19:37
[2018-08-13] MEDS ORDERED: Levodopa/Carbidopa 25/100 tab ORAL STA (22:40)
[2018-08-14 05:10] VITALS: BP 110/60
--- NOTE | 2018-08-14 05:10 | NUR ---
ED Nurse Note: Pt cleared by MD. Discharge paperwork provided. Pt verbalized understanding of all instructions. ID band removed. BLS ambulance personnel accompanied patient as transportation to patients home. VSS. Shows no signs of acute distress.
== END 2018-08-14 05:10 | disposition home or self-care (01) ==
LOC: EDUNIT# 19:18 → EDBD 19:18 → EMR 19:39
DX: F10.129 Alcohol abuse with intoxication, unspecified (principal); G20 Parkinson's disease; Z98.890 Other specified postprocedural states; I10 Essential (primary) hypertension; E11.9 Type 2 diabetes mellitus without complications; Z86.73 Personal history of transient ischemic attack (TIA), and cerebral infarction without residual deficits
CPT/HCPCS: 99282

== ENCOUNTER 2018-08-17 13:07 | Emergency (ER) | payer OTHER ==
[~2018-08-17] VITALS: Ht 177.8 cm; Wt 81.6 kg
--- NOTE | 2018-08-17 13:09 | NUR ---
ED Nurse Note: Pt BIBA and [employer] from home due to wanting to kill himself. Pt states that he has a gun and he will use that. Pt is placed on a hold. Hx of brain tumor, Parkinsons, substance abuse with cocaine. A + O x.4.
[2018-08-17 13:15] VITALS: BP 125/80
[2018-08-17 14:07] LABS: BASOPHILS % (AUTO) 0.7 % (0.0-2.0); EOSINOPHILS % (AUTO) 0.4 % (0.0-3.0); HEMATOCRIT 50.5 % (42.0-52.0); HEMOGLOBIN 16.2 G/DL (14.2-18.0); LYMPHOCYTES % (AUTO) 19.1 % (20.0-45.0); MEAN CORPUSCULAR VOLUME 100 FL (80-99); MONOCYTES % (AUTO) 6.7 % (1.0-10.0); PLATELET COUNT 434 K/UL (150-450); RED BLOOD COUNT 5.08 M/UL (4.70-6.10); RED CELL DISTRIBUTION WIDTH 16.1 % (11.6-14.8); WHITE BLOOD COUNT 9.2 K/UL (4.8-10.8)
--- NOTE | 2018-08-17 14:37 | NUR ---
ED Nurse Note: Called lab to notify of pt's lab order.
--- NOTE | 2018-08-17 15:02 | NUR ---
ED Nurse Note: Lab redraw sent to lab.
--- NOTE | 2018-08-17 15:42 | Emergency Room Report ---
History of Present Illness General Chief Complaint: Behavioral Complaint Source: Medical Record Present Illness HPI 58-year-old male presents ED for evaluation. Patient brought in by EMS. Was creating disturbance on the street. Stating he wants to hurt himself. Placed on 5150 hold by [employer]. Patient is well-known to [facility] [place] [place]. Has been here multiple times for alcohol intoxication. History of Parkinson's and seizure. At this time patient denies SI or HI. Denies hearing voices. Denies drug use. No other aggravating relieving factors. Denies any other associated symptoms Allergies: Coded Allergies: ERYTHROMYCIN BASE (Unverified Allergy, Unknown, 12/15/17) VANCOMYCIN (Verified Allergy, Unknown, 08/01/15) Patient History Past Medical History: DM, HTN, CVA/TIA, seizures, other - parkinsons Past Surgical History: none Pertinent Family History: none Social History: Reports: alcohol use; Denies: smoking, drug use Immunizations: UTD Reviewed Nursing Documentation: PMH: Agreed; PSxH: Agreed Nursing Documentation-PMH Past Medical History: No History, Except For Hx Hypertension: Yes Hx Diabetes: Yes Hx Cancer: No Hx Gastrointestinal Problems: No Hx Cerebrovascular Accident: Yes Hx Parkinson's Disease: Yes Hx Seizures: Yes Hx Tremors: Yes Hx Dizziness: Yes Hx Weakness: Yes Hx Neurologic Surgery: No Hx Brain Shunt: No Review of Systems All Other Systems: limited Physical Exam Vital Signs Date Time Temp Pulse Resp B/P (MAP) Pulse Ox O2 Delivery O2 Flow Rate FiO2 08/17/18 12:59 99.0 88 16 128/84 96 Room Air 08/17/18 13:15 98 Sp02 EP Interpretation: reviewed, normal General Appearance: other - intoxicated Head: normocephalic, atraumatic Eyes: bilateral eye normal inspection, bilateral eye PERRL ENT: hearing grossly normal, normal pharynx, no angioedema, normal voice Neck: full range of motion, supple/symm/no masses Respiratory: chest non-tender, lungs clear, normal breath sounds, speaking full sentences Cardiovascular #1: regular rate, rhythm, no edema Cardiovascular #2: 2+ carotid (R), 2+ carotid (L), 2+ radial (R), 2+ radial (L) , 2+ dorsalis pedis (R), 2+ dorsalis pedis (L) Gastrointestinal: normal bowel sounds, non tender, soft, non-distended, no guarding, no rebound Rectal: deferred Genitourinary: normal inspection, no CVA tenderness Musculoskeletal: back normal, gait/station normal, normal range of motion, non- tender Neurologic: other - intoxicated Psychiatric: other - intoxicated Reflexes: 3+ bicep (R), 3+ bicep (L), 3+ tricep (R), 3+ tricep (L), 3+ knee (R) , 3+ knee (L) Skin: normal color, no rash, warm/dry, well hydrated Lymphatic: no adenopathy Medical Decision Making Diagnostic Impression: Primary Impression: Acute alcoholic intoxication Qualified Codes: F10.929 - Alcohol use, unspecified with intoxication, unspecified Additional Impression: Behavioral change ER Course Hospital Course 58 yo M presents with alcohol intoxication. on 5150 for stating he wants to hurt himself Differential diagnoses include: Major depressive disorder, unspecified psychosis , EtOH abuse, drug abuse Clinical course Patient placed on stretcher. On one to one observation. After initial history and physical I ordered labs, U. tox, IVFS Labs-electrolytes normal, aspirin/Tylenol levels normal, EtOH 146 Patient is medically cleared and pending psychiatric evaluation. i. I feel this is a highly complex case requiring extensive working including EKG/Rhythm strip, Xray/CT/US, Blood/urine lab work, repeat exams while in ED, and administration of strong opiates/narcotics for pain control, admission to hospital or close patient follow up. Labs Test 08/17/18 13:45 08/17/18 15:00 White Blood Count 9.2 K/UL (4.8-10.8) Red Blood Count 5.08 M/UL (4.70-6.10) Hemoglobin 16.2 G/DL (14.2-18.0) Hematocrit 50.5 % (42.0-52.0) Mean Corpuscular Volume 100 FL (80-99) Mean Corpuscular Hemoglobin 31.8 PG (27.0-31.0) Mean Corpuscular Hemoglobin Concent 32.0 G/DL (32.0-36.0) Red Cell Distribution Width 16.1 % (11.6-14.8) Platelet Count 434 K/UL (150-450) Mean Platelet Volume 5.7 FL (6.5-10.1) Neutrophils (%) (Auto) 73.0 % (45.0-75.0) Lymphocytes (%) (Auto) 19.1 % (20.0-45.0) Monocytes (%) (Auto) 6.7 % (1.0-10.0) Eosinophils (%) (Auto) 0.4 % (0.0-3.0) Basophils (%) (Auto) 0.7 % (0.0-2.0) Sodium Level 142 MMOL/L (136-145) Potassium Level 4.1 MMOL/L (3.5-5.1) Chloride Level 102 MMOL/L (98-107) Carbon Dioxide Level 24 MMOL/L (21-32) Anion Gap 16 mmol/L (5-15) Blood Urea Nitrogen 17 mg/dL (7-18) Creatinine 0.9 MG/DL (0.55-1.30) Estimat Glomerular Filtration Rate > 60 mL/min (>60) Glucose Level 77 MG/DL (74-106) Calcium Level 9.5 MG/DL (8.5-10.1) Total Bilirubin 0.5 MG/DL (0.2-1.0) Aspartate Amino Transf (AST/SGOT) 33 U/L (15-37) Alanine Aminotransferase (ALT/SGPT) 23 U/L (12-78) Alkaline Phosphatase 104 U/L (46-116) Total Protein 7.2 G/DL (6.4-8.2) Albumin 3.6 G/DL (3.4-5.0) Globulin 3.6 g/dL Albumin/Globulin Ratio 1.0 (1.0-2.7) Salicylates Level 0.9 ug/mL (2.8-20) Acetaminophen Level < 2 MCG/ML (10-30) Serum Alcohol 146 mg/dL Last Vital Signs Date Time Temp Pulse Resp B/P (MAP) Pulse Ox O2 Delivery O2 Flow Rate FiO2 08/17/18 13:15 99.0 65 20 125/80 98 Room Air 98 Status: improved Disposition: XFER TO PSYCH HOSP/UNIT Condition: Serious Referrals: [facility],REFERRING (PCP) Epifanio Haider MD Aug 17, 2018 15:42
[2018-08-17 15:57] LABS: ANION GAP 16 mmol/L (5-15); BLOOD UREA NITROGEN 17 mg/dL (7-18); CALCIUM 9.5 MG/DL (8.5-10.1); CARBON DIOXIDE 24 MMOL/L (21-32); CHLORIDE 102 MMOL/L (98-107); CREATININE 0.9 MG/DL (0.55-1.30); POTASSIUM 4.1 MMOL/L (3.5-5.1); SODIUM 142 MMOL/L (136-145)
[2018-08-17 16:07] LABS: ALANINE AMINOTRANSFERASE 23 U/L (12-78); ALBUMIN 3.6 G/DL (3.4-5.0); ALKALINE PHOSPHATASE 104 U/L (46-116); ASPARTATE AMINO TRANSFERASE 33 U/L (15-37); BILIRUBIN,TOTAL 0.5 MG/DL (0.2-1.0)
[2018-08-17 16:44] VITALS: BP 120/77
[2018-08-17] MEDS ORDERED: Levodopa/Carbidopa 25/100 tab ORAL ONE (17:45)
--- NOTE | 2018-08-17 18:31 | Consultation ---
History of Present Illness General Chief Complaint: Behavioral Complaint Present Illness HPI 58-year-old male brought in by EMS. Was creating disturbance on the street. the pt has hx of mdd and is suicidal. Placed on 5150 hold by [employer]. the pt recently purchased the gun and wants to hurt self Allergies: Coded Allergies: ERYTHROMYCIN BASE (Unverified Allergy, Unknown, 12/15/17) VANCOMYCIN (Verified Allergy, Unknown, 08/01/15) Medication History Scheduled Acetaminophen* (Tylenol Extra Strength*), 500 MG ORAL Q6H Carbidopa/Levodopa 25-100 Mg* (Sinemet 25-100 Mg Tablet*), 3 TAB ORAL THREE TIMES A DAY, (Reported) Gabapentin* (Gabapentin*), 600 MG ORAL THREE TIMES A DAY, (Reported) No Known Medications* (NKM - No Known Medications*), 0 ., (Reported) Scheduled PRN Oxycodone Hcl/Acetaminophen 10-325 Mg Tablet (Percocet 10-325 Mg Tablet*), 1 TAB ORAL Q6H PRN for For Pain, (Reported) Miscellaneous Medications Unable to Obtain Medications (Unable To Obtain Meds), (Reported) Patient History History Provided By: Patient, Medical Record, PMD Healthcare decision maker Resuscitation status Advanced Directive on File Past Medical/Surgical History Past Medical/Surgical History: (1) Behavioral change (2) Parkinson disease (3) Acute CVA (cerebrovascular accident) (4) CVA (cerebral vascular accident) (5) Non-compliance (6) Drug-seeking behavior (7) Tremor (8) Chronic pain (9) Substance abuse (10) Acute alcoholic intoxication (11) seizure Review of Systems Psychiatric: Reports: prior hx, anxiety, depressed feelings, emotional problems , SI Physical Exam General Appearance: no apparent distress, alert Neurologic: oriented x 3, responsive, depressed affect Last 24 Hour Vital Signs Date Time Temp Pulse Resp B/P (MAP) Pulse Ox O2 Delivery O2 Flow Rate FiO2 08/17/18 13:15 99.0 65 20 125/80 98 Room Air 98 08/17/18 13:15 88 16 Room Air 98 08/17/18 12:59 99.0 88 16 128/84 96 Room Air Laboratory Tests Test 08/17/18 13:45 08/17/18 15:00 White Blood Count 9.2 K/UL (4.8-10.8) Red Blood Count 5.08 M/UL (4.70-6.10) Hemoglobin 16.2 G/DL (14.2-18.0) Hematocrit 50.5 % (42.0-52.0) Mean Corpuscular Volume 100 FL (80-99) H Mean Corpuscular Hemoglobin 31.8 PG (27.0-31.0) H Mean Corpuscular Hemoglobin Concent 32.0 G/DL (32.0-36.0) Red Cell Distribution Width 16.1 % (11.6-14.8) H Platelet Count 434 K/UL (150-450) Mean Platelet Volume 5.7 FL (6.5-10.1) L Neutrophils (%) (Auto) 73.0 % (45.0-75.0) Lymphocytes (%) (Auto) 19.1 % (20.0-45.0) L Monocytes (%) (Auto) 6.7 % (1.0-10.0) Eosinophils (%) (Auto) 0.4 % (0.0-3.0) Basophils (%) (Auto) 0.7 % (0.0-2.0) Sodium Level 142 MMOL/L (136-145) Potassium Level 4.1 MMOL/L (3.5-5.1) Chloride Level 102 MMOL/L (98-107) Carbon Dioxide Level 24 MMOL/L (21-32) Anion Gap 16 mmol/L (5-15) H Blood Urea Nitrogen 17 mg/dL (7-18) Creatinine 0.9 MG/DL (0.55-1.30) Estimat Glomerular Filtration Rate > 60 mL/min (>60) Glucose Level 77 MG/DL (74-106) Calcium Level 9.5 MG/DL (8.5-10.1) Total Bilirubin 0.5 MG/DL (0.2-1.0) Aspartate Amino Transf (AST/SGOT) 33 U/L (15-37) Alanine Aminotransferase (ALT/SGPT) 23 U/L (12-78) Alkaline Phosphatase 104 U/L (46-116) Total Protein 7.2 G/DL (6.4-8.2) Albumin 3.6 G/DL (3.4-5.0) Globulin 3.6 g/dL Albumin/Globulin Ratio 1.0 (1.0-2.7) Salicylates Level 0.9 ug/mL (2.8-20) L Acetaminophen Level < 2 MCG/ML (10-30) L Serum Alcohol 146 mg/dL Height (Feet): 5 Height (Inches): 10.00 Weight (Pounds): 180 Assessment/Plan Problem List: (1) MDD (major depressive disorder) ICD Codes: F32.9 - Major depressive disorder, single episode, unspecified SNOMED: 889085680 (2) Substance abuse ICD Codes: F19.10 - Other psychoactive substance abuse, uncomplicated SNOMED: 42170385 Assessment/Plan dc 5150 transfer to psych on vol status the pt agrees to be admitted Angelic Garcia MD Aug 17, 2018 18:31
[2018-08-17 18:45] VITALS: BP 122/75
--- NOTE | 2018-08-17 19:08 | NUR ---
HAND-OFF: Report given to FRANCO Lawler.
[2018-08-17 20:45] VITALS: BP 132/78
--- NOTE | 2018-08-17 20:48 | NUR ---
ER Nurs Note: Pt calm, cooperative, follows commands. Pt unable to proivide urine; will ask in future time. Pt has hx of parkinsons; pt has hand and feet tremors. Pt VSS, no signs of distress. Pt is medically stable; pending placement; on a 5150 hold. Alll safety measures met; will continue to montior.
--- NOTE | 2018-08-17 23:02 | NUR ---
ER Nurse Note: Called three times to give report to FRANCO Camacho. Was able to talk to Janice but she was not able to receive report. Transportation for pt arrived but report has not been given yet.
--- NOTE | 2018-08-17 23:29 | NUR ---
ER Nurse Note: Report given to FRANCO López covering for FRANCO Camacho in [facility] for continuity of care. Pt stable, no signs of distress. Pt left with all belongings and juice.
[2018-08-17 23:35] VITALS: BP 136/80
== END 2018-08-17 23:35 ==
LOC: EDBD 13:07 → EMR 13:56
DX: F32.9 Major depressive disorder, single episode, unspecified (principal); F10.929 Alcohol use, unspecified with intoxication, unspecified; F19.10 Other psychoactive substance abuse, uncomplicated; F91.9 Conduct disorder, unspecified; E11.9 Type 2 diabetes mellitus without complications; I10 Essential (primary) hypertension; Z86.73 Personal history of transient ischemic attack (TIA), and cerebral infarction without residual deficits; G20 Parkinson's disease; Z88.1 Allergy status to other antibiotic agents
CPT/HCPCS: 36415; 80053; 80329; 85025; 96360; 99285

== ENCOUNTER 2018-08-27 16:39 | Emergency (ER) | payer OTHER ==
[~2018-08-27] VITALS: Ht 177.8 cm; Wt 90.7 kg
[2018-08-27 17:19] LABS: BASOPHILS % (AUTO) 0.8 % (0.0-2.0); EOSINOPHILS % (AUTO) 2.3 % (0.0-3.0); HEMATOCRIT 44.6 % (42.0-52.0); HEMOGLOBIN 14.5 G/DL (14.2-18.0); LYMPHOCYTES % (AUTO) 27.6 % (20.0-45.0); MEAN CORPUSCULAR VOLUME 100 FL (80-99); MONOCYTES % (AUTO) 9.9 % (1.0-10.0); NEUTROPHILS % (AUTO) 59.4 % (45.0-75.0); PLATELET COUNT 399 K/UL (150-450); RED BLOOD COUNT 4.48 M/UL (4.70-6.10); RED CELL DISTRIBUTION WIDTH 13.9 % (11.6-14.8); WHITE BLOOD COUNT 6.2 K/UL (4.8-10.8)
[2018-08-27 17:26] LABS: APPEARANCE,URINE CLEAR; BILIRUBIN, URINE NEGATIVE (NEGATIVE); COLOR,URINE PALE YELLOW; GLUCOSE, URINE (UA) NEGATIVE (NEGATIVE); KETONES,URINE NEGATIVE (NEGATIVE); LEUKOCYTE ESTERASE ,URINE NEGATIVE (NEGATIVE); NITRITE,URINE NEGATIVE (NEGATIVE); PH,URINE 5 (4.5-8.0); PROTEIN,URINE NEGATIVE (NEGATIVE); UROBILINOGEN,URINE NORMAL MG/DL (0.0-1.0)
[2018-08-27 17:27] VITALS: BP 103/70
[2018-08-27 17:33] LABS: ANION GAP 13 mmol/L (5-15); BLOOD UREA NITROGEN 12 mg/dL (7-18); CALCIUM 8.7 MG/DL (8.5-10.1); CARBON DIOXIDE 22 MMOL/L (21-32); CHLORIDE 104 MMOL/L (98-107); CREATININE 1.2 MG/DL (0.55-1.30); POTASSIUM 4.4 MMOL/L (3.5-5.1); SODIUM 139 MMOL/L (136-145)
[2018-08-27 17:41] LABS: ALANINE AMINOTRANSFERASE 38 U/L (12-78); ALBUMIN 3.5 G/DL (3.4-5.0); ALKALINE PHOSPHATASE 88 U/L (46-116); ASPARTATE AMINO TRANSFERASE 75 U/L (15-37); BILIRUBIN,TOTAL 0.5 MG/DL (0.2-1.0)
--- NOTE | 2018-08-27 17:48 | Emergency Room Report ---
History of Present Illness General Chief Complaint: Overdose Source: Patient (Kat Garcia DO) Present Illness HPI This patient is well-known to [facility]. He is a homeless male with severe alcoholism. He has of late has been stating that he is going to kill himself. He was seen here to [facility] 10 days ago on a 5150 and was transferred to a psychiatric facility. He returns today again on a 5150 because he told his therapist he was going to kill himself. He has no other complaints. (Kat Garcia DO) Allergies: Coded Allergies: ERYTHROMYCIN BASE (Unverified Allergy, Unknown, 12/15/17) VANCOMYCIN (Verified Allergy, Unknown, 08/01/15) Patient History Past Medical History: see triage record, DM, HTN, seizures, other - Parkinson's Social History: Reports: alcohol use; Denies: smoking, drug use Reviewed Nursing Documentation: PMH: Agreed; PSxH: Agreed (Kat Garcia DO) Nursing Documentation-PMH Past Medical History: No History, Except For Hx Hypertension: Yes Hx Diabetes: Yes Hx Cancer: No Hx Gastrointestinal Problems: No Hx Cerebrovascular Accident: Yes Hx Parkinson's Disease: Yes Hx Seizures: Yes Hx Tremors: Yes Hx Dizziness: Yes Hx Weakness: Yes Hx Neurologic Surgery: No Hx Brain Shunt: No (Kat Garcia DO) Review of Systems All Other Systems: negative except mentioned in HPI (Kat Garcia DO) Physical Exam Vital Signs Date Time Temp Pulse Resp B/P (MAP) Pulse Ox O2 Delivery O2 Flow Rate FiO2 08/27/18 16:37 92 18 130/70 98 Room Air 08/27/18 17:27 96.0 Sp02 EP Interpretation: reviewed, normal General Appearance: no apparent distress, alert, GCS 15, non-toxic Head: normocephalic, atraumatic Eyes: bilateral eye normal inspection, bilateral eye PERRL ENT: hearing grossly normal, normal pharynx, no angioedema, normal voice Neck: full range of motion, supple/symm/no masses Respiratory: chest non-tender, lungs clear, normal breath sounds, no respiratory distress, no retraction, no accessory muscle use, speaking full sentences Cardiovascular #1: regular rate, rhythm, no edema Gastrointestinal: normal bowel sounds, non tender, soft, non-distended, no guarding, no rebound Rectal: deferred Musculoskeletal: back normal, normal range of motion, non-tender Neurologic: alert, responsive, motor strength/tone normal, sensory intact, speech normal, grossly normal Psychiatric: depressed affect Skin: warm/dry, well hydrated (Kat Garcia DO) Medical Decision Making Diagnostic Impression: Primary Impression: MDD (major depressive disorder) Qualified Codes: F33.2 - Major depressive disorder, recurrent severe without psychotic features Additional Impressions: Parkinson disease Acute alcoholic intoxication Qualified Codes: F10.920 - Alcohol use, unspecified with intoxication, uncomplicated Substance abuse Drug overdose Qualified Codes: T50.902A - Poisoning by unspecified drugs, medicaments and biological substances, intentional self-harm, initial encounter ER Course This patient has a known history of substance abuse and alcohol abuse. He presents with suicidal ideation. He is homeless. Laboratory workup and evaluation overall was benign. The patient is on a 5150. He is medically cleared for psychiatric care. He is awaiting acceptance to a psychiatric inpatient facility. Laboratory Tests Test 08/27/18 17:03 08/27/18 17:15 White Blood Count 6.2 K/UL (4.8-10.8) Red Blood Count 4.48 M/UL (4.70-6.10) L Hemoglobin 14.5 G/DL (14.2-18.0) Hematocrit 44.6 % (42.0-52.0) Mean Corpuscular Volume 100 FL (80-99) H Mean Corpuscular Hemoglobin 32.5 PG (27.0-31.0) H Mean Corpuscular Hemoglobin Concent 32.6 G/DL (32.0-36.0) Red Cell Distribution Width 13.9 % (11.6-14.8) Platelet Count 399 K/UL (150-450) Mean Platelet Volume 5.4 FL (6.5-10.1) L Neutrophils (%) (Auto) 59.4 % (45.0-75.0) Lymphocytes (%) (Auto) 27.6 % (20.0-45.0) Monocytes (%) (Auto) 9.9 % (1.0-10.0) Eosinophils (%) (Auto) 2.3 % (0.0-3.0) Basophils (%) (Auto) 0.8 % (0.0-2.0) Sodium Level 139 MMOL/L (136-145) Potassium Level 4.4 MMOL/L (3.5-5.1) Chloride Level 104 MMOL/L (98-107) Carbon Dioxide Level 22 MMOL/L (21-32) Anion Gap 13 mmol/L (5-15) Blood Urea Nitrogen 12 mg/dL (7-18) Creatinine 1.2 MG/DL (0.55-1.30) Estimate Glomerular Filtration Rate > 60 mL/min (>60) Glucose Level 78 MG/DL (74-106) Calcium Level 8.7 MG/DL (8.5-10.1) Total Bilirubin 0.5 MG/DL (0.2-1.0) Aspartate Amino Transferase (AST) 75 U/L (15-37) H Alanine Aminotransferase (ALT) 38 U/L (12-78) Alkaline Phosphatase 88 U/L (46-116) Total Protein 7.0 G/DL (6.4-8.2) Albumin 3.5 G/DL (3.4-5.0) Globulin 3.5 g/dL Albumin/Globulin Ratio 1.0 (1.0-2.7) Thyroid Stimulating Hormone (TSH) 1.077 uiU/mL (0.358-3.740) Salicylates Level 0.9 ug/mL (2.8-20) L Acetaminophen Level < 2 MCG/ML (10-30) L Serum Alcohol 202 mg/dL Urine Color Pale yellow Urine Appearance Clear Urine pH 5 (4.5-8.0) Urine Specific [place] 1.020 (1.005-1.035) Urine Protein Negative (NEGATIVE) Urine Glucose (UA) Negative (NEGATIVE) Urine Ketones Negative (NEGATIVE) Urine Blood 4+ (NEGATIVE) H Urine Nitrite Negative (NEGATIVE) Urine Bilirubin Negative (NEGATIVE) Urine Urobilinogen Normal MG/DL (0.0-1.0) Urine Leukocyte Esterase Negative (NEGATIVE) Urine RBC 10-15 /HPF (0 - 0) H Urine WBC 0-2 /HPF (0 - 0) Urine Squamous Epithelial Cells Occasional /LPF Urine Bacteria Occasional /HPF (NONE) Urine Opiates Screen Negative (NEGATIVE) Urine Barbiturates Screen Negative (NEGATIVE) Phencyclidine (PCP) Screen Negative (NEGATIVE) Urine Amphetamines Screen Positive (NEGATIVE) H Urine Benzodiazepines Screen Positive (NEGATIVE) H Urine Cocaine Screen Negative (NEGATIVE) Urine Marijuana (THC) Screen Positive (NEGATIVE) H (Kat Garcia DO) ER Course Patient signout to me. This patient has history of chronic pain with drugs and alcohol abuse. He's been here numerous times. He called 911 because he said he was suicidal and overdose on his gabapentin. Alcohol level is elevated. Drug screen is positive. Alcohol level is now normal. He is medically clear for psychiatric evaluation. Patient is been comfortable through the night. (Andre Deng MD) EKG Diagnostic Results Rate: normal Rhythm: NSR ST Segments: no acute changes Other Impression LAFB (Kat Garcia DO) Rhythm Strip Diag. Results EP Interpretation: yes Rate: 80's Rhythm: NSR, no PVC's, no ectopy (Kat Garcia DO) Last Vital Signs Date Time Temp Pulse Resp B/P (MAP) Pulse Ox O2 Delivery O2 Flow Rate FiO2 08/27/18 17:27 96.0 77 18 103/70 99 Room Air (Kat Garcia DO) Status: improved (Andre Deng MD) Disposition: XFER TO PSYCH HOSP/UNIT Condition: Stable Referrals: [facility]ERR[facility] (PCP) Kat Garcia DO Aug 27, 2018 17:48 Andre Deng MD Aug 28, 2018 05:36
[2018-08-27 19:00] VITALS: BP 116/64
[2018-08-27 21:00] VITALS: BP 129/76
[2018-08-27 23:00] VITALS: BP 138/67
[2018-08-28] VITALS (8 sets, daily range): BP systolic 106–136; BP diastolic 65–83
--- NOTE | 2018-08-28 15:57 | Emergency Room Report ---
Physical Exam Vital Signs Date Time Temp Pulse Resp B/P (MAP) Pulse Ox O2 Delivery O2 Flow Rate FiO2 08/27/18 16:37 92 18 130/70 98 Room Air 08/27/18 17:27 96.0 Medical Decision Making Diagnostic Impression: Primary Impression: MDD (major depressive disorder) Qualified Codes: F33.2 - Major depressive disorder, recurrent severe without psychotic features Additional Impressions: Substance abuse Parkinson disease Acute alcoholic intoxication Qualified Codes: F10.920 - Alcohol use, unspecified with intoxication, uncomplicated ER Course Hospital Course 58-year-old male presenting with 5150 hold. Stating that he wants to kill himself Clinical course Patient initially seen and evaluated by Dr. Spencer; please see her note for full history and physical Patient has been medically cleared. Acting appropriately in ED. U tox positive for amphetamines and marijuana Patient evaluated by Dr. Garcia (psychiatry); shepatient very well. States that patient was discharged under her care from [facility] last week. On reassessment today patient denies SI or HI. Admits to drug use. based on her assessment, patient is not a danger to himself or others at this time. I agree with her assessment. Patient is well-known to [facility] has been here multiple times for similar presentation. 5150 hold will be lifted. Patient will be discharged to home at this time. Mental health referrals will be provided. Instructed on the dangers of substance abuse i. I feel this is a highly complex case requiring extensive working including EKG/Rhythm strip, Xray/CT/US, Blood/urine lab work, repeat exams while in ED, and administration of strong opiates/narcotics for pain control, admission to hospital or close patient follow up. Diagnosis - mdd, substance abuse, parkinson disease, alcohol intoxication Stable and discharged to home. Followup with PMD/psychiatrist. Return to ED if symptoms recur or worsen Labs Test 08/27/18 17:03 08/27/18 17:15 08/28/18 04:20 White Blood Count 6.2 K/UL (4.8-10.8) Red Blood Count 4.48 M/UL (4.70-6.10) Hemoglobin 14.5 G/DL (14.2-18.0) Hematocrit 44.6 % (42.0-52.0) Mean Corpuscular Volume 100 FL (80-99) Mean Corpuscular Hemoglobin 32.5 PG (27.0-31.0) Mean Corpuscular Hemoglobin Concent 32.6 G/DL (32.0-36.0) Red Cell Distribution Width 13.9 % (11.6-14.8) Platelet Count 399 K/UL (150-450) Mean Platelet Volume 5.4 FL (6.5-10.1) Neutrophils (%) (Auto) 59.4 % (45.0-75.0) Lymphocytes (%) (Auto) 27.6 % (20.0-45.0) Monocytes (%) (Auto) 9.9 % (1.0-10.0) Eosinophils (%) (Auto) 2.3 % (0.0-3.0) Basophils (%) (Auto) 0.8 % (0.0-2.0) Sodium Level 139 MMOL/L (136-145) Potassium Level 4.4 MMOL/L (3.5-5.1) Chloride Level 104 MMOL/L (98-107) Carbon Dioxide Level 22 MMOL/L (21-32) Anion Gap 13 mmol/L (5-15) Blood Urea Nitrogen 12 mg/dL (7-18) Creatinine 1.2 MG/DL (0.55-1.30) Estimat Glomerular Filtration Rate > 60 mL/min (>60) Glucose Level 78 MG/DL (74-106) Calcium Level 8.7 MG/DL (8.5-10.1) Total Bilirubin 0.5 MG/DL (0.2-1.0) Aspartate Amino Transf (AST/SGOT) 75 U/L (15-37) Alanine Aminotransferase (ALT/SGPT) 38 U/L (12-78) Alkaline Phosphatase 88 U/L (46-116) Total Protein 7.0 G/DL (6.4-8.2) Albumin 3.5 G/DL (3.4-5.0) Globulin 3.5 g/dL Albumin/Globulin Ratio 1.0 (1.0-2.7) Thyroid Stimulating Hormone (TSH) 1.077 uiU/mL (0.358-3.740) Salicylates Level 0.9 ug/mL (2.8-20) Acetaminophen Level < 2 MCG/ML (10-30) Serum Alcohol 202 mg/dL 13 mg/dL Urine Color Pale yellow Urine Appearance Clear Urine pH 5 (4.5-8.0) Urine Specific [place] 1.020 (1.005-1.035) Urine Protein Negative (NEGATIVE) Urine Glucose (UA) Negative (NEGATIVE) Urine Ketones Negative (NEGATIVE) Urine Blood 4+ (NEGATIVE) Urine Nitrite Negative (NEGATIVE) Urine Bilirubin Negative (NEGATIVE) Urine Urobilinogen Normal MG/DL (0.0-1.0) Urine Leukocyte Esterase Negative (NEGATIVE) Urine RBC 10-15 /HPF (0 - 0) Urine WBC 0-2 /HPF (0 - 0) Urine Squamous Epithelial Cells Occasional /LPF Urine Bacteria Occasional /HPF (NONE) Urine Opiates Screen Negative (NEGATIVE) Urine Barbiturates Screen Negative (NEGATIVE) Phencyclidine (PCP) Screen Negative (NEGATIVE) Urine Amphetamines Screen Positive (NEGATIVE) Urine Benzodiazepines Screen Positive (NEGATIVE) Urine Cocaine Screen Negative (NEGATIVE) Urine Marijuana (THC) Screen Positive (NEGATIVE) Last Vital Signs Date Time Temp Pulse Resp B/P (MAP) Pulse Ox O2 Delivery O2 Flow Rate FiO2 08/28/18 13:30 97.4 92 19 126/77 96 Room Air Status: improved Disposition: HOME, SELF-CARE Condition: Stable Referrals: [facility]ERR[facility] (PCP) [facility] - Peds ER - [facility] Intake Hotline - Patient Instructions: Finding Treatment for Addiction Epifanio Haider MD Aug 28, 2018 15:57
--- NOTE | 2018-08-29 | Consultation ---
DATE OF CONSULTATION: 08/28/2018 CONSULTING PHYSICIAN: Angelic Garica M.D. HISTORY OF PRESENT ILLNESS: The patient is a 58-year-old male with a history of depression and substance abuse disorder who was brought into the emergency room after he called and stated that he overdosed on clonidine. This patient is well known to me. He was hospitalized in a psychiatric cazares at [facility]. He was evaluated at [place]. The patient requested to be released 3 days after. Upon discharge, the patient stated he was still suicidal. He stated his house is not clean and since he is disabled, nobody is able to clean the house . Today upon evaluation, he stated that he took a bottle of clonidine and upon discharge from [facility], he was supposed to see a psychiatrist. He did not see a psychiatrist and he has been using methamphetamines and alcohol as well as opiates and benzodiazepines. Today, he did not state that he was suicidal. He stated he needs "a break" from his house. The patient is not an imminent danger to self or others. PAST PSYCHIATRIC HISTORY: Has a history of depression as well as substance abuse. Has poor compliance with seeing his psychiatrist and therapist. PAST MEDICAL HISTORY: He is wheelchair bound however he is able to walk. Please see medical records. ALLERGIES: No known drug allergies. SUBSTANCE ABUSE HISTORY: Very extensive with opiates, methamphetamine, benzodiazepines, and alcohol as well as weed. MENTAL STATUS EXAMINATION: The patient is alert and oriented to time, self, place, and situation. He was cooperative with examination. Mood is depressed. Affect is constricted, congruent with mood. Thought process is linear and goal oriented. Thought content, no suicidal or homicidal ideation. No psychotic symptoms. Insight and judgment is fair. ASSESSMENT: [place] I Polysubstance dependence. Major depressive disorder, rule out substance-induced mood disorder. [place] II Deferred. [place] III As above. [place] IV Low to moderate. [place] V 60. PLAN: 1. The patient will be discharged from the ER. The patient is not an imminent danger to self or others. We will discontinue the 5150. 2. We will not prescribe any medication as he received a prescription last week from this physician. Discussed with the charge nurse and ER doctor. Angelic Garcia M.D. DR: LINNEA JOB#: [id number] CC:
== END 2018-08-28 17:35 | disposition home or self-care (01) ==
LOC: EDBD 16:39 → EMR 16:45
DX: F33.2 Major depressive disorder, recurrent severe without psychotic features (principal); G20 Parkinson's disease; F10.120 Alcohol abuse with intoxication, uncomplicated; F15.10 Other stimulant abuse, uncomplicated; F12.10 Cannabis abuse, uncomplicated; I10 Essential (primary) hypertension; E11.9 Type 2 diabetes mellitus without complications; Z88.1 Allergy status to other antibiotic agents
CPT/HCPCS: 36415; 80053; 80307; 80329; 81003; 84443; 85025; 93005; 96360; 99285

== ENCOUNTER 2019-02-18 15:46 | Emergency (ER) | payer OTHER ==
[~2019-02-18] VITALS: Ht 177.8 cm; Wt 99.8 kg
--- NOTE | 2019-02-18 15:46 | NUR ---
ED Nurse Note: Patient brought in by ambulance RA 57 resident of [facility] EMS reports that he resides, was found on the wheelchair altered, the wheel chair was taken back to the resident per EMS. Residential staff reports that he has been drinking alcohol. Patient is altered at the moment, wakes up with sternal rub, does not follow any direction.
--- NOTE | 2019-02-18 16:21 | Emergency Room Report ---
History of Present Illness General Chief Complaint: Altered Mental Status Source: Medical Record, EMS (Sam Richey MD) Present Illness HPI 58-year-old male history of alcohol abuse presents with altered mental status after drinking alcohol, [facility], EMS was called because he was acutely intoxicated and minimally responsive, unable to obtain a history he does not when asked if he drinks alcohol, he has no complaints however history is limited technically due to his intoxication. (Sam Richey MD) Allergies: Coded Allergies: ERYTHROMYCIN BASE (Unverified Allergy, Unknown, 12/15/17) VANCOMYCIN (Verified Allergy, Unknown, 08/01/15) Patient History Limited by: medical condition - intoxicated Past Medical History: see triage record Social History: Reports: alcohol use Reviewed Nursing Documentation: PMH: Agreed; PSxH: Agreed (Sam Richey MD) Nursing Documentation-PMH Past Medical History: No History, Except For Hx Hypertension: Yes Hx Diabetes: Yes Hx Cancer: No Hx Gastrointestinal Problems: No Hx Cerebrovascular Accident: Yes Hx Parkinson's Disease: Yes Hx Seizures: Yes Hx Tremors: Yes Hx Dizziness: Yes Hx Weakness: Yes Hx Neurologic Surgery: No Hx Brain Shunt: No (Sam Richey MD) Review of Systems All Other Systems: limited - intoxicated (Sam Richey MD) Physical Exam Vital Signs Date Time Temp Pulse Resp B/P (MAP) Pulse Ox O2 Delivery O2 Flow Rate FiO2 02/18/19 15:39 92 16 120/86 (97) 95 Nasal Cannula 4.0 Sp02 EP Interpretation: reviewed, normal General Appearance: alert, non-toxic, other - Sleepy at times Head: normocephalic, atraumatic Eyes: bilateral eye PERRL, bilateral eye EOMI ENT: uvula midline, moist mucus membranes Neck: supple, thyroid normal, supple/symm/no masses Respiratory: lungs clear, no respiratory distress, no retraction, no accessory muscle use Cardiovascular #1: normal peripheral pulses, regular rate, rhythm, no edema, no gallop, no murmur Gastrointestinal: non tender, soft, no guarding, no rebound Musculoskeletal: normal inspection Neurologic: alert, responsive - when woken up Psychiatric: mood/affect normal Skin: no rash, warm/dry (Sam Richey MD) Medical Decision Making Diagnostic Impression: Primary Impression: Altered mental status Qualified Codes: R41.82 - Altered mental status, unspecified Additional Impressions: Acute alcoholic intoxication Qualified Codes: F10.920 - Alcohol use, unspecified with intoxication, uncomplicated Parkinson disease History of craniotomy Status post CVA ER Course 58-year-old male presents with acute alcohol intoxication, differential diagnosis includes AMS, stroke, alcohol intoxication banana bag, Librium given Reevaluation at 7:30 PM, patient is back to baseline Will transfer patient back to assisted living Laboratory Tests Test 02/18/19 16:05 White Blood Count 7.1 K/UL (4.8-10.8) Red Blood Count 5.20 M/UL (4.70-6.10) Hemoglobin 17.1 G/DL (14.2-18.0) Hematocrit 49.6 % (42.0-52.0) Mean Corpuscular Volume 95 FL (80-99) Mean Corpuscular Hemoglobin 32.9 PG (27.0-31.0) H Mean Corpuscular Hemoglobin Concent 34.5 G/DL (32.0-36.0) Red Cell Distribution Width 11.8 % (11.6-14.8) Platelet Count 338 K/UL (150-450) Mean Platelet Volume 6.0 FL (6.5-10.1) L Neutrophils (%) (Auto) 69.9 % (45.0-75.0) Lymphocytes (%) (Auto) 21.1 % (20.0-45.0) Monocytes (%) (Auto) 7.9 % (1.0-10.0) Eosinophils (%) (Auto) 0.6 % (0.0-3.0) Basophils (%) (Auto) 0.5 % (0.0-2.0) Sodium Level 146 MMOL/L (136-145) H Potassium Level 3.4 MMOL/L (3.5-5.1) L Chloride Level 103 MMOL/L (98-107) Carbon Dioxide Level 30 MMOL/L (21-32) Anion Gap 13 mmol/L (5-15) Blood Urea Nitrogen 10 mg/dL (7-18) Creatinine 1.1 MG/DL (0.55-1.30) Estimate Glomerular Filtration Rate > 60 mL/min (>60) Glucose Level 105 MG/DL (74-106) Calcium Level 9.3 MG/DL (8.5-10.1) Total Bilirubin 1.3 MG/DL (0.2-1.0) H Direct Bilirubin 0.3 MG/DL (0.0-0.3) Aspartate Amino Transferase (AST) 24 U/L (15-37) Alanine Aminotransferase (ALT) 13 U/L (12-78) Alkaline Phosphatase 100 U/L (46-116) Total Protein 7.9 G/DL (6.4-8.2) Albumin 4.2 G/DL (3.4-5.0) Globulin 3.7 g/dL Albumin/Globulin Ratio 1.1 (1.0-2.7) Salicylates Level < 0.2 ug/mL (2.8-20) L Urine Opiates Screen Negative (NEGATIVE) Acetaminophen Level < 2 MCG/ML (10-30) L Urine Barbiturates Screen Negative (NEGATIVE) Phencyclidine (PCP) Screen Negative (NEGATIVE) Urine Amphetamines Screen Negative (NEGATIVE) Urine Benzodiazepines Screen Negative (NEGATIVE) Urine Cocaine Screen Negative (NEGATIVE) Urine Marijuana (THC) Screen Positive (NEGATIVE) H Serum Alcohol 291 mg/dL (Sam Richey MD) ER Course Patient sleeping. Easily aroused. Attempts at discharging patient meeting difficulty. At 10:00 we are able to contact where he lives and they are claiming that they do not want to take him back because he was drunk belligerent and threatening there is staff. He was threatening to run them over with his electric wheel chair. Social service consult ordered at this time. RN discussed with Computer Technology Trainer (with [employer]) Alec. She states where he lives cannot refuse to take him back. This feel through and his foster care case manager is coming to work on disposition. Patient c/w tremor and pain. Sinemet and Gabapentin ordered. His foster care case manager came and arranged for him to go back to his apartment (sounds like assisted living). (In the past, the patient has been able to walk several steps on own.) (Isidro Kendall MD) Rhythm Strip Diag. Results Rhythm Strip Time: 16:43 EP Interpretation: yes Rate: 88 Rhythm: NSR, no PVC's, no ectopy (Sam Richey MD) Last Vital Signs Date Time Temp Pulse Resp B/P (MAP) Pulse Ox O2 Delivery O2 Flow Rate FiO2 02/18/19 16:13 92 16 Nasal Cannula 4.0 02/18/19 15:39 120/86 (97) 95 (Sam Richey MD) Status: improved (Isidro Kendall MD) Disposition: HOME, SELF-CARE Condition: Improved Referrals: [facility] Patient Instructions: Alcohol Intoxication, [id number] Additional Instructions: The patient was provided with discharge instructions, notified to follow-up with a primary care doctor and or specialist in the next 24-48 hours, and to return to the ED if they have worsening of their symptoms. Please note that this report is being documented using [employer] technology. This can lead to erroneous entry secondary to incorrect interpretation by the dictating instrument. Sam Richey MD Feb 18, 2019 16:21 Isidro Kendall MD Feb 19, 2019 10:07
[2019-02-18 16:22] VITALS: BP 115/78
[2019-02-18 16:24] LABS: BASOPHILS % (AUTO) 0.5 % (0.0-2.0); EOSINOPHILS % (AUTO) 0.6 % (0.0-3.0); HEMATOCRIT 49.6 % (42.0-52.0); HEMOGLOBIN 17.1 G/DL (14.2-18.0); LYMPHOCYTES % (AUTO) 21.1 % (20.0-45.0); MEAN CORPUSCULAR VOLUME 95 FL (80-99); MONOCYTES % (AUTO) 7.9 % (1.0-10.0); NEUTROPHILS % (AUTO) 69.9 % (45.0-75.0); PLATELET COUNT 338 K/UL (150-450); RED CELL DISTRIBUTION WIDTH 11.8 % (11.6-14.8); WHITE BLOOD COUNT 7.1 K/UL (4.8-10.8)
--- NOTE | 2019-02-18 16:40 | NUR ---
ED Nurse Note: applied 2L NC for patient's O2 sat 86%, on NC 2L, 98%.
[2019-02-18 16:43] LABS: ANION GAP 13 mmol/L (5-15); BLOOD UREA NITROGEN 10 mg/dL (7-18); CALCIUM 9.3 MG/DL (8.5-10.1); CARBON DIOXIDE 30 MMOL/L (21-32); CHLORIDE 103 MMOL/L (98-107); CREATININE 1.1 MG/DL (0.55-1.30); POTASSIUM 3.4 MMOL/L (3.5-5.1); SODIUM 146 MMOL/L (136-145)
[2019-02-18 16:48] LABS: ALANINE AMINOTRANSFERASE 13 U/L (12-78); ALBUMIN 4.2 G/DL (3.4-5.0); ALBUMIN/GLOBULIN RATIO 1.1 (1.0-2.7); ALKALINE PHOSPHATASE 100 U/L (46-116); ASPARTATE AMINO TRANSFERASE 24 U/L (15-37); BILIRUBIN,TOTAL 1.3 MG/DL (0.2-1.0)
[2019-02-18 16:49] LABS: BILIRUBIN,DIRECT 0.3 MG/DL (0.0-0.3)
[2019-02-18 17:05] VITALS: BP 118/77
[2019-02-18] MEDS ORDERED: Folic Acid 1 MG, Magnesium Sulfate 2,000 MG, Multivitamin - 12 Injection 10 ML, Thiamin... IV ONE ×5 (18:30)
[2019-02-18] MEDS ORDERED: LORazepam Inj 2mg/ml 1ml IV ONE (18:30)
[2019-02-18] MEDS ORDERED: Levodopa/Carbidopa 25/100 tab ORAL ONE (18:45)
[2019-02-18] MEDS ORDERED: Folic Acid 1 MG, Magnesium Sulfate 2,000 MG, Multivitamin - 12 Injection 10 ML in Sodiu... IV ONE (18:45)
[2019-02-18] MEDS ORDERED: Thiamine HCl 100 MG in D5W 55 ML IV ONE (18:45)
[2019-02-18] MEDS ORDERED: chlordiazePOXIDE 25mg Cap ORAL ONE ×2 (18:45→20:00)
[2019-02-18 18:55] VITALS: BP 137/97
--- NOTE | 2019-02-18 18:56 | NUR ---
ED Nurse Note: patient is now awake and alert, a/o x2, still taking sentences that does not make sense. patient reported pain on his back requested to get his sinemet, he reports he takes 25/100, notified to Dr Richey, received order, administered as ordered. patient is on surveillance system monitor, on ST, orders carried out.
--- NOTE | 2019-02-18 19:05 | NUR ---
HAND-OFF: Report given to Do GAMEZ.
--- NOTE | 2019-02-18 19:06 | NUR ---
ED Nurse Note: report received from FRANCO Santos. pt in bed awake. no acute distress is noted.
--- NOTE | 2019-02-18 20:00 | NUR ---
called bozena garvin no answer . [facility] unable to transport patient due to no one is answering the phone at [facility]
[2019-02-18 21:05] VITALS: BP 130/90
--- NOTE | 2019-02-18 21:19 | NUR ---
ED Nurse Note: pt in bed awake. VSS.
--- NOTE | 2019-02-18 22:56 | NUR ---
ED Nurse Note: pt vomitted x1 . zofran IVP administered. pt is in bed resting at this time. VSS
[2019-02-18 23:38] VITALS: BP 136/86
[2019-02-19] VITALS (7 sets, daily range): BP systolic 117–136; BP diastolic 73–90
--- NOTE | 2019-02-19 00:12 | NUR ---
called lisette regarding transportation [facility] they goint to send taxi to take [facility] back to [facility]. but their transportation for [facility] will be here to take patient back due to [facility] doesnot work in the night . also joe states patient doesnot meet the critiria for regular ambulance transport.so i have no choice to keep him untill 0500. called lisette @ and spoke to josh.called [facility] transport and spoke to [phone]
--- NOTE | 2019-02-19 01:57 | NUR ---
ED Nurse Note: pt is in bed with eyes closed, appears to be sleeping . VSS.
--- NOTE | 2019-02-19 04:19 | NUR ---
ED Nurse Note: pt in bed with eyes closed. no Acute distrss is noted at this time. VSS
--- NOTE | 2019-02-19 04:45 | NUR ---
joe from [facility] called back states he is unable to find transport @0500 but will trnasfer patient before 0800
--- NOTE | 2019-02-19 06:12 | NUR ---
ED Nurse Note: assisted pt to urinate, changed gown and bed linens. Pt VSS. no acute distress noted.
--- NOTE | 2019-02-19 08:33 | NUR ---
ED Nurse Note: resumed care at 0710 pt on monitor sleeping vss . breakfast at bedside. pt woke up at 0815 speaking in clear sentences siderails up bed in low locked position . attempting to contact facility where pt came from .
--- NOTE | 2019-02-19 10:25 | NUR ---
ED Nurse Note: Rohini from [facility] with [employer] is pt's counter caser . contact #[phone]. Spoke with Rohini to confirm pt's residential status waiting for call back.
--- NOTE | 2019-02-19 11:25 | NUR ---
Social Service Note Patient is a resident of [facility] [id number] [phone]. Patient recieved a 30 day letter to evict on 02/16/19. Patient was intoxicated in front of facility. Patient's electric wheelchair was brought back into facility. Facility will not accept patient back. EMELIA called multiple times to speak with [facility] safety administrator. [facility] is out of the building but has advised staff that they will not accept patient. Message left for Alen Vail [phone] own of facility, no return call. EMELIA spoke with Alec [phone] transplant case manager for homeless [facility]. Alec states she is [place] [facility] [place] she has also been informed patient can not return to faciliy. Alec may possibly have a board and care that is willing to accept patient. EMELIA informed primary nurse. Will continue to monitor.
[2019-02-19] MEDS ORDERED: Levodopa/Carbidopa 25/100 tab ORAL STA (11:31)
--- NOTE | 2019-02-19 11:31 | NUR ---
ED Nurse Note: Rohini pt's skilled nursing case manager got verbal consent from pt via portable phone . Per Rohini pt ok to go back to facility. Pt's Iv removed . Pt assisted to bedside camode will check pt in a few minutes.
--- NOTE | 2019-02-19 11:35 | NUR ---
ED Nurse Note: Spoke with Vidya KAPOOR was informed facility refused to take pt. Rohini assistant store manager trainee on her way to ER to find new boarding facility.
--- NOTE | 2019-02-19 11:36 | NUR ---
ED Nurse Note: pt c/o shaking and back pain ermd informed will medicate pt.
--- NOTE | 2019-02-19 11:49 | NUR ---
ED Nurse Note: pt medicated and assisted back to bed [place] care done. Pt's case repairer Rohini at bedside now.
--- NOTE | 2019-02-19 13:58 | NUR ---
ED Nurse Note: provided pt with a lunch tray . pt ate 98 % of tray without assist. post medication tremors stoped and pt stated no pain 0/10.
--- NOTE | 2019-02-19 14:00 | NUR ---
ED Nurse Note: pt picked up via [facility] . pt tx'd to [facility] . Rohini Pizza Cook was able to arrange re-admission to residential facility.
--- NOTE | 2019-02-19 14:06 | NUR ---
ED Nurse Note: Pt cleared by health care Provider for discharge. DC instruction was given and explained to pt and verbalized understanding of teachings. All medical deviecs such as ID band removed. Pt is AAO x4, ambulatory and left with all personal belongings.
== END 2019-02-19 14:07 | disposition home or self-care (01) ==
LOC: EDBD 15:46 → EMR 16:30
DX: R41.82 Altered mental status, unspecified (principal); F10.920 Alcohol use, unspecified with intoxication, uncomplicated; G20 Parkinson's disease; Z86.73 Personal history of transient ischemic attack (TIA), and cerebral infarction without residual deficits; E11.9 Type 2 diabetes mellitus without complications; I10 Essential (primary) hypertension; Y90.8 Blood alcohol level of 240 mg/100 ml or more; Z98.890 Other specified postprocedural states
CPT/HCPCS: 36415; 80053; 80196; 80307; 80329; 82248; 82962; 85025; 96365; 96366; 96368; 96375; J2405; Z7502; 99284